=== PATIENT | female | born 1980 | race Caucasian/White ===

== ENCOUNTER 2019-02-28 21:34 | Emergency (ER) | payer OTHER ==
[2019-02-28 23:26] LABS: Potassium 3.6 mmol/L (3.5-5.1)
[2019-03-01] LABS: Absolute Lymphocytes (CBC) 3.3 K/uL (0.7-4.9); Basophils % 0.5 % (0-1.3); Hematocrit 36.9 % (36.0-45.0); Lymphocytes % 31.1 % (15.3-44.8); MPV 8.5 fL (7.6-11.3); RBC Red Blood Cell Count 4.32 M/uL (3.86-4.86)
[2019-03-01] MEDS ORDERED: NA CHLORIDE 0.9% 1,000 ML ONE (00:13)
[2019-03-01 00:19] LABS: Urine Blood TRACE (NEG); Urine Glucose NEGATIVE (NEG); Urine Protein NEGATIVE (NEG); Urine Specific Gravity >1.030 (1.005-1.030); Urine pH 5.5 (5.0-7.0)
--- NOTE | 2019-03-01 01:02 | EDPHYS ---
Physician Documentation [facility] Name: Janine Mcgregor Age: 38 yrs Sex: Female : 1980 Arrival Date: 02/28/2019 Time: 21:37 Bed 14 Private MD: ED Physician Jose Roberto Mccracken HPI: 02/28 23:26 This 38 yrs old Female presents to ER via Unassigned with complaints of kb Dizziness, Weakness. 23:26 The patient presents with dizziness. Onset: The symptoms/episode began/occurred 5 kb week(s) ago. Context: occurred at home, occurred while the patient was walking, just prior to the episode the patient experienced no apparent symptoms. Modifying factors: The symptoms are alleviated by nothing, the symptoms are aggravated by standing up, changing position. Associated signs and symptoms: The patient has no apparent associated signs or symptoms. Severity of symptoms: At their worst the symptoms were moderate in the emergency department the symptoms are unchanged. Patient's baseline: Neuro: alert and fully oriented, Motor: no deficits, Ambulation: walks without assistance, Speech: normal. The patient has not experienced similar symptoms in the past. The patient has not recently seen a physician. Pt reports dizziness for 5 weeks. Today she was walking in [employer] and felt like she was going to pass out so she came in. 7 weeks . Historical: - Allergies: 23:40 PENICILLINS; fu - PMHx: 23:43 Depression; fu - PSHx: 23:43 None; fu - Immunization history:: Adult Immunizations not up to date. - Social history:: Smoking status: Patient/guardian denies using tobacco, never smoked. - Ebola Screening: : No symptoms or risks identified at this time. ROS: 23:26 Constitutional: Negative for fever, chills, and weight loss, Neck: Negative for injury, kb pain, and swelling, Cardiovascular: Negative for chest pain, palpitations, and edema, Respiratory: Negative for shortness of breath, cough, wheezing, and pleuritic chest pain, Abdomen/GI: Negative for abdominal pain, nausea, vomiting, diarrhea, and constipation, Back: Negative for injury and pain, : Negative for injury, bleeding, discharge, and swelling, MS/Extremity: Negative for injury and deformity, Skin: Negative for injury, rash, and discoloration. 23:26 Neuro: Positive for dizziness. Exam: 23:26 Constitutional: This is a well developed, well nourished patient who is awake, alert, kb and in no acute distress. Head/Face: Normocephalic, atraumatic. Eyes: Pupils equal round and reactive to light, extra-ocular motions intact. Lids and lashes normal. Conjunctiva and sclera are non-icteric and not injected. Cornea within normal limits. Periorbital areas with no swelling, redness, or edema. ENT: Nares patent. No nasal discharge, no septal abnormalities noted. Tympanic membranes are normal and external auditory canals are clear. Oropharynx with no redness, swelling, or masses, exudates, or evidence of obstruction, uvula midline. Mucous membranes moist. Neck: Trachea midline, no thyromegaly or masses palpated, and no cervical lymphadenopathy. Supple, full range of motion without nuchal rigidity, or vertebral point tenderness. No Meningismus. Chest/axilla: Normal chest wall appearance and motion. Nontender with no deformity. No lesions are appreciated. Cardiovascular: Regular rate and rhythm with a normal S1 and S2. No gallops, murmurs, or rubs. Normal PMI, no JVD. No pulse deficits. Respiratory: Lungs have equal breath sounds bilaterally, clear to auscultation and percussion. No rales, rhonchi or wheezes noted. No increased work of breathing, no retractions or nasal flaring. Abdomen/GI: Soft, non-tender, with normal bowel sounds. No distension or tympany. No guarding or rebound. No evidence of tenderness throughout. Skin: Warm, dry with normal turgor. Normal color with no rashes, no lesions, and no evidence of cellulitis. MS/ Extremity: Pulses equal, no cyanosis. Neurovascular intact. Full, normal range of motion. Neuro: Awake and alert, GCS 15, oriented to person, place, time, and situation. Cranial nerves II-XII grossly intact. Motor strength 5/5 in all extremities. Sensory grossly intact. Cerebellar exam normal. Normal gait. Vital Signs: 22:41 BP 120 / 77 Supine; Pulse 74; Resp 18; Temp 98.3; Pulse Ox 100% ; Pain 0/10; fu 22:41 BP 113 / 83 Sitting; Pulse 71; Pulse Ox 99% on R/A; fu 22:41 BP 118 / 71 Standing; Pulse 78; Pulse Ox 100% ; Pain 0/10; fu 03/01 00:00 BP 113 / 69; Pulse 71; Resp 17; Pulse Ox 99% ; Pain 0/10; fu 00:48 BP 92 / 61; Pulse 65; Resp 18; Pulse Ox 99% ; Pain 0/10; fu NIH Stroke Scale Scores: 02/28 23:44 NIHSS Score: 0 fu MDM: 22:22 Patient medically screened. kb 23:25 Data reviewed: vital signs, nurses notes. Data interpreted: Pulse oximetry: on room air kb is 100 %. Interpretation: normal. 03/01 00:43 Counseling: I had a detailed discussion with the patient and/or guardian regarding: the kb historical points, exam findings, and any diagnostic results supporting the discharge/admit diagnosis, lab results, the need for outpatient follow up, a family practitioner, to return to the emergency department if symptoms worsen or persist or if there are any questions or concerns that arise at home. ED course: Pt does not want meclizine due to . Educated to increase fluids and change positions slowly. Pt will return for worsening symptoms. . 02/28 22:42 Order name: CBC with Diff; Complete Time: 00:03 kb 02/28 22:42 Order name: Basic Metabolic Panel; Complete Time: 23:27 kb 02/28 22:42 Order name: Urine Dipstick-Ancillary (obtain specimen); Complete Time: 23:25 kb 02/28 23:26 Order name: Urine Dipstick--Ancillary (enter results); Complete Time: 00:22 ar5 02/28 23:26 Order name: Urine --Ancillary (enter results); Complete Time: 00:22 ar5 02/28 22:42 Order name: Orthostatics; Complete Time: 22:43 kb 02/28 22:42 Order name: IV Start; Complete Time: 23:06 kb Administered Medications: 00:13 Drug: NS 0.9% 1000 ml Route: IV; Rate: 1000 ml; Site: left forearm; fu 01:05 Follow up: Response: No adverse reaction fu Disposition: 02:06 Co-signature as Attending Physician, Jose Roberto Mccracken MD. rn Disposition: 03/01/19 01:01 Discharged to Home. Impression: Dizziness and giddiness. - Condition is Stable. - Discharge Instructions: Dizziness, [id number]. - Medication Reconciliation Form, Thank You Letter, Antibiotic Education, Prescription Opioid Use form. - Follow up: Emergency Department; When: As needed; Reason: Worsening of condition. Follow up: Private Physician; When: 2 - 3 days; Reason: Recheck today's complaints, Continuance of care, Re-evaluation by your physician. NIH Stroke Scale - NIH Stroke Score Date: 02/28/2019 Time: 23:44 Total Score = 0 1a. Level of Consciousness (LOC) - 0(Alert) 1b. Level of Consciousness (LOC) (Year \T\ Age) - 0(Both) 1c. LOC Commands (Open \T\ Closes Eyes/Supervisor Drying And Winding) - 0(Both) 2. Best Gaze (Lateral Gaze Paresis) - 0(Normal) 3. Visual Field Loss - 0(No visual loss) 4. Facial Palsy - 0(Normal) 5a. Left Arm: Motor (10-second hold) - 0(No drift) 5b. Right Arm: Motor (10-second hold) - 0(No drift) 6a. Left Leg: Motor (5-second hold - always test supine) - 0(No drift) 6b. Right Leg: Motor (5-second hold - always test supine) - 0(No drift) 7. Limb Ataxia (finger/nose \T\ heel/etienne - test with eyes open) - 0(Absent) 8. Sensory Loss (pinprick arms/legs/face) - 0(Normal) 9. Best Language: Aphasia (description/naming/reading) - 0(No aphasia) 10. Dysarthria (speech clarity - read or repeat words) - 0(Normal) 11. Extinction and Inattention (visual/tactile/auditory/spatial/personal) - 0(No abnormality) Initials: fu Signatures: Dispatcher [employer] EDJennifer Lay, EPIC BEACON ANALYST-C EPIC BEACON ANALYST-Ckb Jose Roberto Mccracken MD MD rn Umadhay, Felix, RN RN fu Corrections: (The following items were deleted from the chart) 01:18 01:01 03/01/2019 01:01 Discharged to Home. Impression: Dizziness and giddiness. fu Condition is Stable. Discharge Instructions: Dizziness, [id number]. Forms are Medication Reconciliation Form, Thank You Letter, Antibiotic Education, Prescription Opioid Use. Follow up: Emergency Department; When: As needed; Reason: Worsening of condition. Follow up: Private Physician; When: 2 - 3 days; Reason: Recheck today's complaints, Continuance of care, Re-evaluation by your physician. kb
--- NOTE | 2019-03-01 01:02 | ER ---
Nurse's Notes [facility] Name: Janine Mcgregor Age: 38 yrs Sex: Female : 1980 Arrival Date: 02/28/2019 Time: 21:37 Bed 14 Private MD: Diagnosis: Dizziness and giddiness Presentation: 02/28 21:40 Presenting complaint: Patient states: weakness, dizziness. Transition of care: patient fu was not received from another setting of care. No acute neurological deficit is noted. Pre-hospital glucose is not applicable to this patient. Onset of symptoms was February 28, 2019. Risk Assessment: Do you want to hurt yourself or someone else? Patient reports no desire to harm self or others. Initial Sepsis Screen: Does the patient meet any 2 criteria? No. Patient's initial sepsis screen is negative. Does the patient have a suspected source of infection? No. Patient's initial sepsis screen is negative. Care prior to arrival: None. 21:40 Method Of Arrival: Ambulatory fu 21:40 Acuity: GRIFFIN 3 fu Triage Assessment: 21:45 The onset of the patients symptoms was more than six hours ago. General: Appears in no fu apparent distress. Behavior is calm, cooperative, appropriate for age. Historical: - Allergies: 23:40 PENICILLINS; fu - PMHx: 23:43 Depression; fu - PSHx: 23:43 None; fu - Immunization history:: Adult Immunizations not up to date. - Social history:: Smoking status: Patient/guardian denies using tobacco, never smoked. - Ebola Screening: : No symptoms or risks identified at this time. Screenin/09 00:39 Abuse screen: Denies threats or abuse. Nutritional screening: No deficits noted. fu Tuberculosis screening: No symptoms or risk factors identified. Fall Risk None identified. Assessment: 02/28 22:00 General: Appears in no apparent distress. Behavior is calm, cooperative, appropriate fu for age, Denies fever, chills. Pain: Denies pain. Neuro: Level of Consciousness is awake, alert, obeys commands, Oriented to person, place, time, situation, [employer] are equal bilaterally Moves all extremities. Full function Gait is steady, Speech is normal, Facial symmetry appears normal, Pupils are PERRLA, Intact Reports dizziness, since today weakness Denies blurred vision difficulty swallowing, numbness headache. Cardiovascular: Denies chest pain, palpitations, shortness of breath, Heart tones S1 S2 Capillary refill < 3 seconds. Respiratory: Airway is patent Breath sounds are clear bilaterally. Denies cough, shortness of breath. GI: No signs and/or symptoms were reported involving the gastrointestinal system. : No signs and/or symptoms were reported regarding the genitourinary system. Derm: No signs and/or symptoms reported regarding the dermatologic system. Musculoskeletal: No signs and/or symptoms reported regarding the musculoskeletal system. 23:52 VAN Scoring: Arm Drift:. VAN Scoring: Visual Disturbance: No visual disturbance noted. fu Aphasia: No aphasia noted. Neglect: No neglect noted. 03/01 01:00 Reassessment: Patient appears in no apparent distress at this time. Patient and/or fu family updated on plan of care and expected duration. Pain level reassessed. Patient is alert, oriented x 3, equal unlabored respirations, skin warm/dry/pink. Vital Signs: 02/28 22:41 BP 120 / 77 Supine; Pulse 74; Resp 18; Temp 98.3; Pulse Ox 100% ; Pain 0/10; fu 22:41 BP 113 / 83 Sitting; Pulse 71; Pulse Ox 99% on R/A; fu 22:41 BP 118 / 71 Standing; Pulse 78; Pulse Ox 100% ; Pain 0/10; fu 03/01 00:00 BP 113 / 69; Pulse 71; Resp 17; Pulse Ox 99% ; Pain 0/10; fu 00:48 BP 92 / 61; Pulse 65; Resp 18; Pulse Ox 99% ; Pain 0/10; fu NIH Stroke Scale Scores: 02/28 23:44 NIHSS Score: 0 fu ED Course: 21:37 Patient arrived in ED. cl3 21:53 Jennifer Don FNP-C [facility]. kb 21:53 Jose Roberto Mccracken MD is Attending Physician. kb 22:29 Tom Irwin, PASTORA is Primary Nurse. fu 23:06 Basic Metabolic Panel Sent. fu 23:06 CBC with Diff Sent. fu 23:35 Triage completed. fu 03/01 00:39 Patient has correct armband on for positive identification. Bed in low position. Call fu light in reach. Side rails up X 1. 01:03 provided with blanket. fu 01:17 No provider procedures requiring assistance completed. IV discontinued, bleeding fu controlled, Pressure dressing applied. Administered Medications: 00:13 Drug: NS 0.9% 1000 ml Route: IV; Rate: 1000 ml; Site: left forearm; fu 01:05 Follow up: Response: No adverse reaction fu Outcome: 01:01 Discharge ordered by MD. schaffer 01:17 Discharged to home ambulatory. fu 01:17 Condition: stable 01:17 Discharge instructions given to patient, Instructed on discharge instructions, follow up and referral plans. Demonstrated understanding of instructions. 01:18 Patient left the ED. fu NIH Stroke Scale - NIH Stroke Score Date: 02/28/2019 Time: 23:44 Total Score = 0 1a. Level of Consciousness (LOC) - 0(Alert) 1b. Level of Consciousness (LOC) (Year \T\ Age) - 0(Both) 1c. LOC Commands (Open \T\ Closes Eyes/Gym Supervisor) - 0(Both) 2. Best Gaze (Lateral Gaze Paresis) - 0(Normal) 3. Visual Field Loss - 0(No visual loss) 4. Facial Palsy - 0(Normal) 5a. Left Arm: Motor (10-second hold) - 0(No drift) 5b. Right Arm: Motor (10-second hold) - 0(No drift) 6a. Left Leg: Motor (5-second hold - always test supine) - 0(No drift) 6b. Right Leg: Motor (5-second hold - always test supine) - 0(No drift) 7. Limb Ataxia (finger/nose \T\ heel/etienne - test with eyes open) - 0(Absent) 8. Sensory Loss (pinprick arms/legs/face) - 0(Normal) 9. Best Language: Aphasia (description/naming/reading) - 0(No aphasia) 10. Dysarthria (speech clarity - read or repeat words) - 0(Normal) 11. Extinction and Inattention (visual/tactile/auditory/spatial/personal) - 0(No abnormality) Initials: fu Signatures: Jennifer Don FNP-C FNP-Tom Kapoor RN RN Patrick Li cl3 Corrections: (The following items were deleted from the chart) 02/28 23:39 23:33 Transition of care: patient was not received from another setting of fu care. fu 23:39 23:33 No acute neurological deficit is noted. Pre-hospital glucose is not fu applicable to this patient. fu 23:33 Onset of symptoms was February 28, 2019 fu fu 23:33 Risk Assessment: Do you want to hurt yourself or someone else? Patient fu reports no desire to harm self or others. fu 23:33 Initial Sepsis Screen: Does the patient meet any 2 criteria? No. fu Patient's initial sepsis screen is negative. Does the patient have a suspected source of infection? No. Patient's initial sepsis screen is negative. fu 23:33 Care prior to arrival: None. fu fu 23:33 Method Of Arrival: Ambulatory fu fu 23:33 Acuity: GRIFFIN 3 fu fu :53 22:00 VAN Scoring: fu fu
[2019-03-01 01:28] VITALS: TEMP 98.3
[2019-03-01 01:31] VITALS: O2SAT 99
[2019-03-01 01:32] VITALS: BP 92/61
== END 2019-03-01 01:18 | disposition home or self-care (01) ==
LOC: ER 21:34
DX: R42 Dizziness and giddiness (principal); Z88.0 Allergy status to penicillin
CPT/HCPCS: 85025; 80048; 36415; 81025; 81003; 99283; J7030

== ENCOUNTER 2019-08-09 17:21 | Emergency (ER) | payer OTHER ==
--- OUTSIDE RECORDS SUMMARY | 2019-08-09 17:29 | XMS REPORT | Summary of Care ---
:[address] [facility] Address [address] [place] [address] Care Team Providers Name Role Phone Nallely Dutta Primary Care Provider Reason for Referral (Routine) Status Reason Specialty Diagnoses / Referred By Referred To Procedures Contact Contact New Request Maternal Diagnoses History of anxiety Nallely Dutta Medicine Procedures CONSULT/REFERRAL MATERNAL MEDICINE FACULTY/FELLOW Preferred location: NELLY Orosco [address] [place] [address] Reason for Visit Reason Comments Initial Visit Encounter Details Date Type Department Care Team Description 07/18/2019 Initial [facility]- Nallely Dutta upervision of high risk in first trimester (Primary Dx); Visit NELLY Orosco Grand multiparity, antepartum; [address] [facility] [address] AMA (advanced maternal age) multigravida 35+, first trimester; [place] History of anxiety; [address] [place], [place] History of depression; [phone] [id number] Morbid obesity; [phone] BMI 45.0-49.9, adult Allergies Active Allergy Reactions Severity Noted Date Comments Penicillins Hives, Swelling 07/18/2019 documented as of this encounter (statuses as of 07/18/2019) Medications Medication Sig Dispensed Refills Start Date End Date Status SERTraline (ZOLOFT) 50 Take 50 mg by 0 Active mg tabletIndications: mouth daily. History of anxiety CLINDAMYCIN HCL ORAL Take 300 mg by 0 Active mouth. documented as of this encounter (statuses as of 07/18/2019) Active Problems Problem Noted Date Supervision of high risk in first trimester 07/18/2019 Grand multiparity, antepartum 07/18/2019 AMA (advanced maternal age) multigravida 35+, first tr imester 07/18/2019 History of anxiety 07/18/2019 History of depression 07/18/2019 Morbid obesity 07/18/2019 BMI 45.0-49.9, adult 07/18/2019 Estimated Date of Delivery Comments Yes 03/01/2020 Based on last menstr ual period of 05/26/2019 (Exact Date) documented as of this encounter (statuses as of 07/18/2019) Social History Tobacco Use Types Packs/Day Years Used Date Never Smoker Smokeless Tobacco: Never Used Alcohol Use Drinks/Week oz/Week Comments Not Currently Estimated Date of Delivery Comments Yes 03/01/2020 Based on last menstr ual period of 05/26/2019 (Exact Date) Sex Assigned at Date Recorded Not on file Job Start Date Occupation Industry Not on file Not on file Not on file Travel History Travel Start Travel End No recent travel history available. COVID-19 Exposure Response Date Recorded In the last month, have you been in contact with No / Unsure 07/18/2019 1:06 PM CDT someone who was confirmed or suspected to have Coronavirus / COVID-19? documented as of this encounter Last Filed Vital Signs Vital Sign Reading Time Taken Comments Blood Pressure 123/82 07/18/2019 1:06 PM CDT Pulse 99 07/18/2019 1:06 PM CDT Temperature 36.4 C (97.5 F) 07/18/2019 1:06 PM CDT Respiratory Rate 16 07/18/2019 1:06 PM CDT Oxygen Saturation - - Inhaled Oxygen Concentration - - Weight 129.8 kg (286 lb 1 oz) 07/18/2019 1:06 PM CDT Height 167.6 cm (5' 6") 07/18/2019 1:06 PM CDT Body Mass Index 46.17 07/18/2019 1:06 PM CDT documented in this encounter Progress Notes Nallely Dutta FNP - 07/18/2019 12:45 PM CDT Chief complaint: Chief Complaint Patient presents with Initial Visit HPI CC: Initial Visit Janine Mcgregor is a 39 year old, , /White female. Patient's last menstrual period was 05/26/2019 (exact date). She is 7w4d with an intrauterine . Her Estimated Date of Delivery: 03/01/20. She is being seen today for her first obstetrical visit. She has no complaints today. Patient is a grand multiparous woman with this being her 10th pregnancyand baby. She is also AMA and reports s history of anxiety and depression and on medication. Patientstates she need to be on medication and has been on medication since 2008. She reports +FM and denies contractions, LOF and bleeding today. Patient denies current or past physical, sexual or emotional abuse. OB History Para Term AB Living 10 9 9 9 SAB TAB Ectopic Multiple Live Births 9 # Outcome Date GA Lbr Paul/2nd Weight Sex Delivery Anes PTL Lv 10 Current 9 Term 01/10/19 39w0d 7 lb 12 oz (3.515 kg) M NORMAL SPONT RYAN 8 Term 09/05/16 39w0d 8 lb 6 oz (3.799 kg) M NORMAL SPONT RYAN 7 Term 05/08/15 39w0d M NORMAL SPONT RYAN 6 Term 09/07/11 39w0d 8 lb 12 oz (3.969 kg) F NORMAL SPONT RYAN 5 Term 06/18/09 39w0d 7 lb (3.175 kg) F NORMAL SPONT RYAN 4 Term 06/20/07 39w0d 9 lb 6 oz (4.252 kg) F NORMAL SPONT RYAN 3 Term 03/12/04 40w0d 8 lb 9 oz (3.884 kg) M NORMAL SPONT RYAN 2 Term 12/11/99 40w0d 8 lb 4 oz (3.742 kg) F NORMAL SPONT RYAN 1 Term 02/21/98 40w0d 8 lb 7 oz (3.827 kg) F NORMAL SPONT RYAN Histories OB History Para Term AB Living 10 9 9 9 SAB TAB Ectopic Multiple Live Births 9 # Outcome Date GA Lbr Paul/2nd Weight Sex Delivery Anes PTL Lv 10 Current 9 Term 01/10/19 39w0d 7 lb 12 oz (3.515 kg) M NORMAL SPONT RYAN 8 Term 09/05/16 39w0d 8 lb 6 oz (3.799 kg) M NORMAL SPONT RYAN 7 Term 05/08/15 39w0d M NORMAL SPONT RYAN 6 Term 09/07/11 39w0d 8 lb 12 oz (3.969 kg) F NORMAL SPONT RYAN 5 Term 06/18/09 39w0d 7 lb (3.175 kg) F NORMAL SPONT RYAN 4 Term 06/20/07 39w0d 9 lb 6 oz (4.252 kg) F NORMAL SPONT RYAN 3 Term 03/12/04 40w0d 8 lb 9 oz (3.884 kg) M NORMAL SPONT RYAN 2 Term 12/11/99 40w0d 8 lb 4 oz (3.742 kg) F NORMAL SPONT RYAN 1 Term 02/21/98 40w0d 8 lb 7 oz (3.827 kg) F NORMAL SPONT RYAN Past Medical History: Diagnosis Date Anxiety 2008 on medication, managed by Dr. Colindres Depression 2008 on medication, managed by Dr. Colindres Heart murmur Pap smear abnormality of cervix 2016 had Cyro Family History Problem Relation Age of Onset Ovarian Cancer Mother Breast Cancer Mother No Significant Medical Problems Father Breast Cancer Maternal Grandmother Family Status Relation Name Status Mo Fa Alive MGMo History reviewed. No pertinent surgical history. Social History Socioeconomic History Marital status: Spouse name: Not on file Number of children: Not on file Years of education: Not on file Highest education level: Not on file Occupational History Not on file Social Needs Financial resource strain: Not on file Food insecurity: Worry: Not on file Inability: Not on file Transportation needs: Medical: Not on file Non-medical: Not on file Tobacco Use Smoking status: Never Smoker Smokeless tobacco: Never Used Substance and Sexual Activity Alcohol use: Not Currently Drug use: Never Sexual activity: Yes Partners: Male control/protection: None Comment: 07/11/2019 Lifestyle Physical activity: Days per week: Not on file Minutes per session: Not on file Stress: Not on file Relationships Social connections: Talks on phone: Not on file Gets together: Not on file Attends caodaism service: Not on file Active member of club or organization: Not on file Attends meetings of clubs or organizations: Not on file Relationship status: Not on file Intimate partner violence: Fear of current or ex partner: Not on file Emotionally abused: Not on file Physically abused: Not on file Forced sexual activity: Not on file Other Topics Concern Not on file Social History Narrative Not on file Social History Substance and Sexual Activity Sexual Activity Yes Partners: Male control/protection: None Comment: 07/11/2019 Genetic Screen Autism / Mental Retardation: No Kanchan Disease: No Congenital Heart Defect: No Cystic Fibrosis: No Down Syndrome: No Familial Dysautonomia: No Hemophilia or other Blood Disorders: No Hudspeth Chorea: No Maternal Metabolic Disorder--specify (eg. Type 1 Diabetes, PKU): No Muscular Dystrophy: No Neural Tube Defect: No Recurrent Loss or a Stillbirth: No Sickle Cell Disease or Trait: No Srikanth Sachs: No Teratological Substances (specify type & strength/dose) since LMP: No Thalassemia: No Other Inherited Genetic or Chromosomal Disorder (specify): No No Significant History of Genetic Disorders: No Significant History of Genetic Disorders Labs Labs are pending. Radiology No new radiology. Allergies Janine is allergic to pcn [penicillins]. Medications Janine has a current medication list which includes the following prescription(s): clindamycin hcl and sertraline. Review of Systems Constitutional: Negative for activity change, appetite change, fatigue, unexpected weight change, weight gain and weight loss. HENT: Negative for sore throat. Eyes: Negative for visual disturbance. Respiratory: Negative for cough and shortness of breath. Breasts: Negative for discharge, mass, pain and unequal size. Cardiovascular: Negative for chest pain, palpitations and leg swelling. Gastrointestinal: Negative. Negative for abdominal pain, anal bleeding, blood in stool, constipation, diarrhea, nausea, rectal pain and vomiting. Genitourinary: Negative for bladder incontinence, dysuria, urgency, flank pain, vaginal bleeding, vaginal discharge, genital sores, vaginal pain and pelvic pain. Skin: Negative for color change and rash. Neurological: Negative. Negative for dizziness, syncope and headaches. Psychiatric/Behavioral: Negative for confusion, self-injury and sleep disturbance. The patient is not nervous/anxious. Hematological: Negative for cold intolerance and heat intolerance. Endocrine: Negative for hair loss, cold intolerance, heat intolerance, weight gain and weight loss. BP 123/82 (BP Location: Right arm, Patient Position: Sitting, BP CUFF SIZE: Adult Large) | Pulse 99 | Temp 36.4 C (97.5 F) (Oral) | Resp 16 | Ht 5' 6" (1.676 m) | Wt 286 lb 1 oz (129.8 kg) | LMP 05/26/2019 (Exact Date) | BMI 46.17 kg/m Pregravid BMI: 46.2 Physical Exam Vitals reviewed. Constitutional: She is oriented to person, place, and time. She appears well- developed, well-nourished and well-groomed. She has no deformities. Neck: No tenderness and no mass. No thyroid nodules and no thyromegaly palpated. Cardiovascular: Regular rate and rhythm. No murmur auscultated. Pulmonary/Chest: Breath sounds clear to auscultation. Normal inspiratory effort. Abdominal: Abdomen is soft. No mass palpated. No tenderness present. There is no guarding. Neuro/Psychiatric: She has a normal mood and affect. She is oriented to person, place, and time. Skin: Skin normal. No lesion and no rash present. Breast: Right breast exhibits no mass, no nipple discharge and no tenderness. Left breast exhibits no mass, no nipple discharge and no tenderness. Normal left breast and normal right breast Rectal: normal rectum External genitalia: Normal external genitalia appropriate for age. Normal hair distribution. No labial lesion. Vagina:Normal vagina. No lesion inspected. No abnormal vaginal discharge found. Cervix: Normal cervix. No lesion. No tenderness and no discharge present. Closed/50/-3 Uterus: Uterus is normal size and non-tender. 10cmNormal uterus Adnexa: Right adnexa without tenderness or mass. Left adnexa without tenderness or mass. Normal leftadnexa and normal right adnexa Anus/perineum: Normal perineum. PHYSICAL: General Exam: HEENT: Normal Thyroid: Normal Lymph Node: Normal Neurological: Normal Abdomen: Normal Skin: Normal Extremities: Normal Pelvic Exam: Vulva: Normal Vagina: Normal Cervix: Normal Closed/50/-3 Uterus: 10cm Weeks Adnexa: Normal Spines: Average Sacrum: Concave Subpubic Arch: Normal Assessment/Plan Supervision of high risk in first trimester (primary encounter diagnosis) Grand multiparity, antepartum AMA (advanced maternal age) multigravida 35+, first trimester Comment: Routine Visit Plan: GLUCOSE 1 HOUR POST PRANDIAL, POCT TEST, POCT URINALYSIS W/O SPECIFIC GRAVITY, CBC WITH DIFF, GC & CHLAMYDIA AMPLIFIED ASSAY, HEPATITIS B SURFACE ANTIGEN, HIV 1/2 AG-AB WITH REFLEX, POCT URINALYSIS W SPECIFIC GRAVITY, WORKUP, BLOOD BANK, RUBELLA SCREEN (CRYSTAL) IGG, GALV ONLY - SYPHILIS IGG/IGM, URINE CULTURE, VZV ANTIBODY SCREEN, WORKUP, BLOOD BANK, VZV ANTIBODY SCREEN, URINE CULTURE, GALV ONLY - SYPHILIS IGG/IGM, RUBELLA SCREEN (CRYSTAL) IGG, HIV 1/2 AG-AB WITH REFLEX, HEPATITIS B SURFACE ANTIGEN, GC & CHLAMYDIA AMPLIFIED ASSAY, CBC WITH DIFF, CBC WITH DIFFERENTIAL Denies zika virus risk, signs and symptoms such as fever,rash,joint pain, conjunctivitis (red eyes), muscle pain, headaches; outside [place] travel to areas affected by zika, and FOB exposure to zika.Educated on use of mosquito repellent. History of anxiety History of depression Comment: see HPI Plan: SERTraline (ZOLOFT) 50 mg tablet, CONSULT/REFERRAL MATERNAL MEDICINE FACULTY/FELLOW Preferred location: [place] Morbid obesity BMI 45.0-49.9, adult Comment: BMI: 46.17 Plan: Patient encouraged to limit weight gain and advised to eat healthy diet, fruits, vegetables, increased fiber and water intake and protein low in fat. Encouraged exercise for 30 min everyday; begin regimen with caution to prevent injury. Encouraged to decrease BMI to <25. Return to clinic in 4 weeks with MFM. Discussed treatment options. Medications as ordered. Reviewed patient instructions and provided printed copy. This visit did not involve counseling and coordination that comprised more than 50% of the visit time. NELLY Peoples 07/18/2019 2:11 PM Maria De Jesus Stokes RN - 07/18/2019 12:45 PM CDTPatient is 39 year old female here for current . Patient is . 1) Previous delivery methods Vaginal 2) Patient is not experiencing cramping 3) Patient is not experiencing bleeding. 4) LMP 05/26/2019 5) Last Pap was: 02/2018 Results: Negative per patient report 6) Have you had a flu vaccine this season? mp 7) PPD candidate? mp 8) Patient having lower abdominal cramping 9) Patient denies history of physical, emotional, or sexual abuse. Patient states she currently feels safe at home. New ob packet given and discussed with patient. MARIA DE JESUS STOKES RN 07/18/2019 1:24 PM documented in this encounter Plan of Treatment Date Type Specialty Care Team Description 08/13/2019 Routine Visit OB Satellites Faculty, Edmund Macias p m Name Type Priority Associated Diagnoses Date/Ti me GLUCOSE 1 HOUR POST LAB Routine Supervision of high r isk 07/18/2019 2:04 PM PRANDIAL in first CDT trimester CBC WITH DIFF LAB Routine Supervision of high risk 2:04 PM in first CDT trimester GC & CHLAMYDIA AMPLIFIED LAB Routine Supervision of h igh risk 07/18/2019 2:11 PM ASSAY in first CDT trimester HEPATITIS B SURFACE LAB Routine Supervision of high r isk 07/18/2019 2:04 PM ANTIGEN in first CDT trimester HIV 1/2 AG-AB WITH REFLEX LAB Routine Supervision of high risk 07/18/2019 2:04 PM in first CDT trimester RUBELLA SCREEN (CRYSTAL) LAB Routine Supervision of hig h risk 07/18/2019 2:04 PM IGG in first CDT trimester GALV ONLY - SYPHILIS LAB Routine Supervision of high risk 07/18/2019 2:04 PM IGG/IGM in first CDT trimester URINE CULTURE LAB Routine Supervision of high risk 2:11 PM in first CDT trimester VZV ANTIBODY SCREEN LAB Routine Supervision of high r isk 07/18/2019 2:04 PM in first CDT trimester CBC WITH DIFFERENTIAL LAB Routine Supervision of high risk 07/18/2019 2:04 PM in first CDT trimester Name Type Priority Associated Diagnoses Order S chedule CBC WITH DIFF LAB Routine Supervision of high risk Ex pected: 07/18/2019, in first Expires: 07/17/2020 trimester GC & CHLAMYDIA LAB Routine Supervision of high risk E xpected: 07/18/2019, AMPLIFIED ASSAY in first s: 07/17/2020 trimester HEPATITIS B SURFACE LAB Routine Supervision of high r isk Expected: 07/18/2019, ANTIGEN in first Expires: 07/17/2020 trimester HIV 1/2 AG-AB WITH LAB Routine Supervision of high ri sk Expected: 07/18/2019, REFLEX in first Expires: 07/17/2020 trimester POCT URINALYSIS W LAB Routine Supervision of high ris k 20 Occurrences starting SPECIFIC GRAVITY in first 07/17 until trimester 05/13/2020 WORKUP, BLOOD LAB Routine Supervision of hig h risk Expected: 07/18/2019, BANK in first Expires: 07/17/2020 trimester RUBELLA SCREEN (CRYSTAL) LAB Routine Supervision of hig h risk Expected: 07/18/2019, IGG in first Expires: 07/17/2020 trimester GALV ONLY - SYPHILIS LAB Routine Supervision of high risk Expected: 07/18/2019, IGG/IGM in first Expires: 07/17/2020 trimester URINE CULTURE LAB Routine Supervision of high risk Ex pected: 07/18/2019, in first Expires: 07/17/2020 trimester VZV ANTIBODY SCREEN LAB Routine Supervision of high r isk Expected: 07/18/2019, in first Expires: 07/17/2020 trimester Health Maintenance Due Date Last Done Comments PAP SMEAR 06/18/2003 INFLUENZA VACCINE (Season Ended) 2019 DTaP,Tdap,and Td Vaccines (1 - 07/17/2020 P ostponed from 1993 Tdap) ( or Farrah astfeeding) VARICELLA VACCINES (1 of 2 - 07/17/2020 Pos tponed from 06/18/1983 2-dose childhood series) (Altern ative Guidelines) PNEUMOCOCCAL 0-64 YEARS COMBINED Aged Out No longer eligible based on SERIES patient's age to complete this topic documented as of this encounter Procedures Procedure Name Priority Date/Time Associated Diagnosis Comme nts POCT TEST Routine 07/18/2019 1:09 Supervision of hi gh Results for this PM CDT risk in procedure are in first trimester the results section. POCT URINALYSIS W/O Routine 07/18/2019 1:08 Supervision of hi gh Results for this SPECIFIC GRAVITY PM CDT risk in proced ure are in first trimester the results section. documented in this encounter Results POCT TEST (07/18/2019 1:09 PM CDT) Pathologist Sig nature POCT PREG Positive On board controls acceptable Yes with C Line POCT PREG LOT # POCT PREG TEST DATE Specimen Urine - URINE, CLEAN CATCH POCT URINALYSIS W/O SPECIFIC GRAVITY (07/18/2019 1:08 PM CDT) Pathologist Sig nature POCT PH U 7 5 - 8 mg/dl POCT U LEUK EST trace Negative - Negative POCT U NIT pos Negative - Negative POCT U PROT trace Negative - Negative POCT U GLU neg Negative - Negative POCT U KETONE neg Negative - Negative POCT U BLD neg Negative - Negative Specimen Urine - URINE, CLEAN CATCH documented in this encounter Visit Diagnoses Diagnosis Supervision of high risk in rst trimester - Primary Unspecified high-risk Grand multiparity, antepartum Grand multiparity in labor and delivery, antepartum condition or complication AMA (advanced maternal age) multigravida 35+, first trimester History of anxiety Personal history of other mental disorde r History of depression Personal history of other mental disorde r Morbid obesity BMI 45.0-49.9, adult Body Mass Index 45.0-49.9, adult documented in this encounter Insurance Payer Benefit Plan / Subscriber ID Effective Phone Address T ype Group Dates MEDICAID MEDICAID PENDING 2019-[address] P[place] [address] [place] [address] documented as of this encounter Advance Directives Name Relationship Healthcare Agent Communication Relationship Chris Mckay Spouse Primary healthcare agent
--- OUTSIDE RECORDS SUMMARY | 2019-08-09 17:29 | XMS REPORT | Summary of Care ---
:1980 Author Organization [facility] Address [address] [place] [address] Care Team Providers Name Role Phone Nallely Dutta LEARNING SUPPORT AIDE Primary Care Provider Reason for Referral (Routine) Status Reason Specialty Diagnoses / Referred By Referred To Procedures Contact Contact New Request Maternal Diagnoses Supervision of high risk in first trimester Nallely Dutta Medicine Procedures CONSULT MATERNAL MEDICINE ULTRASOUND R, LEARNING SUPPORT AIDE [address] [place] [address] Reason for Visit Reason Comments Assessment bleeding and cramping Encounter Details Date Type Department Care Team Description 08/09/2019 Telephone [facility]- Nallely Dutta, As sessment (bleeding [place] LEARNING SUPPORT AIDE and cramping) [address] [facility] [place] [address] [place] [address] [place], [place] [phone] [address] [phone] Allergies Active Allergy Reactions Severity Noted Date Comments Penicillins Hives, Swelling 07/18/2019 documented as of this encounter (statuses as of 08/09/2019) Medications Medication Sig Dispensed Refills Start Date End Date Status SERTraline (ZOLOFT) 50 Take 50 mg by 0 Active mg tabletIndications: mouth daily. History of anxiety CLINDAMYCIN HCL ORAL Take 300 mg by 0 Active mouth. documented as of this encounter (statuses as of 08/09/2019) Active Problems Problem Noted Date Supervision of [...] as of this encounter (statuses as of 08/09/2019) Social History Tobacco Use Types Packs/Day Years [...] of this encounter Last Filed Vital Signs Not on filedocumented in this encounter Plan of Treatment Date Type Specialty Care Team Description 08/13/2019 Routine Visit OB Satellites Cade Conner MD [address] [place] [address] [facility] Health Maintenance Due Date Last Done Comments Depression Screening 1994 PAP SMEAR 06/18/2003 INFLUENZA VACCINE (Season Ended) 2019 DTaP,Tdap,and Td Vaccines (1 - 07/17/2020 P ostponed from 1993 Tdap) ( or Farrah astfeeding) PNEUMOCOCCAL 0-64 YEARS COMBINED Aged Out No longer eligible based on SERIES patient's age to complete this topic documented as of this encounter Results Not on filedocumented in this encounter Visit Diagnoses Diagnosis Supervision of high risk in fi rst trimester - Primary Unspecified high-risk documented in this encounter Insurance Payer Benefit Plan / Subscriber ID Effective Dates Phone Addre ss Type Group [employer] MEDICAID OF xxxxxxxxx 2019-Present [phone] Medicaid [place] [id number] [place] [id number] documented as of this encounter Advance Directives Name Relationship Healthcare Agent Communication Relationship Chris Mckay Spouse Primary healthcare agent
--- OUTSIDE RECORDS SUMMARY | 2019-08-09 17:29 | XMS REPORT | Summary of Care ---
:1980 Author Organization [facility] Address [address] [place] [address] Care Team Providers Name Role Phone Nallely Dutta WINDER HELPER Primary Care Provider Reason for Visit Reason Comments Assessment bleeding and cramping Encounter Details Date Type Department Care Team Description 08/09/2019 [address]phone [facility]- Nallely Dutta, As sessment (bleeding [place] WINDER HELPER and cramping) [address] [facility] [address] [place] [address] [place], [place] [phone] [address] [phone] Allergies Active Allergy Reactions Severity Noted Date [...] OB Satellites Cade Conner MD [address] [place] [address] Faculty, Edmund [facility] Health Maintenance Due Date Last Done Comments Depression Screening 1994 PAP SMEAR 06/18/2003 INFLUENZA VACCINE (Season Ended) 2019 DTaP,Tdap,and Td Vaccines (1 - 07/17/2020 P ostponed from 1993 Tdap) ( or Farrah astfeeding) PNEUMOCOCCAL 0-64 YEARS COMBINED Aged Out No longer eligible based on SERIES patient's age to complete this topic documented as of this encounter Results Not on filedocumented in this encounter Insurance Payer Benefit Plan / Subscriber ID Effective Dates Phone Addre ss Type Group [facility] MEDICAID OF xxxxxxxxx 2019-Present [phone] [address] Medicaid [place] [address] [place] [address] documented as of this encounter Advance Directives Name Relationship Healthcare Agent Communication Relationship Chris Mckay Spouse Primary healthcare agent
--- OUTSIDE RECORDS SUMMARY | 2019-08-09 17:29 | XMS REPORT | Summary of Care ---
:1980 Author Organization [facility] Address [address] [place] [address] Care Team Providers Name Role Phone Unavailable Primary Care Provider Unavailable Reason for Visit Reason Comments Appointment Encounter Details Date Type Department Care Team Description 07/18/2019 Telephone [facility]- A Nallely Roberts, NELLY Appointment [address] [facility] [address] [place] [address] [address] [place] [address] [phone] Allergies Not on Filedocumented as of this encounter (statuses as of 07/18/2019) Medications Not on filedocumented as of this encounter (statuses as of 07/18/2019) Active Problems Not on filedocumented as of this encounter (statuses as of 07/18/2019) Social History Tobacco Use Types Packs/Day Years Used Date Never Assessed Sex Assigned at Date Recorded Not on file Job Start Date Occupation Industry Not on file Not on file Not on file Travel History Travel Start Travel End No recent travel history available. documented as of this encounter Last Filed Vital Signs Not on filedocumented in this encounter Plan of Treatment Health Maintenance Due Date Last Done Comments VARICELLA VACCINES (1 of 2 - 06/18/1983 2-dose childhood series) DTaP,Tdap,and Td Vaccines (1 - 1993 Tdap) PAP SMEAR 06/18/2003 INFLUENZA VACCINE (Season Ended) 2019 PNEUMOCOCCAL 0-64 YEARS COMBINED Aged Out No longer eligible based on SERIES patient's age to complete this topic documented as of this encounter Results Not on filedocumented in this encounter
--- OUTSIDE RECORDS SUMMARY | 2019-08-09 17:29 | XMS REPORT | Summary of Care ---
:1980 Author Organization [facility] - Health Address [address] [place] [address] Care Team Providers Name Role Phone Unavailable Primary Care Provider Unavailable Encounter Details Date Type Department Care Team Description 07/18/2019 Orders Only [facility] Doctor Unassigned, No [address] [facility] [place] [address] [address] [place] [address] Allergies Not on Filedocumented as of this [...] Name Priority Date/Time Associated Diagnosis Comme nts NOTICE OF PRIVACY Routine 07/18/2019 12:46 PM CDT PRACTICES documented in this encounter Results Not on filedocumented in this encounter
--- OUTSIDE RECORDS SUMMARY | 2019-08-09 17:29 | XMS REPORT | Summary of Care ---
:1980 Author Organization [facility] Address [address] [place] [address] Care Team Providers Name Role Phone Nallely Dutta REDUCING SYSTEM OPERATOR Primary Care Provider Reason for Referral (Routine) Status Reason Specialty Diagnoses / Referred By Referred To Procedures Contact Contact Authorized Maternal Diagnoses Supervision of high risk in first trimester Nallely Dutta Medicine Procedures CONSULT MATERNAL MEDICINE ULTRASOUND R, REDUCING SYSTEM OPERATOR [address] [place] [address] Reason for Visit Reason Comments Assessment bleeding and cramping Encounter Details Date Type Department Care Team Description 08/09/[address] [facility]- Nallely Dutta, As sessment (bleeding [place] REDUCING SYSTEM OPERATOR and cramping) 110[address] [facility] [address] [place] [address] [place], [place] [phone] [address] [phone] Allergies Active Allergy Reactions Severity Noted Date [...] been in contact with No / Unsure 08/09/2019 1:53 PM CDT someone who was confirmed or suspected to have Coronavirus / COVID-19? documented as of this encounter Last Filed Vital Signs Not on filedocumented in this encounter Plan of Treatment Date Type Specialty Care Team Description 08/10/2019 Dehydrogenation Supervisor Visit Maternal 3, [facility] Us Medicine Room 08/13/2019 Routine Visit OB Satellites Cade Conner MD [address] [place] [address] Faculty, [facility] Health Maintenance Due Date Last Done Comments [...] in rst trimester - Primary Unspecified high-risk documented in this encounter Insurance Payer Benefit Plan / Subscriber ID Effective Dates Phone Addre ss Type Group [place] [employer] [place] xxxxxxxxx 2019-Present Medicaid HEALTH PLAN - HEALTH MANAGED MEDICAID documented as of this encounter Advance Directives Name Relationship Healthcare Agent Communication Relationship Chrisjanina Mckay Spouse Primary healthcare agent
--- OUTSIDE RECORDS SUMMARY | 2019-08-09 17:29 | XMS REPORT | Summary of Care ---
:1980 Author Organization [facility] - Health Address [address] [place] [address] Care Team Providers Name Role Phone Nallely Dutta [facility] Primary Care Provider Encounter Details Date Type Department Care Team Description 07/26/2019 Orders Only [facility] Doctor Unassigned, No 301 [facility] [place] [address] [address] [place] [address] Allergies Active Allergy Reactions Severity Noted Date Comments Penicillins Hives, Swelling 07/18/2019 documented as of this encounter (statuses as of 07/27/2019) Medications Medication Sig Dispensed Refills Start Date End Date Status SERTraline (ZOLOFT) Take 50 mg by 0 Active 50 mg mouth daily. tabletIndications: History of anxiety CLINDAMYCIN HCL ORAL Take 300 mg by 0 Active mouth. Nitrofurantoin&Nit. Take 1 capsule 20 capsule 0 07/23/201912/2019 Active Macrocryst (MACROBID) by mouth 2 (two) 100 mg times daily for capsuleIndications: 10 days. Urinary tract infection without hematuria, site unspecified documented as of this encounter (statuses as of 07/27/2019) Active Problems Problem Noted Date Supervision of [...] as of this encounter (statuses as of 07/27/2019) Social History Tobacco Use Types Packs/Day Years [...] 08/13/2019 Routine Visit OB Satellites Faculty, [facility] Health Maintenance Due Date Last Done Comments Depression Screening 1994 PAP SMEAR 06/18/2003 INFLUENZA VACCINE (Season Ended) 2019 DTaP,Tdap,and Td Vaccines ( - 07/17/2020 P ostponed from 1993 Tdap) ( or Farrah astfeeding) PNEUMOCOCCAL 0-64 YEARS COMBINED Aged Out No longer eligible based on SERIES patient's age to complete this topic documented as of this encounter Procedures Procedure Name Priority Date/Time Associated Diagnosis Comme nts EXTERNAL PROVIDER Routine 07/26/2019 12:01 AM CDT RECORDS documented in this encounter Results Not on filedocumented in this encounter Insurance Payer Benefit Plan / Subscriber ID Effective Dates Phone Addre ss Type Group [facility] MEDICAID OF xxxxxxxxx 2019-Present [phone] Medicaid [place] [address] [place] [address] documented as of this encounter Advance Directives Name Relationship Healthcare Agent Communication Relationship Chris Mckay Spouse Primary healthcare agent
--- OUTSIDE RECORDS SUMMARY | 2019-08-09 17:30 | XMS REPORT | Continuity of Care Document ---
:1980 Author Organization [facility] t Address [address] [place] [address] Care Team Providers Name Role Phone Nallely Mcallister Attending Clinician Problems This patient has no known problems. Allergies, Adverse Reactions, Alerts This patient has no known allergies or adverse reactions. Medications This patient has no known medications. Procedures This patient has no known procedures. Encounters Start End Encounter Admission Attending Care Care Encounter Source Date/Time Date/Time Type Type Clinicians Facility Department ID 2019-08-09 2019-08-09 Telephone PA Dutta [id number] 00:00:00 00:00:00 Nallely Ho CNA LTC [id number] [facility] [id number] MATERNAL [id number] & CHILD [address] [place] [address] Results This patient has no known results.
[2019-08-09 20:03] LABS: Basophils % 0.5 % (0-1.3); Hematocrit 42.9 % (36.0-45.0); Lymphocytes % 22.7 % (15.3-44.8); MPV 8.4 fL (7.6-11.3)
[2019-08-09 20:12] LABS: Potassium 3.8 mmol/L (3.5-5.1)
--- NOTE | 2019-08-09 21:14 | RAD REPORT ---
EXAM DESCRIPTION: US - OB Limited - 08/09/2019 9:05 pm CLINICAL HISTORY: Abdominal pain/ COMPARISON: None FINDINGS: The uterus measures 13 x 7 x 8 centimeters. A gestational sac is present within the endome trium measuring 19 x 7 x 19 millimeters. The gestational sac lies within the lower uterine segment. A yolk sac is present. A pole is not seen. Right and left ovary normal in size and echotexture. Right and left adnexal unremarkable No significant free fluid IMPRESSION: Intrauterine . The estimated gestational age 6 weeks 3 days. A pole is no t seen. The gestational sac lies within the lower uterine segment which may indicate that an impendin g will happen. It is recommended that the patient have a followup endovaginal sonogram in 1 week.
--- NOTE | 2019-08-09 21:28 | EDPHYS ---
Physician Documentation [facility] Name: Janine Mcgregor Age: 39 yrs Sex: Female : 1980 Arrival Date: 08/09/2019 Time: 17:25 Bed 6 Private MD: ED Physician Sathya Hickey HPI: 08/08 21:08 This 39 yrs old Female presents to ER via Ambulatory with complaints of tw4 Vaginal Bleeding, + Preg <12wks. 21:08 The patient presents to the emergency department with vaginal bleeding, that is tw4 moderate, with no clots. The estimated gestational age is 10 weeks. course: care: private OB physician. Previous pregnancies: in previous pregnancies patient has had vaginal delivery. Associated signs and symptoms: The patient has no apparent associated signs or symptoms. The patient has not experienced similar symptoms in the past. TOWEL WEAVER: 20:31 LMP 05/26/2019 rr5 21:08 10, Full Term 9 tw4 Historical: - Allergies: 17:48 PENICILLINS; ss - PMHx: 17:48 Depression; ss - Immunization history:: Adult Immunizations up to date. - Social history:: Smoking status: Patient denies any tobacco usage or history of. ROS: 21:09 Constitutional: Negative for fever, chills, and weight loss, Eyes: Negative for injury, tw4 pain, redness, and discharge, Cardiovascular: Negative for chest pain, palpitations, and edema, Respiratory: Negative for shortness of breath, cough, wheezing, and pleuritic chest pain, Abdomen/GI: Negative for abdominal pain, nausea, vomiting, diarrhea, and constipation, Back: Negative for injury and pain, MS/Extremity: Negative for injury and deformity, Skin: Negative for injury, rash, and discoloration. Exam: 21:09 Constitutional: This is a well developed, well nourished patient who is awake, alert, tw4 and in no acute distress. Head/Face: Normocephalic, atraumatic. Chest/axilla: Normal chest wall appearance and motion. Nontender with no deformity. No lesions are appreciated. Cardiovascular: Regular rate and rhythm with a normal S1 and S2. No gallops, murmurs, or rubs. Normal PMI, no JVD. No pulse deficits. Respiratory: Lungs have equal breath sounds bilaterally, clear to auscultation and percussion. No rales, rhonchi or wheezes noted. No increased work of breathing, no retractions or nasal flaring. Abdomen/GI: Soft, non-tender, with normal bowel sounds. No distension or tympany. No guarding or rebound. No evidence of tenderness throughout. MS/ Extremity: Pulses equal, no cyanosis. Neurovascular intact. Full, normal range of motion. Neuro: Awake and alert, GCS 15, oriented to person, place, time, and situation. Cranial nerves II-XII grossly intact. Motor strength 5/5 in all extremities. Sensory grossly intact. Cerebellar exam normal. Normal gait. 08/09 05:33 : Pelvic Exam: The exam is refused by the patient/guardian. The risks and tw4 consequences are understood by the patient. Vital Signs: 08/08 17:45 BP 154 / 88; Pulse 97; Resp 17; Temp 98.4(TE); Pulse Ox 100% on R/A; Weight 127.01 kg; ss Height 5 ft. 6 in. (167.64 cm); 20:31 BP 138 / 68; Pulse 95; Resp 17; Temp 97.9; Pulse Ox 100% ; rr5 21:00 BP 138 / 68; Pulse 106; Resp 18; Pulse Ox 100% ; ea 21:47 BP 131 / 75; Pulse 85; Resp 19; Temp 97.9; Pulse Ox 99% ; rr5 17:45 Body Mass Index 45.19 (127.01 kg, 167.64 cm) ss MDM: 21:10 Data reviewed: vital signs, nurses notes, lab test result(s), CBC, electrolytes, tw4 radiologic studies, ultrasound. Data interpreted: Pulse oximetry: Interpretation: normal. Counseling: I had a detailed discussion with the patient and/or guardian regarding: the historical points, exam findings, and any diagnostic results supporting the discharge/admit diagnosis. Special discussion: I discussed with the patient/guardian in detail that at this point there is no indication for admission to the hospital. It is understood, however, that if the symptoms persist or worsen the patient needs to return immediately for re-evaluation. ED course: marketing technology specialist states that yolk sac present without pole. No evidence of ectopic. 21:27 Differential diagnosis: delivery of infant, ectopic . Test interpretation: by tw4 ED physician or midlevel provider: not applicable. 21:27 Patient medically screened. [facility] 08/08 19:15 Order name: Abo/rh Typing; Complete Time: 21:09 [facility] 08/08 21:10 Interpretation: Within normal limits. 08/08 19:15 Order name: Basic Metabolic Panel; Complete Time: 21:09 [facility] [place] 08/08 21:10 Interpretation: Normal except: GFR 77. [facility] [place] 08/08 19:15 Order name: CBC with Diff; Complete Time: 21:09 [facility] [place] 08/08 21:10 Interpretation: Normal except: MCV 91.2; WBC 13.4. [facility] 08/08 21:24 Order name: HCG-Quantitative [facility] 08/08 21:31 Order name: Urine Dipstick--Ancillary (enter results) [facility] 08/08 21:31 Order name: Urine --Ancillary (enter results) [facility] 08/08 19:15 Order name: IV Saline Lock; Complete Time: 19:49 [facility] 08/08 19:15 Order name: Labs collected and sent; Complete Time: 19:49 [facility] 08/08 19:15 Order name: NPO; Complete Time: 19:49 [facility] 08/08 19:15 Order name: Urine Dipstick-Ancillary (obtain specimen); Complete Time: 21:07 [facility] 08/08 19:15 Order name: US OB Limited; Complete Time: 21:49 [facility] 08/08 21:49 Interpretation: No acute disease except. tw4 Administered Medications: No medications were administered Point of Care Testing: Urine : 21:00 hCG Reading: Positive; Control Reading: Positive; rr5 Disposition: 08/09/19 21:27 Discharged to Home. Impression: Threatened . - Condition is Stable. - Discharge Instructions: Threatened Miscarriage, Vaginal Bleeding During , First Trimester, [id number]. - Medication Reconciliation Form, Thank You Letter, Antibiotic Education, Prescription Opioid Use form. - Follow up: Private Physician; When: Upon discharge from the Emergency Department; Reason: Recheck today's complaints, Continuance of care, Re-evaluation by your physician. - Problem is new. - Symptoms have improved. Signatures: Dispatcher [employer] EDAR Bozena Renae RN RN Sathya Hickey MD MD 4 Stone, Gilberto, RN RN rr5 Corrections: (The following items were deleted from the chart) 21:51 21:27 08/09/2019 21:27 Discharged to Home. Impression: Threatened . Condition rr5 is Stable. Forms are Medication Reconciliation Form, Thank You Letter, Antibiotic Education, Prescription Opioid Use. Follow up: Private Physician; When: Upon discharge from the Emergency Department; Reason: Recheck today's complaints, Continuance of care, Re-evaluation by your physician. Problem is new. Symptoms have improved. tw4
--- NOTE | 2019-08-09 21:28 | ER ---
Nurse's Notes [facility] Name: Janine Mcgregor Age: 39 yrs Sex: Female : 1980 Arrival Date: 08/09/2019 Time: 17:25 Bed 6 Private MD: Diagnosis: Threatened Presentation: 08/08 17:45 Chief complaint: Patient states: Approximately 7 weeks . Pt reports vaginal ss bleeding that began today. Coronavirus screen: Proceed with normal triage. Patient denies a cough. Patient denies shortness of breath or difficulty breathing. Patient denies measured and/or subjective temperature greater than 100.4F prior to today's visit. Patient denies travel on a cruise ship or to a country the [facility] currently lists as an affected area. Patient denies contact with known and/or suspected case of COVID-19. Ebola Screen: Patient denies exposure to infectious person. Patient denies travel to an Ebola-affected area in the 21 days before illness onset. Initial Sepsis Screen: Does the patient meet any 2 criteria? Yes Does the patient have a suspected source of infection? No. Patient's initial sepsis screen is negative. Risk Assessment: Do you want to hurt yourself or someone else? Patient reports no desire to harm self or others. Onset of symptoms was August 08, 2019. 17:45 Method Of Arrival: Ambulatory ss 17:45 Acuity: GRIFFIN 3 ss [employer]UITMENT [employer]: 20:31 LMP 05/26/2019 rr5 21:08 10, Full Term 9 tw4 Historical: - Allergies: 17:48 PENICILLINS; ss - PMHx: 17:48 Depression; ss - Immunization history:: Adult Immunizations up to date. - Social history:: Smoking status: Patient denies any tobacco usage or history of. Screenin:00 Abuse screen: Denies threats or abuse. Denies injuries from another. Nutritional rr5 screening: No deficits noted. Tuberculosis screening: No symptoms or risk factors identified. Fall Risk IV access (20 points). Total Jacques Fall Scale indicates No Risk (0-24 pts). Assessment: 19:20 General: Appears in no apparent distress. comfortable, Behavior is calm, cooperative, rr5 appropriate for age. 19:20 Pain: Complains of pain in right lower quadrant and left lower quadrant Pain does not rr5 radiate. Pain Quality of pain is described as crampy, Pain began 1 day ago. Is intermittent. Neuro: Level of Consciousness is awake, alert, obeys commands, Oriented to person, place, time, situation. Cardiovascular: Capillary refill < 3 seconds Patient's skin is warm and dry. Respiratory: Airway is patent Respiratory effort is even, unlabored, Respiratory pattern is regular, symmetrical. GI: Patient currently denies nausea, vomiting. : Reports cramping, vaginal bleeding that is bright red, with clots, moderate flow. EENT: No signs and/or symptoms were reported regarding the EENT system. Derm: Skin is intact, is healthy with good turgor, Skin temperature is warm. Musculoskeletal: Circulation, motion, and sensation intact. Capillary refill < 3 seconds. 20:20 Reassessment: Patient appears in no apparent distress at this time. Patient is alert, rr5 oriented x 3, equal unlabored respirations, skin warm/dry/pink. ultrasound at bedside. 20:50 Reassessment: from ultrasound staff no heart tone detected. rr5 21:46 Reassessment: Patient appears in no apparent distress at this time. Patient is alert, rr5 oriented x 3, equal unlabored respirations, skin warm/dry/pink. discharge instruction given and explained without complaints made. Vital Signs: 17:45 BP 154 / 88; Pulse 97; Resp 17; Temp 98.4(TE); Pulse Ox 100% on R/A; Weight 127.01 kg; ss Height 5 ft. 6 in. (167.64 cm); 20:31 BP 138 / 68; Pulse 95; Resp 17; Temp 97.9; Pulse Ox 100% ; rr5 21:00 BP 138 / 68; Pulse 106; Resp 18; Pulse Ox 100% ; ea 21:47 BP 131 / 75; Pulse 85; Resp 19; Temp 97.9; Pulse Ox 99% ; rr5 17:45 Body Mass Index 45.19 (127.01 kg, 167.64 cm) Vitals: 20:40 Heart Tones 0 beats from ultrasound. rr5 ED Course: 17:25 Patient arrived in ED. ag5 17:48 Triage completed. ss 17:48 Arm band placed on right wrist. ss 19:06 Gilberto Stone RN is Primary Nurse. rr5 19:18 Sathya Hickey MD is Attending Physician. tw4 19:45 Inserted saline lock: 20 gauge in right hand, using aseptic technique. Blood collected. rr5 20:20 Patient has correct armband on for positive identification. Bed in low position. Call rr5 light in reach. Pulse ox on. NIBP on. 21:05 US OB Limited In Process Unspecified. EDMS 21:47 No provider procedures requiring assistance completed. IV discontinued, intact, rr5 bleeding controlled, No redness/swelling at site. Pressure dressing applied. Administered Medications: No medications were administered Point of Care Testing: Urine : 21:00 hCG Reading: Positive; Control Reading: Positive; rr5 Outcome: 21:27 Discharge ordered by . tw4 21:47 Discharged to home ambulatory, with family. rr5 21:47 Condition: stable 21:47 Discharge instructions given to patient, Instructed on discharge instructions, follow up and referral plans. Demonstrated understanding of instructions, follow-up care. 21:51 Patient left the ED. rr5 Signatures: Dispatcher [employer] EDKS Bozena Renae RN RN ss Antunez, Elena, RN RN ea Wadley, Terrence, MD MD tw4 Gilberto Stone RN RN rr5 Jo-Ann Hernandez 5
[2019-08-09 21:50] LABS: Urine Blood 3+ (NEG); Urine Glucose NEGATIVE (NEG); Urine Protein 1+ (NEG); Urine Specific Gravity >1.030 (1.005-1.030); Urine pH 5.5 (5.0-7.0)
[2019-08-09 22:15] VITALS: TEMP 97.9
[2019-08-09 22:17] VITALS: BP 131/75; O2SAT 99
== END 2019-08-09 21:51 | disposition home or self-care (01) ==
LOC: ER 17:21
DX: O20.0 Threatened abortion (principal); Z88.0 Allergy status to penicillin
CPT/HCPCS: 36415; 76815; 80048; 81003; 81025; 84702; 85025; 86900; 86901; 99284

== ENCOUNTER 2019-08-10 18:43 | Emergency (ER) | payer OTHER ==
--- OUTSIDE RECORDS SUMMARY | 2019-08-10 18:47 | XMS REPORT | Summary of Care ---
:1980 Author Organization [facility] Address [address] [place] [address] Care Team Providers Name Role Phone Nallely Dutta [facility] Primary Care Provider Reason for Visit Reason Comments ULTRASOUND (Routine) Status Reason Specialty Diagnoses / Referred By Referred To Procedures Contact Contact Authorized Maternal Diagnoses Supervision of high risk in first trimester Nallely Dutta Medicine Procedures CONSULT MATERNAL MEDICINE ULTRASOUND [place], [facility] [address] [place] [address] Encounter Details Date Type Department Care Team Description 08/10/2019 Customer Support Professional Visit [facility] Women's Pearl Suarez MD [address] [facility] [id number] [place] [address] Supervision of elderly multigravida in f irst trimester; [place] [address], [facility] Us Room Supervision of high-risk with grand multiparity in first trimester [facility] Clinics [address] [facility] [place] [address] Allergies Active Allergy Reactions Severity Noted Date Comments Penicillins Hives, Swelling 07/18/2019 documented as of this encounter (statuses as of 08/10/2019) Medications Medication Sig Dispensed Refills Start Date End Date Status SERTraline (ZOLOFT) 50 Take 50 mg by 0 Active mg tabletIndications: mouth daily. History of anxiety CLINDAMYCIN HCL ORAL Take 300 mg by 0 Active mouth. documented as of this encounter (statuses as of 08/10/2019) Active Problems Problem Noted Date Supervision of [...] as of this encounter (statuses as of 08/10/2019) Social History Tobacco Use Types Packs/Day Years [...] been in contact with No / Unsure 08/10/2019 8:34 AM CDT someone who was confirmed or suspected to have Coronavirus / COVID-19? documented as of this encounter Last Filed Vital Signs Not on filedocumented in this encounter Plan of Treatment Date Type Specialty Care Team Description 08/13/2019 Routine Visit OB Satellites Cade Conner MD [address] [place] [address] Faculty, Edmund [facility] 08/24/2019 Customer Support Professional Visit Maternal 1, [facility] Usg Medicine Room Health Maintenance Due Date Last Done Comments [...] this encounter Visit Diagnoses Diagnosis Supervision of elderly multigravida in f irst trimester Supervision of high-risk of [place] multigravida Supervision of high-risk with grand multiparity in first trimester documented in this encounter Insurance Payer Benefit Plan / Subscriber ID Effective Dates Phone Addre ss Type Group [place] [employer] [place] [employer] xxxxxxxxx 2019-Present Medicaid HEALTH PLAN [place] [address] documented as of this encounter Advance Directives Name Relationship Healthcare Agent Communication Relationship Chrisjanina Mckay Spouse Primary healthcare agent
--- OUTSIDE RECORDS SUMMARY | 2019-08-10 18:47 | XMS REPORT | Continuity of Care Document ---
:1980 Author Organization [facility] t Address [address] [place] [address] Care Team Providers Name Role Phone 3, [facility] Room Attending Clinician Unavailable Georgia Mcallister Attending Clinician Problems This patient has no known problems. Allergies, Adverse Reactions, Alerts This patient has no known allergies or adverse reactions. Medications This patient has no known medications. Procedures This patient has no known procedures. Encounters Start End Encounter Admission Attending Care Care Encounter Source Date/Time Date/Time Type Type Clinicians Facility Department ID 2019-08-10 2019-08-10 News Videographer 3, [facility]ERSIT [id number] 08:35:12 10:02:08 Visit [facility] [id number] [facility] [id number] 2019-08-09 2019-08-09 Telephone PA Dutta [id number] 00:00:00 00:00:00 Nallely Ho COMPUTER INSTRUCTOR [id number] [facility] [id number] MATERNAL [id number] & CHILD [address] [place] [address] Results This patient has no known results.
[2019-08-10 20:44] LABS: Absolute Lymphocytes (CBC) 2.5 K/uL (0.7-4.9); Basophils % 0.5 % (0-1.3); Hematocrit 39.4 % (36.0-45.0); MPV 8.2 fL (7.6-11.3); RBC Red Blood Cell Count 4.35 M/uL (3.86-4.86)
[2019-08-10 20:52] LABS: Potassium 3.8 mmol/L (3.5-5.1)
--- NOTE | 2019-08-10 21:25 | ER ---
Nurse's Notes [facility] Name: Janine Mcgregor Age: 39 yrs Sex: Female : 1980 Arrival Date: 08/10/2019 Time: 19:06 Bed 27 Private MD: Diagnosis: Threatened Presentation: 08/09 19:07 Chief complaint: Patient states: Bleeding has gotten worse and more painful for 2 days. ll1 Here last night, no pole found. Coronavirus screen: Proceed with normal triage. Patient denies a cough. Patient denies shortness of breath or difficulty breathing. Patient denies measured and/or subjective temperature greater than 100.4F prior to today's visit. Patient denies travel on a cruise ship or to a country the [facility] currently lists as an affected area. Patient denies contact with known and/or suspected case of COVID-19. Ebola Screen: Patient denies travel to an Ebola-affected area in the 21 days before illness onset. Initial Sepsis Screen: Does the patient meet any 2 criteria? HR > 90 bpm. No. Patient's initial sepsis screen is negative. Risk Assessment: Do you want to hurt yourself or someone else? Patient reports no desire to harm self or others. Onset of symptoms was August 08, 2019. 19:07 Method Of Arrival: Ambulatory ll1 19:07 Acuity: GRIFFIN 3 ll1 19:34 Initial Sepsis Screen: Does the patient have a suspected source of infection? No. ea Patient's initial sepsis screen is negative. 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 - Social history:: Smoking status: Patient denies any tobacco usage or history of. Patient/guardian denies using alcohol, street drugs, tobacco products. Screenin:34 Abuse screen: Denies threats or abuse. Nutritional screening: No deficits noted. ea Tuberculosis screening: No symptoms or risk factors identified. Fall Risk None identified. Assessment: 19:33 General: Appears uncomfortable, Behavior is appropriate for age. Pain: Complains of ea pain in suprapubic area. Neuro: Level of Consciousness is awake, alert, obeys commands, Oriented to person, place, time, situation. Cardiovascular: Patient's skin is warm and dry. Respiratory: Airway is patent Respiratory effort is even, unlabored, Respiratory pattern is regular, symmetrical. : Reports vaginal bleeding that is with clots, heavy flow. Derm: Skin is pink, warm \T\ dry. 20:50 Reassessment: Patient and/or family updated on plan of care and expected duration. Pain ea level reassessed. Patient is alert, oriented x 3, equal unlabored respirations, skin warm/dry/pink. 21:40 Reassessment: Patient and/or family updated on plan of care and expected duration. Pain ea level reassessed. Patient is alert, oriented x 3, equal unlabored respirations, skin warm/dry/pink. Discharge instruction given to patient, verbalized the understanding of instruction. Pt left ED ambulatory accompanied by daughter, pt tolerating well. Vital Signs: 19:07 BP 142 / 87; Pulse 100; Resp 18; Temp 97.7; Pulse Ox 100% ; Weight 127.01 kg; Height 5 ll1 ft. 6 in. (167.64 cm); Pain 4/10; 20:21 BP 137 / 84; Pulse 92; Resp 18; Pulse Ox 100% ; ea 21:41 BP 130 / 80; Pulse 88; Resp 18; Temp 97.8; Pulse Ox 98% ; ea 19:07 Body Mass Index 45.19 (127.01 kg, 167.64 cm) ll1 ED Course: 19:06 Patient arrived in ED. bp1 19:09 Triage completed. ll1 19:10 Arm band placed on. ll1 19:17 Elizabeth Tatum, PASTORA is Primary Nurse. ea 19:34 Patient has correct armband on for positive identification. Bed in low position. Call ea light in reach. 19:41 Sathya Hickey MD is Attending Physician. tw4 21:15 Assist provider with pelvic exam: Set up pelvic tray. Performed by Sathya Hickey MD, ea Patient tolerated well. 21:24 Ba Clancy MD is Referral Physician. tw4 21:24 Parish Rios MD is Referral Physician. tw4 21:24 Tesha Love MD is Referral Physician. tw4 21:30 Patient did not have IV access during this emergency room visit. ea Administered Medications: No medications were administered Outcome: : Discharge ordered by . vidya : Discharged to home ambulatory, with family. damion : Condition: stable :41 Discharge instructions given to patient, Instructed on discharge instructions, follow up and referral plans. Demonstrated understanding of instructions, follow-up care. 21:42 Patient left the ED. ea Signatures: Elizabeth Tatum RN RN Sathya Yoon MD MD tw4 Mahendra Nevarez RN RN ll1 Jovana Suarez [facility]
--- NOTE | 2019-08-10 21:25 | EDPHYS ---
Physician Documentation [facility] Name: Janine Mcgregor Age: 39 yrs Sex: Female : 1980 Arrival Date: 08/10/2019 Time: 19:06 Bed 27 Private MD: ED Physician Sathya Hickey HPI: 08/09 20:56 This 39 yrs old Female presents to ER via Ambulatory with complaints of LOSS tw4 OF BLOOD(PREG. 7-8WKS). 20:56 The patient presents with vaginal bleeding that is moderate, with clots. Onset: The tw4 symptoms/episode began/occurred yesterday. Modifying factors: The symptoms are alleviated by nothing, the symptoms are aggravated by nothing. Associated signs and symptoms: The patient has no apparent associated signs or symptoms. Severity of symptoms: At their worst the symptoms were moderate, in the emergency department the symptoms are unchanged. The patient has not experienced similar symptoms in the past. 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 - Social history:: Smoking status: Patient denies any tobacco usage or history of. Patient/guardian denies using alcohol, street drugs, tobacco products. ROS: 20:56 Positive for vaginal bleeding, Negative for injury or acute deformity, urinary tw4 symptoms, urinary frequency, hematuria, pelvic pain, flank pain, burning with urination, difficulty urinating, bladder incontinence, foul smelling urine, vaginal itching, menstrual abnormality. 20:56 Constitutional: Negative for fever, chills, and weight loss, Eyes: Negative for injury, pain, redness, and discharge, Cardiovascular: Negative for chest pain, palpitations, and edema, Respiratory: Negative for shortness of breath, cough, wheezing, and pleuritic chest pain, Abdomen/GI: Negative for abdominal pain, nausea, vomiting, diarrhea, and constipation, Back: Negative for injury and pain, MS/Extremity: Negative for injury and deformity, Skin: Negative for injury, rash, and discoloration, Neuro: Negative for headache, weakness, numbness, tingling, and seizure. Exam: 20:56 Constitutional: This is a well developed, well nourished patient who is awake, alert, tw4 and in no acute distress. Eyes: Pupils equal round and reactive to light, extra-ocular motions intact. Lids and lashes normal. Conjunctiva and sclera are non-icteric and not injected. Cornea within normal limits. Periorbital areas with no swelling, redness, or edema. 21:23 Cardiovascular: Regular rate and rhythm with a normal S1 and S2. No gallops, murmurs, tw4 or rubs. Normal PMI, no JVD. No pulse deficits. Respiratory: Lungs have equal breath sounds bilaterally, clear to auscultation and percussion. No rales, rhonchi or wheezes noted. No increased work of breathing, no retractions or nasal flaring. Abdomen/GI: Soft, non-tender, with normal bowel sounds. No distension or tympany. No guarding or rebound. No evidence of tenderness throughout. 21:23 : Pelvic Exam: External exam: is normal, Speculum exam: mild bleeding, blood clots in vaginal vault, no cervicitis, os that is closed, a female data keyer was present for the exam. Vital Signs: 19:07 BP 142 / 87; Pulse 100; Resp 18; Temp 97.7; Pulse Ox 100% ; Weight 127.01 kg; Height 5 ll1 ft. 6 in. (167.64 cm); Pain 4/10; 20:21 BP 137 / 84; Pulse 92; Resp 18; Pulse Ox 100% ; ea 21:41 BP 130 / 80; Pulse 88; Resp 18; Temp 97.8; Pulse Ox 98% ; ea 19:07 Body Mass Index 45.19 (127.01 kg, 167.64 cm) ll1 MDM: 19:42 Patient medically screened. tw4 21:23 Differential diagnosis: placenta previa, hemorrhage, uterine fibroids. Data tw4 reviewed: vital signs, nurses notes. Data interpreted: Pulse oximetry: Interpretation:. Counseling: I had a detailed discussion with the patient and/or guardian regarding: the historical points, exam findings, and any diagnostic results supporting the discharge/admit diagnosis. Special discussion: I discussed with the patient/guardian in detail that at this point there is no indication for admission to the hospital. It is understood, however, that if the symptoms persist or worsen the patient needs to return immediately for re-evaluation. 21:23 Data reviewed: lab test result(s), CBC, electrolytes. [facility] 08/09 19:20 Order name: Abo/rh Typing; Complete Time: 21:21 08/09 21:21 Interpretation: Within normal limits. [facility] 08/09 19:20 Order name: Basic Metabolic Panel; Complete Time: 21:21 08/09 21:21 Interpretation: Normal except: GLUC 110; GFR 73. [facility] 08/09 19:20 Order name: CBC with Diff; Complete Time: 21:21 08/09 21:21 Interpretation: Normal except: WBC 14.0. [facility] 08/09 19:42 Order name: US OB Limited [facility] 08/09 21:13 Order name: HCG-Quantitative 08/09 19:20 Order name: Labs collected and sent; Complete Time: 20:40 08/09 19:20 Order name: NPO; Complete Time: 20:20 Administered Medications: No medications were administered Disposition: 08/10/19 21:25 Discharged to Home. Impression: Threatened . - Condition is Stable. - Discharge Instructions: Threatened Miscarriage, Vaginal Bleeding During , First Trimester, First Trimester of . - Medication Reconciliation Form, Thank You Letter, Antibiotic Education, Prescription Opioid Use form. - Follow up: Ba Clancy MD; When: Upon discharge from the Emergency Department; Reason: Recheck today's complaints, Continuance of care, Re-evaluation by your physician. Follow up: Parish Rios MD; When: Upon discharge from the Emergency Department; Reason: Recheck today's complaints, Continuance of care, Re-evaluation by your physician. Follow up: Tesha Love MD; When: Upon discharge from the Emergency Department; Reason: Recheck today's complaints, Continuance of care, Re-evaluation by your physician. - Problem is an ongoing problem. - Symptoms have worsened. Signatures: Dispatcher [employer] Elizabeth Miller RN Sathya Al ea, MD MD tw4 Mahendra Nevarez RN RN ll1 Corrections: (The following items were deleted from the chart) 21:42 21:25 08/10/2019 21:25 Discharged to Home. Impression: Threatened . Condition ea is Stable. Forms are Medication Reconciliation Form, Thank You Letter, Antibiotic Education, Prescription Opioid Use. Follow up: Ba Clancy; When: Upon discharge from the Emergency Department; Reason: Recheck today's complaints, Continuance of care, Re-evaluation by your physician. Follow up: Parish Rios; When: Upon discharge from the Emergency Department; Reason: Recheck today's complaints, Continuance of care, Re-evaluation by your physician. Follow up: Tesha Love; When: Upon discharge from the Emergency Department; Reason: Recheck today's complaints, Continuance of care, Re-evaluation by your physician. Problem is an ongoing problem. Symptoms have worsened. tw4
[2019-08-10 21:54] VITALS: BP 130/80; TEMP 97.8; O2SAT 98
== END 2019-08-10 21:42 | disposition home or self-care (01) ==
LOC: ER 18:43
DX: O20.0 Threatened abortion (principal); Z3A.08 8 weeks gestation of pregnancy; Z88.0 Allergy status to penicillin
CPT/HCPCS: 36415; 80048; 84702; 85025; 86900; 86901; 99283

== ENCOUNTER 2019-10-20 00:30 | Emergency (ER) | payer OTHER ==
--- OUTSIDE RECORDS SUMMARY | 2019-10-20 00:32 | XMS REPORT | Summary of Care ---
:1980 Author Organization [facility] Address [address] [place] [address] Care Team Providers Name Role Phone Nallely DuttaP Primary Care Provider Reason for Visit Reason Comments Auth/Cert Status Reason Specialty Diagnoses / Referred By Referred To Procedures Contact Contact OB Satellites Procedures [facility] [address] [place] [address] Fax: Encounter Details Date Type Department Care Team Description 08/13/2019 Telemedicine Visit [facility] Ashlie Conner MD [address] [place] [address] Complete miscarriage (Primary Dx); Rosine Faculty, [facility] History of depression; [address] [place] [address] Allergies Active Allergy Reactions Severity Noted Date Comments Penicillins Hives, Swelling 07/18/2019 documented as of this encounter (statuses as of 08/13/2019) Medications Medication Sig Dispensed Refills Start Date End Date Status SERTraline (ZOLOFT) 50 Take 50 mg by 0 Active mg tabletIndications: mouth daily. History of anxiety CLINDAMYCIN HCL ORAL Take 300 mg by 0 Active mouth. documented as of this encounter (statuses as of 08/13/2019) Active Problems Problem Noted Date Supervision of high risk in first trimester 07/18/2019 Grand multiparity, antepartum 07/18/2019 AMA (advanced maternal age) multigravida 35+, first tr imester 07/18/2019 History of anxiety 07/18/2019 History of depression 07/18/2019 Morbid obesity 07/18/2019 BMI 45.0-49.9, adult 07/18/2019 documented as of this encounter (statuses as of 08/13/2019) Social History Tobacco Use Types Packs/Day Years Used Date Never Smoker Smokeless Tobacco: Never Used Alcohol Use Drinks/Week oz/Week Comments Not Currently Sex Assigned at Date Recorded Not on [...] Signs Not on filedocumented in this encounter Progress Notes Brendon Oates MD - 08/13/2019 8:30 AM CDT TELEHEALTH NOTE Verbal consent obtained from Patient: Janine Mcgregor due to the COVID-19 pandemic for telehealth services provided below. Communication with patient was conducted via Telephone due to patient unable to obtain video call option. Location of Patient: Home Location of Provider: Clinic Date of Service: 08/13/2019 Chief Complaint: Anxiety and depression in , now with miscarriage. HPI: Janine Mcgregor is a 39 year old at 11w2d. Reports miscarriage on 08/10/19, started having heavy bleeding. Went to [place] and was diagnosed with miscarriage, reports fall in hcg quant. She reports that she is doing well right now, reports just some spotting, no cramping. She is saddened about the loss, reports that her depression is doing okay in light of the loss and she continuesto taker her Zoloft. Past Medical History: Diagnosis Date Anxiety 2008 on medication, managed by Dr. Colindres Depression 2008 on medication, managed by Dr. Colindres Heart murmur Pap smear abnormality of cervix 2016 had Cyro MEDICATIONS: Current Outpatient Medications Medication Sig Dispense Refill CLINDAMYCIN HCL ORAL Take 300 mg by mouth. SERTraline (ZOLOFT) 50 mg tablet Take 50 mg by mouth daily. No current facility-administered medications for this visit. ROS Constitutional: Negative for activity change. Eyes: Negative for visual disturbance. Respiratory: Negative for shortness of breath. Cardiovascular: Negative for chest pain and palpitations. Gastrointestinal: Negative for abdominal pain, nausea and vomiting. Genitourinary: Negative for dysuria and urgency. Neurological: Negative for headaches. Psychiatric/Behavioral: Sad from recent loss, grieving TELEHEALTH EXAM Normal respirations, NO SOB observed over phone call Alert and communicating appropriately No distres ASSESSMENT/ PLAN Janine Mcgregor is a 39 year old who presents for consult for anxiety and depression, now with miscarriage Anxiety and depression in - Patient reports symptoms overall well controlled continues on Zoloft Miscarriage - Reports heavy bleeding on Tuesday, went to [place] and was diagnosed with miscarriage and falling Hcg quants - Plan to request records, patient to be seen in [facility] clinic for follow-up Early - 1st trimester US with 15.1mm GS, repeat US in 2 weeks Follow-up Follow up with local [facility] provider. After visit summary (AVS ) documentation will be available through Slated for this encounter. A total of 10 minutes was spent on the Telephone due to patient unable to obtain video call option. 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 Automatic Visit Maternal 1, [facility] Usg Room Medicine Health Maintenance Due Date Last Done Comments [...] filedocumented in this encounter Visit Diagnoses Diagnosis Complete miscarriage - Primary Complete spontaneous without me ntion of complication History of depression Personal history of other mental disorde r History of anxiety Personal history of other mental disorde r documented in this encounter Insurance Payer Benefit Plan / Subscriber ID Effective Dates Phone Addre ss Type Group [place] [employer] [place] xxxxxxxxx 2019-Present Medicaid HEALTH PLAN - HEALTH MANAG[place] [address] documented as of this encounter Advance Directives Name Relationship Healthcare Agent Communication Relationship Chrisjanina Mckay Spouse Primary healthcare agent
--- OUTSIDE RECORDS SUMMARY | 2019-10-20 00:32 | XMS REPORT | Continuity of Care Document ---
:1980 Author Organization [facility] t Address [address] [place] [address] Care Team Providers Name Role Phone Faculty, Edmund Frias [facility] Attending Clinician Unavailable 3, [facility]ician Unavailable Tra VILLEGAS R Attending Clinician Problems This patient has no known problems. Allergies, Adverse Reactions, Alerts This patient has no known allergies or adverse reactions. Medications This patient has no known medications. Procedures This patient has no known procedures. Encounters Start End Encounter Admission Attending Care Care Encounter Source Date/Time Date/Time Type Type Clinicians Facility Department ID 2019-08-13 2019-08-13 Telemedici Faculty, [facility] [id number] 08:14:37 08:41:58 ne Visit Edmund Frias INSTALLER MOLDING AND TRIM [id number] [facility] [id number] MATERNAL [id number] & CHILD [address] [facility] [[email or web address]] 2019-08-13 2019-08-13 Telephone Faculty, [facility] [id number] 00:00:00 00:00:00 Edmund Maciaschsasha INSTALLER MOLDING AND TRIM [id number] [facility] [id number] MATERNAL [id number] & CHILD [address] [facility] [[email or web address]] 2019-08-10 2019-08-10 Hose Operator 3, [facility] UNIVERSIT [id number] 08:35:12 10:02:08 Visit [facility] [id number] [facility] [id number] 2019-08-09 2019-08-09 Telephone DuttaPA [id number] 00:00:00 00:00:00 Nallely Ho INSTALLER MOLDING AND TRIM [id number] [facility] [id number] MATERNAL [id number] & CHILD [address] [place] [address] Results This patient has no known results.
--- OUTSIDE RECORDS SUMMARY | 2019-10-20 00:33 | XMS REPORT | Summary of Care ---
:1980 Author Organization [facility] Address [address] [place] [address] Care Team Providers Name Role Phone Nallely Dutta SWAMPER Primary Care Provider Reason for Visit Reason Comments Talk To Nurse Encounter Details Date Type Department Care Team Description 08/13/2019 [facility]phone [facility], [facility] Talk To Nurse [address] [place] [address] Allergies Active Allergy Reactions Severity Noted Date [...] 08/22/2019 Routine Visit OB Satellites Nallely Dutta, SWAMPER [address] [place], [place] [address] [phone] 08/24/2019 Thermo Processor Visit Maternal 1, [facility] Us Room Medicine Health Maintenance Due Date Last [...] Effective Dates Phone Addre ss Type Group [place] [facility] [place] CHILDRENS xxxxxxxxx 2019-Present Medicaid HEALTH PLAN - HEALTH MANAGED MEDICAID documented as of this encounter Advance Directives Name Relationship Healthcare Agent Communication Relationship Chris Mckay Spouse Primary healthcare agent
[2019-10-20 02:26] LABS: Absolute Lymphocytes (CBC) 3.2 K/uL (0.7-4.9); Basophils % 0.5 % (0-1.3); Hematocrit 37.1 % (36.0-45.0); Lymphocytes % 26.2 % (15.3-44.8); RBC Red Blood Cell Count 4.16 M/uL (3.86-4.86)
[2019-10-20 02:28] LABS: Protime INR 1.03
[2019-10-20 03:13] LABS: Urine Blood 3+ (NEG); Urine Glucose NEGATIVE (NEG); Urine Protein NEGATIVE (NEG); Urine Specific Gravity 1.025 (1.005-1.030)
[2019-10-20] MEDS ORDERED: MECLIZINE HCL 12.5 MG TAB ONE (03:16)
[2019-10-20 03:21] LABS: ALT/SGPT 39 U/L (12-78); AST/SGOT 16 U/L (15-37); Albumin 3.7 g/dL (3.4-5.0); Alkaline Phosphatase 50 U/L (45-117); BUN Blood Urea Nitrogen 15 mg/dL (7-18); Bicarbonate 27 mmol/L (21-32); Bilirubin Direct < 0.1 mg/dL (0-0.2); Bilirubin Total 0.5 mg/dL (0.2-1.0); Glucose Level 108 mg/dL (74-106); Magnesium 2.2 mg/dL (1.8-2.4); NT PRO-BNP 19 pg/mL (<125); Potassium 4.1 mmol/L (3.5-5.1); Protein, Total 7.9 g/dL (6.4-8.2); Sodium Level 142 mmol/L (136-145); Troponin (Emerg Dept Use Only) < 0.02 ng/mL (0.0-0.045)
--- NOTE | 2019-10-20 03:51 | ER ---
Nurse's Notes [facility] Name: Janine Mcgregor Age: 39 yrs Sex: Female : 1980 Arrival Date: 10/20/2019 Time: 00:32 Bed 15 Private MD: Diagnosis: Dizziness and giddiness Presentation: 10/19 00:40 Chief complaint: Patient states: I have been getting flashes in my eye and went to see jb4 the eye Dr. they did not find anything and now it feels like my brain is being jolted. It is causing me to get dizzy and I feel like I am going to pass out. 00:40 Coronavirus screen: Client denies travel out of the [place] in the last 14 days. At this jb4 time, the client does not indicate any symptoms associated with coronavirus-19. Ebola Screen: No symptoms or risks identified at this time. Initial Sepsis Screen: Does the patient meet any 2 criteria? No. Patient's initial sepsis screen is negative. Does the patient have a suspected source of infection? No. Patient's initial sepsis screen is negative. Risk Assessment: Do you want to hurt yourself or someone else? Patient reports no desire to harm self or others. Onset of symptoms was October 05, 2019. Transition of care: patient was not received from another setting of care. 00:40 Method Of Arrival: Ambulatory jb4 00:40 Acuity: GRIFFIN 3 jb4 Historical: - Allergies: 00:40 PENICILLINS; jb4 - Home Meds: 00:40 Zoloft Oral [Active]; jb4 - PMHx: 00:40 Depression; jb4 - PSHx: 00:40 None; jb4 - Immunization history:: Adult Immunizations up to date. - Social history:: Smoking status: Patient denies any tobacco usage or history of. Patient/guardian denies using alcohol, street drugs. Screenin:40 Abuse screen: Denies threats or abuse. Nutritional screening: No deficits noted. jb4 Tuberculosis screening: No symptoms or risk factors identified. Fall Risk None identified. Assessment: 00:40 General: Appears in no apparent distress. comfortable, Behavior is calm, cooperative, jb4 appropriate for age. Pain: Denies pain. Neuro: Level of Consciousness is awake, alert, obeys commands, Oriented to person, place, time, situation, Reports dizziness. Cardiovascular: Patient's skin is warm and dry. Respiratory: Airway is patent Respiratory effort is even, unlabored, Respiratory pattern is regular, symmetrical. GI: No signs and/or symptoms were reported involving the gastrointestinal system. : No signs and/or symptoms were reported regarding the genitourinary system. EENT: No signs and/or symptoms were reported regarding the EENT system. Derm: Skin is intact, Skin is pink, warm \T\ dry. Musculoskeletal: Circulation, motion, and sensation intact. Range of motion: intact in all extremities. 02:00 Reassessment: Patient appears in no apparent distress at this time. Patient and/or jb4 family updated on plan of care and expected duration. Pain level reassessed. Patient is alert, oriented x 3, equal unlabored respirations, skin warm/dry/pink. 03:00 Reassessment: Patient and/or family updated on plan of care and expected duration. Pain jb4 level reassessed. Patient is alert, oriented x 3, equal unlabored respirations, skin warm/dry/pink. PT is resting in bed with no s/s of pain or distress noted. Daughter remains at the bedside. 04:16 Reassessment: Patient appears in no apparent distress at this time. Patient and/or jb4 family updated on plan of care and expected duration. Pain level reassessed. Patient is alert, oriented x 3, equal unlabored respirations, skin warm/dry/pink. PT verbalized understanding of d/c and follow up instructions. Reports a decrease in dizziness. Ambulated out of ED with daughter with steady gait. Vital Signs: 00:40 BP 120 / 71; Pulse 90; Resp 16; Temp 98.3(O); Pulse Ox 99% on R/A; Weight 122.47 kg jb4 (R); Height 5 ft. 6 in. (167.64 cm) (R); Pain 0/10; 01:30 BP 105 / 76; Pulse 80; Resp 16; Pulse Ox 100% on R/A; Pain 0/10; jb4 03:00 BP 134 / 72; Pulse 87; Resp 16; Pulse Ox 100% on R/A; jb4 04:00 BP 115 / 81; Pulse 84; Resp 16; Pulse Ox 100% on R/A; jb4 00:40 Body Mass Index 43.58 (122.47 kg, 167.64 cm) jb4 ED Course: 00:32 Patient arrived in ED. cl3 00:38 Xander Franks, RN is Primary Nurse. jb4 00:40 Arm band placed on right wrist. jb4 00:40 Patient has correct armband on for positive identification. Bed in low position. Call jb4 light in reach. Side rails up X 1. Pulse ox on. NIBP on. 01:02 Triage completed. jb4 01:26 Leonides Stoddard MD is Attending Physician. korey 01:58 Head Brain Wo Cont CT In Process Unspecified. EDMS 02:05 XRAY Chest (1 view) In Process Unspecified. EDMS 03:50 Calderon Maldonado MD is Referral Physician. korey 04:18 No provider procedures requiring assistance completed. IV discontinued, intact, jb4 bleeding controlled, No redness/swelling at site. Pressure dressing applied. Administered Medications: 03:09 Drug: Meclizine 50 mg Route: PO; jb4 04:00 Follow up: Response: No adverse reaction; Marked relief of symptoms jb4 Outcome: 03:50 Discharge ordered by . korey 04:18 Discharged to home ambulatory, with family. jb4 04:18 Condition: stable 04:18 Discharge instructions given to patient, Instructed on discharge instructions, follow up and referral plans. medication usage, Demonstrated understanding of instructions, follow-up care, medications, Prescriptions given X 2. 04:19 Patient left the ED. jb4 Signatures: Dispatcher [employer] Leonides Aguilar MD MD cha Bryson, James, RN RN jb4 Patrick Nevarez cl3
--- NOTE | 2019-10-20 03:51 | EDPHYS ---
Physician Documentation [facility] Name: Janine Mcgregor Age: 39 yrs Sex: Female : 1980 Arrival Date: 10/20/2019 Time: 00:32 Bed 15 Private MD: ED Physician Leonides Stoddard HPI: 10/19 02:47 This 39 yrs old Female presents to ER via Ambulatory with complaints of korey Dizziness. Historical: - Allergies: 00:40 PENICILLINS; jb4 - Home Meds: 00:40 Zoloft Oral [Active]; jb4 - PMHx: 00:40 Depression; jb4 - PSHx: 00:40 None; jb4 - Immunization history:: Adult Immunizations up to date. - Social history:: Smoking status: Patient denies any tobacco usage or history of. Patient/guardian denies using alcohol, street drugs. ROS: 02:49 Constitutional: Negative for fever, chills, and weight loss, Eyes: Negative for injury, korey pain, redness, and discharge, ENT: Negative for injury, pain, and discharge, Neck: Negative for injury, pain, and swelling, Cardiovascular: Negative for chest pain, palpitations, and edema, Respiratory: Negative for shortness of breath, cough, wheezing, and pleuritic chest pain, Abdomen/GI: Negative for abdominal pain, nausea, vomiting, diarrhea, and constipation, Back: Negative for injury and pain, : Negative for injury, bleeding, discharge, and swelling, MS/Extremity: Negative for injury and deformity, Skin: Negative for injury, rash, and discoloration, Psych: Negative for depression, anxiety, suicide ideation, homicidal ideation, and hallucinations, Allergy/Immunology: Negative for hives, rash, and allergies, Endocrine: Negative for neck swelling, polydipsia, polyuria, polyphagia, and marked weight changes, Hematologic/Lymphatic: Negative for swollen nodes, abnormal bleeding, and unusual bruising. 02:49 Neuro: Positive for dizziness. Exam: 02:49 Constitutional: This is a well developed, well nourished patient who is awake, alert, korey and in no acute distress. Head/Face: Normocephalic, atraumatic. Eyes: Pupils equal round and reactive to light, extra-ocular motions intact. Lids and lashes normal. Conjunctiva and sclera are non-icteric and not injected. Cornea within normal limits. Periorbital areas with no swelling, redness, or edema. ENT: Nares patent. No nasal discharge, no septal abnormalities noted. Tympanic membranes are normal and external auditory canals are clear. Oropharynx with no redness, swelling, or masses, exudates, or evidence of obstruction, uvula midline. Mucous membranes moist. Neck: Trachea midline, no thyromegaly or masses palpated, and no cervical lymphadenopathy. Supple, full range of motion without nuchal rigidity, or vertebral point tenderness. No Meningismus. Chest/axilla: Normal chest wall appearance and motion. Nontender with no deformity. No lesions are appreciated. Cardiovascular: Regular rate and rhythm with a normal S1 and S2. No gallops, murmurs, or rubs. Normal PMI, no JVD. No pulse deficits. Respiratory: Lungs have equal breath sounds bilaterally, clear to auscultation and percussion. No rales, rhonchi or wheezes noted. No increased work of breathing, no retractions or nasal flaring. Abdomen/GI: Soft, non-tender, with normal bowel sounds. No distension or tympany. No guarding or rebound. No evidence of tenderness throughout. Back: No spinal tenderness. No costovertebral tenderness. Full range of motion. Female : Normal external genitalia. Skin: Warm, dry with normal turgor. Normal color with no rashes, no lesions, and no evidence of cellulitis. MS/ Extremity: Pulses equal, no cyanosis. Neurovascular intact. Full, normal range of motion. Neuro: Awake and alert, GCS 15, oriented to person, place, time, and situation. Cranial nerves II-XII grossly intact. Motor strength 5/5 in all extremities. Sensory grossly intact. Cerebellar exam normal. Normal gait. 02:49 Cardiovascular: Rate: normal, Rhythm: regular, Pulses: no pulse deficits are appreciated, Heart sounds: normal, normal S1and S2, no S3 or S4, no murmur, no rub, no gallop, Edema: is not appreciated, JVD: is not appreciated. 02:49 Musculoskeletal/extremity: Extremities: all appear grossly normal, with no appreciated pain with palpation, ROM: intact in all extremities, full active range of motion, full passive range of motion, Circulation is intact in all extremities. Sensation intact. Compartment Syndrome exam of affected extremity: is normal. Joints: All joints appear normal with full range of motion. Weight bearing: able to fully bear weight, DVT Exam: No signs of deep vein thrombosis. no pain, no swelling, no tenderness, negative Homans' sign noted on exam, no appreciated bluish discoloration, no erythema, no increased warmth. 02:49 Neuro: Orientation: is normal, appropriate for stated age, no acute changes, Mentation: is normal, appropriate for stated age, no acute changes, Memory: is normal, appropriate for stated age, no acute changes, Cranial nerves: grossly normal, is grossly normal based on the patient's age, no acute changes, Cerebellar function: is grossly normal, is grossly normal based on the patient's age, no acute changes, Motor: moves all fours, Sensation: no obvious gross deficits, Gait: not tested. seizure activity, is not displayed by the patient. 02:56 ECG was reviewed by the Attending Physician. [facility] Vital Signs: 00:40 BP 120 / 71; Pulse 90; Resp 16; Temp 98.3(O); Pulse Ox 99% on R/A; Weight 122.47 kg jb4 (R); Height 5 ft. 6 in. (167.64 cm) (R); Pain 0/10; 01:30 BP 105 / 76; Pulse 80; Resp 16; Pulse Ox 100% on R/A; Pain 0/10; jb4 03:00 BP 134 / 72; Pulse 87; Resp 16; Pulse Ox 100% on R/A; jb4 04:00 BP 115 / 81; Pulse 84; Resp 16; Pulse Ox 100% on R/A; jb4 00:40 Body Mass Index 43.58 (122.47 kg, 167.64 cm) jb4 MDM: 01:26 Patient medically screened. [facility] 02:49 Patient medically screened. [facility] 02:51 Data reviewed: vital signs, nurses notes, lab test result(s), EKG, radiologic studies, [facility] CT scan, plain films. 02:55 Differential diagnosis: cardiac arrhythmia, CVA, head injury, hypovolemia, idiopathic korey dizziness, near-syncope, , TIA, vertigo. Data interpreted: education general manager: rate is 90 beats/min, rhythm is regular, Pulse oximetry: on room air is 99 %. Test interpretation: by ED physician or midlevel provider: ECG, plain radiologic studies. Counseling: I had a detailed discussion with the patient and/or guardian regarding: the historical points, exam findings, and any diagnostic results supporting the discharge/admit diagnosis, lab results, radiology results, the need for outpatient follow up. 03:19 Medication response: MECLIZINE. [facility] 03:52 ED course: improved, follow up , return if worse. [facility] 10/19 01:34 Order name: Basic Metabolic Panel; Complete Time: 03:[address] [facility] 10/19 01:34 Order name: CBC with Diff; Complete Time: 02:[address] [facility] 10/19 01:34 Order name: LFT's; Complete Time: 03:[address] [facility] 10/19 01:34 Order name: Magnesium; Complete Time: 03:[address] [facility] 10/19 01:34 Order name: NT PRO-BNP; Complete Time: 03:[address] [facility] 10/19 01:34 Order name: PT-INR; Complete Time: 02:[address] [facility] 10/19 01:34 Order name: Head Brain Wo Cont CT [facility] 10/19 01:34 Order name: Troponin (emerg Dept Use Only); Complete Time: 03:[address] [facility] 10/19 01:34 Order name: XRAY Chest (1 view) [facility] 10/19 01:34 Order name: EKG; Complete Time: 01:[address] [facility] 10/19 01:34 Order name: Cardiac monitoring; Complete Time: 02:[address] [facility] 10/19 03:07 Order name: Urine --Ancillary (enter results); Complete Time: 03:19 10/19 03:07 Order name: Urine Dipstick--Ancillary (enter results); Complete Time: 03:19 [facility] 10/19 01:34 Order name: EKG - Nurse/Tech; Complete Time: 02:[address] [facility] 10/19 01:34 Order name: IV Saline Lock; Complete Time: 02:[address] [facility] 10/19 01:34 Order name: Labs collected and sent; Complete Time: 02:40 10/19 01:34 Order name: O2 Per Protocol; Complete Time: 02:[address] [facility] 10/19 01:34 Order name: O2 Sat Monitoring; Complete Time: 02:[address] [facility] 10/19 02:45 Order name: Urine Dipstick-Ancillary (obtain specimen); Complete Time: 03:07 [facility] 10/19 02:45 Order name: Urine Test (obtain specimen); Complete Time: 03:07 [facility] EC:56 Rate is 81 beats/min. Rhythm is regular. QRS [place] is Normal. NE interval is normal. QRS [place] interval is normal. QT interval is normal. No Q waves. T waves are Normal. No ST changes noted. Clinical impression: Normal ECG and No evidence of ischemia. Interpreted by me. Reviewed by me. Administered Medications: 03:09 Drug: Meclizine 50 mg Route: PO; jb4 04:00 Follow up: Response: No adverse reaction; Marked relief of symptoms jb4 Disposition: 10/20/19 03:50 Discharged to Home. Impression: Dizziness and giddiness. - Condition is Stable. - Discharge Instructions: Dizziness, Vertigo, Dizziness, [id number]. - Prescriptions for Meclizine 25 mg Oral Tablet - take 1 tablet by ORAL route every 8 hours As needed; 30 tablet. Zofran 4 mg Oral Tablet - take 1 tablet by ORAL route every 12 hours As needed; 14 tablet. - Medication Reconciliation Form, Thank You Letter, Antibiotic Education, Prescription Opioid Use form. - Follow up: Private Physician; When: 1 - 2 days; Reason: Recheck today's complaints, Continuance of care, Re-evaluation by your physician. Follow up: Calderon Maldonado; When: 2 - 3 days; Reason: Recheck today's complaints, Re-evaluation by your physician. - Problem is new. - Symptoms have improved. Signatures: Dispatcher [employer] EDLeonides Fajardo MD MD cha Bryson, James, RN RN jb4 Corrections: (The following items were deleted from the chart) 04:19 03:50 10/20/2019 03:50 Discharged to Home. Impression: Dizziness and giddiness. jb4 Condition is Stable. Discharge Instructions: Dizziness, Vertigo, Dizziness, [id number]. Prescriptions for Meclizine 25 mg Oral Tablet - take 1 tablet by ORAL route every 8 hours As needed; 30 tablet, Zofran 4 mg Oral Tablet - take 1 tablet by ORAL route every 12 hours As needed; 14 tablet. and Forms are Medication Reconciliation Form, Thank You Letter, Antibiotic Education, Prescription Opioid Use. Follow up: Private Physician; When: 1 - 2 days; Reason: Recheck today's complaints, Continuance of care, Re-evaluation by your physician. Follow up: Calderon Maldonado; When: 2 - 3 days; Reason: Recheck today's complaints, Re-evaluation by your physician. Problem is new. Symptoms have improved. korey
--- NOTE | 2019-10-20 05:45 | EKG ---
Test Date: 2019-10-20 Test Time: 01:44:14 Coin Machine Service Repairer: RAHAT MEASUREMENT RESULTS: Intervals: Rate: 81 NE: 148 QRSD: 90 QT: 388 QTc: 450 [place]: P: 64 NE: 148 QRS: 55 T: 45 INTERPRETIVE STATEMENTS: Normal sinus rhythm Normal ECG No previous ECG available for comparison Electronically Signed On 10-20-19 05:45:05 CDT by Patrick Haney
--- NOTE | 2019-10-20 09:36 | RAD REPORT ---
EXAM DESCRIPTION: RAD - Chest Single View - 10/20/2019 2:06 am CLINICAL HISTORY: dizziness, shortness of breath TECHNIQUE: AP portable chest image was obtained 10/20/2019 2:06 am . FINDINGS: Lungs are clear. Heart and vasculature are normal. No measurable pleural effusion and no p neumothorax. No acute bony abnormality seen. No acute aortic findings suspected. IMPRESSION: No acute cardiopulmonary process.
--- NOTE | 2019-10-22 12:33 | RAD REPORT ---
EXAM DESCRIPTION: CT - Head Brain Wo Cont - 10/20/2019 5:04 am CLINICAL HISTORY: DIZZINESS TECHNIQUE: Contiguous axial CT images obtained through the brain without IV contrast. Coronal and sa gittal reformatted images were provided. This exam was performed according to our departmental dose-optimization program, which includes autom ated exposure control, adjustment of the mA and/or kV according to patient size and/or use of iterati ve reconstruction technique. COMPARISON: None available for comparison FINDINGS: Brain: No significant white matter changes. No focal mass effect. Cifuentes-white matter differ entiation is within normal limits. No hemorrhage. Ventricles: No ventriculomegaly or midline shift. Extra-axial spaces: No extra-axial collection or hemorrhage. Paranasal sinuses and mastoid air cells: Well-aerated Vessels: Unremarkable Bones: Unremarkable Soft tissues: Unremarkable IMPRESSION: No acute intracranial or extra-axial abnormality. Electronically signed by: Rolando Bright MD 10/20/2019 2:39 AM CDT Due to temporary technical issues with the PACS/Fluency reporting system, reports are being signed by the in house radiologist without review as a courtesy to ensure prompt reporting. The interpreting r adiologist is fully responsible for the content of the report.
[2019-10-23 19:57] VITALS: TEMP 98.3
[2019-10-23 20:13] VITALS: O2SAT 100
[2019-10-23 20:16] VITALS: BP 115/81
== END 2019-10-20 04:19 | disposition home or self-care (01) ==
LOC: ER 00:30
DX: R42 Dizziness and giddiness (principal); F32.9 Major depressive disorder, single episode, unspecified; Z88.0 Allergy status to penicillin
CPT/HCPCS: 93005; 85025; 80048; 36415; 83735; 81025; 85610; 80076; 81003; 84484; 83880; 70450; 71045; 99284; J8597

== ENCOUNTER 2021-07-05 02:35 | Emergency (ER) | payer OTHER ==
--- OUTSIDE RECORDS SUMMARY | 2021-07-05 02:39 | XMS REPORT | Continuity of Care Document ---
:1980 Author Organization [facility] t Address [address] [place] [address] Care Team Providers Name Role Phone Nallely Mcallister Primary Care Physician [phone] Provider, Temp Attending Clinician Unavailable Georgia Mcallister Attending Clinician Georgia DUTTA Attending Clinician Unavailable INDUCTION Attending Clinician Unavailable FOROOZAN Attending Clinician Unavailable MARQUITA C Attending Clinician Unavailable DARRYN SCHOFIELD Attending Clinician Unavailable Faculty, Rmchp Mfm Attending Clinician Unavailable 3, Mfm Usg Room Attending Clinician Unavailable FISH Admitting Clinician Unavailable Payers Payer Name Policy Type Policy Number Effective Date Expiration Date S baldev [employer] [id number] 2020 OUT OF NETWORK 00:00:00 [facility] [id number] 2019 00:00:00 [employer] OPEN ACCESS [id number] HMO NAP 00:00:00 MEDICAID PENDING PENDING 2019 00:00:00 [place] [id number] 2019 00:00:00 Problems Condition Condition Condition Status Onset Resolution Last Treating Co mments Source Name Details Category Date Date Treatment Clinician Date Family Family Disease Active Univers history of history of 9-28 it y of ovarian ovarian 00:00: [place] cancer cancer 00 Medical Branch Mild Mild Disease Active Univers pre-eclamp pre-eclamp 8-19 it y of eloina in eloina in 00:00: [place] third third 00 Medical trimester trimester Bran ch Morbid Morbid Disease Active Univers obesity obesity 8-19 [place] of with body [place] 00:[place] mass index mass index 00 Me dical of of Branch 40.0-49.9 40.0-49.9 Liveborn Liveborn Disease Active Unive rs infant, of , of 8-18 it y of ne[place] , , 00 [place] dical born in born in [facility] hospital by vaginal by vaginal delivery delivery Normal Normal Disease Active Univers labor labor 8-17 ity of 00:00: [place] 00 [facility] GBS (group GBS (group Disease Active Overview : Univers B B 09-17 Formattin ity of Streptococ Streptococ 00:00: g of this [place] cus cus 00 note Medical carrier), carrier), might be Br anch +RV +RV different culture, culture, from the currently currently original. Treat in labor Primigravi Primigravi Disease Active U nivers da of da of 2-09 ity of advanced advanced 00:00: [place] maternal maternal 00 Medica l age in age in Branch third third trimester trimester Multiparit Multiparit Disease Active U nivers y y 2-09 ity of 00:00: [place] 00 [facility] SAB SAB Disease Active Univers (spontaneo (spontaneo 2-09 it y of us us 00:00: [place] ) ) 00 [facility] Branch Supervisio Supervisio Disease Active U nivers n of high n of high 5-27 ity of risk risk 00:00: [place] 00 [facility] in third in third Branch trimester trimester [place] Disease Active 2019- Univers multiparit multiparit 5-27 it y of y, y, 00:00: [place] antepartum antepartum 00 [facility] Branch AMA AMA Disease Active Univers (advanced (advanced 5-27 ity of maternal maternal 00:00: [place] age) age) 00 Medical multigravi multigravi Br anch da 35+, da 35+, first first trimester trimester History of History of Disease Active U nivers anxiety anxiety 5-27 ity of 00:00: Medical Branch History of History of Disease Active U nivers depression depression 07-17 it y of :: [place] [facility] Branch Obesity in Obesity in Disease Active U nivers 07-17 ity of :: [place] [facility] BMI BMI Disease Active 2019- Univers 40.0-44.9, 40.0-44.9, - it y of adult adult 00:00: [place] [facility] Allergies, Adverse Reactions, Alerts Allergy Allergy Status Severity Reaction(s) Onset Inactive Treating Comm ents Source Name Type Date Date Clinician Penicill Propensi Active Swelling Univ ers ins ty to 07-17 ity of adverse 00:00: [place] reaction 00 Medical s to Branch drug PENICILL Drug Active Hives Univers INS Class 07-17 ity of 00:: [place] [facility] [place] NO KNOWN Drug Active Univers ALLERGIE Class ity of S [facility] Social History Social Habit Start Date Stop Date Quantity Comments Source Exposure to Not sure [facility] SARS-CoV-2 [facility] (event) Branch Alcohol intake 2020-11-18 2020-11-18 Ex-drinker [facility] 00:00:00 00:00:00 (finding) [facility] Tobacco use and 2019-07-18 2019-07-18 Never used Universit y of exposure 00:00:00 00:00:00 [facility] Sex Ass[birth year] At [birth year] Universit y of 00:00:00 00:00:00 [facility] Smoking Status Start Date Stop Date Source Never smoker [facility] Medications Ordered Filled Start Stop Current Ordering Indication Dosage Frequency Signature Comments Components Source Medication Medication Date Date Medication? Clinician (SIG) Name Name SERTraline Yes [id number] 50mg Take 50 mg Univers (ZOLOFT) 50 9-28 by mouth ity of mg tablet 11:32: daily. [address] Branch Yes [id number] 1{tbl} Take 1 Univers vitamin 8-19 tablet by ity of w/FA tablet 00:00: mouth [place] 00 daily. Medical Branch docusate Yes [id number] 240mg Take 1 U nivers calcium 240 8-19 capsule by it y of mg capsule 00:00: mouth [place] 00 daily as Medical needed for Branch Constipati on. ferrous Yes [id number] 325mg Take 1 Un mandy sulfate 325 8-19 tablet by ity of mg (65 mg 00:00: mouth 2 [place] iron) 00 (two) Medical tablet times Branch daily. ibuprofen Yes [id number] 600mg Take 1 Univers 600 mg 8-19 tablet by ity of tablet 00:00: mouth [place] 00 every 6 Medical (six) Branch hours as needed (Pain). Take with food or milk. Immunizations Ordered Filled Immunization Date Status Comments [facility] e Immunization Name Name TDAP 2020-08-04 Completed [facility] 00:00:00 [facility] Vital Signs Vital Name Observation Time Observation Value Comments Source Systolic blood 2020-11-18 16:16:00 122 mm[facility]Hg[facility] Diastolic blood 2020-11-18 16:16:00 78 mm[Hg] [facility] Body temperature 2020-11-18 16:16:00 36.33 [facility] Respiratory rate 2020-11-18 16:16:00 16 /min [facility] Body height 2020-11-18 16:16:00 167.6 cm [facility] Body weight 2020-11-18 16:16:00 126.355 kg [facility] BMI 2020-11-18 16:16:00 44.96 kg/m2 [facility] Procedures This patient has no known procedures. Encounters Start End Encounter Admission Attending Care Care Encounter Source Date/Time Date/Time Type Type Clinicians Facility Department ID 2020-12-22 Outpatient P [facility] OCTAVIO [id number] Univers 16:17:01 ity [facility] 2020-12-19 Emergency [facility] [id number] [facility] [place] [facility] 2020-11-18 2020-11-18 [id number] Univers 10:34:42 12:05:59 Visit Nallely Dutta SMOG TECHNICIAN [id number] ity [facility] acute hospital [id number] [place] as MATERNAL [phone] [facility] & CHILD [address] [place] [address] 2020-11-18 2020-11-18 Outpatient Georgia DUTTA [facility] [id number] Univers 10:30:00 10:30:00 NALLELY itdouglas o [facility] 2020-10-28 2020-10-28 Outpatient Georgia DUTTA [facility] [id number] Univers 12:45:00 12:45:00 NALLELY [id number] itdouglas o [facility] 2020-10-28 2020-10-28 Outpatient Georgia DUTTA [facility] [id number] Univers 12:45:00 12:45:00 NALLELY y o [facility] 2020-10-13 2020-10-13 Outpatient Georgia DUTTA, [facility] [id number] Univers 08:45:00 08:45:00 NALLELY [facility] 2020-10-08 2020-10-08 Outpatient INDUCTION, [facility] [id number] Univers 07:00:00 07:00:00 ЮЛИЯ [id number] ity [facility] 2020-10-06 2020-10-06 Outpatient Georgia DUTTA [facility] [id number] Univers 07:45:00 07:45:00 RAQUELNDLili [id number] ity o [facility] 2020-10-06 2020-10-06 Outpatient Georgia DUTTA [facility] [id number] Univers 07:45:00 07:45:00 NALLELY y o [facility] 2020-09-29 2020-09-29 Outpatient Georgia DUTTA [facility] [id number] Univers 07:30:00 07:30:00 NALLELY [id number] y o [facility] 2020-09-29 2020-09-29 Outpatient Georgia DUTTA, [facility] [id number] Univers 07:30:00 07:30:00 NALLELY y o [facility] 2020-09-22 2020-09-22 Outpatient Georgia AGRAWALShay [facility] [id number] Univers 08:45:00 08:45:00 RAQUELNDA [id number] ity o [facility] 2020-09-22 2020-09-22 Outpatient R CY [facility] [id number] Univers 08:45:00 08:45:00 ROSHUNDA itdouglas o [facility] 2020-09-15 2020-09-15 Outpatient R CY [facility] [id number] Univers 08:45:00 08:45:00 ROSHUNDA [id number] y o [facility] 2020-09-15 2020-09-15 Outpatient R CY [facility] [id number] Univers 08:45:00 08:45:00 RAQUELNDA itdouglas o [facility] 2020-09-01 2020-09-01 Outpatient CY [facility] [id number] Univers 10:15:00 10:15:00 NALLELY [id number] douglas o [facility] 2020-09-01 2020-09-01 Outpatient R CY [facility] [id number] Univers 10:15:00 10:15:00 RAQUELNDA itdouglas o [facility] 2020-08-18 2020-08-18 Outpatient R CY [facility] [id number] Univers 09:30:00 09:30:00 RAQUELNDLili [id number] [facility] o [facility] 2020-08-18 2020-08-18 Outpatient R CY [facility] [id number] Univers 09:30:00 09:30:00 RAQUELNDA [facility] o [facility] 2020-08-06 2020-08-06 Outpatient R [facility] [id number] Univers 10:15:00 10:15:00 [id number] [facility] [place] [facility] 2020-08-06 2020-08-06 Outpatient P [facility] [id number] Univers 10:15:00 10:15:00 [facility] [place] [facility] 2020-08-04 2020-08-04 Outpatient R CY [facility] [id number] Univers 08:15:00 08:15:00 ROSALEXANDRIANDA [id number] [facility] o [facility] 2020-08-04 2020-08-04 Outpatient R CY [facility] [id number] Univers 08:15:00 08:15:00 VALENTÍNALEXANDRIANDA ity o [facility] 2020-08-01 2020-08-01 Outpatient R CY [facility] [id number] Univers 08:45:00 08:45:00 NALLELY [id number] ity o f [facility] 2020-08-01 2020-08-01 Outpatient [place] DUTTA [facility] [id number] Univers 08:45:00 08:45:00 VALENTÍNBLAZEA ity o [facility] 2020-07-15 2020-07-15 Outpatient R CY [facility] [id number] Univers 08:00:00 08:00:00 NALLELY [id number] ity o [facility] 2020-07-15 2020-07-15 Outpatient [place] DUTTA [facility] [id number] Univers 08:00:00 08:00:00 VALENTÍNBLAZEA ity o [facility] 2020-06-25 2020-06-25 Outpatient R [facility] [id number] Univers 10:30:00 10:30:00 [id number] [facility] [place] [facility] 2020-06-25 2020-06-25 Outpatient P [facility] [id number] Univers 10:30:00 10:30:00 [facility] [place] [facility] 2020-06-24 2020-06-24 Outpatient [place] DUTTA [facility] [id number] Univers 08:15:00 08:15:00 NALLELY [id number] ity o [facility] 2020-06-24 2020-06-24 Outpatient R CY [facility] [id number] Univers 08:15:00 08:15:00 RAQUELNDA ity o [facility] 2020-06-12 2020-06-12 Outpatient TRISTA DALLASTARA [facility] [id number] 00:00:00 00:00:00 STEVEN 2020-05-28 2020-05-28 Outpatient R [facility] [id number] Univers 13:00:00 13:00:00 [id number] [facility] [place] [facility] 2020-05-28 2020-05-28 Outpatient P [facility] [id number] Univers 13:00:00 13:00:00 ity [facility] 2020-05-27 2020-05-27 Outpatient R CY [facility] [id number] Univers 07:45:00 07:45:00 RAQUELNDLili [id number] ity o f [facility] 2020-05-27 2020-05-27 Outpatient R CY [facility] [id number] Univers 07:45:00 07:45:00 ROSHUNDA ity o f [facility] 2020-04-29 2020-04-29 Outpatient R CY [facility] [id number] Univers 10:45:00 10:45:00 NALLELY [id number] ity o f [facility] 2020-04-29 2020-04-29 Outpatient R CY [facility] [id number] Univers 10:45:00 10:45:00 VALENTÍNNDA ity o [facility] 2020-04-21 2020-04-21 Outpatient R [facility] [id number] Univers 08:00:00 08:00:00 [id number] ity [facility] 2020-04-21 2020-04-21 Outpatient P [facility] [id number] Univers 08:00:00 08:00:00 ity [facility] 2020-04-07 2020-04-07 Outpatient R [facility] [id number] Univers 09:45:00 09:45:00 [id number] ity [facility] 2020-04-07 2020-04-07 Outpatient P [facility] [id number] Univers 09:45:00 09:45:00 ity [facility] 2020-04-04 2020-04-04 Outpatient R [facility] [id number] Univers 08:00:00 08:00:00 [id number] ity [facility] 2020-04-04 2020-04-04 Outpatient R AKINSIPE, [facility] [id number] Univers 08:00:00 08:00:00 JATIN ity o [facility] 2020-04-01 2020-04-01 Outpatient DUTTA, [facility] [id number] Univers 14:00:00 14:00:00 NALLELY [id number] ity o f [facility] 2020-04-01 2020-04-01 Outpatient R [facility] [id number] Univers 13:15:00 13:15:00 ity [facility] 2020-03-26 2020-03-26 Outpatient AKINSIPE, [facility] [id number] Univers 10:00:00 10:00:00 JATIN [id number] ity o f [facility] 2020-03-26 2020-03-26 Outpatient R [facility] [id number] Univers 09:15:00 09:15:00 ity [facility] 2020-03-21 2020-03-21 Outpatient R AKINSIPE, [facility] [id number] Univers 10:00:00 10:00:00 JATIN [id number] ity o f [facility] 2020-03-21 2020-03-21 Outpatient R [facility] [id number] Univers 09:15:00 09:15:00 ity [facility] 2019-11-29 2019-11-29 Outpatient R CHANDU, [facility] [id number] Univers 14:45:00 14:45:00 [facility] [place] [facility] 2019-11-29 2019-11-29 Outpatient R CHANDU, [facility] [id number] Univers 14:45:00 14:45:00 [facility] [place] [facility] 2019-08-24 2019-08-24 Outpatient R [facility] [id number] Univers 09:00:00 09:00:00 ity [facility] 2019-08-22 2019-08-22 Outpatient R CY [facility] [id number] Univers 11:00:00 11:00:00 ANLLELY ity o [facility] 2019-08-22 2019-08-22 Outpatient R CY [facility] [id number] Univers 11:00:00 11:00:00 NALLELY bostony o [facility] 2019-08-15 2019-08-15 Outpatient R AKINSIPE, [facility] [id number] Univers 13:45:00 13:45:00 JATIN [id number] ity o paula [facility] 2019-08-15 2019-08-15 Outpatient R MARQUITA, [facility] [id number] Univers 13:45:00 13:45:00 JATIN hollins o paula [facility] 2019-08-15 2019-08-15 Outpatient R CY, [facility] [id number] Univers 07:45:00 07:45:00 NALLELY itdouglas o [facility] 2019-08-13 2019-08-13 Telemedici Faculty, [facility] [id number] 08:14:37 08:41:58 ne Visit Ang Rmchp SMOG TECHNICIAN [id number] [facility] [id number] MATERNAL [id number] & CHILD 107 [facility] 2019-08-13 2019-08-13 Outpatient R [facility] [id number] Univers 08:30:00 08:30:00 [id number] [facility] [place] [facility] 2019-08-13 2019-08-13 Outpatient R [facility] [id number] Univers 08:30:00 08:30:00 [facility] 2019-08-13 2019-08-13 Telephone Faculty, [facility] [id number] 00:00:00 00:00:00 Ang Rmchp SMOG TECHNICIAN [id number] [facility] [id number] MATERNAL [id number] & CHILD 107 [facility] 2019-08-10 2019-08-10 Foster Care Case Manager 3, [facility] UNIVERSIT [id number] 08:35:12 10:02:[id number] [facility] [id number] 2019-08-10 2019-08-10 Outpatient [facility] [id number] Univers 09:15:00 09:15:00 [id number] [facility] [place] [facility] 2019-08-10 2019-08-10 Outpatient P [facility] [id number] Univers 09:15:00 09:15:00 ity [facility] 2019-08-09 2019-08-09 Telephone Cy [facility] [id number] 00:00:00 00:00:00 Nallely Ho SMOG TECHNICIAN [id number] [facility] [id number] MATERNAL [id number] & CHILD [address] [place] [id number] 2019-07-18 2019-07-18 Outpatient [place] JUÁREZ [facility] [id number] [facility] 09:30:00 09:30:00 JATIN [id number] gunjan mitchell [facility] 2019-07-18 2019-07-18 Outpatient [place] JUÁREZ [facility] [id number] [facility] 09:00:00 09:00:00 JATIN mitchell [facility] Results This patient has no known results.
[2021-07-05 03:18] LABS: Absolute Lymphocytes (CBC) 3.8 K/uL (0.7-4.9); Hematocrit 35.9 % (36.0-45.0); MPV 7.6 fL (7.6-11.3); RBC Red Blood Cell Count 4.15 M/uL (3.86-4.86)
[2021-07-05 03:36] LABS: Potassium 3.9 mmol/L (3.5-5.1); Troponin High Sensitivity 3.7 pg/mL (<58.9)
--- NOTE | 2021-07-05 05:21 | EDPHYS ---
Physician Documentation [facility] Name: Janine Mcgregor Age: 41 yrs Sex: Female : 1980 Arrival Date: 07/05/2021 Time: 02:40 Bed 6 Private MD: ED Physician Elliot Edmonds HPI: 07/05 05:20 This 41 yrs old Female presents to ER via Wheelchair with complaints of Chest Pain, ms3 Chest Pain > 30 y/o. 05:20 The patient or guardian reports chest pain that is located primarily in the anterior ms3 aspect of left upper chest. The pain radiates to back. Associated signs and symptoms: The patient has no apparent associated signs or symptoms. The chest pain is described as sharp. Duration: The patient or guardian reports a single episode, that is still ongoing, and unchanged. Modifying factors: The symptoms are alleviated by nothing. the symptoms are aggravated by nothing. Severity of pain: in the emergency department the pain is a 8 / 10. 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 - Social history:: Smoking status: Patient denies any tobacco usage or history of. ROS: 05:20 Constitutional: Negative for fever, and chills. Eyes: Negative for injury, pain, ms3 redness, and discharge, Neck: Negative for injury, pain, and swelling, Respiratory: Negative for shortness of breath, cough, wheezing, and pleuritic chest pain, Abdomen/GI: Negative for abdominal pain, nausea, vomiting, diarrhea, and constipation, Back: Negative for injury and pain, Skin: Negative for injury, rash, and discoloration, Psych: Negative for depression, anxiety, suicide ideation, homicidal ideation, and hallucinations. 05:20 Cardiovascular: Positive for chest pain, with movement. Exam: 02:50 ECG was reviewed by the Attending Physician. ms3 05:20 Constitutional: This is a well developed, well nourished patient who is awake, alert, ms3 and in no acute distress. Head/Face: Normocephalic, atraumatic. Eyes: Pupils equal round and reactive to light, extra-ocular motions intact. Lids and lashes normal. Conjunctiva and sclera are non-icteric and not injected. Periorbital areas with no swelling, redness, or edema. Neck: Trachea midline, no cervical lymphadenopathy. Supple, full range of motion without nuchal rigidity, or vertebral point tenderness. No Meningismus. Chest/axilla: Normal chest wall appearance and motion. Nontender with no deformity. Cardiovascular: Regular rate and rhythm with a normal S1 and S2. No gallops, murmurs, or rubs. Normal PMI, no JVD. No pulse deficits. Respiratory: Lungs have equal breath sounds bilaterally, clear to auscultation and percussion. No rales, rhonchi or wheezes noted. No increased work of breathing, no retractions or nasal flaring. Abdomen/GI: Soft, non-tender, with normal bowel sounds. No distension or tympany. No guarding or rebound. No evidence of tenderness throughout. Back: No spinal tenderness. No costovertebral tenderness. Full range of motion. Psych: Awake, alert, with orientation to person, place and time. Behavior, mood, and affect are within normal limits. Vital Signs: 03:17 BP 130 / 68; Pulse 89; Resp 14; Temp 98.0(O); Pulse Ox 100% on R/A; Weight 121.11 kg ll3 (R); Height 5 ft. 6 in. (167.64 cm) (R); Pain 9/10; 04:25 BP 110 / 67; Pulse 77; Resp 20; Pulse Ox 98% on R/A; ll3 05:39 BP 130 / 74; Pulse 83; Resp 15; Pulse Ox 99% on R/A; ll3 03:17 Body Mass Index 43.09 (121.11 kg, 167.64 cm) ll3 MDM: 02:49 Patient medically screened. ms3 05:20 Differential diagnosis: abnormal EKG, acute myocardial infarction, acute pericarditis, ms3 chest wall pain, pulmonary embolus. HEART Score: History: Slightly Suspicious (0), ECG: Normal (0), Age: < or = 45 years (0), Risk Factors: No Risk Factors Known (0), Troponin: < or = 1 x Normal Limit (0), Total Score = 0. Data reviewed: vital signs, nurses notes, lab test result(s), EKG, radiologic studies. Counseling: I had a detailed discussion with the patient and/or guardian regarding: the historical points, exam findings, and any diagnostic results supporting the discharge/admit diagnosis, lab results, radiology results, the need for outpatient follow up. ED course: PERC =0. 07/05 02:40 Order name: Basic Metabolic Panel; Complete Time: 03:40 ms3 07/05 02:40 Order name: CBC with Diff; Complete Time: 03:40 ms3 07/05 02:40 Order name: Troponin HS; Complete Time: 03:40 ms3 07/05 02:40 Order name: XRAY Chest (1 view) ms3 07/05 02:40 Order name: EKG; Complete Time: 02:42 ms3 07/05 02:40 Order name: Cardiac monitoring; Complete Time: 02:59 ms3 07/05 02:40 Order name: EKG - Nurse/Tech; Complete Time: 03:00 ms3 07/05 02:40 Order name: IV Saline Lock; Complete Time: 03:16 ms3 07/05 02:40 Order name: Labs collected and sent; Complete Time: 03:16 ms3 07/05 02:40 Order name: O2 Per Protocol; Complete Time: 03:16 ms3 07/05 02:40 Order name: O2 Sat Monitoring; Complete Time: 03:16 ms3 EC:50 Rate is 92 beats/min. Rhythm is regular. QRS [place] is Normal. QRS interval is normal. ms3 Clinical impression: Normal ECG. Interpreted by me. Administered Medications: No medications were administered Disposition Summary: 07/05/21 05:20 Discharge Ordered Location: Home ms3 Condition: Stable ms3 Diagnosis - Chest pain, unspecified ms3 Followup: ms3 - With: Tito Ko MD - When: 1 - 2 days - Reason: Recheck today's complaints Discharge Instructions: - Discharge Summary Sheet ms3 - Nonspecific Chest Pain, Adult ms3 Forms: - Medication Reconciliation Form ms3 - Thank You Letter ms3 - Antibiotic Education ms3 - Prescription Opioid Use ms3 Signatures: Dispatcher [employer] EDMS Elliot Edmonds DO DO ms3 Loubet, Lynsea, RN RN ll3
--- NOTE | 2021-07-05 05:21 | ER ---
Nurse's Notes [facility] Name: Janine Mcgregor Age: 41 yrs Sex: Female : 1980 Arrival Date: 07/05/2021 Time: 02:40 Bed 6 Private MD: Diagnosis: Chest pain, unspecified Presentation: 07/05 03:17 Chief complaint: Patient states: C/o chest pain 9/10, since 12 AM. Coronavirus screen: ll3 Vaccine status: Patient reports being unvaccinated. At this time, the client does not indicate any symptoms associated with coronavirus-19. Ebola Screen: No symptoms or risks identified at this time. Initial Sepsis Screen: Does the patient meet any 2 criteria? No. Patient's initial sepsis screen is negative. Does the patient have a suspected source of infection? No. Patient's initial sepsis screen is negative. Risk Assessment: Do you want to hurt yourself or someone else? Patient reports no desire to harm self or others. Onset of symptoms was July 05, 2021 at 00:00. 03:17 Method Of Arrival: Wheelchair ll3 03:17 Acuity: GRIFFIN 3 ll3 Triage Assessment: 03:19 General: Appears uncomfortable, Behavior is calm, cooperative. Pain: Complains of pain ll3 in chest Pain currently is 9 out of 10 on a pain scale. Cardiovascular: Reports chest pain, Patient's skin is warm and dry. Rhythm is sinus rhythm. Derm: Skin is pink, warm \T\ dry. 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 - Social history:: Smoking status: Patient denies any tobacco usage or history of. Screenin:20 Abuse screen: Denies threats or abuse. Nutritional screening: No deficits noted. ll3 Tuberculosis screening: No symptoms or risk factors identified. Fall Risk No fall in past 12 months (0 pts). No secondary diagnosis (0 pts). IV access (20 points). Ambulatory Aid- None/Bed Rest/Nurse Assist (0 pts). Gait- Normal/Bed Rest/Wheelchair (0 pts) Mental Status- Oriented to own ability (0 pts). Total Jacques Fall Scale indicates No Risk (0-24 pts). Assessment: 03:20 General: See triage assessment. Pain: Pain does not radiate. Pain began 4 hours ago. ll3 05:39 Reassessment: No changes from previously documented assessment. Patient and/or family ll3 updated on plan of care and expected duration. Pain level reassessed. Patient is alert, oriented x 3, equal unlabored respirations, skin warm/dry/pink. Vital Signs: 03:17 BP 130 / 68; Pulse 89; Resp 14; Temp 98.0(O); Pulse Ox 100% on R/A; Weight 121.11 kg ll3 (R); Height 5 ft. 6 in. (167.64 cm) (R); Pain 9/10; 04:25 BP 110 / 67; Pulse 77; Resp 20; Pulse Ox 98% on R/A; ll3 05:39 BP 130 / 74; Pulse 83; Resp 15; Pulse Ox 99% on R/A; ll3 03:17 Body Mass Index 43.09 (121.11 kg, 167.64 cm) ll3 ED Course: 02:40 Patient arrived in ED. ms3 02:40 Elliot Edmonds DO is Attending Physician. ms3 03:10 Inserted saline lock: 20 gauge in right antecubital area, using aseptic technique. ll3 Blood collected. 03:17 Alesha Zhong, RN is Primary Nurse. ll3 03:19 Triage completed. ll3 03:19 Arm band placed on. Patient placed in an exam room, on a stretcher, on media monitor, ll3 on pulse oximetry. EKG completed in triage. Results shown to MD. 03:20 Patient has correct armband on for positive identification. Placed in gown. Bed in low ll3 position. Call light in reach. Side rails up X 1. Adult w/ patient. media monitor on. Pulse ox on. NIBP on. 03:20 Patient maintains SpO2 saturation greater than 95% on room air. ll3 03:51 XRAY Chest (1 view) In Process Unspecified. EDMS 05:20 Tito Ko MD is Referral Physician. ms3 05:39 No provider procedures requiring assistance completed. IV discontinued, intact, ll3 bleeding controlled, No redness/swelling at site. Pressure dressing applied. Administered Medications: No medications were administered Medication: 03:20 VIS not applicable for this client. ll3 Outcome: 05:20 Discharge ordered by . ms3 05:41 Discharged to home ambulatory, with significant other. ll3 05:41 Condition: stable 05:41 Discharge instructions given to patient, significant other, Instructed on discharge instructions, follow up and referral plans. Demonstrated understanding of instructions, follow-up care. 05:41 Patient left the ED. ll3 Signatures: Dispatcher [employer] EDMS Elliot Edmonds DO DO ms3 Alesha Zhong, RN RN ll3
[2021-07-05 05:55] VITALS: TEMP 98
[2021-07-05 06:05] VITALS: BP 130/74; O2SAT 99
--- NOTE | 2021-07-06 10:06 | EKG ---
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
--- NOTE | 2021-07-06 11:27 | RAD REPORT ---
EXAM DESCRIPTION: RAD - Chest Single View - 07/05/2021 3:49 am CLINICAL HISTORY: CHEST PAIN COMPARISON: None. TECHNIQUE: XR CHEST 1 VIEW 07/05/2021 2:40 AM CDT FINDINGS: Cardiac silhouette is normal in size. Lungs are clear without consolidation, atelectasis, mass or edema. There is no pleural effusion. There is no pneumothorax. There are no acute osseous fin dings. IMPRESSION: Clear lungs. Electronically signed by: Suraj Olsen MD 07/05/2021 4:39 AM CDT Due to temporary technical issues with the PACS/Fluency reporting system, reports are being signed by the in house radiologist without review as a courtesy to ensure prompt reporting. The interpreting r adiologist is fully responsible for the content of the report.
== END 2021-07-05 05:41 | disposition home or self-care (01) ==
LOC: ER 02:35
DX: R07.9 Chest pain, unspecified (principal); F32.A Depression, unspecified; Z88.0 Allergy status to penicillin
CPT/HCPCS: 36415; 71045; 80048; 84484; 85025; 93005; 99285

== ENCOUNTER 2021-08-04 08:14 | Emergency (ER) | payer OTHER ==
--- OUTSIDE RECORDS SUMMARY | 2021-08-04 08:17 | XMS REPORT | Continuity of Care Document ---
:[address] [facility] t Address [address] [place] [address] Care Team Providers Name Role Phone Nallely Mcallister Primary Care Physician [phone] Provider, Temp Attending Clinician Unavailable Georgia Mcallister [...] Date Expiration Date S baldev [employer] [id number] 2020 OUT OF NETWORK 00:00:00 [facility] [id number] 2019 00:00:00 [employer] OPEN ACCESS [id number] 2020 HMO NAP 00:00:00 MEDICAID PENDING PENDING 2019 00:00:00 [place] [id number] 2019 00:00:00 Problems Condition Condition Condition Status [...] ity of with body with body 00:00: a s mass index mass index 00 Me dical of of Branch 40.0-49.9 40.0-49.9 Liveborn Liveborn Disease Active Unive rs infant, of , of 8-18 it y of nevarez nevarez 00:00: Jer barakat , , 00 Me dical born in born in [facility] by vaginal by vaginal delivery delivery Normal Normal Disease Active Univers labor labor 8-17 ity of 00:00: 00 [facility] GBS (group GBS (group Disease Active [...] y 2-09 ity of 00:00: [place] 00 [facility] SAB SAB Disease Active Univers (spontaneo (spontaneo 2-09 it y of us us 00:00: [place] ) ) 00 [facility] Branch Supervisio Supervisio Disease Active 2019- U nivers n of high n of high 5-27 ity of risk risk 00:00: [place] 00 [facility] in third in third Branch trimester trimester [place] Disease Active 2020- Univers multiparit multiparit 5-27 it y of y, y, 00:00: [place] antepartum antepartum 00 [facility] Branch AMA AMA Disease Active 2020 Univers (advanced (advanced 5-27 ity of maternal maternal 00:00: [place] age) age) 00 Medical multigravi multigravi Br anch da 35+, da 35+, first first trimester trimester History of History of Disease Active 2020-0 U nivers anxiety anxiety 5-27 ity of 00:00: [place] 00 Medical [place] History of History of Disease Active U nivers depression depression 07-17 it y of :: Medical Branch Obesity in Obesity in Disease Active U nivers 07-17 ity of :: [place] [facility] BMI BMI Disease Active 2019- Univers 40.0-44.9, 40.0-44.9, 5-27 it y of adult adult 00:00: [place] [facility] Allergies, Adverse Reactions, Alerts Allergy Allergy Status Severity Reaction(s) Onset Inactive Treating Comm ents Source Name Type Date Date Clinician Penicill Propensi Active Swelling Univ ers ins ty to 07-17 ity of adverse 00:: [place] reaction 00 Medical s to Branch drug PENICILL Drug Active Hives Univers INS Class 07-17 ity of 00:: [place] [facility] NO KNOWN Drug Active Univers ALLERGIE Class ity of S [facility] Social History Social Habit Start Date Stop Date Quantity Comments Source Exposure to Not sure [facility] SARS-CoV-2 [facility] (event) Branch Alcohol intake 2020-11-18 2020-11-18 Ex-drinker [facility] 00:00:00 00:00:00 (finding) [facility] Tobacco use and 2019-07-18 2019-07-18 Never used Universit y of exposure 00:00:00 00:00:00 [facility] Sex [birth year] Universit y of 00:00:00 00:00:00 [facility] Smoking Status Start Date Stop Date Source Never smoker [facility] acute hospital Medications Ordered Filled Start Stop Current Ordering Indication Dosage Frequency Signature Comments Components Source Medication Medication Date Date Medication? Clinician (SIG) Name Name SERTraline Yes [id number] 50mg Take 50 mg Univers (ZOLOFT) 50 9-28 by mouth ity of mg tablet 11:32: daily. [address] Branch Yes [id number] 1{tbl} Take 1 Univers vitamin 8-19 tablet by ity of w/FA tablet 00:00: mouth [place] 00 daily. Medical Branch docusate Yes [id number] 240mg Take 1 U nivers calcium 240 8-19 capsule by it y of mg capsule 00:00: mouth [place] 00 daily as Medical needed for Branch Constipati on. ferrous Yes [id number] 325mg Take 1 Un mandy sulfate 325 8-19 tablet by ity of mg (65 mg 00:00: mouth 2 [place] iron) 00 (two) Medical tablet times Branch daily. ibuprofen Yes [id number] 600mg Take 1 Univers 600 mg 8-19 tablet by ity of tablet 00:00: mouth [place] 00 every 6 Medical (six) Branch hours as needed (Pain). Take with food or milk. Immunizations Ordered Filled Immunization Date Status Comments [facility] e Immunization Name Name TDAP 2020-08-04 Completed [facility] 00:00:00 [facility] Vital Signs Vital Name Observation Time Observation Value Comments Source Systolic blood 2020-11-18 16:16:00 122 mm[Hg] [facility] s[facility] Diastolic blood 2020-11-18 16:16:00 78 mm[Hg] [facility] Body temperature 2020-11-18 16:16:00 36.33 [facility] Respiratory rate 2020-11-18 16:16:00 16 /min [facility] Body height 2020-11-18 16:16:00 167.6 cm [facility] Body weight 2020-11-18 16:16:00 126.355 kg [facility] BMI 2020-11-18 16:16:00 44.96 kg/m2 [facility] Procedures This patient has no known procedures. Encounters Start End Encounter Admission Attending Care Care Encounter Source Date/Time Date/Time Type Type Clinicians Facility Department ID 2020-12-22 Outpatient P [facility] OCTAVIO [id number] Univers 16:17:01 ity [facility] 2020-12-19 Emergency [facility] [id number] Univers 19:47:14 [facility] 2020-11-18 2020-11-18 Office Provider, Derik Temp [facility] [id number] Univers 10:34:42 12:05:59 Visit Nallely Dutta ONLINE HEALTH AND FITNESS COACH [id number] [facility] [id number] [place] as MATERNAL [id number] Med ical & CHILD [address] [place] [address] 2020-11-18 2020-11-18 Outpatient [place] DUTTA [facility] [id number] Univers 10:30:00 10:30:00 RAQUELNDA ity o f [facility] 2020-10-28 2020-10-28 Outpatient [place] DUTTA [facility] [id number] Univers 12:45:00 12:45:00 NALLELY [id number] ity o [facility] 2020-10-28 2020-10-28 Outpatient [place] DUTTA [facility] [id number] Univers 12:45:00 12:45:00 RAQUELSASHAA ity o [facility] 2020-10-13 2020-10-13 Outpatient [place] DUTTA [facility] [id number] Univers 08:45:00 08:45:00 VALENTÍNALEXANDRIACARLOS douglas o [facility] 2020-10-08 2020-10-08 Outpatient INDUCTION, [facility] [id number] Univers 07:00:00 07:00:00 ЮЛИЯ [id number] ity [facility] 2020-10-06 2020-10-06 Outpatient [place] DUTTA [facility] [id number] Univers 07:45:00 07:45:00 RAQUELNDLili [id number] ity o [facility] 2020-10-06 2020-10-06 Outpatient [place] DUTTA [facility] [id number] Univers 07:45:00 07:45:00 NALLELY ity o [facility] 2020-09-29 2020-09-29 Outpatient [place] DUTTA [facility] [id number] Univers 07:30:00 07:30:00 RAQUELNDLili [id number] ity o [facility] 2020-09-29 2020-09-29 Outpatient [place] DUTTA [facility] [id number] Univers 07:30:00 07:30:00 NALLELY ity o [facility] 2020-09-22 2020-09-22 Outpatient [place] DUTTA [facility] [id number] Univers 08:45:00 08:45:00 RAQUELNDLili [id number] ity o [facility] 2020-09-22 2020-09-22 Outpatient R CY [facility] [id number] Univers 08:45:00 08:45:00 ROSHUNDA itdouglas o [facility] 2020-09-15 2020-09-15 Outpatient R CY [facility] [id number] Univers 08:45:00 08:45:00 ROSHUNDA [id number] ity o [facility] 2020-09-15 2020-09-15 Outpatient R CY [facility] [id number] Univers 08:45:00 08:45:00 ROSHUNDA itdouglas o [facility] 2020-09-01 2020-09-01 Outpatient CY [facility] [id number] Univers 10:15:00 10:15:00 ROSHUNDA [id number] itdouglas o [facility] 2020-09-01 2020-09-01 Outpatient R CY [facility] [id number] Univers 10:15:00 10:15:00 ROSHUNDA itdouglas o [facility] 2020-08-18 2020-08-18 Outpatient R CY [facility] [id number] Univers 09:30:00 09:30:00 ROSHUNDA [id number] ity o [facility] 2020-08-18 2020-08-18 Outpatient R CY [facility] [id number] Univers 09:30:00 09:30:00 VALENTÍNNDA douglas o [facility] 2020-08-06 2020-08-06 Outpatient R [facility] [id number] Univers 10:15:00 10:15:00 [id number] y [facility] 2020-08-06 2020-08-06 Outpatient P [facility] [id number] Univers 10:15:00 10:15:00 [facility] 2020-08-04 2020-08-04 Outpatient R CY [facility] [id number] Univers 08:15:00 08:15:00 ROSHUNDA [id number] y o [facility] 2020-08-04 2020-08-04 Outpatient R CY [facility] [id number] Univers 08:15:00 08:15:00 VALENTÍNALEXANDRIANDA ity o f [facility] 2020-08-01 2020-08-01 Outpatient R CY [facility] [id number] Univers 08:45:00 08:45:00 NALLELY [id number] ity o f [facility] 2020-08-01 2020-08-01 Outpatient [place] DUTTA [facility] [id number] Univers 08:45:00 08:45:00 RAQUELNDA ity o f [facility] 2020-07-15 2020-07-15 Outpatient R CY [facility] [id number] Univers 08:00:00 08:00:00 NALLELY [id number] itdouglas o f [facility] 2020-07-15 2020-07-15 Outpatient [place] DUTTA [facility] [id number] Univers 08:00:00 08:00:00 RAQUELSASHAA ity o [facility] 2020-06-25 2020-06-25 Outpatient R [facility] [id number] Univers 10:30:00 10:30:00 [id number] [facility] 2020-06-25 2020-06-25 Outpatient P [facility] [id number] Univers 10:30:00 10:30:00 [facility] 2020-06-24 2020-06-24 Outpatient R CY [facility] [id number] Univers 08:15:00 08:15:00 NALLELY [id number] ity o [facility] 2020-06-24 2020-06-24 Outpatient R CY [facility] [id number] Univers 08:15:00 08:15:00 TARAHA ity o [facility] 2020-06-12 2020-06-12 Outpatient TRISTA STEVEN [facility] [id number] [facility] 00:00:00 00:00:00 STEVEN 2020-05-28 2020-05-28 Outpatient R [facility] [id number] Univers 13:00:00 13:00:00 [id number] [facility] 2020-05-28 2020-05-28 Outpatient P [facility] [id number] Univers 13:00:00 13:00:00 ity [facility] 2020-05-27 2020-05-27 Outpatient R CY [facility] [id number] Univers 07:45:00 07:45:00 RAQUELNDLili [id number] ity o f [facility] 2020-05-27 2020-05-27 Outpatient R CY [facility] [id number] Univers 07:45:00 07:45:00 ROSHUNDA ity o f [facility] 2020-04-29 2020-04-29 Outpatient R CY [facility] [id number] Univers 10:45:00 10:45:00 NALLELY [id number] ity o [facility] 2020-04-29 2020-04-29 Outpatient R CY [facility] [id number] Univers 10:45:00 10:45:00 RAQUELNDA ity o [facility] 2020-04-21 2020-04-21 Outpatient R [facility] [id number] Univers 08:00:00 08:00:00 [id number] ity [facility] 2020-04-21 2020-04-21 Outpatient P [facility] [id number] Univers 08:00:00 08:00:00 ity [facility] 2020-04-07 2020-04-07 Outpatient R [facility] [id number] Univers 09:45:00 09:45:00 [id number] ity [facility] 2020-04-07 2020-04-07 Outpatient P [facility] [id number] Univers 09:45:00 09:45:00 ity [facility] 2020-04-04 2020-04-04 Outpatient R [facility] [id number] Univers 08:00:00 08:00:00 [id number] ity [facility] 2020-04-04 2020-04-04 Outpatient R AKINSIPE [facility] [id number] Univers 08:00:00 08:00:00 JATIN ity o [facility] 2020-04-01 2020-04-01 Outpatient CY [facility] [id number] Univers 14:00:00 14:00:00 NALLELY [id number] ity o f [facility] 2020-04-01 2020-04-01 Outpatient R [facility] [id number] Univers 13:15:00 13:15:00 ity [facility] 2020-03-26 2020-03-26 Outpatient AKINSIPE, [facility] [id number] Univers 10:00:00 10:00:00 JATIN [id number] ity o f [facility] 2020-03-26 2020-03-26 Outpatient R [facility] [id number] Univers 09:15:00 09:15:00 ity [facility] 2020-03-21 2020-03-21 Outpatient R AKINSIPE, [facility] [id number] Univers 10:00:00 10:00:00 JATIN [id number] ity o f [facility] 2020-03-21 2020-03-21 Outpatient R [facility] [id number] Univers 09:15:00 09:15:00 ity [facility] 2019-11-29 2019-11-29 Outpatient R CHANDU [facility] [id number] Univers 14:45:00 14:45:00 CARISSA [facility] 2019-11-29 2019-11-29 Outpatient R CHANDU, [facility] [id number] Univers 14:45:00 14:45:00 CARISSA [facility] 2019-08-24 2019-08-24 Outpatient R [facility] [id number] Univers 09:00:00 09:00:00 ity [facility] 2019-08-22 2019-08-22 Outpatient R CY [facility] [id number] Univers 11:00:00 11:00:00 NALLELY ity o f [facility] 2019-08-22 2019-08-22 Outpatient R CY [facility] [id number] Univers 11:00:00 11:00:00 NALLELY bostony o [facility] 2019-08-15 2019-08-15 Outpatient R AKINSIPE, [facility] [id number] Univers 13:45:00 13:45:00 JATIN [id number] ity o f [facility] 2019-08-15 2019-08-15 Outpatient R MARQUITA, [facility] [id number] Univers 13:45:00 13:45:00 JATIN darviny o f [facility] 2019-08-15 2019-08-15 Outpatient R CY, [facility] [id number] Univers 07:45:00 07:45:00 NALLELY ity o f [facility] 2019-08-13 2019-08-13 Telemedici Faculty, [facility] [id number] 08:14:37 08:41:58 ne Visit Ang Rmchp ONLINE HEALTH AND FITNESS COACH [id number] [facility] [id number] MATERNAL [id number] & CHILD 107 [facility] 2019-08-13 2019-08-13 Outpatient R [facility] [id number] Univers 08:30:00 08:30:00 [id number]-08[facility] 2019-08-13 Outpatient R [facility] [id number] Univers 08:30:00 08:30:00 [facility] 2019-08-13 2019-08-13 Telephone Faculty, [facility] [id number] 00:00:00 00:00:00 Ang Rmchp ONLINE HEALTH AND FITNESS COACH [id number] [facility] [id number] MATERNAL [id number] & CHILD 107 [facility] 2019-08-10 2019-08-10 [employer] Officer 3, [facility] UNIVERSIT [id number] 08:35:12 10:02:08 [facility] [id number] [facility] [id number] 2019-08-10 2019-08-10 Outpatient [facility] [id number] Univers 09:15:00 09:15:00 [id number] ity [facility] 2019-08-10 2019-08-10 Outpatient P [facility] [id number] Univers 09:15:00 09:15:00 ity [facility] 2019-08-09 2019-08-09 Telephone Cy [facility] [id number] 00:00:00 00:00:00 Nallely Ho ONLINE HEALTH AND FITNESS COACH [id number] [facility] [id number] MATERNAL [id number] & CHILD [address] [place] [address] 2019-07-18 2019-07-18 Outpatient [place] JUÁREZ [facility] [id number] Univers 09:30:00 09:30:00 JATIN [id number] gunjan mitchell [facility] 2019-07-18 2019-07-18 Outpatient [place] JUÁREZ [facility] [id number] Univers 09:00:00 09:00:00 JATIN mitchell [facility] Results This patient has no known results.
[2021-08-04] MEDS ORDERED: dexAMETHasone 10 MG/ML VIAL ONE (09:06)
--- NOTE | 2021-08-04 09:29 | ER ---
Nurse's Notes [facility] Name: Janine Mcgregor Age: 41 yrs Sex: Female : 1980 Arrival Date: 08/04/2021 Time: 08:17 Bed 12 Private MD: Diagnosis: Acute pharyngitis, unspecified Presentation: 08/04 08:25 Chief complaint: Patient states: she started having a sore throat and runny nose ap3 yesterday. Patient reports one of her children has been diagnosed with strep throat recently. Coronavirus screen: Client presents with at least one sign or symptom that may indicate coronavirus-19. Ebola Screen: No symptoms or risks identified at this time. Initial Sepsis Screen: Does the patient meet any 2 criteria? No. Patient's initial sepsis screen is negative. Does the patient have a suspected source of infection? No. Patient's initial sepsis screen is negative. Risk Assessment: Do you want to hurt yourself or someone else? Patient reports no desire to harm self or others. Onset of symptoms was August 03, 2021. 08:25 Method Of Arrival: Ambulatory ap3 08:25 Acuity: GRIFFIN 4 ap3 Triage Assessment: 08:28 General: Appears in no apparent distress. Behavior is calm, cooperative. Pain: ap3 Complains of pain in throat. EENT: Reports pain in throat when swallowing Pain is 8 out of 10 on a pain scale. Neuro: Level of Consciousness is awake, alert, obeys commands, Oriented to person, place, time, situation, Gait is steady, Speech is normal. Cardiovascular: Patient's skin is warm and dry. Respiratory: Airway is patent. 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 - Social history:: Smoking status: Patient denies any tobacco usage or history of. Screenin:29 Abuse screen: Denies threats or abuse. Nutritional screening: No deficits noted. ap3 Tuberculosis screening: No symptoms or risk factors identified. Fall Risk None identified. Assessment: 08:29 Respiratory: Respiratory effort is even, Respiratory pattern is regular, symmetrical. ap3 Vital Signs: 08:25 BP 147 / 78; Pulse 86; Resp 17; Temp 98.3; Pulse Ox 99% ; Weight 115.21 kg; Height 5 ap3 ft. 6 in. (167.64 cm); 08:25 Body Mass Index 41.00 (115.21 kg, 167.64 cm) ap3 ED Course: 08:17 Patient arrived in ED. rg4 08:22 Jose Roberto Mccracken MD is Attending Physician. rn 08:25 Ginger Alexander RN is Primary Nurse. ap3 08:26 Jeff Esteves NP is PHCP. pm1 08:28 Triage completed. ap3 08:29 Arm band placed on left wrist. ap3 08:59 Strep Sent. ss 09:58 No provider procedures requiring assistance completed. Patient did not have IV access ss during this emergency room visit. Administered Medications: 09:06 Drug: Decadron (dexamethasone) 10 mg Route: IM; Site: right deltoid; ss 09:58 Follow up: Response: No adverse reaction ss Outcome: 09:29 Discharge ordered by . pm1 09:58 Discharged to home ambulatory, with family. ss 09:58 Condition: good 09:58 Discharge instructions given to patient, family, Instructed on discharge instructions, follow up and referral plans. medication usage, Demonstrated understanding of instructions, follow-up care, medications, Prescriptions given X 1. 09:58 Patient left the ED. ss Signatures: Jose Roberto Mccracken MD MD rn Smirch, Shelby, RN RN Jeff Esteves NP SOLUTIONS ANALYST pm1 Savanna Arreola rg4 Ginger Alexander RN RN ap3
--- NOTE | 2021-08-04 09:29 | EDPHYS ---
Physician Documentation [facility] Name: Janine Mcgregor Age: 41 yrs Sex: Female : 1980 Arrival Date: 08/04/2021 Time: 08:17 Bed 12 Private MD: ED Physician Jose Roberto Mccracken HPI: 08/04 08:47 This 41 yrs old Female presents to ER via Ambulatory with complaints of Sore Throat. pm1 08:47 The patient presents with sore throat. The patient describes throat pain as constant, pm1 raw, scratchy. Onset: The symptoms/episode began/occurred yesterday. Severity of symptoms: in the emergency department the symptoms are actually worse. Modifying factors: The symptoms are alleviated by nothing, the symptoms are aggravated by swallowing, Patient's oral intake status: good The patient has had contact with sick son, daughter, diagnose with strep recently. Associated signs and symptoms: Pertinent positives: earache, Pertinent negatives chest pain, chills, cough, fever, flu-like symptoms, headache, nausea, vomiting. The patient has not experienced similar symptoms in the past. The patient has not recently seen a physician. 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 - Social history:: Smoking status: Patient denies any tobacco usage or history of. ROS: 08:47 Constitutional: Negative for fever, chills, and weight loss. pm1 08:47 Cardiovascular: Negative for chest pain, palpitations, and edema, Respiratory: Negative for shortness of breath, cough, wheezing, and pleuritic chest pain, MS/Extremity: Negative for injury and deformity, Skin: Negative for injury, rash, and discoloration. 08:47 Neuro: Negative for headache, weakness, numbness, tingling, and seizure. 08:47 ENT: Positive for sore throat, Negative for drainage from ear(s), ear pain. 08:47 All other systems are negative. Exam: 08:47 Constitutional: This is a well developed, well nourished patient who is awake, alert, pm1 and in no acute distress. Head/Face: Normocephalic, atraumatic. 08:47 Skin: Warm, dry with normal turgor. Normal color with no rashes, no lesions, and no evidence of cellulitis. MS/ Extremity: Pulses equal, no cyanosis. Neurovascular intact. Full, normal range of motion. 08:47 Eyes: Exam is negative for acute changes, Periorbital structures: appear normal, no acute changes, Extraocular movements: no acute changes, Conjunctiva: no acute changes. 08:47 ENT: External ear(s): no acute changes, Ear canal(s): no acute changes, TM's: no acute changes, Mouth: no acute changes, Lips: normal, moist, Oral mucosa: normal, pink and intact, moist, Posterior pharynx: Tonsils: bilaterally enlarged, with erythema, no exudate, no ulcerations, erythema, that is moderate, peritonsillar mass, is not appreciated. 08:47 Cardiovascular: Exam negative for acute changes, Rate: normal, Rhythm: regular, Pulses: no pulse deficits are appreciated. 08:47 Respiratory: Exam negative for acute changes, respiratory distress, shortness of breath. 08:47 Neuro: Exam negative for acute changes, Orientation: is normal, Mentation: is normal, Motor: moves all fours, Sensation: is normal, no obvious gross deficits. Vital Signs: 08:25 BP 147 / 78; Pulse 86; Resp 17; Temp 98.3; Pulse Ox 99% ; Weight 115.21 kg; Height 5 ap3 ft. 6 in. (167.64 cm); 08:25 Body Mass Index 41.00 (115.21 kg, 167.64 cm) ap3 MDM: 08:22 Patient medically screened. rn 08:47 ED course: Patient did not want covid or flu tested. pm1 09:28 Data reviewed: vital signs. Data interpreted: Pulse oximetry: on room air is 99 %. pm1 Interpretation: normal. Counseling: I had a detailed discussion with the patient and/or guardian regarding: the historical points, exam findings, and any diagnostic results supporting the discharge/admit diagnosis, lab results, the need for outpatient follow up, to return to the emergency department if symptoms worsen or persist or if there are any questions or concerns that arise at home. 08/04 08:46 Order name: Strep; Complete Time: 09:26 pm1 08/04 09:28 Order name: Throat Culture EDMS Administered Medications: 09:06 Drug: Decadron (dexamethasone) 10 mg Route: IM; Site: right deltoid; ss 09:58 Follow up: Response: No adverse reaction ss Disposition: 16:01 Co-signature as Attending Physician, Jose Roberto Mccracken MD. rn Disposition Summary: 08/04/21 09:29 Discharge Ordered Location: Home pm1 Problem: new pm1 Symptoms: have improved pm1 Condition: Stable pm1 Diagnosis - Acute pharyngitis, unspecified pm1 Followup: pm1 - With: Emergency Department - When: As needed - Reason: Worsening of condition Followup: pm1 - With: Private Physician - When: 2 - 3 days - Reason: Recheck today's complaints, Continuance of care, Re-evaluation by your physician Discharge Instructions: - Discharge Summary Sheet pm1 - Pharyngitis pm1 Forms: - Medication Reconciliation Form pm1 - Thank You Letter pm1 - Antibiotic Education pm1 - Prescription Opioid Use pm1 Prescriptions: - Zithromax Z-Jeffrey 250 mg Oral Tablet - take 1 tablet by ORAL route as directed for 5 days Day 1 - take two (2) tablets pm1 one time. Day 2, 3, 4 , 5 take one (1) tablet once daily.; 6 tablet; Refills: 0, Product Selection Permitted Signatures: Dispatcher [employer] EDMS Jose Roberto Mccracken MD MD rn Smirch, Shelby, RN RN ss Jeff Esteves, [employer] pm1 Ginger Alexander RN RN ap3
[2021-08-04 10:03] VITALS: BP 147/78; TEMP 98.3; O2SAT 99
== END 2021-08-04 09:58 | disposition home or self-care (01) ==
LOC: ER 08:14
DX: J02.9 Acute pharyngitis, unspecified (principal); F32.A Depression, unspecified; Z88.0 Allergy status to penicillin
CPT/HCPCS: 87070; 87081; J1100; 96372; 99283

== ENCOUNTER 2021-08-08 08:03 | Emergency (ER) | payer OTHER ==
--- OUTSIDE RECORDS SUMMARY | 2021-08-08 08:06 | XMS REPORT | Continuity of Care Document ---
:1980 Author Organization [facility] t Address [address] [place] [address] Care Team Providers Name Role Phone Cy VILLEGAS R Primary Care Physician Kavon CAVAZOS S Attending Clinician Kishan PRECIADO Attending Clinician Unavailable Provider, Temp Attending Clinician Unavailable Cy VILLEGAS R Attending Clinician [place] DUTTA Attending Clinician Unavailable INDUCTION Attending Clinician Unavailable FOROOZAN Attending Clinician Unavailable Kaitlin JUÁREZ Attending Clinician Unavailable DARRYN SCHOFIELD Attending Clinician Unavailable Faculty, Rmchp Mfm Attending Clinician Unavailable 3, Mfm Usg Room Attending Clinician Unavailable FISH Admitting Clinician Unavailable Payers Payer Name Policy Type Policy Number Effective Date Expiration Date S baldev [employer]CIAL [id number] 2020 OUT OF NETWORK 00:00:00 [facility] [id number] 2019 00:00:00 [employer] OPEN ACCESS [id number] 2020 HMO NAP 00:00:00 MEDICAID PENDING PENDING 2019 00:00:00 [place] OF [place] [id number] 2019 00:00:00 Problems Condition Condition Condition Status Onset Resolution Last Treating Co mments Source Name Details Category Date Date Treatment Clinician Date Family Family Disease Active Univers history of history of 9-28 it y of ovarian ovarian 00:00: [place] cancer cancer Medical Branch Mild Mild Disease Active Univers pre-eclamp pre-eclamp 8-19 it y of [place] in [place] in 00:00: [place] third third 00 Medical trimester trimester Bran ch Morbid Morbid Disease Active Univers obesity obesity 8-19 [place] of with body [place] mass index mass index 00 Me dical of of [place] 40.0-49.9 40.0-49.9 Liveborn Liveborn Disease Active Unive rs infant, of infant, of 8-18 it y of nevarez nevarez 00:00: [place] ann s , , 00 Me dical born in born in [facility] hospital by vaginal by vaginal delivery delivery Normal Normal Disease Active Univers labor labor 8-17 ity of 00:00: [place] 00 [facility] GBS (group GBS (group Disease Active Overview [...] y 2-09 ity of 00:00: [place] 00 [facility] SAB SAB Disease Active Univers (spontaneo (spontaneo 2-09 it y of us us 00:00: [place] ) ) 00 [facility] Branch Supervisio Supervisio Disease Active U nivers n of high n of high 5-27 ity of risk risk 00:00: [place] 00 [facility] in third in third Branch trimester trimester [place] Disease Active Univers multiparit multiparit 5-27 it y of y, y, 00:00: [place] antepartum antepartum 00 [facility] Branch AMA AMA Disease Active Univers (advanced (advanced 5-27 ity of maternal maternal 00:00: [place] age) age) 00 Medical multigravi multigravi Br anch da 35+, da 35+, first first trimester trimester History of History of Disease Active U nivers anxiety anxiety 5-27 ity of 00:00: [place] Medical Branch History of History of Disease Active 2019- U nivers depression depression 07-17 it y of 00:: [place] [facility] Obesity in Obesity in Disease Active 2019- U nivers 07-17 ity of 00:00: [place] [facility] BMI BMI Disease Active 2020-0 Univers 40.0-44.9, 40.0-44.9, 5- it y of adult adult 00:00: [place] [facility] Allergies, Adverse Reactions, Alerts Allergy Allergy Status Severity Reaction(s) Onset Inactive Treating Comm ents Source Name Type Date Date Clinician Penicill Propensi Active Swelling Univ ers ins ty to 07-17 ity of adverse 00:00: [place] reaction 00 Medical s to Branch drug Penicill Propensi Active Swelling Univ ers ins ty to 07-17 ity of adverse 00:00: [place] reaction 00 Medical s to Branch drug PENICILL Drug Active Hives Univers INS Class 07-17 ity of 00:00: [address] NO KNOWN Drug Active Univers ALLERGIE Class ity of S [facility] Social History Social Habit Start Date Stop Date Quantity Comments Source Exposure to 2021-07-28 2021-08-07 Not sure [facility] SARS-CoV-2 00:00:00 04:14:00 [place] [facility] (event) [place] Alcohol intake 2021-08-07 2021-08-07 Ex-drinker [facility] 00:00:00 00:00:00 (finding) [facility] Tobacco use and 2019-07-18 2019-07-18 Never used Universit y of exposure 00:00:00 00:00:00 [facility] Sex [birth year] At [birth year] Universit y of 00:00:00 00:00:00 [facility] Smoking Status Start Date Stop Date Source Never smoker [facility] Medications Ordered Filled Start Stop Current Ordering Indication Dosage Frequency Signature Comments Components Source Medication Medication Date Date Medication? Clinician (SIG) Name Name SERTraline Yes [id number] 50mg Take 50 mg Univers (ZOLOFT) 50 6-17 by mouth ity of mg tablet 04:19: daily. [place] 18 [facility] ibuprofen Yes [id number] 800mg Take 1 U nivers 800 mg 6-17 tablet by ity of tablet 00:00: mouth [place] 00 every 8 Medical (eight) Branch hours as needed for Pain (scale 4-6) or Temp > 38.5 C. ciprofloxac 2021- Yes [id number] 3[drp] Place 3 Univers in-hydrocor 6-17 06-25 Drops in ity of tisone 00:00: 04:59 right ear [place] (CIPRO HC) 00 :00 2 (two) Medica l otic times Branch suspension daily for 7 days. SERTraline Yes [id number] 50mg Take 50 mg Univers (ZOLOFT) 50 9-28 by mouth ity of mg tablet 11:32: daily. [place] 52 Medical Branch Yes [id number] 1{tbl} Take 1 Univers vitamin 8-19 tablet by ity of w/FA tablet 00:00: mouth [place] 00 daily. Medical Branch docusate Yes [id number] 240mg Take 1 U nivers calcium 240 8-19 capsule by it y of mg capsule 00:00: mouth [place] 00 daily as Medical needed for Branch Constipati on. ferrous Yes [id number] 325mg Take 1 Un mandy sulfate 325 8-19 tablet by ity of mg (65 mg 00:00: mouth 2 [place] iron) 00 (two) Medical tablet times Branch daily. ibuprofen Yes [id number] 600mg Take 1 Univers 600 mg 8-19 tablet by ity of tablet 00:00: mouth [place] 00 every 6 Medical (six) Branch hours as needed (Pain). Take with food or milk. 2021- No [id number] 1{tbl} Take 1 Univers vitamin 8-19 06-17 tablet by ity of w/FA tablet 00:00: 00:00 [place] 00 :00 daily. Medical Branch docusate 2021- No [id number] 240mg Take 1 Univers calcium 240 8-19 06-17 capsule by i ty of mg capsule 00:00: 00:00 mouth once [place] 00 :00 daily as Medical needed for Branch Constipati on. ferrous 2021- No [id number] 325mg Take 1 U nivers sulfate 325 8-19 06-17 tablet by it y of mg (65 mg 00:00: 00:00 [place] 2 [place] iron) 00 :00 (two) Medical tablet times Branch daily. ibuprofen 2021- No [id number] 600mg Take 1 Univers 600 mg 10-09 tablet by ity of tablet 00:00: 00:00 mouth [place] 00 :00 every 6 Medical (six) Branch hours as needed (Pain). Take with food or milk. Immunizations Ordered Filled Immunization Date Status Comments Sour e Immunization Name Name TDAP 2020-08-04 Completed University 00:00:00 [facility] Branch TDAP 2020-08-04 Completed [facility] 00:00:00 [facility] Vital Signs Vital Name Observation Time Observation Value Comments Source Systolic blood 2021-08-07 09:16:00 123 mm[Hg] Univer [facility] Diastolic blood 2021-08-07 09:16:00 75 mm[Hg] [facility] Heart rate 2021-08-07 09:16:00 78 /min [facility] Body temperature 2021-08-07 09:16:00 36.72 [facility] Respiratory rate 2021-08-07 09:16:00 18 /min [facility] Body height 2021-08-07 09:16:00 167.6 cm [facility] Body weight 2021-08-07 09:16:00 115.214 kg [facility] BMI 2021-08-07 09:16:00 41.00 kg/m2 [facility] Oxygen saturation in 2021-08-07 09:16:00 98 /min [facility] Arterial blood by [facility] Pulse oximetry Branch Systolic blood 2020-11-18 16:16:00 122 mm[Hg] Univer sity [facility] Diastolic blood 2020-11-18 16:16:00 78 mm[Hg] [facility] Body temperature 2020-11-18 16:16:00 36.33 [facility] Respiratory rate 2020-11-18 16:16:00 16 /min [facility] Body height 2020-11-18 16:16:00 167.6 cm [facility] Body weight 2020-11-18 16:16:00 126.355 kg [facility] BMI 2020-11-18 16:16:00 44.96 kg/m2 [facility] Procedures Procedure Date / Time Performed Performing Clinician Sour e NOTICE OF PRIVACY 2021-08-07 09:06:36 Doctor Unassigned, No Univ [facility] PRACTICES Name [facility] CONSENT/REFUSAL FOR 2021-08-07 09:06:14 Doctor [facility]assigned, [facility] AND Name [facility] TREATMENT Encounters Start End Encounter Admission Attending Care Care Encounter Source Date/Time Date/Time Type Type Clinicians Facility Department ID 2020-12-22 Outpatient P [facility] OCTAVIO [id number] Univers 16:17:01 ity [facility] 2020-12-19 Emergency [facility] [id number] Univers 19:47:14 ity [facility] 2021-08-07 2021-08-07 Emergency [facility] [id number] Univers 04:21:00 05:28[id number] [id number] [facility] [id number] [address] 2021-08-07 2021-08-07 Emergency X [facility] [id number] Univers 04:21:00 05:28:00 BERNIE hollins [facility] 2020-11-18 2020-11-18 Office Provider, Edmund-Rmchp [facility] [id number] Univers 10:34:42 12:05:59 Visit Nallely Dutta PARTS ADVISOR [id number] ity [facility] [id number] [facility] MATERNAL [id number] Med ical & CHILD [address] [place] [address] 2020-11-18 2020-11-18 Outpatient [place] DUTTA [facility] [id number] Univers 10:30:00 10:30:00 NALLELY hollins o f [facility] 2020-10-28 2020-10-28 Outpatient R CY, [facility] [id number] Univers 12:45:00 12:45:00 RAQUELNDLeigh Ann [id number] ity o f [facility] 2020-10-28 2020-10-28 Outpatient [place] DUTTA, [facility] [id number] Univers 12:45:00 12:45:00 TARAHA itdouglas o f [facility] 2020-10-13 2020-10-13 Outpatient [place] DUTTA, [facility] [id number] Univers 08:45:00 08:45:00 RAQUELNDA ity o [facility] [place] [facility] 2020-10-08 2020-10-08 Outpatient INDUCTION, [facility] [id number] Univers 07:00:00 07:00:00 ЮЛИЯ [id number] ity of [facility] 2020-10-06 2020-10-06 Outpatient [place] DUTTA [facility] [id number] Univers 07:45:00 07:45:00 NALLELY [id number] ity o [facility] [place] [facility] 2020-10-06 2020-10-06 Outpatient [place] DUTTA [facility] [id number] Univers 07:45:00 07:45:00 RAQUELCARLOS ity o [facility] [place] [facility] 2020-09-29 2020-09-29 Outpatient [place] DUTTA [facility] [id number] Univers 07:30:00 07:30:00 NALLELY [id number] ity o [facility] [place] [facility] 2020-09-29 2020-09-29 Outpatient [place] DUTTA, [facility] [id number] Univers 07:30:00 07:30:00 RAQUELNDA itdouglas o [facility] [place] [facility] 2020-09-22 2020-09-22 Outpatient R CY [facility] [id number] Univers 08:45:00 08:45:00 NALLELY [id number] ity o [facility] [place] [facility] 2020-09-22 2020-09-22 Outpatient R CY, [facility] [id number] Univers 08:45:00 08:45:00 NALLELY itdouglas o [facility] [place] [facility] 2020-09-15 2020-09-15 Outpatient [place] DUTTA [facility] [id number] Univers 08:45:00 08:45:00 ROSALEXANDRIANDA [id number] ity o paula [facility] 2020-09-15 2020-09-15 Outpatient R CY [facility] [id number] Univers 08:45:00 08:45:00 ROSHUNDA ity o f [facility] 2020-09-01 2020-09-01 Outpatient CY [facility] [id number] Univers 10:15:00 10:15:00 ROSHUNDA [id number] ity o f [facility] 2020-09-01 2020-09-01 Outpatient R CY [facility] [id number] Univers 10:15:00 10:15:00 VALENTÍNHUNDA itdouglas o f [facility] 2020-08-18 2020-08-18 Outpatient R CY [facility] [id number] Univers 09:30:00 09:30:00 RAQUELNDA [id number] ity o f [facility] 2020-08-18 2020-08-18 Outpatient R CY [facility] [id number] Univers 09:30:00 09:30:00 ROSALEXANDRIANDA itdouglas o [facility] [place] [facility] 2020-08-06 2020-08-06 Outpatient R [facility] [id number] Univers 10:15:00 10:15:00 [id number] y [facility] 2020-08-06 2020-08-06 Outpatient P [facility] [id number] Univers 10:15:00 10:15:00 y [facility] 2020-08-04 2020-08-04 Outpatient R CY [facility] [id number] Univers 08:15:00 08:15:00 ROSHUNDA [id number] ity o [facility] [place] [facility] 2020-08-04 2020-08-04 Outpatient R CY [facility] [id number] Univers 08:15:00 08:15:00 ROSHUNDA itdouglas o f [facility] 2020-08-01 2020-08-01 Outpatient R CY [facility] [id number] Univers 08:45:00 08:45:00 ROSHUNDA [id number] ity o f [facility] 2020-08-01 2020-08-01 Outpatient R CY [facility] [id number] Univers 08:45:00 08:45:00 NALLELY ity o f [facility] 2020-07-15 2020-07-15 Outpatient R CY [facility] [id number] Univers 08:00:00 08:00:00 NALLELY [id number] ity o f [facility] 2020-07-15 2020-07-15 Outpatient R CY [facility] [id number] Univers 08:00:00 08:00:00 NALLELY ity o f [facility] 2020-06-25 2020-06-25 Outpatient R [facility] [id number] Univers 10:30:00 10:30:00 [id number] [facility] 2020-06-25 2020-06-25 Outpatient P [facility] [id number] Univers 10:30:00 10:30:00 [facility] 2020-06-24 2020-06-24 Outpatient R CY [facility] [id number] Univers 08:15:00 08:15:00 NALLELY [id number] ity o f [facility] 2020-06-24 2020-06-24 Outpatient [place] DUTTA [facility] [id number] Univers 08:15:00 08:15:00 NALLELY ity o [facility] [place] [facility] 2020-06-12 2020-06-12 Outpatient TRISTA STEVEN [facility] [id number] 00:00:00 00:00:00 STEVEN 2020-05-28 2020-05-28 Outpatient R [facility] [id number] Univers 13:00:00 13:00:00 [id number] [facility] 2020-05-28 2020-05-28 Outpatient P [facility] [id number] Univers 13:00:00 13:00:00 [facility] 2020-05-27 2020-05-27 Outpatient R CY [facility] [id number] Univers 07:45:00 07:45:00 NALLELY [id number] ity o f [facility] 2020-05-27 2020-05-27 Outpatient R CY [facility] [id number] Univers 07:45:00 07:45:00 ROSHUNDA ity o f [facility] 2020-04-29 2020-04-29 Outpatient R CY [facility] [id number] Univers 10:45:00 10:45:00 NALLELY [id number] ity o f [facility] 2020-04-29 2020-04-29 Outpatient R CY [facility] [id number] Univers 10:45:00 10:45:00 RAQUELNDA ity o f [facility] 2020-04-21 2020-04-21 Outpatient R [facility] [id number] Univers 08:00:00 08:00:00 [id number] ity [facility] 2020-04-21 2020-04-21 Outpatient P [facility] [id number] Univers 08:00:00 08:00:00 ity [facility] 2020-04-07 2020-04-07 Outpatient R [facility] [id number] Univers 09:45:00 09:45:00 [id number] ity [facility] 2020-04-07 2020-04-07 Outpatient P [facility] [id number] Univers 09:45:00 09:45:00 ity [facility] 2020-04-04 2020-04-04 Outpatient R [facility] [id number] Univers 08:00:00 08:00:00 [id number] ity [facility] 2020-04-04 2020-04-04 Outpatient R AKINSIPE, [facility] [id number] Univers 08:00:00 08:00:00 JATIN ity o [facility] [place] [facility] 2020-04-01 2020-04-01 Outpatient CY [facility] [id number] Univers 14:00:00 14:00:00 NALLELY [id number] ity o [facility] [place] [facility] 2020-04-01 2020-04-01 Outpatient R [facility] [id number] Univers 13:15:00 13:15:00 ity [facility] 2020-03-26 2020-03-26 Outpatient AKINSIPE, [facility] [id number] Univers 10:00:00 10:00:00 JATIN [id number] ity o f [facility] 2020-03-26 2020-03-26 Outpatient R [facility] [id number] Univers 09:15:00 09:15:00 ity [facility] 2020-03-21 2020-03-21 Outpatient R AKINSIPE, [facility] [id number] Univers 10:00:00 10:00:00 JATIN [id number] ity o f [facility] 2020-03-21 2020-03-21 Outpatient R [facility] [id number] Univers 09:15:00 09:15:[facility] [facility] 2019-11-29 2019-11-29 Outpatient R CHANDU, [facility] [id number] Univers 14:45:00 14:45:00 CARISSA [facility] 2019-11-29 2019-11-29 Outpatient R CHANDU, [facility] [id number] Univers 14:45:00 14:45:00 CARISSA [facility] 2019-08-24 2019-08-24 Outpatient R [facility] [id number] Univers 09:00:00 09:00:00 [facility] [facility] 2019-08-22 2019-08-22 Outpatient R DUTTA, [facility] [id number] Univers 11:00:00 11:00:00 NALLELY [id number] ity o f [facility] 2019-08-22 2019-08-22 Outpatient R DUTTA, [facility] [id number] Univers 11:00:00 11:00:00 TARAHA ity o f [facility] 2019-08-15 2019-08-15 Outpatient R AKINSIPE, [facility] [id number] Univers 13:45:00 13:45:00 JATIN [id number] darviny o f [facility] 2019-08-15 2019-08-15 Outpatient R AKINSIPE, [facility] [id number] Univers 13:45:00 13:45:00 JATIN marie f [facility] 2019-08-15 2019-08-15 Outpatient R CY [facility] [id number] Univers 07:45:00 07:45:00 NALLELY ity o f [facility] 2019-08-13 2019-08-13 Telemedici Faculty, [facility] [id number] 08:14:37 08:41:58 ne Visit Ang Rmchp PARTS ADVISOR [id number] [facility] [id number] MATERNAL [id number] & CHILD 107 [facility] 2019-08-13 2019-08-13 Outpatient R [facility] [id number] Univers 08:30:00 08:30:00 [id number] [facility] 2019-08-13 2019-08-13 Outpatient R [facility] [id number] Univers 08:30:00 08:30:00 [facility] 2019-08-13 2019-08-13 Telephone [facility], [facility] [id number] 00:00:00 00:00:00 Ang Rmchp PARTS ADVISOR [id number] [facility] [id number] MATERNAL [id number] & CHILD 107 [facility] 2019-08-10 2019-08-10 Ditto Machine Operator 3, [facility] UNIVERSIT [id number] 08:35:12 10:02:08 [facility] [id number] [facility] [id number] 2019-08-10 2019-08-10 Outpatient [facility] [id number] Univers 09:15:00 09:15:00 [id number] [facility] 2019-08-10 2019-08-10 Outpatient P [facility] [id number] Univers 09:15:00 09:15:00 [facility] 2019-08-09 2019-08-09 [facility] [id number] 00:00:00 00:00:00 Nallely R PARTS ADVISOR [id number] REGIONAL [id number] MATERNAL [id number] & CHILD [address] [place] [address] 2019-07-18 2019-07-18 Outpatient [place] JUÁREZ [facility] [id number] [facility] 09:30:00 09:30:00 JATIN [id number] gunjan mitchell [facility] 2019-07-18 2019-07-18 Outpatient [place] JUÁREZ [facility] [id number] [facility] 09:00:00 09:00:00 JATIN hollins [facility] Results This patient has no known results.
[2021-08-08] MEDS ORDERED: CEFDINIR 300 MG CAP PO ONE (09:09)
--- NOTE | 2021-08-08 09:13 | ER ---
Nurse's Notes [facility] Name: Janine Mcgregor Age: 41 yrs Sex: Female : 1980 Arrival Date: 08/08/2021 Time: 08:05 Bed 12 Private MD: Diagnosis: Otitis media, unspecified, bilateral Presentation: 08/08 08:08 Chief complaint: Patient states: drainage from R ear that began yesterday. Coronavirus ss screen: Client denies travel out of the [place] in the last 14 days. Ebola Screen: Patient denies exposure to infectious person. Patient denies travel to an Ebola-affected area in the 21 days before illness onset. Initial Sepsis Screen: Does the patient meet any 2 criteria? No. Patient's initial sepsis screen is negative. Does the patient have a suspected source of infection? No. Patient's initial sepsis screen is negative. Risk Assessment: Do you want to hurt yourself or someone else? Patient reports no desire to harm self or others. Onset of symptoms was August 07, 2021. 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 - Social history:: Smoking status: Patient denies any tobacco usage or history of. Screenin:10 Abuse screen: Denies threats or abuse. Denies injuries from another. Nutritional ss screening: No deficits noted. Tuberculosis screening: Never had TB. Fall Risk None identified. Assessment: 08:10 General: Appears in no apparent distress. comfortable, Behavior is calm, cooperative, ss Denies fever, feeling ill, fatigue, chills. Pain: Complains of pain in right ear Pain currently is 7 out of 10 on a pain scale. Quality of pain is described as aching, throbbing, Is continuous. Neuro: Garcia Agitation-Sedation Scale (RASS): 0 - Alert and Calm Level of Consciousness is awake, alert, obeys commands, Oriented to person, place, time, situation. Cardiovascular: Capillary refill < 3 seconds is brisk in bilateral fingers. Respiratory: Airway is patent Respiratory effort is even, unlabored, Respiratory pattern is regular, symmetrical. GI: Patient currently denies diarrhea, nausea, vomiting. EENT: Oral mucosa is moist. Throat is clear Reports drainage form R ear that began yesterda. Derm: Skin is intact, is healthy with good turgor, Skin is dry, Skin is pink, warm \T\ dry. normal. Musculoskeletal: Circulation, motion, and sensation intact. Range of motion: intact in all extremities. 08:45 Reassessment: Awaiting pharmacy to bring Cefdinir dose. ss 09:13 Reassessment: Will observe patient for 30 minutes after medication administration as ss instructed by Jennifer Don NP. Vital Signs: 08:08 Pulse 101; Resp 16; Temp 97.6(TE); Pulse Ox 100% on R/A; Weight 115.21 kg; Height 5 ft. ss 6 in. (167.64 cm); Pain 7/10; 08:10 BP 127 / 76; ss 08:08 Body Mass Index 41.00 (115.21 kg, 167.64 cm) ss ED Course: 08:05 Patient arrived in ED. mr 08:07 Bozena Renae, RN is Primary Nurse. ss 08:07 Jennifer Don FNP-C is PHCP. kb 08:07 Jacob Ortiz MD is Attending Physician. kb 08:10 Triage completed. ss 08:10 Arm band placed on right wrist. ss 08:10 Patient has correct armband on for positive identification. Bed in low position. ss 09:33 No provider procedures requiring assistance completed. Patient did not have IV access ss during this emergency room visit. Administered Medications: 09:00 Drug: Cefdinir 300 mg Route: PO; ss 09:33 Follow up: Response: No adverse reaction ss Medication: 08:10 VIS not applicable for this client. ss Outcome: 09:12 Discharge ordered by . kb 09:33 Discharged to home ambulatory. ss 09:33 Condition: good 09:33 Discharge instructions given to patient, Instructed on discharge instructions, follow up and referral plans. medication usage, Demonstrated understanding of instructions, follow-up care, medications, Prescriptions given X 1. 09:33 Patient left the ED. ss Signatures: Jennifer Don FNP-C FNP-Johnny HendricksaCitlali mr Bozena Renae, RN RN ss
--- NOTE | 2021-08-08 09:13 | EDPHYS ---
Physician Documentation [facility] Name: Janine Mcgregor Age: 41 yrs Sex: Female : 1980 Arrival Date: 08/08/2021 Time: 08:05 Bed 12 Private MD: ED Physician Jacob Ortiz HPI: 08/08 08:15 This 41 yrs old Female presents to ER via Ambulatory with complaints of Ear Pain, kb Drainage From Ear. 08:15 The patient presents with drainage, pain, moderate. The complaints affect the right kb ear. Onset: The symptoms/episode began/occurred last night. Modifying factors: The symptoms are alleviated by nothing, the symptoms are aggravated by nothing. Associated signs and symptoms: The patient has no apparent associated signs or symptoms. Severity of symptoms: At their worst the symptoms were moderate in the emergency department the symptoms are unchanged. The patient has not experienced similar symptoms in the past. The patient has not recently seen a physician. Pt reports right ear pain and drainage that started last night and the pain is getting worse. Denies fever. 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 - Social history:: Smoking status: Patient denies any tobacco usage or history of. ROS: 08:14 Constitutional: Negative for fever, chills, and weight loss. kb 08:14 ENT: Positive for drainage from ear(s), ear pain. 08:14 All other systems are negative. Exam: 08:14 Constitutional: This is a well developed, well nourished patient who is awake, alert, kb and in no acute distress. Head/Face: Normocephalic, atraumatic. Cardiovascular: Regular rate and rhythm with a normal S1 and S2. No gallops, murmurs, or rubs. No pulse deficits. Respiratory: Respirations even and unlabored. No increased work of breathing. Talking in full sentences Skin: Warm, dry with normal turgor. Normal color. MS/ Extremity: Pulses equal, no cyanosis. Neurovascular intact. Full, normal range of motion. Neuro: Awake and alert, GCS 15, oriented to person, place, time, and situation. Moves all extremities. Normal gait. Psych: Awake, alert, with orientation to person, place and time. Behavior, mood, and affect are within normal limits. 08:14 ENT: External ear(s): are unremarkable, Ear canal(s): are normal, TM's: bulging, bilaterally, erythema, that is moderate, bilaterally, fluid levels, on the right. Vital Signs: 08:08 Pulse 101; Resp 16; Temp 97.6(TE); Pulse Ox 100% on R/A; Weight 115.21 kg; Height 5 ft. ss 6 in. (167.64 cm); Pain 7/10; 08:10 BP 127 / 76; ss 08:08 Body Mass Index 41.00 (115.21 kg, 167.64 cm) ss MDM: 08:09 Patient medically screened. kb 08:13 Data reviewed: vital signs, nurses notes. Data interpreted: Pulse oximetry: on room air kb is 100 %. Interpretation: normal. Counseling: I had a detailed discussion with the patient and/or guardian regarding: the historical points, exam findings, and any diagnostic results supporting the discharge/admit diagnosis, the need for outpatient follow up, a family practitioner, to return to the emergency department if symptoms worsen or persist or if there are any questions or concerns that arise at home. 08:14 ED course: Pt reports having cephalosporins in the past without reaction. . kb Administered Medications: 09:00 Drug: Cefdinir 300 mg Route: PO; ss 09:33 Follow up: Response: No adverse reaction ss Disposition Summary: 08/08/21 09:12 Discharge Ordered Location: Home kb Condition: Stable kb Diagnosis - Otitis media, unspecified, bilateral kb Followup: kb - With: Emergency Department - When: As needed - Reason: Worsening of condition Followup: kb - With: Private Physician - When: 2 - 3 days - Reason: Recheck today's complaints, Continuance of care, Re-evaluation by your physician Discharge Instructions: - Discharge Summary Sheet kb - Otitis Media, Adult, Ebli-ea-[place] kb Forms: - Medication Reconciliation Form kb - Thank You Letter kb - Antibiotic Education kb - Prescription Opioid Use kb Prescriptions: - cefdinir 300 mg Oral capsule - take 1 capsule by ORAL route every 12 hours for 10 days; 20 capsule; Refills: kb 0, Product Selection Permitted Signatures: Jennifer Don, SILVERWARE ETCHER-C SILVERWARE ETCHER-Ckb Bozena Renae, RN RN ss
[2021-08-08 10:50] VITALS: TEMP 97.6; O2SAT 100
[2021-08-08 10:51] VITALS: BP 127/76
== END 2021-08-08 09:33 | disposition home or self-care (01) ==
LOC: ER 08:03
DX: H66.93 Otitis media, unspecified, bilateral (principal); Z88.0 Allergy status to penicillin; F41.9 Anxiety disorder, unspecified
CPT/HCPCS: 99283

== ENCOUNTER 2022-03-27 09:08 | Emergency (ER) | payer OTHER ==
--- OUTSIDE RECORDS SUMMARY | 2022-03-27 09:12 | XMS REPORT | Continuity of Care Document ---
:1980 Author Organization [facility] t Address [address] [place] [address] Care Team Providers Name Role Phone NALLELY BENOIT Primary Care Physician Unavailable King SPENCER MD, James C Attending Clinician Unknown, Attending Attending Clinician Unavailable ALE VU III Attending Clinician Unavailable Doctor Unassigned, [place] Attending Clinician Unavailable MUNDO GONZALEZ Attending Clinician Unavailable Mundo Tenorio Attending Clinician UNKNOWN, ATTENDING Attending Clinician Unavailable Bernie Jacobson MD Attending Clinician BERNIE JACOBSON Attending Clinician Unavailable Provider, Derik Temp Attending Clinician Unavailable Nalelly Mcallister Attending Clinician NALLELY BENOIT Attending Clinician Unavailable [facility] Attending Clinician Unavailable Missy Mayers MD Attending Clinician 2, [facility] Usg Room Attending Clinician Unavailable Petra Gong MD Attending Clinician 5, [facility] Usg Room Attending Clinician Unavailable Chaka Youssef MD, Shannon Attending Clinician [phone] STEVEN STEVEN Attending Clinician Unavailable 3, [facility] Usg Room Attending Clinician Unavailable Leonel Suarez MD Attending Clinician Ultrasound, Cookie Attending Clinician Unavailable Lab, [facility] Attending Clinician Unavailable Esperanza Echeverria Attending Clinician ESPERANZA KLEIN Attending Clinician Unavailable CARISSA SCHOFIELD Attending Clinician Unavailable Tati Mckoy MD Attending Clinician Faculty, Edmund Nelson Attending Clinician Unavailable Beto Conner MD Attending Clinician MISSY MAYERS Admitting Clinician Unavailable MUNDO GONZALEZ Admitting Clinician Unavailable Missy Mayers MD Admitting Clinician Payers Payer Name Policy Type Policy Number Effective Date Expiration Date Kishan de paz [employer] [id number] 2020 OUT OF NETWORK 00:00:00 [facility] [id number] 2019 00:00:00 [employer] OPEN ACCESS [id number] 2020 HMO NAP 00:00:00 MEDICAID PENDING PENDING 2019 00:00:00 MEDICAID OF [place] [id number] 2019 00:00:00 Problems Condition Condition Condition Status Onset Resolution Last Treating Co mments Source Name Details Category Date Date Treatment Clinician Date Family Family Disease Active Univers history of history of 9-28 it y of ovarian ovarian 00:00: [place] cancer cancer [address] [place] [address] Mild Mild Disease Active Univers pre-eclamp pre-eclamp 8-19 it y of [place] in [place] in 00:00: [place] third third 00 Medical trimester trimester Bran ch Morbid Morbid Disease Active Univers obesity obesity 8-19 [place] of with body [place] mass index mass index 00 [place] dical of of [place] 40.0-49.9 40.0-49.9 Liveborn Liveborn Disease Active Unive rs , of infant, of 8-18 it y of ne[place] , , 00 [place] dical born in born in [facility] by vaginal by vaginal delivery delivery Normal Normal Disease Active Univers labor labor 8-17 ity of 00:00: [address] GBS (group GBS (group Disease Active Overview : Univers B B 7-28 Formattin ity of Streptococ Streptococ 00:00: g [...] y 2-09 ity of 00:00: [place] 00 Medical Branch SAB SAB Disease Active Univers (spontaneo (spontaneo 04-01 it y of us us 00:00: [place] ) ) 00 [facility] Branch Supervisio Supervisio Disease Active 2019-0 U nivers n of high n of high 5- ity of risk risk 00:00: [place] 00 [facility] in third in third Branch trimester trimester [place] Disease Active 2019- Univers multiparit multiparit - it y of y, y, 00:00: [place] antepartum antepartum 00 [place] dical Branch AMA AMA Disease Active Univers (advanced (advanced - ity of maternal maternal 00:00: [place] age) age) 00 Medical multigravi multigravi Br anch da 35+, da 35+, first first trimester trimester History of History of Disease Active 2020-0 U nivers anxiety anxiety 5-27 ity of 00:00: [place] 00 Medical Branch History of History of Disease Active 2020-0 U nivers depression depression 5-27 it y of 00:00: [place] 00 Medical Branch Obesity in Obesity in Disease Active 2020-0 U nivers 5-27 ity of 00:00: [place] 00 Medical Branch BMI BMI Disease Active 2020-0 Univers 40.0-44.9, 40.0-44.9, 5-27 it y of adult adult 00:00: [place] 00 Medical Branch Allergies, Adverse Reactions, Alerts Allergy Allergy Status Severity Reaction(s) Onset Inactive Treating Comm ents Source Name Type Date Date Clinician Penicill Propensi Active Swelling Univ ers ins ty to 5-27 ity of adverse 00:00: [place] reaction 00 Medical s to Branch drug Penicill Propensi Active Swelling Univ ers ins ty to 27 ity of adverse 00:00: [place] reaction 00 Medical s to Branch drug PENICILL Drug Active Hives Univers INS Class 5-27 ity of 00:00: [place] 00 Medical Branch Penicill Propensi Active Swelling Univ ers ins ty to 07-17 ity of adverse 00:00: [place] reaction 00 Medical s to Branch drug NO KNOWN Drug Active Univers ALLERGIE Class ity of S [facility] Social History Social Habit Start Date Stop Date Quantity Comments Source Exposure to 2022-02-09 2022-02-19 Not sure [facility] SARS-CoV-2 00:00:00 12:20:00 [facility] (event) [place] Alcohol intake 2022-02-01 2022-02-01 Ex-drinker [facility] 00:00:00 00:00:00 (finding) [facility] Tobacco use and 2019-07-18 2019-07-18 Smokeless tobacco Un iversity of exposure 00:00:00 00:00:00 non-user [facility] Sex Assigned At [birth year] BE Narvaez 00:00:00 [facility]:00:00 [facility] Smoking Status Start Date Stop Date Source Never smoked tobacco [facility] Medications Ordered Filled Start Stop Current Ordering Indication Dosage Frequency Signature Comments Components Source Medication Medication Date Date Medication? Clinician (SIG) Name Name benzonatate 2021-02 Yes [id number] 100mg Take 1 Univers 100 mg 2-30 capsule by ity of capsule 00:00: mouth [place] 00 every 8 Medical (eight) Branch hours as needed for Cough. Methylpredn 2021-02- Yes [id number] 4mg Take 1 Univers isolone 4 2-30 -05 tablet by ity of mg tablet 00:00: 05:59 mouth [place] 00 :00 every 12 Medical (twelve) Branch hours for 5 days. ibuprofen 2021-02- No 600mg 600 mg, Uni vers (IBU) 2-12 -12 Oral, ity of tablet 600 08:15: 08:17 ONCE, 1 [place] as mg 00 :00 dose, On Medical Mon Branch 02/01/22 at 0215, ROSALINDA benzonatate 2021-02 Yes [id number] 200mg Take 1 Univers 200 mg 2-12 capsule by ity of capsule 00:00: mouth 3 [place] 00 (three) Medical times Branch daily as needed for Cough. benzonatate 2021-02 Yes [id number] 200mg Take 1 Univers 200 mg 2-12 capsule by ity of capsule 00:00: mouth 3 [place] (three) Medical times Branch daily as needed for Cough. benzonatate 2021-02 Yes [id number] 200mg Take 1 Univers 200 mg 2-12 capsule by ity of capsule 00:00: mouth 3 [place] (three) Medical times Branch daily as needed for Cough. SERTraline 0 Yes [id number] 50mg Take 50 mg Univers (ZOLOFT) 50 6-17 by mouth ity of mg tablet 04:19: daily. [address] SERTraline 0 Yes [id number] 50mg Take 50 mg Univers (ZOLOFT) 50 6-17 by mouth ity of mg tablet 04:19: daily. [address] SERTraline 0 Yes [id number] 50mg Take 50 mg Univers (ZOLOFT) 50 6-17 by mouth ity of mg tablet 04:19: daily. [address] SERTraline 0 Yes [id number] 50mg Take 50 mg Univers (ZOLOFT) 50 6-17 by mouth ity of mg tablet 04:19: daily. [address] ibuprofen 0 Yes [id number] 800mg Take 1 U nivers 800 mg 6-17 tablet by ity of tablet 00:00: mouth [place] 00 every 8 Medical (eight) Branch hours as needed for Pain (scale 4-6) or Temp > 38.5 C. ibuprofen 2021-0 Yes [id number] 800mg Take 1 Univers 800 mg 6-17 tablet by ity of tablet 00:00: mouth [place] 00 every 8 Medical (eight) Branch hours as needed for Pain (scale 4-6) or Temp > 38.5 C. ibuprofen 2021-0 Yes [id number] 800mg Take 1 Univers 800 mg 6-17 tablet by ity of tablet 00:00: mouth [place] 00 every 8 Medical (eight) Branch hours as needed for Pain (scale 4-6) or Temp > 38.5 C. ibuprofen 2021-0 Yes [id number] 800mg Take 1 Univers 800 mg 6-17 tablet by ity of tablet 00:00: mouth [place] 00 every 8 Medical (eight) Branch hours as needed for Pain (scale 4-6) or Temp > 38.5 C. ciprofloxac 2021- No [id number] 3[drp] Place 3 Univers in-hydrocor 6-17 06-25 Drops in ity of tisone 00:00: 04:59 right ear [place] (CIPRO HC) 00 :00 2 (two) Medica l otic times Branch suspension daily for 7 days. SERTraline Yes [id number] 50mg Take 50 mg Univers (ZOLOFT) 50 9-28 by mouth ity of mg tablet 11:32: daily. [place] 52 Medical Branch Yes [id number] 1{tbl} Take 1 Univers vitamin 8-19 tablet by ity of w/FA tablet 00:00: mouth [place] 00 daily. Medical Branch docusate Yes [id number] 240mg Take 1 U nivers calcium 240 8-19 capsule by it y of mg capsule 00:00: mouth [place] 00 daily as Medical needed for Branch Constipati on. ferrous Yes [id number] 325mg Take 1 Un mandy sulfate 325 8-19 tablet by ity of mg (65 mg 00:00: mouth 2 [place] iron) 00 (two) Medical tablet times Branch daily. ibuprofen Yes [id number] 600mg Take 1 Univers 600 mg 8-19 tablet by ity of tablet 00:00: mouth [place] 00 every 6 Medical (six) Branch hours as needed (Pain). Take with food or milk. 2021- No [id number] 1{tbl} Take 1 Univers vitamin 8-19 06-17 tablet by ity of w/FA tablet 00:00: 00:00 [place] 00 :00 daily. Medical Branch docusate 2021- No [id number] 240mg Take 1 Univers calcium 240 8-19 06-17 capsule by i ty of mg capsule 00:00: 00:00 mouth once [place] 00 :00 daily as Medical needed for Branch Constipati on. ferrous 2021- No [id number] 325mg Take 1 U nivers sulfate 325 8-19 06-17 tablet by it y of mg (65 mg 00:00: 00:00 mouth 2 [place] iron) 00 :00 (two) Medical tablet times Branch daily. ibuprofen 2021- No [id number] 600mg Take 1 Univers 600 mg 10-09 tablet by ity of tablet 00:00: 00:00 mouth [place] 00 :00 every 6 Medical (six) Branch hours as needed (Pain). Take with food or milk. Immunizations Ordered Filled Immunization Date Status Comments Sour e Immunization Name Name [facility] 2020-08-04 Completed University of 00:00:00 [facility] 2020-08-04 Completed [facility] University of 00:00: [facility] 2020-08-04 Completed [facility] :[facility] 2020-[facility] Completed University 00:00:00 [facility] Vital Signs Vital Name Observation Time Observation Value Comments Source Systolic blood 2022-02-19 18:26:00 103 mm[Hg] Univer sity of [facility] Diastolic blood 2022-02-19 18:26:00 67 mm[Hg] Unive rsity of [facility] Heart rate 2022-02-19 18:26:00 88 /min [facility] Body temperature 2022-02-19 18:26:00 36.78 [facility] Res[facility] rate 2022-02-19 18:26:00 18 /min [facility] acute hospital Body height 2022-02-19 18:26:00 167.6 cm [facility] Body weight 2022-02-19 18:26:00 121.882 kg [facility] BMI 2022-02-19 18:26:00 43.37 kg/m2 [facility] Oxygen saturation in 2022-02-19 18:26:00 98 /min [facility] Arterial blood by [facility] Pulse oximetry Branch Systolic blood 2022-02-01 08:10:48 128 mm[Hg] Univer sity of [facility] Diastolic blood 2022-02-01 08:10:48 81 mm[Hg] Unive rsity of [facility] Heart rate 2022-02-01 08:10:48 87 /min Universi ty of [place] [facility] Body temperature 2022-02-01 08:10:48 37.61 Autumn Univ ersity of [place] [facility] Respiratory rate 2022-02-01 08:10:48 18 /min Univ ersity of [place] [facility] Oxygen saturation in 2022-02-01 08:10:48 99 /min University of Arterial blood by [facility] [place] germain Pulse oximetry Branch Body height 2022-02-01 06:22:00 167.6 cm Universi ty of [place] [facility] Body weight 2022-02-01 06:22:00 120.203 kg Universi ty of [place] [facility] BMI 2022-02-01 06:22:00 42.77 kg/m2 Universi ty of [place] [facility] Systolic blood 2021-08-07 09:16:00 123 mm[Hg] Univer sity of pressure [place] [facility] Diastolic blood 2021-08-07 09:16:00 75 mm[Hg] Unive rsity of pressure [place] [facility] Heart rate 2021-08-07 09:16:00 78 /min Universi ty of [place] [facility] Body temperature 2021-08-07 09:16:00 36.72 Autumn Univ ersity of [place] [facility] Respiratory rate 2021-08-07 09:16:00 18 /min Univ ersity of [place] [facility] Body height 2021-08-07 09:16:00 167.6 cm Universi ty of [place] [facility] Body weight 2021-08-07 09:16:00 115.214 kg Universi ty of [place] [facility] BMI 2021-08-07 09:16:00 41.00 kg/m2 Universi ty of [place] [facility] Oxygen saturation in 2021-08-07 09:16:00 98 /min University of Arterial blood by [facility] [place] germain Pulse oximetry Branch Systolic blood 2020-11-18 16:16:00 122 mm[Hg] Univer sity of pressure [place] [facility] Diastolic blood 2020-11-18 16:16:00 78 mm[Hg] Unive rsity of pressure [place] [facility] Body temperature 2020-11-18 16:16:00 36.33 Autumn Univ ersity of [place] [facility] Respiratory rate 2020-11-18 16:16:00 16 /min Univ ersity of [place] [facility] Body height 2020-11-18 16:16:00 167.6 cm [facility] Body weight 2020-11-18 16:16:00 126.355 kg [facility] BMI 2020-11-18 16:16:00 44.96 kg/m2 [facility] Procedures Procedure Date / Time Performed Performing Clinician Sour e ASSIGNMENT OF BENEFITS 2022-02-19 18:19:53 Doctor Unassigned, No [facility] Name Medical Branch XR CHEST 2 VW 2022-02-01 07:19:00 Mundo Gonzalez [facility] RAPID INFLUENZA A/B 2022-02-01 06:25:00 Bernie Jacobson [facility] COVID-19 (ID NOW RAPID 2022-02-01 06:25:00 Bernie Jacobson [facility] TESTING) Medical Branch CONSENT/REFUSAL FOR 2022-02-01 06:17:24 [facility] Medical [place] TREATMENT NOTICE OF PRIVACY 2021-08-07 09:06:36 Doctor Unassigned, No [facility] PRACTICES Name Medical Branch CONSENT/REFUSAL FOR 2021-08-07 09:06:14 [facility] Name Medical [place] TREATMENT Encounters Start End Encounter Admission Attending Care Care Encounter Source Date/Time Date/Time Type Type Clinicians Facility Department ID 2020-12-22 Outpatient P [facility] [id number] [facility]19 Emergency [facility] [id number] Univers [facility]:47[facility] 2022-02-19 2022-02-19 Urgent Ale Vu [facility] 1.2.840.114 [id number] Univers 12:20:00 12:40:00 Care Unknown, Attending HEALTH 350.1.13.10 ity [place] 4.2.7.2.686 [place] as HERMAN?BLEA [phone] [place] lilliam CAREY [address] [place] [address] MEDICAL OFFICE BUILDING 2022-02-19 2022-02-19 Outpatient R KING SPENCER [facility] [id number] Univers 12:20:00 12:20:00 ALE [facility] 2022-02-19 2022-02-19 Orders Doctor ЮЛИЯ 1.2.840.114 [id number] Univers 00:00:00 00:00:00 Only Unassigned, KEYONNA 350.1.13.10 ity of [facility] 4.2.7.2.686 [place] as [id number] [address] 2022-02-01 2022-02-01 Emergency X [facility] ERT [id number] Univers 00:29:00 02:21:00 MUNDO douglas [facility] 2022-02-01 2022-02-01 Emergency [facility] 1.2.840.114 [id number] Univers 00:29:00 02:21:00 Mundo DE LA GARZA 350.1.13.10 i ty [facility] 4.2.7.2.686 [facility] [id number] [address] 2022-01-17 2022-01-17 Outpatient R UNKNOWN, [facility] [id number] Univers 12:20:00 12:20:00 ATTENDING [facility] 2022-01-03 2022-01-03 Outpatient R UNKNOWN, [facility] [id number] Univers 12:20:00 12:20:00 ATTENDING [facility] 2021-08-07 2021-08-07 Emergency [facility] 1.2.013.205 [id number] Univers 04:21:00 05:28:00 Bernie BROOKEESMER 350.1.13.10 ity [facility] 4.2.7.2.686 [facility] [id number] [address] 2021-08-07 2021-08-07 Emergency [facility] [id number] Univers 04:21:00 05:28:00 BERNIE [facility] 2020-11-18 2020-11-18 Office [facility] 1 .2.840.114 [id number] Univers 10:34:42 12:05:59 Visit Nallely Benoit TURBO GENERATOR OILER 350.1.13.10 ity [facility] 4.2.7.2.686 [place] as MATERNAL [phone] Med ical & CHILD [address] [place] [address] 2020-11-18 2020-11-18 [facility] [id number] Univers 10:30:00 10:30:00 NALLELY mitchell [facility] 2020-10-28 2020-10-28 Routine Cy [facility] 1.2.840.114 [id number] Univers 12:48:40 13:03:40 Kaycesahara Ho TURBO [employer] OILER 350.1.13.10 ity of Visit [facility] 4.2.7.2.686 [place] as MATERNAL [id number] [facility] & CHILD [address] [place] [address] 2020-10-28 2020-10-28 Outpatient Georgia BENOIT [facility] [id number] Univers 12:45:00 12:45:00 RAQUELCARLOS hollins cynthia mitchell [facility] 2020-10-13 2020-10-13 Nurse Visit, [facility] Nurse [facility] 1.2 .840.114 [id number] Univers 08:39:19 09:28:42 Visit Kayce Benoitsahara Ho [employer] OILER 350.1.13.10 ity of REGIONAL 4.2.7.2.686 [place] as MATERNAL [id number] [address] 2020-10-13 2020-10-13 Outpatient [facility] [id number] Univers 08:45:00 08:45:00 NALLELY marie paula [facility] 2020-10-07 2020-10-09 [facility] TalibMissy [facility] 1.2.840.114 [id number] Univers 18:59:00 11:40:00 Encounter [place] 350.1.13.10 ity of [place] 4[place]2.7.2.686 [place] [id number] [facility] 083 [place] 2020-10-07 2020-10-07 Orders Doctor ЮЛИЯ 1.2.840.114 [id number] Univers 00:00:00 00:00:00 Only Unassigned, [place] 350.1.13.10 ity of [place] [facility] 4.2.7.2.686 [place] as [id number] [address] 2020-10-06 2020-10-06 [facility] 1.2.840.114 [id number] Univers 07:36:22 08:12:50 Roshunda R [employer]IL[employer] 350.1.13.10 ity of Visit REGIONAL 4.2.7.2.686 [place] as MATERNAL [id number] [facility] & CHILD [address] [place] [address] 2020-10-06 2020-10-06 Outpatient [facility] [id number] Univers 07:45:00 07:45:00 ROSHUNDA ity o f [facility] 2020-09-29 2020-09-29 [facility] 1.2.840.114 [id number] Univers 07:35:13 08:07:55 Roshunda R [employer]ILER 350.1.13.10 ity of Visit REGIONAL 4.2.7.2.686 [place] as MATERNAL [id number] [address] 2020-09-29 2020-09-29 Outpatient R [facility] [id number] Univers 07:30:00 07:30:00 ROSHUNDA ity o [facility] 2020-09-22 2020-09-22 Routine [facility] 1.2.840.114 [id number] Univers 09:07:22 09:39:36 Roshunda R TUR[employer] OILER 350.1.13.10 ity of Visit REGIONAL 4.2.7.2.686 [place] as MATERNAL [id number] [facility] CHILD [address] [place] [address] 2020-09-22 2020-09-22 Outpatient R [facility] [id number] Univers 08:45:00 08:45:00 ROSHUNDA ity o [facility] 2020-09-15 2020-09-15 [facility] 1.2.840.114 [id number] Univers 08:43:04 08:58:04 Roshunda R TURBO [employer] OILER 350.1.13.10 ity of Visit REGIONAL 4.2.7.2.686 [place] as MATERNAL [id number] [facility] & CHILD [address] [place] [address] 2020-09-15 2020-09-15 Outpatient R [facility] [id number] Univers 08:45:00 08:45:00 ROSHUNDA ity o f [facility] 2020-09-01 2020-09-01 [facility] 1.2.840.114 [id number] Univers 10:11:03 11:05:52 Roshunda R TURBO [employer] OILER 350.1.13.10 ity of Visit REGIONAL 4.2.7.2.686 [place] as MATERNAL [id number] [facility] & CHILD [address] [place] [address] 2020-09-01 2020-09-01 Outpatient [place] [facility] [id number] Univers 10:15:00 10:15:00 ROSHUNDA ity o f [facility] 2020-08-28 2020-08-28 Telephone [facility] [id number] Univers 00:00:00 00:00:00 Roshunda R [employer]UR[employer] OILER 350.1.13.10 ity of REGIONAL 4.2.7.2.686 [place] as MATERNAL [id number] [address] 2020-08-18 2020-08-18 Routine [facility] 1.2.840.114 [id number] Univers 09:28:49 09:43:49 Roshunda R TURBO [employer] OILER 350.1.13.10 ity of Visit REGIONAL 4.2.7.2.686 [place] as MATERNAL [id number] [address] 2020-08-18 2020-08-18 Outpatient [facility] [id number] Univers 09:30:00 09:30:00 ROSHUNDA ity o [facility] 2020-08-06 2020-08-06 Medication Reconciliation Technician 2, [facility] Us Room UNIVERSIT 1 .2.840.114 [id number] Univers 11:07:44 12:16:07 Visit Petra Gong 350.1.13.10 ity of CL[place] 4[place].2.[place] [id number] [facility] 104 [place] 2020-08-06 2020-08-06 Outpatient P [facility] [id number] Univers 10:15:00 10:15:00 ity of [facility] 2020-08-06 2020-08-06 Abstract Cy [facility] 1.2.840.114 [id number] Univers 00:00:00 00:00:00 Roshunda R TURBO GENERATOR OILER 350.1.13.10 ity of REGIONAL 4.2.7.2.686 Colt as MATERNAL [id number] [facility] ical & CHILD [address] [place] [address] 2020-08-04 2020-08-04 [facility] 1.2.840.114 [id number] Univers 08:11:16 09:02:36 Roshunda R TURBO GENERATOR OILER 350.1.13.10 ity of Visit REGIONAL 4.2.7.2.686 [place] as MATERNAL [phone] [facility] & CHILD [address] [place] [address] 2020-08-04 2020-08-04 Outpatient R CY [facility] [id number] Univers 08:15:00 08:15:00 ROSHUNDA ity o f [facility] 2020-08-04 2020-08-04 Orders Doctor ЮЛИЯ 1.2.840.114 [id number] Univers 00:00:00 00:00:00 Only Unassigned, KEYONNA 350.1.13.10 ity of [place] [facility] 4.2.7.2.686 Colt as [id number] [facility] 009 [place] 2020-08-01 2020-08-01 Outpatient R CY [facility] [id number] Univers 08:45:00 08:45:00 ROSHUNDA ity o f [facility] 2020-07-15 2020-07-15 Routine [facility] 1.2.840.114 [id number] Univers 08:09:51 08:49:32 Roshunda R TURBO [employer] OILER 350.1.13.10 ity of Visit [facility] 4.2.7.2.686 Colt as MATERNAL [phone] [facility] & CHILD [address] [place] [address] 2020-07-15 2020-07-15 Outpatient R CY [facility] [id number] Univers 08:00:00 08:00:00 ROSHUNDA ity o f [facility] 2020-06-25 2020-06-25 Medication Reconciliation Technician 5, [facility] Us Room UNIVERSIT 1 .2.840.114 [id number] Univers 10:26:42 11:11:42 Visit Chaka OlmedoamandaShannon [facility] 350.1 .13.10 ity of CL[place] 4.2.7.2.[place] [id number] [address] 2020-06-25 2020-06-25 Outpatient P [facility] [id number] Univers 10:30:00 10:30:00 ity of [facility] 2020-06-25 2020-06-25 Abstract [facility] 1.2.840.114 [id number] Univers 00:00:00 00:00:00 Rosalexandrianda R [employer] 350.1.13.10 ity of REGIONAL 4.2.7.2.686 [place] as MATERNAL [id number] Med ical & CHILD [address] [place] [address] 2020-06-24 2020-06-24 [facility] 1.2.840.114 [id number] Univers 08:17:54 08:58:13 Rosalexandrianda R TURBO GENERATOR OILER 350.1.13.10 ity of Visit REGIONAL 4.2.7.2.686 [place] as MATERNAL [phone] [facility] ical & CHILD [address] [place] [address] 2020-06-24 2020-06-24 Outpatient R CY [facility] [id number] Univers 08:15:00 08:15:00 ROSALEXANDRIANDA ity o f [facility] 2020-06-12 2020-06-[address] [facility] [id number] SLE 00:00:00 00:00:00 STEVEN 2020-05-29 2020-05-29 Abstract Cy [facility] 1.2.840.114 [id number] Univers 00:00:00 00:00:00 Rosalexandrianda R TURBO GENERATOR OILER 350.1.13.10 ity of REGIONAL 4.2.7.2.686 [place] as MATERNAL [id number] [facility] & CHILD [address] [place] [address] 2020-05-28 2020-05-28 Medication Reconciliation Technician 3, [facility] Usg Room UNIVERSIT 1 .2.840.114 [id number] Univers 13:09:05 14:29:41 Visit Leonel Suarez [facility] 350.1.13. 10 ity of [place] [id number] [address] 2020-05-28 2020-05-28 Outpatient P [facility] [id number] Univers 13:00:00 13:00:00 ity of [facility] 2020-05-27 2020-05-27 Routine Cy [facility] 1.2.840.114 [id number] Univers 07:47:14 08:17:42 Roshunda R TURBO GENERATOR OILER 350.1.13.10 ity of Visit [facility] 4.2.7.2.686 [place] as MATERNAL [phone] [facility] CHILD [address] [place] [address] 2020-05-27 2020-05-27 Outpatient R CY [facility] [id number] Univers 07:45:00 07:45:00 ROSHUNDA ity o f [facility] 2020-04-29 2020-04-29 Routine Cy [facility] 1.2.840.114 [id number] Univers 10:48:48 11:49:54 Roshunda R TURBO GENERATOR OILER 350.1.13.10 ity of Visit [facility] 4.2.7.2.686 [place] as MATERNAL [id number] [address] 2020-04-29 2020-04-29 Outpatient R CY [facility] [id number] Univers 10:45:00 10:45:00 ROSHUNDA ity o f [facility] 2020-04-21 2020-04-21 Medication Reconciliation Technician Ultrasound, [facility] 1.2 .840.114 [id number] Univers 08:00:28 08:30:28 Visit Petra Gong TURBO GENERATOR OILER 350.1.13.10 ity of REGIONAL 4.2.7.2.686 [place] as MATERNAL [phone] Med ical & CHILD [facility] 2020-04-21 2020-04-21 Outpatient P [facility] [id number] Univers 08:00:00 08:00:00 ity of [facility] 2020-04-21 2020-04-21 Orders Benoit [facility] 1.2.840.114 [id number] Univers 00:00:00 00:00:00 Only Roshunda R TURBO GENERATOR OILER 350.1.13.10 ity of REGIONAL 4.2.7.2.686 [place] as MATERNAL [phone] Med ical & CHILD [address] [place] [address] 2020-04-21 2020-04-21 Abstract Benoit [facility] 1.2.840.114 [id number] Univers 00:00:00 00:00:00 Rosalexandrianda R TURBO GENERATOR OILER 350.1.13.10 ity of REGIONAL 4.2.7.2.686 [place] as MATERNAL [id number] Med ical & CHILD [address] [place] [address] 2020-04-15 2020-04-15 Case [facility] 1.2.840.114 [id number] Univers 00:00:00 00:00:00 Management Kaycealexandrianda R TURBO GENERATOR OILER 350.1.13.10 ity of REGIONAL 4.2.7.2.686 [place] as MATERNAL [id number] [facility] ical & CHILD [address] [place] [address] 2020-04-07 2020-04-07 Outpatient P [facility] [id number] Univers 09:45:00 09:45:00 ity of [facility] 2020-04-04 2020-04-04 Medication Reconciliation Technician Lab, [facility] 1.2.840. 114 [id number] Univers 08:05:22 08:20:22 Visit Esperanza Klein TURBO GENERATOR OILER 350.1.13. 10 ity of REGIONAL 4.2.7.2.686 [place] as MATERNAL [id number] Med ical & CHILD [address] [place] [address] 2020-04-04 2020-04-04 Outpatient R MARQUITA [facility] [id number] Univers 08:00:00 08:00:00 ESPERANZA ity o f [facility] 2020-04-04 2020-04-04 [facility]phone [facility] [id number] Univers 00:00:00 00:00:00 Nallely R TURBO GENERATOR OILER 350.1.13.10 ity of REGIONAL 4.2.7.2.686 [place] as MATERNAL [id number] [facility] & CHILD [address] [place] [address] 2020-04-02 2020-04-02 [facility] 1.2.081.572 [id number] Univers 00:00:00 00:00:00 Nallely R TURBO GENERATOR OILER 350.1.13.10 ity of REGIONAL 4.2.7.2.686 [place] as MATERNAL [id number] [facility] & CHILD [address] [place] [address] 2020-04-01 2020-04-01 Outpatient R [facility] [id number] Univers 13:15:00 13:15:00 ity of [facility] 2020-03-26 2020-03-26 Outpatient R [facility] [id number] Univers 09:15:00 09:15:00 ity of [facility] 2020-03-21 2020-03-21 Outpatient R [facility] [id number] Univers 09:15:00 09:15:00 ity [facility] 2019-11-29 2019-11-29 [facility] [id number] Univers 14:45:00 14:45:00 AISHAT ity of [facility] 2019-11-19 2019-11-19 Emergency Tati Mckoy TRAUMA 1.2.8 40.114 [id number] Univers 12:57:00 18:43:00 Tati Mckoy CENTER 350.1.13.10 [place] [id number] [address] 2019-08-22 2019-08-22 [facility] [id number] Univers 11:00:00 11:00:00 ROSALEXANDRIANDA ity o f [facility] 2019-08-15 2019-08-15 Outpatient R MARQUITA, [facility] [id number] Univers 13:45:00 13:45:00 ESPERANZA mitchell [facility] 2019-08-15 2019-08-15 Outpatient R CY, [facility] [id number] Univers 07:45:00 07:45:00 NALLELY hollins o paula [facility] 2019-08-13 2019-08-13 Telemedici Faculty, [facility] 1.2.840.114 [id number] 08:14:37 08:41:58 ne Visit [facility] TURBO GENERATOR OILER 350.1.13.10 [facility] 4.2.7.2.686 MATERNAL [phone] & CHILD [address] [facility] 2019-08-13 2019-08-13 Telemedici Faculty, [facility] 1.2.840.114 [id number] Univers 08:14:37 08:41:58 ne Visit Beto Conner TURBO GENERATOR OILER 350.1.13.10 ity of [facility] 4.2.7.2.686 [place] as MATERNAL [phone] Med ical & CHILD 107 [facility] 2019-08-13 2019-08-13 Outpatient R [facility] [id number] Univers 08:30:00 08:30:00 ity [facility] 2019-08-13 2019-08-13 Telephone Faculty, [facility] 1.2.840.114 [id number] 00:00:00 00:00:00 [facility] OIL[facility] 350.1.13.10 [facility] 4.2.7.2.686 MATERNAL [phone] & CHILD 107 [facility] 2019-08-13 2019-08-13 Telephone Faculty, [facility] 1.2.840.114 [id number] Univers 00:00:00 00:00:00 Ang [facility] TURBO GENERATOR OILER 350.1.13.10 ity of [facility] 4.2.7.2.686 [place] as MATERNAL [phone] Med ical & CHILD 107 [facility] 2019-08-10 2019-08-10 Medication Reconciliation Technician 3, [facility] UNIVERSIT 1.2.840.11 [id number] 08:35:12 10:02:08 Visit Usg Room Y HEALTH 350.1.13.10 CLINICS 4.2.7.2.686 [id number] [facility] 2019-08-10 2019-08-10 Medication Reconciliation Technician 3, [facility] Usg Room UNIVERSIT 1 .2.840.114 [id number] Univers 08:35:12 10:02:08 Visit Leonel Suarez [facility] 350.1.13. 10 ity of CL[place] [id number] [facility] [address] 2019-08-10 2019-08-10 Outpatient P [facility] [id number] Univers 09:15:00 09:15:00 ity of [facility] 2019-08-09 2019-08-09 Telephone Benoit [facility] [id number] 00:00:00 00:00:00 Rosalexandrianda R TURBO GENERATOR OILER 350.1.13.10 REGIONAL 4.2.7.2.686 MATERNAL [phone] & CHILD [address] [place] [address] 2019-08-09 2019-08-09 [facility]phone [facility] [id number] Univers 00:00:00 00:00:00 Rosalexandrianda R TURBO GENERATOR OILER 350.1.13.10 ity of REGIONAL 4.2.7.2.686 [place] as MATERNAL [id number] Med ical & CHILD [address] [place] [address] 2019-07-26 2019-07-26 Orders Doctor ЮЛИЯ 1.2.840.114 [id number] Univers 00:00:00 00:00:00 Only Unassigned, KEYONNA 350.1.13.10 ity of [facility] 4.2.7.2.686 Colt as [phone] [facility] [address] 2019-07-18 2019-07-18 Initial [facility] 1.2.840.114 [id number] Univers 12:54:31 13:49:09 Roshunda R TURBO GENERATOR OILER 350.1.13.10 ity of Visit REGIONAL 4.2.7.2.686 [place] as MATERNAL [id number] Med ical & CHILD [address] [place] [address] 2019-07-18 2019-07-18 Outpatient R MARQUITA [facility] [id number] Univers 09:00:00 09:00:00 ESPERANZA marie f [facility] 2019-07-18 2019-07-18 Telephone Cy [facility] [id number] [id number] Univers 00:00:00 00:00:00 Nallely Ho TURBO GENERATOR OILER 350.1.13.10 ity of [facility] 4.2.7.2.686 [place]t as MATERNAL [id number] Med ical & CHILD [address] [place] [address] 2019-07-18 2019-07-18 Orders Doctor ЮЛИЯ 1.2.840.114 [id number] Univers 00:00:00 00:00:00 Only Unassigned, KEYONNA 350.1.13.10 ity of [place] [facility] 4.2.7.2.686 [place] as [phone] [place] [address] Branch Results This patient has no known results.
[2022-03-27] MEDS ORDERED: MORPHINE 4 MG/ML SYR ONE (09:30)
[2022-03-27 09:40] LABS: Urine Blood Trace-intact (Negative); Urine Glucose Negative (Negative); Urine Protein Negative (Negative)
[2022-03-27 09:53] LABS: Absolute Lymphocytes (CBC) 2.7 K/uL (0.7-4.9); Hematocrit 34.8 % (36.0-45.0); Lymphocytes % 30.4 % (15.3-44.8); MCV 83.4 fL (80-100); MPV 7.4 fL (7.6-11.3); RBC Red Blood Cell Count 4.18 M/uL (3.86-4.86)
[2022-03-27 09:56] LABS: Urine Bacteria <20 /HPF (<20); Urine Mucus 1+ /HPF (None Seen); Urine RBC <5 /HPF (None Seen)
[2022-03-27 10:12] LABS: Albumin 3.5 g/dL (3.4-5.0); Bilirubin Total 1.2 mg/dL (0.2-1.0); Potassium 3.4 mmol/L (3.5-5.1); Protein, Total 7.3 g/dL (6.4-8.2)
--- NOTE | 2022-03-27 10:45 | RAD REPORT ---
EXAM DESCRIPTION: CT - Abdomen Pelvis W Contrast - 03/27/2022 10:27 am CLINICAL HISTORY: Abdominal pain/right lower quadrant pain COMPARISON: none. TECHNIQUE: Computed axial tomography of the abdomen pelvis was obtained. 100 cc Isovue-300 was admin istered intravenously. Oral contrast was not requested which limits evaluation of bowel and appendix All CT scans are performed using dose optimization technique as appropriate and may include automated exposure control or mA/KV adjustment according to patient size. FINDINGS: Fatty liver Spleen, pancreas, adrenal and kidneys appear unremarkable. There is no evidence of diverticulitis. Normal appendix No adnexal mass Tiny umbilical hernia IMPRESSION: No acute abnormality is displayed.
--- NOTE | 2022-03-27 10:57 | EDPHYS ---
Physician Documentation [facility] Name: Jainne Mcgregor Age: 41 yrs Sex: Female : 1980 Arrival Date: 03/27/2022 Time: 09:11 Bed 16 Private MD: ED Physician Jose Roberto Mccracken HPI: 03/27 10:54 This 41 yrs old Female presents to ER via Ambulatory with complaints of Abdominal Pain. rn 10:54 The patient presents with abdominal pain right lower quadrant. Onset: The rn symptoms/episode began/occurred yesterday. The symptoms do not radiate. Associated signs and symptoms: Pertinent positives: nausea, Pertinent negatives: blood in stools, chest pain, constipation, diarrhea, dysuria, fever. The symptoms are described as sharp, shooting. Modifying factors: The symptoms are alleviated by nothing, the symptoms are aggravated by nothing. Severity of pain: At its worst the pain was moderate in the emergency department the pain has improved. The patient has not experienced similar symptoms in the past. The patient has not recently seen a physician. 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 - Social history:: Smoking status: Patient denies any tobacco usage or history of. - Family history:: not pertinent. - Hospitalizations: : No recent hospitalization is reported. ROS: 10:54 Constitutional: Negative for fever, chills, and weight loss, Cardiovascular: Negative rn for chest pain, palpitations, and edema, Respiratory: Negative for shortness of breath, cough, wheezing, and pleuritic chest pain, Abdomen/GI: + RLQ abd pain and nausea Back: Negative for injury and pain, : Negative for injury, bleeding, discharge, and swelling, MS/Extremity: Negative for injury and deformity, Skin: Negative for injury, rash, and discoloration, Neuro: Negative for headache, weakness, numbness, tingling, and seizure. Exam: 10:54 Constitutional: This is a well developed, well nourished patient who is awake, alert, rn and in no acute distress. Head/Face: Normocephalic, atraumatic. Cardiovascular: Regular rate and rhythm. No pulse deficits. Respiratory: No increased work of breathing, no retractions or nasal flaring. Abdomen/GI: soft, + mild RLQ tenderness, no RUQ tenderness, neg mcnamara, no peritoneal signs. Skin: Warm, dry MS/ Extremity: Pulses equal, no cyanosis Neuro: Awake and alert, GCS 15 Vital Signs: 09:15 BP 137 / 85; Pulse 88; Resp 17; Temp 98.2(O); Pulse Ox 98% on R/A; Weight 117.93 kg vg1 (R); Height 5 ft. 6 in. (167.64 cm); Pain 4/10; 10:53 BP 125 / 79; Pulse 79; Resp 15 S; Pulse Ox 100% on R/A; kc6 09:15 Body Mass Index 41.96 (117.93 kg, 167.64 cm) vg1 MDM: 09:12 Patient medically screened. rn 10:54 Differential diagnosis: appendicitis, diverticulitis, gastritis, non-specific abd pain, rn Ureterolithiasis, urinary tract infection. Data reviewed: vital signs, nurses notes, lab test result(s), radiologic studies, CT scan, and as a result, I will discharge patient. Counseling: I had a detailed discussion with the patient and/or guardian regarding: the historical points, exam findings, and any diagnostic results supporting the discharge/admit diagnosis, lab results, radiology results, the need for outpatient follow up, to return to the emergency department if symptoms worsen or persist or if there are any questions or concerns that arise at home. Special discussion: I discussed with the patient/guardian in detail that at this point there is no indication for admission to the hospital. It is understood, however, that if the symptoms persist or worsen the patient needs to return immediately for re-evaluation. 03/27 09:23 Order name: CBC with Diff; Complete Time: 10:15 rn 03/27 09:23 Order name: CMP; Complete Time: 10:15 rn 03/27 09:23 Order name: Lipase; Complete Time: 10:15 rn 03/27 09:23 Order name: Urine Microscopic Only; Complete Time: 10:15 rn 03/27 09:41 Order name: Urine Dipstick-Ancillary; Complete Time: 10:15 EDMS 03/27 09:56 Order name: Urine --Ancillary (enter results); Complete Time: 10:15 eb 03/27 09:23 Order name: CT Abd/Pelvis - IV Contrast Only; Complete Time: 10:53 rn 03/27 09:23 Order name: IV Saline Lock; Complete Time: 09:42 rn 03/27 09:23 Order name: Labs collected and sent; Complete Time: 09:42 rn 03/27 09:23 Order name: Urine Dipstick-Ancillary (obtain specimen); Complete Time: 09:42 rn 03/27 09:23 Order name: Urine Test (obtain specimen); Complete Time: 09:42 rn Administered Medications: 10:59 Not Given (Patient Refused): morphine 4 mg IVP once over 4 mins kc6 Disposition Summary: 03/27/22 10:57 Discharge Ordered Location: Home rn Problem: new rn Symptoms: have improved rn Condition: Stable rn Diagnosis - Lower abdominal pain, unspecified rn Followup: rn - With: Private Physician - When: As needed - Reason: Recheck today's complaints, Re-evaluation by your physician Discharge Instructions: - Discharge Summary Sheet rn - Abdominal Pain, Adult rn - Pain Without a Known Cause rn Forms: - Medication Reconciliation Form rn - Thank You Letter rn - Antibiotic medical technologist prn - Prescription Opioid Use rn Signatures: Dispatcher [employer] Jose Roberto Naik MD MD rn Garcia, Victoria RN RN vg1 Charis Marie RN kc6
--- NOTE | 2022-03-27 10:57 | ER ---
Nurse's Notes [facility] Name: Janine Mcgregor Age: 41 yrs Sex: Female : 1980 Arrival Date: 03/27/2022 Time: 09:11 Bed 16 Private MD: Diagnosis: Lower abdominal pain, unspecified Presentation: 03/27 09:15 Chief complaint: Patient states: RUQ and RLQ pain since yesterday with nausea. vg1 Coronavirus screen: Vaccine status: Patient reports being unvaccinated. Client denies travel out of the [place] in the last 14 days. Ebola Screen: Patient negative for fever greater than or equal to 101.5 degrees Fahrenheit, and additional compatible Ebola Virus Disease symptoms Patient denies exposure to infectious person. Initial Sepsis Screen: Does the patient meet any 2 criteria? No. Patient's initial sepsis screen is negative. Does the patient have a suspected source of infection? No. Patient's initial sepsis screen is negative. Risk Assessment: Do you want to hurt yourself or someone else? Patient reports no desire to harm self or others. Onset of symptoms was March 26, 2022. 09:15 Method Of Arrival: Ambulatory vg1 09:15 Acuity: GRIFFIN 3 vg1 Triage Assessment: 09:18 General: Appears in no apparent distress. uncomfortable, Behavior is calm, cooperative. vg1 Pain: Complains of pain in right upper quadrant and right lower quadrant Pain currently is 4 out of 10 on a pain scale. Pain began 1 day ago. Also complains of nausea. GI: Abdomen is round non-distended, obese, Last BM was February 22, 2022. Abdomen is tender to palpation in right upper quadrant and right lower quadrant Patient currently denies diarrhea, vomiting. : No signs and/or symptoms were reported regarding the genitourinary system. 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 - Social history:: Smoking status: Patient denies any tobacco usage or history of. - Family history:: not pertinent. - Hospitalizations: : No recent hospitalization is reported. Screenin:06 [facility] ED Fall Risk Assessment (Adult) History of falling in the last 3 months, kc6 including since admission No falls in past 3 months (0 pts) Confusion or Disorientation No (0 pts) Intoxicated or Sedated No (0 pts) Impaired Gait No (0 pts) Mobility Assist Device Used No (0 pt) Altered Elimination No (0 pt) Score/Fall Risk Level 0 - 2 = Low Risk Oriented to surroundings, Maintained a safe environment, Educated pt \T\ family on fall prevention, incl call for assistance when getting out of bed, Assessed \T\ reinforced patient's understanding of fall precautions, Hourly rounding (assess needs \T\ fall precautionary measures) done. Abuse screen: Denies threats or abuse. Denies injuries from another. Nutritional screening: No deficits noted. Tuberculosis screening: No symptoms or risk factors identified. Assessment: 09:20 General: Appears in no apparent distress. comfortable, Behavior is calm, cooperative, kc6 appropriate for age. Pain: Complains of pain in right lower quadrant and right upper quadrant Pain does not radiate. Pain currently is 4 out of 10 on a pain scale. Pain began 1 day ago. Is continuous, Alleviated by nothing. Aggravated by eating, drinking, Also complains of no other associated symptoms. Neuro: Garcia Agitation-Sedation Scale (RASS): 0 - Alert and Calm Level of Consciousness is awake, alert, obeys commands, Oriented to person, place, time, situation, Appropriate for age. Cardiovascular: Capillary refill < 3 seconds. Respiratory: Airway is patent Trachea midline Respiratory effort is even, unlabored, Respiratory pattern is regular, symmetrical. GI: Abdomen is flat, non-distended, Bowel sounds present X 4 quads. Abd is soft X 4 quads Abdomen is tender to palpation in right lower quadrant and right upper quadrant Reports nausea, Patient currently denies diarrhea, vomiting. : No signs and/or symptoms were reported regarding the genitourinary system. EENT: No signs and/or symptoms were reported regarding the EENT system. Derm: No signs and/or symptoms reported regarding the dermatologic system. Skin is intact, Skin is pink, warm \T\ dry. Musculoskeletal: No signs and/or symptoms reported regarding the musculoskeletal system. Circulation, motion, and sensation intact. Capillary refill < 3 seconds, Range of motion: intact in all extremities. 10:00 Reassessment: client verbalized wanting to hold off on morphine for the time being. kc6 10:20 Reassessment: Patient appears in no apparent distress at this time. No changes from kc6 previously documented assessment. Patient and/or family updated on plan of care and expected duration. Pain level reassessed. Patient is alert, oriented x 3, equal unlabored respirations, skin warm/dry/pink. Vital Signs: 09:15 BP 137 / 85; Pulse 88; Resp 17; Temp 98.2(O); Pulse Ox 98% on R/A; Weight 117.93 kg vg1 (R); Height 5 ft. 6 in. (167.64 cm); Pain 4/10; 10:53 BP 125 / 79; Pulse 79; Resp 15 S; Pulse Ox 100% on R/A; kc6 09:15 Body Mass Index 41.96 (117.93 kg, 167.64 cm) vg1 ED Course: 09:11 Patient arrived in ED. as 09:12 Jose Roberto Mccracken MD is Attending Physician. rn 09:18 Triage completed. vg1 09:18 Arm band placed on. vg1 09:22 Charis Marie, PASTORA is Primary Nurse. kc6 09:42 Urine Microscopic Only Sent. kc6 09:43 Inserted saline lock: 20 gauge in left antecubital area, using aseptic technique. Blood kc6 collected. 10:06 Patient has correct armband on for positive identification. Placed in gown. Bed in low kc6 position. Call light in reach. Side rails up X 1. Adult w/ patient. 10:28 CT Abd/Pelvis - IV Contrast Only In Process Unspecified. EDMS 11:11 No provider procedures requiring assistance completed. IV discontinued, intact, kc6 bleeding controlled, No redness/swelling at site. Pressure dressing applied. Administered Medications: 10:59 Not Given (Patient Refused): morphine 4 mg IVP once over 4 mins kc6 Medication: 11:12 VIS not applicable for this client. kc6 Outcome: 10:57 Discharge ordered by . rn 11:11 Discharged to home ambulatory, with family. kc6 11:11 Condition: stable 11:11 Discharge instructions given to patient, family, Instructed on discharge instructions, follow up and referral plans. Demonstrated understanding of instructions, follow-up care. 11:12 Patient left the ED. kc6 Signatures: Dispatcher [employer] Lubna Piper Roman, MD MD rn Garcia, PASTORA Barnes RN vg1 Charis Marie RN RN kc6 Corrections: (The following items were deleted from the chart) 09:21 09:15 Pulse 88bpm; Resp 17bpm; Pulse Ox 98% RA; Temp 98.2F Oral; 117.93 kg Reported; vg1 Height 5 ft. 6 in.; BMI: 41.9; Pain 4/10; vg1
[2022-03-27 11:32] VITALS: TEMP 98.2
[2022-03-27 11:37] VITALS: BP 125/79; O2SAT 100
== END 2022-03-27 11:12 | disposition home or self-care (01) ==
LOC: ER 09:08
DX: R10.31 Right lower quadrant pain (principal); Z88.0 Allergy status to penicillin
CPT/HCPCS: 85025; 36415; 81025; 83690; 80053; 74177; 99283; Q9967; 81003; 81015

== ENCOUNTER 2022-07-27 21:34 | Emergency (ER) | payer OTHER ==
--- OUTSIDE RECORDS SUMMARY | 2022-07-27 22:04 | XMS REPORT | Continuity of Care Document ---
:1980 Author Organization [facility] t Address [address] [place] [address]. [address] [place] [address] Care Team Providers Name Role Phone NALLELY BENOIT Primary Care Physician Unavailable Marian Curry Attending Clinician Unknown, Attending Attending Clinician Unavailable MARIAN NJ Attending Clinician Unavailable Doctor Unassigned, Mcnary Attending Clinician Unavailable King SPENCER MD, James C Attending Clinician ALE VU III Attending Clinician Unavailable MUNDO GONZALEZ Attending Clinician Unavailable Mundo Tenorio Attending Clinician UNKNOWN, ATTENDING Attending Clinician Unavailable Bernie Jacobson MD Attending Clinician BERNIE JACOBSON Attending Clinician Unavailable Provider, [facility] Temp Attending Clinician Unavailable Nallely Mcallister Attending Clinician NALLELY BENOIT Attending Clinician Unavailable [facility], [facility] Attending Clinician Unavailable Missy Mayers MD Attending Clinician 2, [facility] Room Attending Clinician Unavailable Beltran CAVAZOS, Petra Attending Clinician 5, [facility] Room Attending Clinician Unavailable Chaka Youssef MD, Ortega Attending Clinician [phone] STEVEN STEVEN Attending Clinician Unavailable 3, [facility] Room Attending Clinician Unavailable Leonel Suarez MD Attending Clinician Ultrasound, Edmund-Mfm Attending Clinician Unavailable Lab, Ronchp Attending Clinician Unavailable Esperanza Echeverria Attending Clinician [phone] ESPERANZA KLEIN Attending Clinician Unavailable CARISSA SCHOFIELD Attending Clinician Unavailable Leelee CAVAZOS, Tati Attending Clinician Faculty, Edmund Frias Mf Attending Clinician Unavailable Beto Conner MD Attending Clinician MISSY MAYERS Admitting Clinician Unavailable MUNDO GONZALEZ Admitting Clinician Unavailable Missy Mayers MD Admitting Clinician Payers Payer Name Policy Type Policy Number Effective Date Expiration Date S baldev [employer] [id number] 2020 OUT OF NETWORK 00:00:00 [facility] [id number] 2019 00:00:00 [employer] OPEN ACCESS [id number] 2020 HMO NAP 00:00:00 MEDICAID PENDING PENDING 2019 00:00:00 MEDICAID [facility] [id number] 2019 00:00:00 Problems Condition Condition Condition Status Onset Resolution Last Treating Co mments Source Name Details Category Date Date Treatment Clinician Date Family Family Disease Active Univers history of history of 9-28 it y of ovarian ovarian 00:00: [place] cancer cancer 00 [facility] Mild Mild Disease Active Univers pre-eclamp pre-eclamp 8-19 it y of eloina in eloina in 00:00: [place] third third 00 Medical trimester trimester Bran ch Morbid Morbid Disease Active Univers obesity obesity 8-19 ity of with body with body 00:00: [place] s mass index mass index 00 Me dical of of [place] 40.0-49.9 40.0-49.9 Liveborn Liveborn Disease Active Unive rs , of , of 8-18 it y of nevarez nevarez 00:00: Jer barakat , , 00 Me dical born in born in [facility] by vaginal by vaginal delivery delivery Normal Normal Disease Active Univers labor labor 8-17 ity of 00:00: [place] 00 Medical Branch GBS (group GBS (group Disease Active [...] nivers y y 2-09 ity of 00:00: [place] 00 Medical Branch SAB SAB Disease Active Univers (spontaneo (spontaneo 2- it y of us 00:00: [place] ) ) 00 [facility] Branch Supervisio Supervisio Disease Active 2019- U nivers n of high n of high 5-27 ity of risk risk 00:00: [place] 00 [facility] in third in third Branch trimester trimester [place] Disease Active 2020-0 Univers multiparit multiparit 5-27 it y of y, y, 00:00: [place] antepartum antepartum 00 Ia dical Branch AMA AMA Disease Active 2020- Univers (advanced (advanced 5-27 ity of maternal maternal 00:00: [place] age) age) 00 Medical multigravi multigravi Br anch da 35+, da 35+, first first trimester trimester History of History of Disease Active 2020-0 U nivers anxiety anxiety 5-27 ity of 00:00: [place] 00 Medical Branch History of History of Disease Active 2020-0 U nivers depression depression 5-27 it y of 00:00: [place] 00 Medical Branch Obesity in Obesity in Disease Active 2020-0 U nivers 5-27 ity of 00:00: [place] 00 Medical Branch BMI BMI Disease Active 2020-0 Univers 40.0-44.9, 40.0-44.9, 5-27 it y of adult adult 00:00: [place] 00 Medical Branch Allergies, Adverse Reactions, Alerts Allergy Allergy Status Severity Reaction(s) Onset Inactive Treating Comm ents Source Name Type Date Date Clinician Penicill Propensi Active Swelling 2020-0 Univ ers ins ty to 5-27 ity of adverse 00:00: [place] reaction 00 Medical s to Branch drug Penicill Propensi Active Swelling 2019-0 Univ ers ins ty to 527 ity of adverse 00:00: [place] reaction 00 Medical s to Branch drug Penicill Propensi Active Swelling 2020-0 Univ ers ins ty to 527 ity of adverse 00:00: [place] reaction 00 Medical s to Branch drug PENICILL Drug Active Hives 2019-0 Univers INS Class 5-27 ity of 00:00: [place] 00 [facility] NO KNOWN Drug Active Univers ALLERGIE Class ity of S [facility] Social History Social Habit Start Date Stop Date Quantity Comments Source Exposure to 2022-05-31 2022-06-10 Not sure [facility] SARS-CoV-2 00:00:00 12:55:00 [facility] (event) [place] Alcohol intake 2022-05-20 2022-05-20 Ex-drinker [facility] 00:00:00 00:00:00 (finding) [facility] Tobacco use and 2022-04-01 2022-04-01 Smokeless tobacco Un iversity of exposure 00:00:00 00:00:00 non-user [facility] Sex Assigned At [address] [facility] 00:00:00 00:00:00 [facility] Smoking Status Start Date Stop Date Source Never smoked tobacco [facility] Medications Ordered Filled Start Stop Current Ordering Indication Dosage Frequency Signature Comments Components Source Medication Medication Date Date Medication? Clinician (SIG) Name Name cefdinir 2022- Yes [id number] 600mg Take 2 Univers 300 mg -20 - capsules ity of capsule 00:00: 04:59 by mouth [place] 00 :00 in the Medical morning Branch for 10 days. SERTraline Yes [id number] 50mg Take 1 Univers 50 mg 3-30 tablet by ity of tablet 17:56: mouth in [place] 44 the Medical morning. Branch SERTraline Yes [id number] 50mg Take 1 Univers 50 mg 3-30 tablet by ity of tablet 17:56: mouth in [place] 44 the Medical morning. Branch azithromyci 2022- Yes [id number] 500mg Take 1 Univers n 500 mg 3-30 -05 tablet by ity o f tablet 00:00: 04:59 mouth in [place] 00 :00 the Medical morning Branch for 5 days. albuterol Yes [id number] 2{puff} Inhale 2 Univers 90 2-09 Puffs ity of mcg/actuati 00:00: every 6 [place] as on inhaler 00 (six) Medical hours as Branch needed for Bronchospa sm. albuterol Yes [id number] 2{puff} Inhale 2 Univers 90 2-09 Puffs ity of mcg/actuati 00:00: every 6 [place] as on inhaler 00 (six) Medical hours as Branch needed for Bronchospa sm. albuterol Yes [id number] 2{puff} Inhale 2 Univers 90 2-09 Puffs ity of mcg/actuati 00:00: every 6 [place] as on inhaler 00 (six) Medical hours as Branch needed for Bronchospa sm. albuterol Yes [id number] 2{puff} Inhale 2 Univers 90 2-09 Puffs ity of mcg/actuati 00:00: every 6 [place] as on inhaler 00 (six) Medical hours as Branch needed for Bronchospa sm. albuterol Yes [id number] 2{puff} Inhale 2 Univers 90 2-09 Puffs ity of mcg/actuati 00:00: every 6 [place] on inhaler 00 (six) Medical hours as Branch needed for Bronchospa sm. promethazin 2022- No [id number] 5mL Take 5 mL Univers e-dextromet 04-01-20 by mouth 4 i ty of horphan 00:00: 05:59 (four) [place] 6.25-15 00 :00 times Medical mg/5 mL daily for Branch syrup 10 days. predniSONE 2022- No [id number] 40mg Take 2 Univers 20 mg - 02-15 tablets by ity of tablet 00:00: 05:59 mouth in [place] 00 :00 the Medical morning Branch for 5 days. benzonatate 2021-02 Yes [id number] 100mg Take 1 Univers 100 mg 2-30 capsule by ity of capsule 00:00: mouth [place] 00 every 8 Medical (eight) Branch hours as needed for Cough. benzonatate 2021-02 Yes [id number] 100mg Take 1 Univers 100 mg 2-30 capsule by ity of capsule 00:00: mouth [place] 00 every 8 Medical (eight) Branch hours as needed for Cough. benzonatate 2021-02 Yes [id number] 100mg Take 1 Univers 100 mg 2-30 capsule by ity of capsule 00:00: mouth [place] 00 every 8 Medical (eight) Branch hours as needed for Cough. benzonatate 2021-02 Yes [id number] 100mg Take 1 Univers 100 mg 2-30 capsule by ity of capsule 00:00: mouth [place] 00 every 8 Medical (eight) Branch hours as needed for Cough. benzonatate 2021-02 Yes [id number] 100mg Take 1 Univers 100 mg 2-30 capsule by ity of capsule 00:00: mouth [place] 00 every 8 Medical (eight) Branch hours as needed for Cough. benzonatate 2021-02 Yes [id number] 100mg Take 1 Univers 100 mg 2-30 capsule by ity of capsule 00:00: mouth [place] 00 every 8 Medical (eight) Branch hours as needed for Cough. Methylpredn 2021-02- No [id number] 4mg Take 1 Univers isolone 4 2-30 -05 tablet by ity of mg tablet 00:00: 05:59 mouth [place] 00 :00 every 12 Medical (twelve) Branch hours for 5 days. ibuprofen 2021-02- No 600mg 600 mg, Uni vers (IBU) 2-12 12-12 Oral, ity of tablet 600 08:15: 08:17 ONCE, 1 [place] mg 00 :00 dose, On Medical Mon Branch 02/01/22 at 0215, ROSALINDA benzonatate 2021-02 Yes [id number] 200mg Take 1 Univers 200 mg 2-12 capsule by ity of capsule 00:00: mouth 3 [place] 00 (three) Medical times Branch daily as needed for Cough. benzonatate 2021-02 Yes [id number] 200mg Take 1 Univers 200 mg 2-12 capsule by ity of capsule 00:00: mouth 3 [place] 00 (three) Medical times Branch daily as needed for Cough. benzonatate 2021-02 Yes [id number] 200mg Take 1 Univers 200 mg 2-12 capsule by ity of capsule 00:00: mouth 3 [place] 00 (three) Medical times Branch daily as needed for Cough. benzonatate 2021-02 Yes [id number] 200mg Take 1 Univers 200 mg 2-12 capsule by ity of capsule 00:00: mouth 3 [place] 00 (three) Medical times Branch daily as needed for Cough. benzonatate 2021-02 Yes [id number] 200mg Take 1 Univers 200 mg 2-12 capsule by ity of capsule 00:00: mouth 3 [place] 00 (three) Medical times Branch daily as needed for Cough. benzonatate 2021-02 Yes [id number] 200mg Take 1 Univers 200 mg 2-12 capsule by ity of capsule 00:00: mouth 3 [place] 00 (three) Medical times Branch daily as needed for Cough. benzonatate 2021-02 Yes [id number] 200mg Take 1 Univers 200 mg 2-12 capsule by ity of capsule 00:00: mouth 3 00 (three) Medical times Branch daily as needed for Cough. benzonatate 2021-02 Yes [id number] 200mg Take 1 Univers 200 mg 2-12 capsule by ity of capsule 00:00: mouth 3 [place] 00 (three) Medical times Branch daily as needed for Cough. SERTraline Yes [id number] 50mg Take 50 mg Univers (ZOLOFT) 50 6-17 by mouth ity of mg tablet 04:19: daily. [address] SERTraline Yes [id number] 50mg Take 50 mg Univers (ZOLOFT) 50 6-17 by mouth ity of mg tablet 04:19: daily. [address] SERTraline Yes [id number] 50mg Take 50 mg Univers (ZOLOFT) 50 6-17 by mouth ity of mg tablet 04:19: daily. [address] SERTraline Yes [id number] 50mg Take 50 mg Univers (ZOLOFT) 50 6-17 by mouth ity of mg tablet 04:19: daily. [address] SERTraline Yes [id number] 50mg Take 50 mg Univers (ZOLOFT) 50 6-17 by mouth ity of mg tablet 04:19: daily. [address] SERTraline Yes [id number] 50mg Take 50 mg Univers (ZOLOFT) 50 6-17 by mouth ity of mg tablet 04:19: daily. [address] SERTraline Yes [id number] 50mg Take 50 mg Univers (ZOLOFT) 50 6-17 by mouth ity of mg tablet 04:19: daily. [place] 18 Medical Branch ibuprofen 2021-0 Yes [id number] 800mg Take 1 U nivers 800 mg 6-17 tablet by ity of tablet 00:00: [facility] every 8 Medical (eight) Branch hours as needed for Pain (scale 4-6) or Temp > 38.5 C. ibuprofen 2021-0 Yes [id number] 800mg Take 1 Univers 800 mg 6-17 tablet by ity of tablet 00:00: [facility] every 8 Medical (eight) Branch hours as needed for Pain (scale 4-6) or Temp > 38.5 C. ibuprofen 2021-0 Yes [id number] 800mg Take 1 Univers 800 mg 6-17 tablet by ity of tablet 00:00: [facility] every 8 Medical (eight) Branch hours as needed for Pain (scale 4-6) or Temp > 38.5 C. ibuprofen 2021-0 Yes [id number] 800mg Take 1 Univers 800 mg 6-17 tablet by ity of tablet 00:00: [facility] every 8 Medical (eight) Branch hours as needed for Pain (scale 4-6) or Temp > 38.5 C. ibuprofen 2021-0 Yes [id number] 800mg Take 1 Univers 800 mg 6-17 tablet by ity of tablet 00:00: [facility] every 8 Medical (eight) Branch hours as needed for Pain (scale 4-6) or Temp > 38.5 C. ibuprofen 2021-0 Yes [id number] 800mg Take 1 Univers 800 mg 6-17 tablet by ity of tablet 00:00: [place] [address] every 8 Medical (eight) Branch hours as needed for Pain (scale 4-6) or Temp > 38.5 C. ibuprofen 2021-0 Yes [id number] 800mg Take 1 Univers 800 mg 6-17 tablet by ity of tablet 00:00: [place] [address] every 8 Medical (eight) Branch hours as needed for Pain (scale 4-6) or Temp > 38.5 C. ibuprofen 2021-0 Yes [id number] 800mg Take 1 Univers 800 mg 6-17 tablet by ity of tablet 00:00: [place] [address] every 8 Medical (eight) Branch hours as needed for Pain (scale 4-6) or Temp > 38.5 C. ibuprofen Yes [id number] 800mg Take 1 Univers 800 mg 6-17 tablet by ity of tablet 00:00: mouth [place] 00 every 8 Medical (eight) Branch hours as needed for Pain (scale 4-6) or Temp > 38.5 C. ciprofloxac 2021- No [id number] 3[drp] Place 3 Univers in-hydrocor 6-17 06-25 Drops in ity of tisone 00:00: 04:59 right ear [place] (CIPRO HC) 00 :00 2 (two) Medica l otic times Branch suspension daily for 7 days. SERTraline Yes [id number] 50mg Take 50 mg Univers (ZOLOFT) 50 9-28 by mouth ity of mg tablet 11:32: daily. [place] 52 Medical Branch Yes [id number] 1{tbl} Take 1 Univers vitamin 8-19 tablet by ity of w/FA tablet 00:00: mouth [place] 00 daily. Medical Branch docusate Yes [id number] 240mg Take 1 U nivers calcium 240 8-19 capsule by it y of mg capsule 00:00: mouth once [place] 00 daily as Medical needed for Branch Constipati on. ferrous Yes [id number] 325mg Take 1 Un mandy sulfate 325 8-19 tablet by ity of mg (65 mg 00:00: mouth 2 [place] iron) 00 (two) Medical tablet times Branch daily. ibuprofen Yes [id number] 600mg Take 1 Univers 600 mg 8-19 tablet by ity of tablet 00:00: mouth [place] 00 every 6 Medical (six) Branch hours as needed (Pain). Take with food or milk. 2021- No [id number] 1{tbl} Take 1 Univers vitamin 8-19 06-17 tablet by ity of w/FA tablet 00:00: 00:00 [place] 00 :00 daily. Medical Branch docusate 2021- No [id number] 240mg Take 1 Univers calcium 240 8-19 06-17 capsule by i ty of mg capsule 00:00: 00:00 mouth once [place] 00 :00 daily as Medical needed for Branch Constipati on. ferrous 2021- No [id number] 325mg Take 1 U nivers sulfate 325 10-09 tablet by it y of mg (65 mg 00:00: 00:00 mouth 2 [place] iron) 00 :00 (two) Medical tablet times Branch daily. ibuprofen 2021- No [id number] 600mg Take 1 Univers 600 mg 10-09 tablet by ity of tablet 00:00: 00:00 mouth [place] 00 :00 every 6 Medical (six) Branch hours as needed (Pain). Take with food or milk. Immunizations Ordered Filled Immunization Date Status Comments Sour e Immunization Name Name [facility] 2020-08-04 Completed University of 00:00:00 [facility] TD 2020-08-04 Completed University of 00:00:00 [facility] TDAP 2020-08-04 Completed University of 00:00:00 [facility] TDAP 2020-08-04 Completed University of 00:00:00 [facility] TDAP 2020-08-04 Completed University of 00:00:00 [facility] TDAP 2020-08-04 Completed University of 00:00:00 [facility] TDAP 2020-08-04 Completed University of 00:00:00 [facility] TDAP 2020-08-04 Completed University of 00:00:00 [facility] TDAP 2020-08-04 Completed University of 00:00:00 [facility] TDAP 2020-08-04 Completed University of 00:00:00 [facility] Vital Signs Vital Name Observation Time Observation Value Comments Source Systolic blood 2022-06-10 18:02:00 125 mm[Hg] Univer sity of pressure [facility] Diastolic blood 2022-06-10 18:02:00 86 mm[Hg] Unive rsity of pressure [facility] Heart rate 2022-06-10 18:02:00 92 /min [facility] Body temperature 2022-06-10 18:02:00 36.5 [facility]umn [facility] 2022-06-10 18:02:00 18 /min [facility] Body weight 2022-06-10 18:02:00 129.003 kg [facility] BMI 2022-06-10 18:02:00 45.90 kg/m2 Universi ty of [place] [facility] Oxygen saturation in 2022-06-10 18:02:00 100 /min University of Arterial blood by [place] Medi germain Pulse oximetry Branch Systolic blood 2022-05-20 22:55:00 140 mm[Hg] Univer sity of pressure [place] [facility] Diastolic blood 2022-05-20 22:55:00 80 mm[Hg] Unive rsity of pressure [place] [facility] Heart rate 2022-05-20 22:55:00 112 /min Universi ty of [place] [facility] Body temperature 2022-05-20 22:55:00 37.17 Autumn Univ ersity of [place] [facility] Respiratory rate 2022-05-20 22:55:00 14 /min Univ ersity of [place] [facility] Body height 2022-05-20 22:55:00 167.6 cm Universi ty of [place] [facility] Body weight 2022-05-20 22:55:00 127.189 kg Universi ty of [place] [facility] BMI 2022-05-20 22:55:00 45.26 kg/m2 Universi ty of [place] [facility] Oxygen saturation in 2022-05-20 22:55:00 95 /min University of Arterial blood by [place] [employer] germain Pulse oximetry Branch Systolic blood 2022-04-01 19:46:00 131 mm[Hg] Univer sity of pressure [place] [facility] Diastolic blood 2022-04-01 19:46:00 81 mm[Hg] Unive rsity of pressure [place] [facility] Heart rate 2022-04-01 19:46:00 86 /min Universi ty of [place] [facility] Body temperature 2022-04-01 19:46:00 36.72 Autumn Univ ersity of [place] [facility] Respiratory rate 2022-04-01 19:46:00 16 /min Univ ersity of [place] [facility] Body height 2022-04-01 19:46:00 167.6 cm Universi ty of [place] [facility] Body weight 2022-04-01 19:46:00 125.873 kg Universi ty of [place] [facility] BMI 2022-04-01 19:46:00 44.79 kg/m2 Universi ty of [place] [facility] Oxygen saturation in 2022-04-01 19:46:00 97 /min University of Arterial blood by [place] [employer] germain Pulse oximetry Branch Systolic blood 2022-02-19 18:26:00 103 mm[Hg] Univer sity of pressure [place] [facility] Diastolic blood 2022-02-19 18:26:00 67 mm[Hg] Unive rsity of pressure [place] [facility] Heart rate 2022-02-19 18:26:00 88 /min Universi ty of [place] [facility] Body temperature 2022-02-19 18:26:00 36.78 Autumn Univ ersity of [place] [facility] Respiratory rate 2022-02-19 18:26:00 18 /min Univ ersity of [place] [facility] Body height 2022-02-19 18:26:00 167.6 cm Universi ty of [place] [facility] Body weight 2022-02-19 18:26:00 121.882 kg Universi ty of [place] [facility] BMI 2022-02-19 18:26:00 43.37 kg/m2 Universi ty of [place] [facility] Oxygen saturation in 2022-02-19 18:26:00 98 /min University of Arterial blood by [facility] [place] [facility] Pulse oximetry Branch Systolic blood 2022-02-01 08:10:48 128 mm[Hg] Univer sity of pressure [place] [facility] Diastolic blood 2022-02-01 08:10:48 81 mm[Hg] Unive rsity of pressure [place] [facility] Heart rate 2022-02-01 08:10:48 87 /min Universi ty of [place] [facility] Body temperature 2022-02-01 08:10:48 37.61 Autumn Univ ersity of [place] [facility] Respiratory rate 2022-02-01 08:10:48 18 /min Univ ersity of [place] [facility] Oxygen saturation in 2022-02-01 08:10:48 99 /min University of Arterial blood by [facility] germain Pulse oximetry Branch Body height 2022-02-01 06:22:00 167.6 cm Universi ty of [place] [facility] Body weight 2022-02-01 06:22:00 120.203 kg Universi ty of [place] [facility] BMI 2022-02-01 06:22:00 42.77 kg/m2 Universi ty of [place] [facility] Systolic blood 2021-08-07 09:16:00 123 mm[Hg] Univer sity of pressure [place] [facility] Diastolic blood 2021-08-07 09:16:00 75 mm[Hg] Unive rsity of pressure [place] [facility] Heart rate 2021-08-07 09:16:00 78 /min [facility] Body temperature 2021-08-07 09:16:00 36.72 Autumn [facility] Respiratory rate 2021-08-07 09:16:00 18 /min [facility] Body height 2021-08-07 09:16:00 167.6 cm Universi ty of [facility] Body weight 2021-08-07 09:16:00 115.214 kg Universi ty of [facility] BMI 2021-08-07 09:16:00 41.00 kg/m2 [facility] Oxygen saturation in 2021-08-07 09:16:00 98 /min [facility] Arterial blood by [facility] [place] [facility] Pulse oximetry Branch Systolic blood 2020-11-18 16:16:00 122 mm[Hg] Univer [facility] Diastolic blood 2020-11-18 16:16:00 78 mm[Hg] Unive [facility] Body temperature 2020-11-18 16:16:00 36.33 Autumn [facility] Respiratory rate 2020-11-18 16:16:00 16 /min [facility] Body height 2020-11-18 16:16:00 167.6 cm [facility] Body weight 2020-11-18 16:16:00 126.355 kg [facility] BMI 2020-11-18 16:16:00 44.96 kg/m2 [facility] Procedures Procedure Date / Time Performed Performing Clinician Sourc e POCT MOLECULAR STREP 2022-05-20 22:54:00 Unknown, Attending [facility] PATIENT FINANCIAL 2022-05-20 22:32:11 Doctor Unassigned, No [facility] POLICY Name [facility] Branch ASSIGNMENT OF BENEFITS 2022-02-19 18:19:53 Doctor Unassigned, No [facility] Name [facility] XR CHEST 2 VW 2022-02-01 07:19:00 Mundo Gonzalez [facility] RAPID INFLUENZA A/B 2022-02-01 06:25:00 Bernie Jacobson [facility]y [facility] [place] [facility] COVID-19 (ID NOW RAPID 2022-02-01 06:25:00 Bernie Jacobson [facility] TESTING) Medical Branch CONSENT/REFUSAL FOR 2022-02-01 06:17:24 Doctor Unassigned, No [facility] [place] DI[facility]NOS[facility] AND Name Medical Branch TREATMENT NOTICE OF PRIVACY 2021-08-07 09:06:36 Doctor Unassigned, No [facility] PRACTICES Name Medical Branch CONSENT/REFUSAL FOR 2021-08-07 09:06:14 Doctor Unassigned, No Un iversity of [place] DIAGNOSIS AND Name Medical Branch TREATMENT Encounters Start End Encounter Admission Attending Care Care Encounter Source Date/Time Date/Time Type Type Clinicians Facility Department ID 2020-12-22 Outpatient P [facility] OCTAVIO [id number] Univers 16:17:01 ity [facility] 2020-12-19 Emergency [facility] [id number] [facility] 2022-06-10 [facility] [id number] Univers 13:00:00 13:20:00 Care Unknown, Attending [facility] [id number] ity [facility] [id number] [place] as HERMAN?BLEA [id number] [address] MEDICAL OFFICE [facility] 2022-06-10 2022-06-10 Outpatient R EBRAHIM, [facility] [id number] Univers 13:00:00 [facility]:00:00 [facility] [facility] 2022-05-20 2022-05-20 [facility] 1.2.840.114 [id number] Univers 17:40:00 18:00:00 Care Unknown, Attending [facility] 350.1.13.10 ity of [place] 4.2.7.2.686 Colt as HERMAN?BLEA [id number] [address] MEDICAL OFFICE BUILDING 2022-05-20 2022-05-20 Outpatient R EBRAHIM, [facility] [id number] Univers 17:40:00 17:40:00 MARIAN [facility] 2022-05-20 2022-05-20 Orders Doctor ЮЛИЯ 1.2.840.114 [id number] Univers 00:00:00 00:00:00 Only Unassigned, KEYONNA 350.1.13.10 ity of [facility] 4.2.7.2.686 Colt as [id number] [address] 2022-04-23 2022-04-23 [facility] 1.2.840.114 [id number] Univers 00:00:00 00:00:00 Ranri HEALTH 350.1.13.10 it y of [place] 4.2.7.2.686 Colt as HERMAN?BLEA [id number] [address] MEDICAL OFFICE [facility] 2022-04-01 2022-04-01 Urgent Renetta [facility] 1.2.840.114 [id number] Univers 13:40:00 14:00:00 Care Unknown, Attending HEALTH 350.1.13.10 ity of [place] 4.2.7.2.686 Colt as HERMAN?BLEA [phone] [address] OFFICE [facility] 2022-04-01 2022-04-01 Outpatient R RENETTA, [facility] [id number] Univers 13:40:00 13:40:00 MARIAN ity [facility] 2022-02-19 2022-02-19 Urgent Ale Vu [facility] 1.2.840.114 [id number] Univers 12:20:00 12:40:00 Care Unknown, Attending HEALTH 350.1.13.10 ity of [place] 4.2.7.2.686 Colt as HERMAN?BLEA [id number] [address] MEDICAL OFFICE [facility] 2022-02-19 2022-02-19 Outpatient R REBECCA III, [facility] [id number] Univers 12:20:00 12:20:00 ALE hollins [facility] 2022-02-19 2022-02-19 Orders Doctor REDMAN 1.2.840.114 [id number] Univers 00:00:00 00:00:00 Only Unassigned, KEYONNA 350.1.13.10 ity of [facility] 4.2.7.2.686 Colt as [phone] [address] 2022-02-01 2022-02-01 Emergency X GONZALEZ, [facility] ERT [id number] Univers 00:29:00 02:21:00 MUNDO douglas [facility] 2022-02-01 2022-02-01 Emergency Gonzalez, [facility] 1.2.840.114 [id number] Univers 00:29:00 02:21:00 Mundo [facility] 350.1.13.10 i ty [facility] 4.2.7.2.686 [facility] [id number] [address] 2022-01-17 2022-01-17 Outpatient R UNKNOWN, [facility] [id number] Univers 12:20:00 12:20:00 ATTENDING [facility] 2022-01-03 2022-01-03 Outpatient R UNKNOWN, [facility] [id number] Univers 12:20:00 12:20:00 ATTENDING [facility] 2021-08-07 2021-08-07 Emergency [facility] 1.2.205.360 [id number] Univers 04:21:00 05:28:00 Ivisdelmy Kishan [place] 350.1.13.10 ity [facility] 4.2.7.2.686 [facility] [id number] [address] 2021-08-07 2021-08-07 Emergency [facility] ERT [id number] Univers 04:21:00 05:28:00 BERNIE [facility] 2020-11-18 2020-11-18 Office Provider, Ang[facility] 1 .2.840.114 [id number] Univers 10:34:42 12:05:59 Visit Nallely Benoit REGISTERED PHARMACY TECHNICIAN 350.1.13.10 ity [facility] 4.2.7.2.686 Colt as MATERNAL [phone] [facility] ical & CHILD [address] [place] [address] 2020-11-18 2020-11-18 Outpatient R CY [facility] [id number] Univers 10:30:00 10:30:00 NALLELY hollins o f [facility] 2020-10-28 2020-10-28 [facility] 1.2.840.114 [id number] Univers 12:48:40 13:03:40 Rosalexandriandleigh ann R REGISTERED PHARMACY TECHNICIAN 350.1.13.10 ity of Visit [facility] 4.2.7.2.686 Colt as MATERNAL [id number] [facility] ical & CHILD [address] [place] [address] 2020-10-28 2020-10-28 Outpatient [place] [facility] [id number] Univers 12:45:00 12:45:00 NALLELY hollins o f [facility] 2020-10-13 2020-10-13 Nurse Visit, [facility] Nurse [facility] 1.2 .840.114 [id number] Univers 08:39:19 09:28:42 Visit BenoitNallely REGISTERED PHARMACY TECHNICIAN 350.1.13.10 ity of [facility] 4.2.7.2.686 Colt as MATERNAL [phone] [facility] & [address] 2020-10-13 2020-10-13 Outpatient [facility] [id number] Univers 08:45:00 08:45:00 NALLELY hollins o paula [facility] 2020-10-07 2020-10-09 [facility] Missy Mayers [facility] 1.2.840.114 [id number] Univers 18:59:00 11:40:00 Encounter [place] 350.1.13.10 ity of [place] [phone] [facility] [address] [place] 2020-10-07 2020-10-07 Orders Doctor ЮЛИЯ 1.2.840.114 [id number] Univers 00:00:00 00:00:00 Only Unassigned, KEYONNA 350.1.13.10 ity of [place] [facility] 4.2.7.2.686 Colt as [phone] [facility] [address] 2020-10-06 2020-10-06 Routine [facility] 1.2.840.114 [id number] Univers 07:36:22 08:12:50 Rosalexandrianda R REGISTERED PHARMACY TECHNICIAN 350.1.13.10 ity of Visit REGIONAL 4.2.7.2.686 Colt as MATERNAL [phone] [facility] & [address] 2020-10-06 2020-10-06 Outpatient [place] [facility] [id number] Univers 07:45:00 07:45:00 ROSHUNDA ity o f [facility] 2020-09-29 2020-09-29 [facility]ine [facility] 1.2.840.114 [id number] Univers 07:35:13 08:07:55 Roshunda R REGISTERED PHARMACY TECHNICIAN 350.1.13.10 ity of Visit REGIONAL 4.2.7.2.686 [place]t [place] MATERNAL [id number] [address] 2020-09-29 2020-09-29 Outpatient [place] [facility] [id number] Univers 07:30:00 07:30:00 ROSHUNDA ity o [facility] 2020-09-22 2020-09-22 [facility] 1.2.840.114 [id number] Univers 09:07:22 09:39:36 Roshunda R REGISTERED PHARMACY TECHNICIAN 350.1.13.10 ity of Visit REGIONAL 4.2.7.2.686 Colt as MATERNAL [id number] [address] 2020-09-22 2020-09-22 Outpatient [place] [facility] [id number] Univers 08:45:00 08:45:00 ROSHUNDA ity o [facility] 2020-09-15 2020-09-15 [facility] 1.2.840.114 [id number] Univers 08:43:04 08:58:04 Roshunda R REGISTERED PHARMACY TECHNICIAN 350.1.13.10 ity of Visit REGIONAL 4.2.7.2.686 Colt as MATERNAL [id number] [address] 2020-09-15 2020-09-15 Outpatient [place] [facility] [id number] Univers 08:45:00 08:45:00 ROSHUNDA ity o [facility] 2020-09-01 2020-09-01 Routine [facility] 1.2.840.114 [id number] Univers 10:11:03 11:05:52 Roshunda R REGISTERED PHARMACY TECHNICIAN 350.1.13.10 ity of Visit REGIONAL 4.2.7.2.686 Colt as MATERNAL [phone] [facility] [address] [place] [address] 2020-09-01 2020-09-01 Outpatient R CY [facility] [id number] Univers 10:15:00 10:15:00 ROSHUNDA ity o f [facility] 2020-08-28 2020-08-28 Telephone [facility] 1.2.906.191 [id number] Univers 00:00:00 00:00:00 Roshunda R REGISTERED PHARMACY TECHNICIAN 350.1.13.10 ity of REGIONAL 4.2.7.2.686 Colt as MATERNAL [id number] [address] 2020-08-18 2020-08-18 Routine [facility] 1.2.840.114 [id number] Univers 09:28:49 09:43:49 Roshunda R REGISTERED PHARMACY TECHNICIAN 350.1.13.10 ity of Visit REGIONAL 4.2.7.2.686 Colt as MATERNAL [phone] [facility] & [address] 2020-08-18 2020-08-18 Outpatient R CY [facility] [id number] Univers 09:30:00 09:30:00 ROSHUNDA ity o f [facility] 2020-08-06 2020-08-06 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 2, [facility] Room UNIVERSIT 1 .2.840.114 [id number] Univers 11:07:44 12:16:07 Visit Petra Gong 350.1.13.10 ity of [place] [phone] [address] 2020-08-06 2020-08-06 Outpatient P [facility] [id number] Univers 10:15:00 10:15:00 ity of [facility] 2020-08-06 2020-08-06 Abstract [facility] 1.2.840.114 [id number] Univers 00:00:00 00:00:00 Roshunda R REGISTERED PHARMACY TECHNICIAN 350.1.13.10 ity of REGIONAL 4.2.7.2.686 Colt as MATERNAL [id number] [facility] & [address] 2020-08-04 2020-08-04 Routine [facility] 1.2.840.114 [id number] Univers 08:11:16 09:02:36 Roshunda R REGISTERED PHARMACY TECHNICIAN 350.1.13.10 ity of Visit REGIONAL 4.2.7.2.686 Colt as MATERNAL [id number] [facility] & CHILD [address] [place] [address] 2020-08-04 2020-08-04 Outpatient [facility] [id number] Univers 08:15:00 08:15:00 ROSHUNDA ity o f [facility] 2020-08-04 2020-08-04 Orders Doctor ЮЛИЯ 1.2.840.114 [id number] Univers 00:00:00 00:00:00 Only Unassigned, KEYONNA 350.1.13.10 ity of [place] [facility] 4.2.7.2.686 Colt as [phone] [address] 2020-08-01 2020-08-01 Outpatient R [facility] [id number] Univers 08:45:00 08:45:00 ROSHUNDA ity o f [facility] 2020-07-15 2020-07-15 Routine [facility] 1.2.840.114 [id number] Univers 08:09:51 08:49:32 Roshunda R REGISTERED PHARMACY TECHNICIAN 350.1.13.10 ity of Visit [facility] 4.2.7.2.686 Colt as MATERNAL [id number] [facility] & [address] 2020-07-15 2020-07-15 Outpatient R [facility] [id number] Univers 08:00:00 08:00:00 ROSHUNDA ity o f [facility] 2020-06-25 2020-06-25 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 5, [facility] Room UNIVERSIT 1 .2.840.114 [id number] Univers 10:26:42 11:11:42 Visit Shannon Brasher 350.1 .13.10 it[place] [id number] [address] 2020-06-25 2020-06-25 Outpatient P [facility] [id number] Univers 10:30:00 10:30:00 ity of [facility] 2020-06-25 2020-06-25 Abstract [facility] 1.2.840.114 [id number] Univers 00:00:00 00:00:00 Roshunda R REGISTERED PHARMACY TECHNICIAN 350.1.13.10 ity of REGIONAL 4.2.7.2.686 Colt as MATERNAL [phone] Med ical & CHILD [address] [place] [address] 2020-06-24 2020-06-24 Routine [facility] 1.2.840.114 [id number] Univers 08:17:54 08:58:13 Rosalexandrianda R REGISTERED PHARMACY TECHNICIAN 350.1.13.10 ity of Visit [facility] 4.2.7.2.686 Colt as MATERNAL [id number] [facility] & [address] 2020-06-24 2020-06-24 Outpatient R CY [facility] [id number] Univers 08:15:00 08:15:00 ROSALEXANDRIANDA ity o f [facility] 2020-06-12 2020-06-12 Outpatient [facility] [id number] SLE 00:00:00 00:00:00 STEVEN 2020-05-29 2020-05-29 Abstract [facility] 1.2.840.114 [id number] Univers 00:00:00 00:00:00 Roshunda R REGISTERED PHARMACY TECHNICIAN 350.1.13.10 ity of REGIONAL 4.2.7.2.686 Colt as MATERNAL [phone] Med ical & CHILD [address] [place] [address] 2020-05-28 2020-05-28 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 3, [facility] Room UNIVERSIT 1 .2.840.114 [id number] Univers 13:09:05 14:29:41 Visit Leonel Suarez [facility] 350.1.13. 10 ity [place] [id number] [address] 2020-05-28 2020-05-28 Outpatient P [facility] [id number] Univers 13:00:00 13:00:00 ity of [facility] 2020-05-27 2020-05-27 [facility]ine [facility] 1.2.840.114 [id number] Univers 07:47:14 08:17:42 Roshunda R REGISTERED PHARMACY TECHNICIAN 350.1.13.10 ity of Visit [facility] 4.2.7.2.686 Colt as MATERNAL [phone] [facility] CHILD [address] [place] [address] 2020-05-27 2020-05-27 Outpatient R CY [facility] [id number] Univers 07:45:00 07:45:00 ROSHUNDA ity o f [facility] 2020-04-29 2020-04-29 [facility]ine [facility] 1.2.840.114 [id number] Univers 10:48:48 11:49:54 Roshunda R REGISTERED PHARMACY TECHNICIAN 350.1.13.10 ity of Visit [facility] 4.2.7.2.686 Colt as MATERNAL [phone] [facility] & [address] 2020-04-29 2020-04-29 Outpatient R CY [facility] [id number] Univers 10:45:00 10:45:00 ROSHUNDA ity o f [facility] 2020-04-21 2020-04-21 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 Ultrasound, [facility] 1.2 .840.114 [id number] Univers 08:00:28 08:30:28 Visit Petra Gong REGISTERED PHARMACY TECHNICIAN 350.1.13.10 ity of [facility] 4.2.7.2.686 Colt as MATERNAL [phone] [facility] & CHILD [address] [place] [address] 2020-04-21 2020-04-21 Outpatient P [facility] [id number] Univers 08:00:00 08:00:00 ity of [facility] 2020-04-21 2020-04-21 Orders Cy [facility] 1.2.840.114 [id number] Univers 00:00:00 00:00:00 Only Kaycehunda R REGISTERED PHARMACY TECHNICIAN 350.1.13.10 ity of REGIONAL 4.2.7.2.686 Colt as MATERNAL [phone] [facility] ical & CHILD [address] [place] [address] 2020-04-21 2020-04-21 Abstract Cy [facility] 1.2.840.114 [id number] Univers 00:00:00 00:00:00 Rosalexandrianda R REGISTERED PHARMACY TECHNICIAN 350.1.13.10 ity of REGIONAL 4.2.7.2.686 Colt as MATERNAL [phone] [facility] & CHILD [address] [place] [address] 2020-04-15 2020-04-15 Case Cy [facility] 1.2.840.114 [id number] Univers 00:00:00 00:00:00 Management Nupurnda R REGISTERED PHARMACY TECHNICIAN 350.1.13.10 ity of REGIONAL 4.2.7.2.686 Colt as MATERNAL [id number] [facility] & [address] 2020-04-07 2020-04-07 Outpatient P [facility] [id number] Univers 09:45:00 09:45:00 ity of [facility] 2020-04-04 2020-04-04 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 Lab, [facility] 1.2.840. 114 [id number] Univers 08:05:22 08:20:22 Visit Esperanza Klein REGISTERED PHARMACY TECHNICIAN 350.1.13. 10 ity of REGIONAL 4.2.7.2.686 Colt as MATERNAL [id number] [facility] & CHILD [address] [place] [address] 2020-04-04 2020-04-04 Outpatient R MARQUITA [facility] [id number] Univers 08:00:00 08:00:00 ESPERANZA hollins o f [facility] 2020-04-04 2020-04-04 Telephone Cy [facility] 1.2.939.706 [id number] Univers 00:00:00 00:00:00 Kaycenda R REGISTERED PHARMACY TECHNICIAN 350.1.13.10 ity of REGIONAL 4.2.7.2.686 Colt as MATERNAL [phone] [facility] & CHILD [address] [place] [address] 2020-04-02 2020-04-02 [facility] 1.2.467.239 [id number] Univers 00:00:00 00:00:00 Rosalexandrianda R REGISTERED PHARMACY TECHNICIAN 350.1.13.10 ity of REGIONAL 4.2.7.2.686 Colt as MATERNAL [phone] [facility] & CHILD [address] [place] [address] 2020-04-01 2020-04-01 Outpatient R [facility] [id number] Univers 13:15:00 13:15:00 ity [facility] 2020-03-26 2020-03-26 Outpatient R [facility] [id number] Univers 09:15:00 09:15:00 ity [facility] 2020-03-21 2020-03-21 Outpatient R [facility] [id number] Univers 09:15:00 09:15:00 ity [facility] 2019-11-29 2019-11-29 [facility] [id number] Univers 14:45:00 14:45:00 AISHAT ity [facility] 2019-11-19 2019-11-19 Emergency Tati Mckoy TRAUMA 1.2.8 40.114 [id number] Univers 12:57:00 18:43:00 [facility] TALISHEEK 350.1.13.10 [place] [id number] [address] 2019-08-22 2019-08-22 Outpatient [facility] [id number] Univers 11:00:00 11:00:00 ROSHUNDA ity o [facility] 2019-08-15 2019-08-15 Outpatient [facility] [id number] Univers 13:45:00 13:45:00 ESPERANZA ity o f [facility] 2019-08-15 2019-08-15 Outpatient R [facility] [id number] Univers 07:45:00 07:45:00 NALLELY ity o f [facility] 2019-08-13 2019-08-13 Telemedici Faculty, [facility] 1.2.840.114 [id number] Univers 08:14:37 08:41:58 ne Visit Beto Conner REGISTERED PHARMACY TECHNICIAN 350.1.13.10 ity of REGIONAL 4.2.7.2.686 Colt as MATERNAL [phone] [facility] ical & CHILD [address] [place] [address] 2019-08-13 2019-08-13 Telemedici Faculty, [facility] 1.2.840.114 [id number] 08:14:37 08:41:58 ne Visit [facility] REGISTERED PHARMACY TECHNICIAN 350.1.13.10 [facility] 4.2.7.2.686 MATERNAL [phone] & CHILD [address] [place] [address] 2019-08-13 2019-08-13 Outpatient R [facility] [id number] Univers 08:30:00 08:30:00 ity of [facility] 2019-08-13 2019-08-13 Telephone Faculty, [facility] 1.2.840.114 [id number] Univers 00:00:00 00:00:00 [facility] REGISTERED PHARMACY TECHNICIAN 350.1.13.10 ity of [facility] 4.2.7.2.686 Colt as MATERNAL [id number] [facility] CHILD [address] [place] [address] 2019-08-13 2019-08-13 Telephone Faculty, [facility] 1.2.840.114 [id number] 00:00:00 00:00:00 [facility] REGISTERED PHARMACY TECHNICIAN 350.1.13.10 [facility] 4.2.7.2.686 MATERNAL [phone] & CHILD [address] [facility] 2019-08-10 2019-08-10 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 3, [facility] Room UNIVERSIT 1 .2.840.114 [id number] Univers 08:35:12 10:02:08 Visit SuarezLeonel pennington [facility] 350.1.13. 10 ity of [facility] [place].2.[place] [id number] [address] 2019-08-10 2019-08-10 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 3, [facility] UNIVERSIT 1.2.840.11 [id number] 08:35:12 10:02:08 Visit [facility] 350.1.13.10 [facility] 4.2.7.2.686 [id number] 104 2019-08-10 2019-08-10 Outpatient P [facility] [id number] Univers 09:15:00 09:15:00 ity of [facility] 2019-08-09 2019-08-09 [facility]phone [facility] 1.2.042.656 [id number] Univers 00:00:00 00:00:00 Roshunda R REGISTERED PHARMACY TECHNICIAN 350.1.13.10 ity of REGIONAL 4.2.7.2.686 Colt as MATERNAL [id number] [facility] ical & CHILD [address] [place] [address] 2019-08-09 2019-08-09 Telephone [facility] 1.2.611.255 [id number] 00:00:00 00:00:00 Roshunda R REGISTERED PHARMACY TECHNICIAN 350.1.13.10 REGIONAL 4.2.7.2.686 MATERNAL [id number] & CHILD [address] [place] [address] 2019-07-26 2019-07-26 Orders Doctor ЮЛИЯ 1.2.840.114 [id number] Univers 00:00:00 00:00:00 Only Unassigned, KEYONNA 350.1.13.10 ity of [facility] 4.2.7.2.686 Colt as [id number] [address] 2019-07-18 2019-07-18 Initial [facility] 1.2.840.114 [id number] Univers 12:54:31 13:49:09 Roshunda R REGISTERED PHARMACY TECHNICIAN 350.1.13.10 ity of Visit REGIONAL 4.2.7.2.686 Colt as MATERNAL [phone] [facility] & CHILD [address] [place] [address] 2019-07-18 2019-07-18 Outpatient R MARQUITA [facility] [id number] Univers 09:00:00 09:00:00 ESPERANZA ity o f [facility] 2019-07-18 2019-07-18 [facility]phone [facility] 1.2.902.120 [id number] Univers 00:00:00 00:00:00 Nallely Ho REGISTERED PHARMACY TECHNICIAN 350.1.13.10 ity of [facility] 4.2.7.2.686 Colt as MATERNAL [phone] Med ical & CHILD [address] [place] [address] 2019-07-18 2019-07-18 Orders Doctor ЮЛИЯ 1.2.840.114 [id number] Univers 00:00:00 00:00:00 Only Unassigned, KEYONNA 350.1.13.10 ity of [place] [facility] 4.2.7.2.686 Colt as [phone] [address] Results Test Description Test Time Test Comments Results Result Comments Source POCT MOLECULAR STREP 2022-05-20 22:57:35 Test Item Value Reference Range Interpretation Comme nts POCT Molecular Strep (test code = 62012-4) Positive Negative A Lab Interpretation (test code = 03966-3) Abnormal [facility]
[2022-07-28 00:27] LABS: Absolute Lymphocytes (CBC) 2.4 K/uL (0.7-4.9); Hematocrit 36.3 % (36.0-45.0); Lymphocytes % 19.7 % (15.3-44.8); MCV 83.3 fL (80-100); RBC Red Blood Cell Count 4.36 M/uL (3.86-4.86)
[2022-07-28] MEDS ORDERED: ONDANSETRON 4 MG/2 ML VIAL ONE (00:34)
[2022-07-28] MEDS ORDERED: KETOROLAC 30 MG/ML INJ ONE (00:35)
[2022-07-28 00:52] LABS: Calcium Oxalate Crystals- Ur Moderate /HPF (None Seen); Specific Gravity 1.029 (1.005-1.030); Urine Bacteria None Seen /HPF (<20); Urine Bilirubin NEGATIVE (Negative); Urine Blood Trace (Negative); Urine Clarity Extremely Turbid (Clear); Urine Color Yellow (Yellow); Urine Glucose NEGATIVE (Negative); Urine Mucus 2+ /HPF (None Seen); Urine Protein TRACE (Negative); Urine Urobilinogen Normal (Normal); Urine pH 5.5 (5.0-7.0)
[2022-07-28 00:57] LABS: Specific Gravity 1.029 (1.005-1.030)
[2022-07-28 01:37] LABS: Albumin 3.7 g/dL (3.4-5.0); Bilirubin Total 0.7 mg/dL (0.2-1.0); Potassium 3.5 mEq/L (3.5-5.1); Protein, Total 7.7 g/dL (6.4-8.2)
--- NOTE | 2022-07-28 03:28 | ER ---
Nurse's Notes [facility] Name: Janine Mckay Age: 42 yrs Sex: Female : 1980 Arrival Date: 07/27/2022 Time: 21:34 Bed 9 Private MD: Diagnosis: Acute right flank pain, acute musculoskeletal pain Presentation: 07/27 22:12 Chief complaint: Patient states: RUQ pain that began yesterday. + nausea. Coronavirus kl screen: Vaccine status: Patient reports being unvaccinated. Ebola Screen: No symptoms or risks identified at this time. 22:12 Method Of Arrival: Ambulatory 22:12 Acuity: GRIFFIN 4 kl Historical: - Allergies: 22:03 PENICILLINS; sp4 - Home Meds: 22:15 Zoloft 50 mg Oral tablet daily [Active]; kl - PMHx: 22:03 Depression; sp4 - Social history:: Patient/guardian denies using alcohol, street drugs, IV drugs, caffeine, over the counter diet medications, tobacco products. - Family history:: not pertinent. Screenin/07 03:39 [facility] ED Fall Risk Assessment (Adult) History of falling in the last 3 months, jb4 including since admission No falls in past 3 months (0 pts) Confusion or Disorientation No (0 pts) Score/Fall Risk Level 0 - 2 = Low Risk Oriented to surroundings, Maintained a safe environment. Abuse screen: Denies threats or abuse. Nutritional screening: No deficits noted. Tuberculosis screening: No symptoms or risk factors identified. Assessment: 03:39 Reassessment: Patient appears in no apparent distress at this time. Patient and/or jb4 family updated on plan of care and expected duration. Pain level reassessed. Patient is alert, oriented x 3, equal unlabored respirations, skin warm/dry/pink. Patient states feeling better. Vital Signs: 07/27 22:12 BP 110 / 78; Pulse 81; Resp 18; Temp 97.8; Pulse Ox 100% ; Weight 127.91 kg; Height 5 kl ft. 6 in. ; Pain 6/10; 22:12 Body Mass Index 45.52 (127.91 kg, 167.64 cm) 22:12 Pain Scale: Adult ED Course: 21:53 Patient arrived in ED. jj6 21:54 Arnaldo Diamond MD is Attending Physician. sp4 22:15 Triage completed. kl 23:33 CBC with Diff Sent. 6 23:33 CMP Sent. bc6 23:33 Lipase Sent. 6 23:33 Test, Urine Sent. 6 23:33 Urinalysis w/ reflexes Sent. bc6 23:33 Inserted saline lock: 20 gauge in right antecubital area, using aseptic technique. 6 06 02:14 CT Abd/Pelvis - IV Contrast Only In Process Unspecified. EDMS 03:39 No provider procedures requiring assistance completed. IV discontinued, intact, jb4 bleeding controlled, No redness/swelling at site. Pressure dressing applied. 03:39 Patient has correct armband on for positive identification. Bed in low position. Call jb4 light in reach. Side rails up X 1. Administered Medications: 00:40 Drug: Ondansetron IVP 4 mg Route: IVP; Site: right antecubital; kl 00:40 Drug: Ketorolac IVP 30 mg Route: IVP; Site: right antecubital; kl 03:38 Not Given (Patient Refused): traMADol PO 100 mg PO once jb4 03:38 Not Given (Patient Refused): Promethazine PO 25 mg PO once jb4 03:39 Not Given (Patient Refused): Methocarbamol PO 750 mg PO once jb4 Medication: 03:39 VIS not applicable for this client. jb4 Outcome: 03:28 Discharge ordered by . sp4 03:39 Discharged to home ambulatory. jb4 03:39 Condition: stable 03:39 Discharge instructions given to patient, Instructed on discharge instructions, follow up and referral plans. no drinking with medication, no driving heavy equipment, medication usage, Demonstrated understanding of instructions, follow-up care, medications, Prescriptions given X 3. 03:40 Patient left the ED. jb4 Signatures: Dispatcher [employer] EDKaia Ernst RN RN kl Bryson, James, RN RN jb4 Katie Begum Breana bc6 Potepalov, Sergey, MD MD sp4
--- NOTE | 2022-07-28 03:28 | EDPHYS ---
Physician Documentation [facility] Name: Janine Mckay Age: 42 yrs Sex: Female : 1980 Arrival Date: 07/27/2022 Time: 21:34 Bed 9 Private MD: ED Physician Arnaldo Diamond HPI: 07/27 21:55 This 42 yrs old Female presents to ER via Unassigned with complaints of sp4 General complaint. 21:55 . sp4 22:02 42-year-old female presents with third day of right flank pain associated with nausea. sp4 Patient states pain began on Tuesday 2 days ago patient also developed nausea pain in the right flank described as moderate, constant, without radiation, worsened with movement. Patient denied any urinary symptoms, denied hematuria, denied fever. . Historical: - Allergies: 22:03 PENICILLINS; sp4 - Home Meds: 22:15 Zoloft 50 mg Oral tablet daily [Active]; kl - PMHx: 22:03 Depression; sp4 - Social history:: Patient/guardian denies using alcohol, street drugs, IV drugs, caffeine, over the counter diet medications, tobacco products. - Family history:: not pertinent. ROS: 22:03 Constitutional: Negative for fever, chills, and weight loss, Eyes: Negative for injury, sp4 pain, redness, and discharge, ENT: Negative for injury, pain, and discharge, Neck: Negative for injury, pain, and swelling, Cardiovascular: Negative for chest pain, palpitations, and edema, Respiratory: Negative for shortness of breath, cough, wheezing, and pleuritic chest pain, Abdomen/GI: Negative for vomiting, diarrhea, and constipation, positive right flank pain, right abdominal pain, positive nausea Back: Negative for injury and pain, : Negative for injury, bleeding, discharge, and swelling, positive for right flank pain MS/Extremity: Negative for injury and deformity, Skin: Negative for injury, rash, and discoloration, Neuro: Negative for headache, weakness, numbness, tingling, and seizure, Psych: Negative for depression, anxiety, Allergy/Immunology: Negative for hives, rash, and allergies Endocrine: Negative for neck swelling, polydipsia, polyuria, polyphagia, and weight changes Hematologic/Lymphatic: Negative for swollen nodes, abnormal bleeding, and unusual bruising Exam: 22:03 Constitutional: This is a well developed, well nourished patient who is awake, alert, sp4 and in no acute distress. Head/Face: Normocephalic, atraumatic. Eyes: Pupils equal round and reactive to light, extra-ocular motions intact. Lids and lashes normal. Conjunctiva and sclera are not injected. Cornea within normal limits. Periorbital areas with no swelling, redness, or edema. ENT: Nares patent. No nasal discharge, no septal abnormalities noted. Tympanic membranes are normal and external auditory canals are clear. Oropharynx with no redness, swelling, or masses, exudates, or evidence of obstruction, uvula midline. Mucous membranes moist. Neck: Trachea midline, no thyromegaly or masses palpated, and no cervical lymphadenopathy. Supple, full range of motion without nuchal rigidity, or vertebral point tenderness. No Meningismus. Chest/axilla: Normal chest wall appearance and motion. Nontender with no deformity. No lesions are appreciated. Cardiovascular: Regular rate and rhythm with a normal S1 and S2. No gallops, murmurs, or rubs. Normal PMI, no JVD. No pulse deficits. Respiratory: Lungs have equal breath sounds bilaterally, clear to auscultation and percussion. No rales, rhonchi or wheezes noted. No increased work of breathing, no retractions or nasal flaring. Abdomen/GI: Soft, with normal bowel sounds. No distension or tympany. No guarding or rebound. Positive right flank tenderness Back: No spinal tenderness. No costovertebral tenderness. Skin: Warm, dry with normal turgor. Normal color with no rashes, no lesions, and no evidence of cellulitis. MS/ Extremity: Pulses equal, no cyanosis. Neurovascular intact. Full, normal range of motion. Neuro: Awake and alert, GCS 15, oriented to person, place, time, and situation. Cranial nerves II-XII grossly intact. Motor strength 5/5 in all extremities. Sensory grossly intact. Psych: Awake, alert, with orientation to person, place and time. Behavior, mood, and affect are within normal limits Vital Signs: 22:12 BP 110 / 78; Pulse 81; Resp 18; Temp 97.8; Pulse Ox 100% ; Weight 127.91 kg; Height 5 kl ft. 6 in. ; Pain 6/10; 22:12 Body Mass Index 45.52 (127.91 kg, 167.64 cm) kl 22:12 Pain Scale: Adult kl MDM: 22:02 Patient medically screened. sp4 07/28 03:24 Differential Diagnosis sepsis, flu, Nonspecific abdominal pain, nephrolithiasis, sp4 ureterolithiasis, musculoskeletal pain. ED course: IMPRESSION: 1. No acute abdominopelvic findings. 2. Right-sided nephrolithiasis. No hydronephrosis. . 03:25 Data reviewed: vital signs, nurses notes, old medical records, lab test result(s), CBC, sp4 electrolytes, hepatic panel, urinalysis, radiologic studies, CT scan. 03:26 ED course: Labs are unremarkable, CAT scan reveals no acute intra-abdominal sp4 abnormality, patient's pain is exacerbated by the movement and is likely musculoskeletal right flank pain. Will advise as needed muscle relaxants, pain medicine, bedrest for the next 3 days.. . 07/27 22:01 Order name: CBC with Diff; Complete Time: 03:18 sp4 07/27 22:01 Order name: CMP; Complete Time: 03:18 sp4 07/27 22:01 Order name: Lipase; Complete Time: 03:18 sp4 07/27 22:01 Order name: Test, Urine; Complete Time: 03:18 sp4 07/27 22:01 Order name: Urinalysis w/ reflexes; Complete Time: 03:18 sp4 07/27 22:01 Order name: CT Abd/Pelvis - IV Contrast Only sp4 07/27 22:01 Order name: IV Saline Lock; Complete Time: 23:33 sp4 07/27 22:01 Order name: Labs collected and sent; Complete Time: 23:33 sp4 Administered Medications: 00:40 Drug: Ondansetron IVP 4 mg Route: IVP; Site: right antecubital; kl 00:40 Drug: Ketorolac IVP 30 mg Route: IVP; Site: right antecubital; kl 03:38 Not Given (Patient Refused): traMADol PO 100 mg PO once jb4 03:38 Not Given (Patient Refused): Promethazine PO 25 mg PO once jb4 03:39 Not Given (Patient Refused): Methocarbamol PO 750 mg PO once jb4 Disposition Summary: 07/28/22 03:28 Discharge Ordered Location: Home sp4 Problem: new sp4 Symptoms: have improved sp4 Condition: Stable sp4 Diagnosis - Acute right flank pain, acute musculoskeletal pain sp4 Followup: sp4 - With: Private Physician - When: 7 - 10 days - Reason: Recheck today's complaints Discharge Instructions: - Discharge Summary Sheet sp4 - Flank Pain, Adult, [id number] sp4 Prescriptions: - Ibuprofen 600 mg Oral Tablet - take 1 tablet by ORAL route every 6 hours As needed take with food; 30 tablet; sp4 Refills: 0, Product Selection Permitted - Tramadol 50 mg Oral Tablet - take 1 tablet by ORAL route every 8 hours as needed; 20 tablet; Refills: 0, sp4 Product Selection Permitted - methocarbamol 750 mg Oral Tablet - take 2 tablets by ORAL route 4 times per day for 2 days PRN muscle soreness; 60 sp4 tablet; Refills: 0, Product Selection Permitted Signatures: Dispatcher [employer] Kaia York RN RN kl Potepalov, Sergey, MD MD sp4 Xander Franks RN jb4
[2022-07-28 04:49] VITALS: BP 110/78; TEMP 97.8; O2SAT 100
--- NOTE | 2022-07-28 12:39 | RAD REPORT ---
EXAM DESCRIPTION: Abdomen Pelvis W Contrast CLINICAL HISTORY: 42 years Female ABD PAIN COMPARISON: CT abdomen pelvis 03/27/2022. TECHNIQUE: CT of the abdomen and pelvis with intravenous contrast. All CT scans at this facility use dose modulation, iterative reconstruction, and/or weight based dosi ng when appropriate to reduce radiation dose to as low as reasonably achievable. FINDINGS: Lower thorax: Lung bases are clear Abdomen: Stomach: Within normal limits Liver: No focal lesions. No intrahepatic ductal distention. Gallbladder: Nondistended Pancreas: Within normal limits Spleen: Within normal limits Right kidney: No hydronephrosis. 2 mm renal stone. Left kidney: No hydronephrosis. No focal lesion. Adrenal glands: Within normal limits Vascular structures: Within normal limits Nodes: No lymphadenopathy by size criteria Pelvis: Small bowel: No significant distention. Appendix: Within normal limits Colon: No distention or acute pericolonic edema. Peritoneum: No free intraperitoneal fluid or air. Bones: No acute bone findings. Bladder: Under distended, limiting evaluation. Reproductive organs: No acute findings. Soft tissues: Tiny fat-containing umbilical hernia. IMPRESSION: 1. No acute abdominopelvic findings. 2. Right-sided nephrolithiasis. No hydronephrosis. Electronically signed by: Elsy Bolanos MD 07/28/2022 2:42 AM CDT Due to temporary technical issues with the PACS/Fluency reporting system, reports are being signed by the in house radiologist without review as a courtesy to ensure prompt reporting. The interpreting r adiologist is fully responsible for the content of the report.
== END 2022-07-28 03:40 | disposition home or self-care (01) ==
LOC: ER 21:34
DX: R10.11 Right upper quadrant pain (principal); M79.18 Myalgia, other site; R11.0 Nausea; F32.A Depression, unspecified; Z88.0 Allergy status to penicillin
CPT/HCPCS: 85025; 81001; 36415; 81025; 83690; 80053; 74177; 96375; 96374; 99284; Q9967; J2405

== ENCOUNTER 2022-11-07 10:28 | Emergency (ER) | payer OTHER ==
--- OUTSIDE RECORDS SUMMARY | 2022-11-07 10:32 | XMS REPORT | Continuity of Care Document ---
:1980 Author Organization [facility] t Address [address] [place] [address]. [address] [place] [address] Care Team Providers Name Role Phone NALLELY BENOIT Primary Care Physician Unavailable Marian Curry Attending Clinician Unknown, Attending Attending Clinician Unavailable MARIAN NJ Attending Clinician Unavailable Doctor Unassigned, Stanley Attending Clinician Unavailable King SPENCER MD, James C Attending Clinician ALE VU III Attending Clinician Unavailable MUNDO GONZALEZ Attending Clinician Unavailable Mundo Tenorio Attending Clinician UNKNOWN, ATTENDING Attending Clinician Unavailable Bernie Jacobson MD Attending Clinician BERNIE JACOBSON Attending Clinician Unavailable Provider, [facility] Temp Attending Clinician Unavailable Nallely Mcallister Attending Clinician NALLELY BENOIT Attending Clinician Unavailable [facility] Attending Clinician Unavailable Missy Mayers MD Attending Clinician 2, [facility] Room Attending Clinician Unavailable Beltran CAVAZOS, Petra Attending Clinician 5, [facility] Room Attending Clinician Unavailable Chaka Youssef MD, Ortega Attending Clinician [phone] STEVEN STEVEN Attending Clinician Unavailable 3, [facility] Room Attending Clinician Unavailable Leonel Suarez MD Attending Clinician Ultrasound, Edmund-Mfm Attending Clinician Unavailable Lab, Ronchp Attending Clinician Unavailable Esperanza Echeverria Attending Clinician [phone] ESPERANZA KLEIN Attending Clinician Unavailable CARISSA SCHOFIELD Attending Clinician Unavailable Leelee CAVAZOS, Tati Attending Clinician Faculty, Edmund Frias Mf Attending Clinician Unavailable Beto Conner MD Attending Clinician MISSY MAYERS Admitting Clinician Unavailable MUNDO GONZALEZ Admitting Clinician Unavailable Missy Mayers MD Admitting Clinician Payers Payer Name Policy Type Policy Number Effective Date Expiration Date S baldev [employer] [id number] 2020 OUT OF NETWORK 00:00:00 [facility] [id number] 2019 00:00:00 [employer] OPEN ACCESS [id number] 2020 HMO NAP 00:00:00 MEDICAID PENDING PENDING 2019 00:00:00 MEDICAID [facility] [id number] 2019 00:00:00 Problems Condition Condition Condition Status Onset Resolution Last Treating Co mments Source Name Details Category Date Date Treatment Clinician Date Family Family Disease Active Univers history of history of 9-28 it y of ovarian ovarian 00:00: [place] cancer cancer 00 [facility] Er Mild Mild Disease Active Univers pre-eclamp pre-eclamp 8-19 it y of eloina in eloina in 00:00: [place] third third 00 Medical trimester trimester Bran ch Morbid Morbid Disease Active Univers obesity obesity 8-19 ity of with body with body 00:00: Jer s mass index mass index 00 Me dical of of [place] 40.0-49.9 40.0-49.9 Liveborn Liveborn Disease Active Unive rs infant, of , of 8-18 it y of nevarez nevarez 00:00: Jer barakat , , 00 Me dical born in born in [facility] by vaginal by vaginal delivery delivery Normal [...] nivers y y 2-09 ity of 00:00: [place] 00 Medical Branch SAB SAB Disease Active Univers (spontaneo (spontaneo 2- it y of us 00:00: [place] ) ) 00 [facility] Branch Supervisio Supervisio Disease Active 2019- U nivers n of high n of high 5-27 ity of risk risk 00:00: [place] 00 [facility] in third in third Branch trimester trimester [place] Disease Active 2020-0 Univers multiparit multiparit 5-27 it y of y, y, 00:00: [place] antepartum antepartum 00 La dical Branch AMA AMA Disease Active 2020- [...] depression depression 5-27 it y of 00:00: [place] 00 Medical Branch Obesity in Obesity in Disease Active 2020-0 U nivers 5-27 ity of 00:00: [place] 00 Medical Branch BMI BMI Disease Active 2020-0 Univers 40.0-44.9, 40.0-44.9, 5-27 it y of adult adult 00:00: [place] 00 Medical Branch Allergies, Adverse Reactions, Alerts [...] Class 5-27 ity of 00:00: [place] 00 [facility] Er NO KNOWN Drug Active Univers ALLERGIE Class ity of S [facility] Social History Social Habit Start Date Stop Date Quantity Comments Source Exposure to 2022-05-31 2022-06-10 Not sure [facility] SARS-CoV-2 00:00:00 12:55:00 [facility] (event) [place] Alcohol intake 2022-05-20 2022-05-20 Ex-drinker [facility] 00:00:00 00:00:00 (finding) [facility] Tobacco use and 2022-04-01 2022-04-01 Smokeless tobacco Un iversity of exposure 00:00:00 00:00:00 non-user [facility] Sex Assigned At [address] [facility] 00:00:00 [facility]00 [facility] Smoking Status Start Date Stop Date Source Never smoked tobacco [facility] Medications Ordered Filled Start Stop Current Ordering Indication Dosage Frequency Signature Comments Components Source Medication Medication Date Date Medication? Clinician (SIG) Name Name cefdinir 2022- No [id number] 600mg Take 2 Univers 300 mg -20 - capsules ity of capsule 00:00: 04:59 by mouth [place] 00 :00 in the Medical morning Branch for 10 days. SERTraline Yes [id number] 50mg Take 1 Univers 50 mg 3-30 tablet by ity of tablet 17:56: mouth in [place] 44 the Medical morning. Branch SERTraline Yes [id number] 50mg Take 1 Univers 50 mg 3-30 tablet by ity of tablet 17:56: mouth in [place] 44 the Medical morning. [place] azithromyci 2022- No [id number] 500mg Take 1 Univers n 500 mg 3-30 -05 tablet by ity o f tablet 00:00: 04:59 mouth in [place] 00 :00 the Medical morning Branch for 5 days. albuterol Yes [id number] 2{puff} Inhale 2 Univers 90 2-09 Puffs ity of mcg/actuati 00:00: every 6 [place] as on inhaler 00 (six) Medical hours as Branch needed for Bronchospa sm. albuterol Yes [id number] 2{puff} Inhale 2 Univers 90 2-09 Puffs ity of mcg/actuati 00:00: every 6 [place] as on inhaler 00 (six) Medical hours as Branch needed for Bronchospa sm. albuterol Yes [id number] 2{puff} Inhale 2 Univers 90 2-09 Puffs ity of mcg/actuati 00:00: every 6 [place] as on inhaler 00 (six) Medical hours as Branch needed for Bronchospa sm. albuterol Yes [id number] 2{puff} Inhale 2 Univers 90 2-09 Puffs ity of mcg/actuati 00:00: every 6 [place] as on inhaler 00 (six) Medical hours as Branch needed for Bronchospa sm. albuterol Yes [id number] 2{puff} Inhale 2 Univers 90 2-09 Puffs ity of mcg/actuati 00:00: every 6 [place] as on inhaler 00 (six) Medical hours as Branch needed for Bronchospa sm. promethazin 2022- No [id number] 5mL Take 5 mL Univers e-dextromet 04-01-20 by mouth 4 i ty of horphan 00:00: 05:59 (four) [place] 6.25-15 00 :00 times Medical mg/5 mL daily for Branch syrup 10 days. predniSONE 2022- No [id number] 40mg Take 2 Univers 20 mg - 02-15 tablets by ity of tablet 00:00: 05:59 mouth in [place] 00 :00 the Medical morning Branch for 5 days. benzonatate 2021-02 Yes [id number] 100mg Take 1 Univers 100 mg 2-30 capsule by ity of capsule 00:00: mouth [place] 00 every 8 Medical (eight) Branch hours as needed for Cough. benzonatate 2021-02 Yes [id number] 100mg Take 1 Univers 100 mg 2-30 capsule by ity of capsule 00:00: mouth [place] 00 every 8 Medical (eight) Branch hours as needed for Cough. benzonatate 2021-02 Yes [id number] 100mg Take 1 Univers 100 mg 2-30 capsule by ity of capsule 00:00: mouth [place] 00 every 8 Medical (eight) Branch hours as needed for Cough. benzonatate 2021-02 Yes [id number] 100mg Take 1 Univers 100 mg 2-30 capsule by ity of capsule 00:00: mouth [place] 00 every 8 Medical (eight) Branch hours as needed for Cough. benzonatate 2021-02 Yes [id number] 100mg Take 1 Univers 100 mg 2-30 capsule by ity of capsule 00:00: mouth [place] 00 every 8 Medical (eight) Branch hours as needed for Cough. benzonatate 2021-02 Yes [id number] 100mg Take 1 Univers 100 mg 2-30 capsule by ity of capsule 00:00: mouth [place] 00 every 8 Medical (eight) Branch hours as needed for Cough. Methylpredn 2021-02- No [id number] 4mg Take 1 Univers isolone 4 2-30 [...] 02/01/22 at 0215, ROSALINDA benzonatate 2021-02 Yes [id number] 200mg Take 1 Univers 200 mg 2-12 capsule by ity of capsule 00:00: mouth 3 [place] 00 (three) Medical times Branch daily as needed for Cough. benzonatate 2021-02 Yes [id number] 200mg Take 1 Univers 200 mg 2-12 capsule by ity of capsule 00:00: mouth 3 [place] 00 (three) Medical times Branch daily as needed for Cough. benzonatate 2021-02 Yes [id number] 200mg Take 1 Univers 200 mg 2-12 capsule by ity of capsule 00:00: mouth 3 [place] 00 (three) Medical times Branch daily as needed for Cough. benzonatate 2021-02 Yes [id number] 200mg Take 1 Univers 200 mg 2-12 capsule by ity of capsule 00:00: mouth 3 [place] 00 (three) Medical times Branch daily as needed for Cough. benzonatate 2021-02 Yes [id number] 200mg Take 1 Univers 200 mg 2-12 capsule by ity of capsule 00:00: mouth 3 [place] 00 (three) Medical times Branch daily as needed for Cough. benzonatate 2021-02 Yes [id number] 200mg Take 1 Univers 200 mg 2-12 capsule by ity of capsule 00:00: mouth 3 [place] 00 (three) Medical times Branch daily as needed for Cough. benzonatate 2021-02 Yes [id number] 200mg Take 1 Univers 200 mg 2-12 capsule by ity of capsule 00:00: mouth 3 00 (three) Medical times Branch daily as needed for Cough. benzonatate 2021-02 Yes [id number] 200mg Take 1 Univers 200 mg 2-12 capsule by ity of capsule 00:00: mouth 3 [place] 00 (three) Medical times Branch daily as needed for Cough. SERTraline Yes [id number] 50mg Take 50 mg Univers (ZOLOFT) 50 6-17 by mouth ity of mg tablet 04:19: daily. [address] SERTraline Yes [id number] 50mg Take 50 mg Univers (ZOLOFT) 50 6-17 by mouth ity of mg tablet 04:19: daily. [address] SERTraline Yes [id number] 50mg Take 50 mg Univers (ZOLOFT) 50 6-17 by mouth ity of mg tablet 04:19: daily. [address] SERTraline Yes [id number] 50mg Take 50 mg Univers (ZOLOFT) 50 6-17 by mouth ity of mg tablet 04:19: daily. [address] SERTraline Yes [id number] 50mg Take 50 mg Univers (ZOLOFT) 50 6-17 by mouth ity of mg tablet 04:19: daily. [address] SERTraline Yes [id number] 50mg Take 50 mg Univers (ZOLOFT) 50 6-17 by mouth ity of mg tablet 04:19: daily. [address] SERTraline Yes [id number] 50mg Take 50 mg Univers (ZOLOFT) 50 6-17 by mouth ity of mg tablet 04:19: daily. [place] 18 Medical Branch ibuprofen 2021-0 Yes [id number] 800mg Take 1 U nivers 800 mg 6-17 tablet by ity of tablet 00:00: [facility] every 8 Medical (eight) Branch hours as needed for Pain (scale 4-6) or Temp > 38.5 C. ibuprofen 2021-0 Yes [id number] 800mg Take 1 Univers 800 mg 6-17 tablet by ity of tablet 00:00: [facility] every 8 Medical (eight) Branch hours as needed for Pain (scale 4-6) or Temp > 38.5 C. ibuprofen 2021-0 Yes [id number] 800mg Take 1 Univers 800 mg 6-17 tablet by ity of tablet 00:00: [facility] every 8 Medical (eight) Branch hours as needed for Pain (scale 4-6) or Temp > 38.5 C. ibuprofen 2021-0 Yes [id number] 800mg Take 1 Univers 800 mg 6-17 tablet by ity of tablet 00:00: [facility] every 8 Medical (eight) Branch hours as needed for Pain (scale 4-6) or Temp > 38.5 C. ibuprofen 2021-0 Yes [id number] 800mg Take 1 Univers 800 mg 6-17 tablet by ity of tablet 00:00: [facility] every 8 Medical (eight) Branch hours as needed for Pain (scale 4-6) or Temp > 38.5 C. ibuprofen 2021-0 Yes [id number] 800mg Take 1 Univers 800 mg 6-17 tablet by ity of tablet 00:00: [place] [address] every 8 Medical (eight) Branch hours as needed for Pain (scale 4-6) or Temp > 38.5 C. ibuprofen 2021-0 Yes [id number] 800mg Take 1 Univers 800 mg 6-17 tablet by ity of tablet 00:00: [place] [address] every 8 Medical (eight) Branch hours as needed for Pain (scale 4-6) or Temp > 38.5 C. ibuprofen 2021-0 Yes [id number] 800mg Take 1 Univers 800 mg 6-17 tablet by ity of tablet 00:00: [place] [address] every 8 Medical (eight) Branch hours as needed for Pain (scale 4-6) or Temp > 38.5 C. ibuprofen Yes [id number] 800mg Take 1 Univers 800 mg 6-17 tablet by ity of tablet 00:00: mouth [place] 00 every 8 Medical (eight) Branch hours as needed for Pain (scale 4-6) or Temp > 38.5 C. ciprofloxac 2021- No [id number] 3[drp] Place 3 Univers in-hydrocor 6-17 06-25 Drops in ity of tisone 00:00: 04:59 right ear [place] (CIPRO HC) 00 :00 2 (two) Medica l otic times Branch suspension daily for 7 days. SERTraline Yes [id number] 50mg Take 50 mg Univers (ZOLOFT) 50 9-28 by mouth ity of mg tablet 11:32: daily. [place] 52 Medical Branch Yes [id number] 1{tbl} Take 1 Univers vitamin 8-19 tablet by ity of w/FA tablet 00:00: mouth [place] 00 daily. Medical Branch docusate Yes [id number] 240mg Take 1 U nivers calcium 240 8-19 capsule by it y of mg capsule 00:00: mouth once [place] 00 daily as Medical needed for Branch Constipati on. ferrous Yes [id number] 325mg Take 1 Un mandy sulfate 325 8-19 tablet by ity of mg (65 mg 00:00: mouth 2 [place] iron) 00 (two) Medical tablet times Branch daily. ibuprofen Yes [id number] 600mg Take 1 Univers 600 mg 8-19 tablet by ity of tablet 00:00: mouth [place] 00 every 6 Medical (six) Branch hours as needed (Pain). Take with food or milk. 2021- No [id number] 1{tbl} Take 1 Univers vitamin 8-19 06-17 tablet by ity of w/FA tablet 00:00: 00:00 mouth [place] 00 :00 daily. Medical Branch docusate 2021- No [id number] 240mg Take 1 Univers calcium 240 8-19 06-17 capsule by i ty of mg capsule 00:00: 00:00 mouth once [place] 00 :00 daily as Medical needed for Branch Constipati on. ferrous 2021- No [id number] 325mg Take 1 U nivers sulfate 325 10-09 tablet by it y of mg (65 mg 00:00: 00:00 mouth 2 [place] iron) 00 :00 (two) Medical tablet times Branch daily. ibuprofen 2021- No [id number] 600mg Take 1 Univers 600 mg 10-09 tablet by ity of tablet 00:00: 00:00 mouth [place] 00 :00 every 6 Medical (six) Branch hours as needed (Pain). Take with food or milk. Immunizations Ordered Filled Immunization Date Status Comments Sour e Immunization Name Name [facility] 2020-08-04 Completed University of 00:00:00 [facility] TD 2020-08-04 Completed University of 00:00:00 [facility] TDAP 2020-08-04 Completed University of 00:00:00 [facility] TDAP 2020-08-04 Completed University of 00:00:00 [facility] TDAP 2020-08-04 Completed University of 00:00:00 [facility] TDAP 2020-08-04 Completed University of 00:00:00 [facility] TDAP 2020-08-04 Completed University of 00:00:00 [facility] TDAP 2020-08-04 Completed University of 00:00:00 [facility] TDAP 2020-08-04 Completed University of 00:00:00 [facility] TDAP 2020-08-04 Completed University of 00:00:00 [facility] Vital Signs Vital Name Observation Time Observation Value Comments Source Systolic blood 2022-06-10 18:02:00 125 mm[Hg] Univer sity of pressure [facility] Diastolic blood 2022-06-10 18:02:00 86 mm[Hg] Unive rsity of pressure [facility] Heart rate 2022-06-10 18:02:00 92 /min [facility] Body temperature 2022-06-10 18:02:[address] [facility] Respiratory rate 2022-06-10 18:02:00 18 /min [facility] Body weight 2022-06-10 18:02:00 129.003 kg [facility] BMI 2022-06-10 18:02:00 45.90 kg/m2 Universi ty of [place] [facility] Oxygen saturation in 2022-06-10 18:02:00 100 /min University of Arterial blood by [place] Medi germain Pulse oximetry Branch Systolic blood 2022-05-20 22:55:00 140 mm[Hg] Univer sity of pressure [place] [facility] Diastolic blood 2022-05-20 22:55:00 80 mm[Hg] Unive rsity of pressure [place] [facility] Heart rate 2022-05-20 22:55:00 112 /min Universi ty of [place] [facility] Body temperature 2022-05-20 22:55:00 37.17 Autumn Univ ersity of [place] [facility] Respiratory rate 2022-05-20 22:55:00 14 /min Univ ersity of [place] [facility] Body height 2022-05-20 22:55:00 167.6 cm Universi ty of [place] [facility] Body weight 2022-05-20 22:55:00 127.189 kg Universi ty of [place] [facility] BMI 2022-05-20 22:55:00 45.26 kg/m2 Universi ty of [place] [facility] Oxygen saturation in 2022-05-20 22:55:00 95 /min University of Arterial blood by [place] [employer] germain Pulse oximetry Branch Systolic blood 2022-04-01 19:46:00 131 mm[Hg] Univer sity of pressure [place] [facility] Diastolic blood 2022-04-01 19:46:00 81 mm[Hg] Unive rsity of pressure [place] [facility] Heart rate 2022-04-01 19:46:00 86 /min Universi ty of [place] [facility] Body temperature 2022-04-01 19:46:00 36.72 Autumn Univ ersity of [place] [facility] Respiratory rate 2022-04-01 19:46:00 16 /min Univ ersity of [place] [facility] Body height 2022-04-01 19:46:00 167.6 cm Universi ty of [place] [facility] Body weight 2022-04-01 19:46:00 125.873 kg Universi ty of [place] [facility] BMI 2022-04-01 19:46:00 44.79 kg/m2 Universi ty of [place] [facility] Oxygen saturation in 2022-04-01 19:46:00 97 /min University of Arterial blood by [place] [employer] germain Pulse oximetry Branch Systolic blood 2022-02-19 18:26:00 103 mm[Hg] Univer sity of pressure [place] [facility] Diastolic blood 2022-02-19 18:26:00 67 mm[Hg] Unive rsity of pressure [place] [facility] Heart rate 2022-02-19 18:26:00 88 /min Universi ty of [place] [facility] Body temperature 2022-02-19 18:26:00 36.78 Auutmn Univ ersity of [place] [facility] Respiratory rate 2022-02-19 18:26:00 18 /min Univ ersity of [place] [facility] Body height 2022-02-19 18:26:00 167.6 cm Universi ty of [place] [facility] Body weight 2022-02-19 18:26:00 121.882 kg Universi ty of [place] [facility] BMI 2022-02-19 18:26:00 43.37 kg/m2 Universi ty of [place] [facility] Oxygen saturation in 2022-02-19 18:26:00 98 /min University of Arterial blood by [facility] Pulse oximetry Branch Systolic blood 2022-02-01 08:10:48 128 mm[Hg] Univer sity of pressure [place] [facility] Diastolic blood 2022-02-01 08:10:48 81 mm[Hg] Unive rsity of pressure [place] [facility] Heart rate 2022-02-01 08:10:48 87 /min Universi ty of [place] [facility] Body temperature 2022-02-01 08:10:48 37.61 Autumn Univ ersity of [place] [facility] Respiratory rate 2022-02-01 08:10:48 18 /min Univ ersity of [place] [facility] Oxygen saturation in 2022-02-01 08:10:48 99 /min University of Arterial blood by [facility] germain Pulse oximetry Branch Body height 2022-02-01 06:22:00 167.6 cm Universi ty of [place] [facility] Body weight 2022-02-01 06:22:00 120.203 kg Universi ty of [place] [facility] BMI 2022-02-01 06:22:00 42.77 kg/m2 Universi ty of [place] [facility] Systolic blood 2021-08-07 09:16:00 123 mm[Hg] Univer sity of pressure [place] [facility] Diastolic blood 2021-08-07 09:16:00 75 mm[Hg] Unive rsity of pressure [place] [facility] Heart rate 2021-08-07 09:16:00 78 /min [facility] Body temperature 2021-08-07 09:16:00 36.72 Autumn [facility] Respiratory rate 2021-08-07 09:16:00 18 /min [facility] Body height 2021-08-07 09:16:00 167.6 cm Universi ty of [facility] Body weight 2021-08-07 09:16:00 115.214 kg Universi ty of [facility] BMI 2021-08-07 09:16:00 41.00 kg/m2 [facility] [place] [facility] Oxygen saturation in 2021-08-07 09:16:00 98 /min [facility] Arterial blood by [facility] Pulse oximetry Branch Systolic blood 2020-11-18 16:16:00 122 mm[Hg] Univer [facility] Diastolic blood 2020-11-18 16:16:00 78 mm[Hg] Unive [facility] Body temperature 2020-11-18 16:16:00 36.33 [facility]umn [facility] Respiratory rate 2020-11-18 16:16:00 16 /min [facility] Body height 2020-11-18 16:16:00 167.6 cm [facility] [place] [facility] Body weight 2020-11-18 16:16:00 126.355 kg [facility] BMI 2020-11-18 16:16:00 44.96 kg/m2 [facility] Procedures Procedure Date / Time Performed Performing Clinician Sourc e POCT MOLECULAR STREP 2022-05-20 22:54:00 Unknown, Attending [facility] PATIENT FINANCIAL 2022-05-20 22:32:11 Doctor Unassigned, No [facility] POLICY Name [facility] Branch ASSIGNMENT OF BENEFITS 2022-02-19 18:19:53 Doctor Unassigned, No [facility] Name [facility] Er XR CHEST 2 VW 2022-02-01 07:19:00 Mundo Gonzalez [facility] RAPID INFLUENZA A/B 2022-02-01 06:25:00 Bernie Jacobson Univers ity of [place] [facility] COVID-19 (ID NOW RAPID 2022-02-01 06:25:00 Bernie Jacobson [facility] TESTING) Medical Branch CONSENT/REFUSAL FOR 2022-02-01 06:17:24 Doctor Unassigned, No [facility] [place] DIAGNOSIS AND Name Medical Branch TREATMENT NOTICE OF PRIVACY 2021-08-07 09:06:36 Doctor Unassigned, No [facility] PRACTICES Name Medical Branch CONSENT/REFUSAL FOR 2021-08-07 09:06:14 Doctor Unassigned, No Un iversity of [place] DIAGNOSIS AND Name Medical Branch TREATMENT Encounters Start End Encounter Admission Attending Care Care Encounter Source Date/Time Date/Time Type Type Clinicians Facility Department ID 2020-12-22 Outpatient P [facility] OCT[facility] [id number] Univers 16:17:01 ity [facility] 2020-12-[address] [facility] [id number] Univers [facility]:47[facility] 2022-[facility]-10 2022-06-10 [facility] [id number] Univers 13:00:00 13:20:00 Care Unknown, Attending [facility] [id number] ity [facility] [id number] Colt as HERMAN?BLEA [id number] [address] MEDICAL OFFICE [facility] 2022-06-10 2022-06-10 Outpatient R EBRAHIM, [facility] [id number] Univers 13:00:00 13:00:00 [facility] 2022-05-20 2022-05-20 [facility] [id number] Univers 17:40:00 18:00:00 Care Unknown, Attending [facility] [id number] ity of [place] [id number] [place]t as HERMAN?BLEA [id number] [address] MEDICAL OFFICE BUILDING 2022-05-20 2022-05-20 Outpatient R EBRAHIM, [facility] [id number] Univers 17:40:00 17:40:00 MARIAN [facility] 2022-05-20 2022-05-20 Orders Doctor ЮЛИЯ [id number] Univers 00:00:00 00:00:00 Only Unassigned, KEYONNA [id number] ity of [place] [facility] [id number] [place] as [id number] [address] 2022-04-23 2022-04-23 [facility] [id number] Univers 00:00:00 00:00:00 Ranut HEALTH [id number] it y of [place] [id number] Colt as HERMAN?BLEA [id number] [address] MEDICAL OFFICE [facility] 2022-04-01 2022-04-01 Urgent Renetta [facility] 1.2.840.114 [id number] Univers 13:40:00 14:00:00 Care Unknown, Attending HEALTH [id number] ity of [place] [id number] Colt as HERMAN?BLEA [id number] [address] OFFICE [facility] 2022-04-01 2022-04-01 Outpatient R RENETTA, [facility] [id number] Univers 13:40:00 13:40:00 MARIAN ity [facility] 2022-02-19 2022-02-19 Urgent Ale [facility] [id number] [id number] Univers 12:20:00 12:40:00 Care Unknown, Attending HEALTH [id number] ity of [place] 4.2.7.2.686 Colt as HERMAN?BLEA [phone] [address] MEDICAL OFFICE [facility] 2022-02-19 2022-02-19 Outpatient R REBECCA III, [facility] [id number] Univers 12:20:00 12:20:00 ALE hollins [facility] 2022-02-19 2022-02-19 Orders Doctor REDMAN 1.2.840.114 [id number] Univers 00:00:00 00:00:00 Only Unassigned, KEYONNA 350.1.13.10 ity of [place] [facility] 4.2.7.2.686 Colt as [phone] [address] 2022-02-01 2022-02-01 Emergency X GONZALEZ, [facility] ERT [id number] Univers 00:29:00 02:21:00 MUNDO douglas [facility] 2022-02-01 2022-02-01 Emergency Gonzalez, [facility] 1.2.840.114 [id number] Univers 00:29:00 02:21:00 M[facility] 350.1.13.10 i ty [facility] 4.2.7.2.686 [facility] [phone] [address] 2022-01-17 2022-01-17 Outpatient R UNKNOWN, [facility] [id number] Univers 12:20:00 12:20:00 ATTENDING [facility] 2022-01-03 2022-01-03 Outpatient R UNKNOWN, [facility] [id number] Univers 12:20:00 12:20:00 ATTENDING [facility] 2021-08-07 2021-08-07 [facility] 1.2.786.502 [id number] Univers 04:21:00 05:28:00 Ivisdelmy Kishan RANDOLPH 350.1.13.10 ity [facility] 4.2.7.2.686 [facility] [phone] [address] 2021-08-07 2021-08-07 Emergency [facility] ERT [id number] Univers 04:21:00 05:28:00 BERNIE [facility] 2020-11-18 2020-11-18 Office Provider, [facility] 1 .2.840.114 [id number] Univers 10:34:42 12:05:59 Visit Nallely Benoit SERVICE AIDE 350.1.13.10 ity [facility] 4.2.7.2.686 Colt as MATERNAL [phone] [facility] ical & CHILD [address] [place] [address] 2020-11-18 2020-11-18 Outpatient R CY [facility] [id number] Univers 10:30:00 10:30:00 NALLELY hollins o f [facility] 2020-10-28 2020-10-28 [facility] 1.2.840.114 [id number] Univers 12:48:40 13:03:40 Rosalexandriandleigh ann R SERVICE AIDE 350.1.13.10 ity of Visit [facility] 4.2.7.2.686 Colt as MATERNAL [phone] [facility] ical & CHILD [address] [place] [address] 2020-10-28 2020-10-28 Outpatient [place] [facility] [id number] Univers 12:45:00 12:45:00 NALLELY hollins o f [facility] 2020-10-13 2020-10-13 Nurse Visit, [facility] Nurse [facility] 1.2 .840.114 [id number] Univers 08:39:19 09:28:42 Visit BenoitNallely SERVICE AIDE 350.1.13.10 ity of [facility] 4.2.7.2.686 Colt as MATERNAL [phone] [facility] & [address] 2020-10-13 2020-10-13 Outpatient [facility] [id number] Univers 08:45:00 08:45:00 NALLELY hollins o paula [facility] 2020-10-07 2020-10-09 [facility] Missy Mayers [facility] 1.2.840.114 [id number] Univers 18:59:00 11:40:00 Encounter [place] 350.1.13.10 ity of [place] [phone] [facility] [address] 2020-10-07 2020-10-07 Orders Doctor ЮЛИЯ 1.2.840.114 [id number] Univers 00:00:00 00:00:00 Only Unassigned, KEYONNA 350.1.13.10 ity of [place] [facility] 4.2.7.2.686 Colt as [phone] [facility] [address] [place] 2020-10-06 2020-10-06 [facility] 1.2.840.114 [id number] Univers 07:36:22 08:12:50 Rosalexandrianda R SERVICE AIDE 350.1.13.10 ity of Visit REGIONAL 4.2.7.2.686 Colt as MATERNAL [phone] [facility] & [address] 2020-10-06 2020-10-06 Outpatient [place] [facility] [id number] Univers 07:45:00 07:45:00 ROSHUNDA ity o f [facility] 2020-09-29 2020-09-29 [facility]ine [facility] 1.2.840.114 [id number] Univers 07:35:13 08:07:55 Roshunda R SERVICE AIDE 350.1.13.10 ity of Visit REGIONAL 4.2.7.2.686 [place]t as MATERNAL [phone] [address] 2020-09-29 2020-09-29 Outpatient [place] [facility] [id number] Univers 07:30:00 07:30:00 ROSHUNDA ity o [facility] 2020-09-22 2020-09-22 [facility] 1.2.840.114 [id number] Univers 09:07:22 09:39:36 Roshunda R SERVICE AIDE 350.1.13.10 ity of Visit REGIONAL 4.2.7.2.686 Colt as MATERNAL [phone] [address] 2020-09-22 2020-09-22 Outpatient [place] [facility] [id number] Univers 08:45:00 08:45:00 ROSHUNDA ity o [facility] 2020-09-15 2020-09-15 [facility] 1.2.840.114 [id number] Univers 08:43:04 08:58:04 Roshunda R SERVICE AIDE 350.1.13.10 ity of Visit REGIONAL 4.2.7.2.686 Colt as MATERNAL [phone] [address] 2020-09-15 2020-09-15 Outpatient [place] [facility] [id number] Univers 08:45:00 08:45:00 ROSHUNDA ity o [facility] 2020-09-01 2020-09-01 Routine [facility] 1.2.840.114 [id number] Univers 10:11:03 11:05:52 Roshunda R SERVICE AIDE 350.1.13.10 ity of Visit REGIONAL 4.2.7.2.686 Colt as MATERNAL [phone] [facility] [address] [place] [address] 2020-09-01 2020-09-01 Outpatient R CY [facility] [id number] Univers 10:15:00 10:15:00 ROSHUNDA ity o f [facility] 2020-08-28 2020-08-28 Telephone [facility] 1.2.118.397 [id number] Univers 00:00:00 00:00:00 Roshunda R SERVICE AIDE 350.1.13.10 ity of [place]ION[place] 4.2.7.2.686 Colt as MATERNAL [phone] [address] 2020-08-18 2020-08-18 Routine [facility] 1.2.840.114 [id number] Univers 09:28:49 09:43:49 Roshunda R SERVICE AIDE 350.1.13.10 ity of Visit REGIONAL 4.2.7.2.686 Colt as MATERNAL [phone] [facility] & [address] 2020-08-18 2020-08-18 Outpatient R CY [facility] [id number] Univers 09:30:00 09:30:00 ROSHUNDA ity o f [facility] 2020-08-06 2020-08-06 Farm Equipment Technician 2, [facility] Room UNIVERSIT 1 .2.840.114 [id number] Univers 11:07:44 12:16:07 Visit Petra Gong 350.1.13.10 it[place] [phone] [address] 2020-08-06 2020-08-06 Outpatient P [facility] [id number] Univers 10:15:00 10:15:00 ity of [facility] 2020-08-06 2020-08-06 Abstract [facility] 1.2.840.114 [id number] Univers 00:00:00 00:00:00 Roshunda R SERVICE AIDE 350.1.13.10 ity of REGIONAL 4.2.7.2.686 Colt as MATERNAL [phone] [facility] [address] 2020-08-04 2020-08-04 Routine [facility] 1.2.840.114 [id number] Univers 08:11:16 09:02:36 Roshunda R SERVICE AIDE 350.1.13.10 ity of Visit REGIONAL 4.2.7.2.686 Colt as MATERNAL [phone] [facility] & CHILD [address] [place] [address] 2020-08-04 2020-08-04 Outpatient [facility] [id number] Univers 08:15:00 08:15:00 ROSHUNDA ity o f [facility] 2020-08-04 2020-08-04 Orders Doctor ЮЛИЯ 1.2.840.114 [id number] Univers 00:00:00 00:00:00 Only Unassigned, KEYONNA 350.1.13.10 ity of [place] [facility] 4.2.7.2.686 Colt as [phone] [address] 2020-08-01 2020-08-01 Outpatient [facility] [id number] Univers 08:45:00 08:45:00 ROSHUNDA ity o f [facility] 2020-07-15 2020-07-15 Routine [facility] 1.2.840.114 [id number] Univers 08:09:51 08:49:32 Roshunda R SERVICE AIDE 350.1.13.10 ity of Visit [facility] 4.2.7.2.686 Colt as MATERNAL [phone] [facility] & [address] 2020-07-15 2020-07-15 Outpatient R [facility] [id number] Univers 08:00:00 08:00:00 ROSHUNDA ity o f [facility] 2020-06-25 2020-06-25 Farm Equipment Technician 5, [facility] Room UNIVERSIT 1 .2.840.114 [id number] Univers 10:26:42 11:11:42 Visit Shannon Brasher 350.1 .13.10 it[place] [id number] [address] 2020-06-25 2020-06-25 Outpatient P [facility] [id number] Univers 10:30:00 10:30:00 ity of [facility] 2020-06-25 2020-06-25 Abstract [facility] 1.2.840.114 [id number] Univers 00:00:00 00:00:00 Roshunda R SERVICE AIDE 350.1.13.10 ity of REGIONAL 4.2.7.2.686 Colt as MATERNAL [phone] Med ical & CHILD [address] [place] [address] 2020-06-24 2020-06-24 Routine [facility] 1.2.840.114 [id number] Univers 08:17:54 08:58:13 Rosalexandrianda R SERVICE AIDE 350.1.13.10 ity of Visit [facility] 4.2.7.2.686 Colt as MATERNAL [phone] [facility] & [address] 2020-06-24 2020-06-24 Outpatient R CY [facility] [id number] Univers 08:15:00 08:15:00 ROSALEXANDRIANDA ity o f [facility] 2020-06-12 2020-06-12 Outpatient TRISTA [facility] [id number] SLE 00:00:00 00:00:00 STEVEN 2020-05-29 2020-05-29 Abstract [facility] 1.2.840.114 [id number] Univers 00:00:00 00:00:00 Roshunda R SERVICE AIDE 350.1.13.10 ity of REGIONAL 4.2.7.2.686 Colt as MATERNAL [phone] Med ical & CHILD [address] [place] [address] 2020-05-28 2020-05-28 Farm Equipment Technician 3, [facility] Room UNIVERSIT 1 .2.840.114 [id number] Univers 13:09:05 14:29:41 Visit Leonel Suarez [facility] 350.1.13. 10 ity [place] [phone] [address] 2020-05-28 2020-05-28 Outpatient P [facility] [id number] Univers 13:00:00 13:00:00 ity of [facility] 2020-05-27 2020-05-27 Routine [facility] 1.2.840.114 [id number] Univers 07:47:14 08:17:42 Roshunda R SERVICE AIDE 350.1.13.10 ity of Visit [facility] 4.2.7.2.686 Colt as MATERNAL [phone] [facility] CH[facility] [address] [place] [address] 2020-05-27 2020-05-27 Outpatient R CY [facility] [id number] Univers 07:45:00 07:45:00 ROSHUNDA ity o f [facility] 2020-04-29 2020-04-29 Routine [facility] 1.2.840.114 [id number] Univers 10:48:48 11:49:54 Roshunda R SERVICE AIDE 350.1.13.10 ity of Visit [facility] 4.2.7.2.686 Colt as MATERNAL [phone] [facility] & [address] 2020-04-29 2020-04-29 Outpatient R CY [facility] [id number] Univers 10:45:00 10:45:00 ROSHUNDA ity o f [facility] 2020-04-21 2020-04-21 Farm Equipment Technician Ultrasound, [facility] 1.2 .840.114 [id number] Univers 08:00:28 08:30:28 Visit Petra Gong SERVICE AIDE 350.1.13.10 ity of [facility] 4.2.7.2.686 Colt as MATERNAL [phone] [facility] CH[facility] [address] [place] [address] 2020-04-21 2020-04-21 Outpatient P [facility] [id number] Univers 08:00:00 08:00:00 ity of [facility] 2020-04-21 2020-04-21 Orders Cy [facility] 1.2.840.114 [id number] Univers 00:00:00 00:00:00 Only Kaycehunda R SERVICE AIDE 350.1.13.10 ity of REGIONAL 4.2.7.2.686 Colt as MATERNAL [phone] [facility] ical & CHILD [address] [place] [address] 2020-04-21 2020-04-21 Abstract Cy [facility] 1.2.840.114 [id number] Univers 00:00:00 00:00:00 Rosalexandrianda R SERVICE AIDE 350.1.13.10 ity of REGIONAL 4.2.7.2.686 Colt as MATERNAL [phone] [facility] & CHILD [address] [place] [address] 2020-04-15 2020-04-15 Case Cy [facility] 1.2.840.114 [id number] Univers 00:00:00 00:00:00 Management Nupurnda R SERVICE AIDE 350.1.13.10 ity of REGIONAL 4.2.7.2.686 Colt as MATERNAL [phone] [facility] & [address] 2020-04-07 2020-04-07 Outpatient P [facility] [id number] Univers 09:45:00 09:45:00 ity of [facility] 2020-04-04 2020-04-04 Farm Equipment Technician Lab, [facility] 1.2.840. 114 [id number] Univers 08:05:22 08:20:22 Visit Esperanza Klein SERVICE AIDE 350.1.13. 10 ity of REGIONAL 4.2.7.2.686 Colt as MATERNAL [phone] [facility] & CHILD [address] [place] [address] 2020-04-04 2020-04-04 Outpatient R MARQUITA [facility] [id number] Univers 08:00:00 08:00:00 ESPERANZA hollins o f [facility] 2020-04-04 2020-04-04 Telephone Cy [facility] 1.2.355.503 [id number] Univers 00:00:00 00:00:00 Kaycenda R SERVICE AIDE 350.1.13.10 ity of REGIONAL 4.2.7.2.686 Colt as MATERNAL [phone] [facility] & CHILD [address] [place] [address] 2020-04-02 2020-04-02 [facility] 1.2.195.459 [id number] Univers 00:00:00 00:00:00 Rosalexandrianda R SERVICE AIDE 350.1.13.10 ity of REGIONAL 4.2.7.2.686 Colt as MATERNAL [phone] [facility] CHILD [address] [place] [address] 2020-04-01 2020-04-01 Outpatient R [facility] [id number] Univers 13:15:00 13:15:00 ity [facility] 2020-03-26 2020-03-26 Outpatient R [facility] [id number] Univers 09:15:00 09:15:00 ity [facility] 2020-03-21 2020-03-21 Outpatient R [facility] [id number] Univers 09:15:00 09:15:00 ity [facility] 2019-11-29 2019-11-29 Outpatient R [facility] [id number] Univers 14:45:00 14:45:00 AISHAT ity [facility] 2019-11-19 2019-11-19 Emergency Tati Mckoy TRAUMA 1.2.8 40.114 [id number] Univers 12:57:00 18:43:00 [facility] [place] 350.1.13.10 [place] [phone] [address] 2019-08-22 2019-08-22 Outpatient R [facility] [id number] Univers 11:00:00 11:00:00 ROSHUNDA ity o [facility] 2019-08-15 2019-08-15 Outpatient R [facility] [id number] Univers 13:45:00 13:45:00 ESPERANZA ity o f [facility] 2019-08-15 2019-08-15 Outpatient R [facility] [id number] Univers 07:45:00 07:45:00 NALLELY ity o f [facility] 2019-08-13 2019-08-13 Telemedici Faculty, [facility] 1.2.840.114 [id number] Univers 08:14:37 08:41:58 ne Visit Beto Conner SERVICE AIDE 350.1.13.10 ity of REGIONAL 4.2.7.2.686 Colt as MATERNAL [phone] [facility] ical & CHILD [address] [place] [address] 2019-08-13 2019-08-13 Telemedici Faculty, [facility] 1.2.840.114 [id number] 08:14:37 08:41:58 ne Visit [facility] SERVICE AIDE 350.1.13.10 [facility] 4.2.7.2.686 MATERNAL [phone] & CHILD [address] [place] [address] 2019-08-13 2019-08-13 Outpatient R [facility] [id number] Univers 08:30:00 08:30:00 ity of [facility] 2019-08-13 2019-08-13 Telephone Faculty, [facility] 1.2.840.114 [id number] Univers 00:00:00 00:00:00 [facility] SERVICE AIDE 350.1.13.10 ity of [facility] 4.2.7.2.686 [place] as MATERNAL [phone] [facility] CHILD [address] [place] [address] 2019-08-13 2019-08-13 Telephone Faculty, [facility] 1.2.840.114 [id number] 00:00:00 00:00:00 [facility] SERVICE AIDE 350.1.13.10 [facility] 4.2.7.2.686 MATERNAL [phone] & CHILD [address] [facility] 2019-08-10 2019-08-10 Farm Equipment Technician 3, [facility] Room UNIVERSIT 1 .2.840.114 [id number] Univers 08:35:12 10:02:08 Visit SuarezLeonel pennington [facility] 350.1.13. 10 ity of [facility] 4.2.7.2.[place] [id number] [address] 2019-08-10 2019-08-10 Farm Equipment Technician 3, [facility] UNIVERSIT 1.2.840.11 [id number] 08:35:12 10:02:08 Visit [facility] 350.1.13.10 [facility] 4.2.7.2.686 [id number] 104 2019-08-10 2019-08-10 Outpatient P [facility] [id number] Univers 09:15:00 09:15:00 ity of [facility] 2019-08-09 2019-08-09 Telephone [facility] 1.2.741.859 [id number] Univers 00:00:00 00:00:00 Roshunda R SERVICE AIDE 350.1.13.10 ity of REGIONAL 4.2.7.2.686 [place] as MATERNAL [phone] [facility] ical & CHILD [address] [place] [address] 2019-08-09 2019-08-09 Telephone [facility] 1.2.443.392 [id number] 00:00:00 00:00:00 Roshunda R SERVICE AIDE 350.1.13.10 REGIONAL 4.2.7.2.686 MATERNAL [phone] & CHILD [address] [place] [address] 2019-07-26 2019-07-26 Orders Doctor ЮЛИЯ 1.2.840.114 [id number] Univers 00:00:00 00:00:00 Only Unassigned, KEYONNA 350.1.13.10 ity of [place] [facility] 4.2.7.2.686 Colt as [id number] [address] 2019-07-18 2019-07-18 Initial [facility] 1.2.840.114 [id number] Univers 12:54:31 13:49:09 Roshunda R SERVICE AIDE 350.1.13.10 ity of Visit REGIONAL 4.2.7.2.686 Colt as MATERNAL [phone] [facility] & CHILD [address] [place] [address] 2019-07-18 2019-07-18 Outpatient R MARQUITA [facility] [id number] Univers 09:00:00 09:00:00 ESPERANZA ity o f [facility] 2019-07-18 2019-07-18 Telephone [facility] 1.2.657.011 [id number] Univers 00:00:00 00:00:00 Nallely Ho SERVICE AIDE 350.1.13.10 ity of [facility] 4.2.7.2.686 Colt as MATERNAL [id number] Med ical & CHILD [address] [place] [address] 2019-07-18 2019-07-18 Orders Doctor ЮЛИЯ 1.2.840.114 [id number] Univers 00:00:00 00:00:00 Only Unassigned, KEYONNA 350.1.13.10 ity of [place] [facility] 4.2.7.2.686 Colt as [phone] [address] Results Test Description Test Time Test Comments Results Result Comments Source POCT MOLECULAR STREP 2022-05-20 22:57:35 Test Item Value Reference Range Interpretation Comme nts POCT Molecular Strep (test code = 51615-1) Positive Negative A Lab Interpretation (test code = 64530-0) Abnormal [facility]
[2022-11-07 10:56] LABS: Hematocrit 35.7 % (36.0-45.0); Lymphocytes % 28.4 % (15.3-44.8); MCV 82.4 fL (80-100); MPV 7.7 fL (7.6-11.3); Platelets 410 thou/uL (152-406); RBC Red Blood Cell Count 4.33 M/uL (3.86-4.86)
[2022-11-07] MEDS ORDERED: DIPHENHYDRAMINE 50 MG/ML VIAL ONE (10:56)
[2022-11-07] MEDS ORDERED: NA CHLORIDE 0.9% 50 ML ONE (10:57)
[2022-11-07] MEDS ORDERED: NA CHLORIDE 0.9% 1,000 ML ONE (10:57)
[2022-11-07] MEDS ORDERED: dexAMETHasone 10 MG/ML VIAL ONE (10:57)
[2022-11-07] MEDS ORDERED: KETOROLAC 30 MG/ML INJ ONE (10:57)
[2022-11-07] MEDS ORDERED: METOCLOPRAMIDE 10 MG/2mL INJ ONE (10:57)
[2022-11-07 11:17] LABS: Potassium 3.9 mEq/L (3.5-5.1)
--- NOTE | 2022-11-07 11:47 | RAD REPORT ---
EXAM DESCRIPTION: CT - Head Brain Wo Cont - 11/07/2022 11:19 am CLINICAL HISTORY: HEADACHE COMPARISON: Head Brain Wo Cont dated 10/20/2019 TECHNIQUE: Noncontrast head CT images were obtained without IV contrast. Multiplanar reformats were generated and reviewed. All CT scans are performed using dose optimization technique as appropriate and may include automated exposure control or mA/KV adjustment according to patient size. FINDINGS: No intracranial hemorrhage, mass, or edema. Midline structures are unremarkable. Normal ventricular caliber for age. Cifuentes-white matter differentiation is preserved, without evidence of acute infarct. No abnormal extra- axial fluid collections. Mastoid air cells and visualized portions of the paranasal sinuses are clear. No acute bony findings. IMPRESSION: No evidence of an acute intracranial process.
--- NOTE | 2022-11-07 13:15 | EDPHYS ---
Physician Documentation [facility] Name: Janine Mckay Age: 42 yrs Sex: Female : 1980 Arrival Date: 11/07/2022 Time: 10:28 Bed 14 Private MD: ED Physician Kevin Eldridge HPI: 11/07 13:44 This 42 yrs old Female presents to ER via Ambulatory with complaints of Headache. kb 13:44 The patient complains of pain to the right jew. The patient describes the headache kb as constant, throbbing. Onset: The symptoms/episode began/occurred yesterday. Associated signs and symptoms: The patient has no apparent associated signs or symptoms. Severity of symptoms: At its worst the pain was moderate, in the emergency department the pain is unchanged. Headache History: The patient has had previous headaches and this one is different than previous episodes. The symptoms are alleviated by nothing. the symptoms are aggravated by nothing. The patient has not experienced similar symptoms in the past. The patient has not recently seen a physician. Historical: - Allergies: 10:40 PENICILLINS; ss - PMHx: 10:40 Depression; ss 10:40 migraines; ss - Immunization history:: Client reports having NOT received the Covid vaccine. - Social history:: Smoking status: Patient denies any tobacco usage or history of. ROS: 10:52 Constitutional: Negative for fever, chills, and weight loss. kb 10:52 Neuro: Positive for headache. 10:52 All other systems are negative. Exam: 10:52 Constitutional: This is a well developed, well nourished patient who is awake, alert, kb and in no acute distress. Head/Face: Normocephalic, atraumatic. ENT: Moist Mucous membranes Cardiovascular: Regular rate Respiratory: Respirations even and unlabored. No increased work of breathing. Talking in full sentences Abdomen/GI: Soft, non-tender. No distention Skin: Warm, dry with normal turgor. Normal color. MS/ Extremity: Pulses equal, no cyanosis. Neurovascular intact. Full, normal range of motion. Neuro: Awake and alert, GCS 15, oriented to person, place, time, and situation. Moves all extremities. Normal gait. Vital Signs: 10:39 BP 124 / 78; Pulse 77; Resp 15; Temp 98.1(TE); Pulse Ox 100% on R/A; Weight 120.2 kg; ss Height 5 ft. 6 in. ; Pain 6/10; 10:45 BP 119 / 75; Pulse 80; Resp 16; Pulse Ox 100% ; db 13:48 BP 118 / 72; Pulse 16; Resp 20; Pulse Ox 99% on R/A; db 10:39 Body Mass Index 42.77 (120.20 kg, 167.64 cm) ss 10:39 Pain Scale: Adult ss April Coma Score: 10:52 Eye Response: spontaneous(4). Motor Response: obeys commands(6). Verbal Response: kb oriented(5). Total: 15. MDM: 10:34 Patient medically screened. kb 10:52 Differential diagnosis: cluster headache, migraine, dehydration, electrolyte imbalance. kb Data reviewed: vital signs, nurses notes. 13:43 Counseling: I had a detailed discussion with the patient and/or guardian regarding the kb historical points, exam findings, and any diagnostic results supporting the discharge/admit diagnosis, lab results, radiology results, the need for outpatient follow up, a family practitioner, to return to the emergency department if symptoms worsen or persist or if there are any questions or concerns that arise at home. 11/07 10:37 Order name: CBC with Diff; Complete Time: 11:05 kb 11/07 10:37 Order name: Basic Metabolic Panel; Complete Time: 11:25 kb 11/07 10:37 Order name: CT Head Brain wo Cont; Complete Time: 11:48 kb 11/07 10:37 Order name: IV Start; Complete Time: 10:59 kb Administered Medications: 10:47 Drug: NS 0.9% IV 1000 ml Route: IV; Rate: 1000 ml; Site: right antecubital; db 13:35 Follow up: Response: No adverse reaction; IV Status: Completed infusion; IV Intake: db 1000ml 10:48 Drug: diphenhydrAMINE IVP 12.5 mg Route: IVP; Site: right antecubital; db 13:50 Follow up: Response: No adverse reaction db 10:49 Drug: Decadron - Dexamethasone IVP 10 mg Route: IVP; Site: right antecubital; db 13:50 Follow up: Response: No adverse reaction db 10:50 Drug: Ketorolac IVP 15 mg Route: IVP; Site: right antecubital; db 13:50 Follow up: Response: No adverse reaction db 10:55 Drug: metoCLOPramide IVP 10 mg Route: IVP; Site: right antecubital; db 13:50 Follow up: Response: No adverse reaction db Disposition Summary: 11/07/22 13:15 Discharge Ordered Location: Home kb Condition: Stable kb Diagnosis - Headache kb Followup: kb - With: Emergency Department - When: As needed - Reason: Worsening of condition Followup: kb - With: Private Physician - When: 2 - 3 days - Reason: Recheck today's complaints, Continuance of care, Re-evaluation by your physician Discharge Instructions: - Discharge Summary Sheet kb - General Headache Without Cause, [id number] kb Forms: - Medication Reconciliation Form kb - Thank You Letter kb - Antibiotic Education kb - Prescription Opioid Use kb - Patient Portal Instructions kb - Leadership Thank You Letter kb Signatures: Dispatcher [employer] Jennifer Rain FNP-C FNP-Bozena Still, RN RN Stefani Lala, PASTORA RN db
--- NOTE | 2022-11-07 13:15 | ER ---
Nurse's Notes [facility] Name: Janine Mckay Age: 42 yrs Sex: Female : 1980 Arrival Date: 11/07/2022 Time: 10:28 Bed 14 Private MD: Diagnosis: Headache Presentation: 11/07 10:39 Chief complaint: Patient states: throbbing headache to R side of forehead that began ss yesterday while at football game. Pt reports a hx of migraines, but states this one feels different. Coronavirus screen: Client denies travel out of the [place] in the last 14 days. Ebola Screen: Patient denies exposure to infectious person. Patient denies travel to an Ebola-affected area in the 21 days before illness onset. Initial Sepsis Screen: Does the patient meet any 2 criteria? No. Patient's initial sepsis screen is negative. Does the patient have a suspected source of infection? No. Patient's initial sepsis screen is negative. Risk Assessment: Do you want to hurt yourself or someone else? Patient reports no desire to harm self or others. Onset of symptoms was November 06, 2022. 10:39 Method Of Arrival: Ambulatory ss 10:39 Acuity: GRIFFIN 3 ss Triage Assessment: 13:49 Pain: Also complains of. db Historical: - Allergies: 10:40 PENICILLINS; ss - PMHx: 10:40 Depression; ss 10:40 migraines; ss - Immunization history:: Client reports having NOT received the Covid vaccine. - Social history:: Smoking status: Patient denies any tobacco usage or history of. Screenin:40 [facility] ED Fall Risk Assessment (Adult) History of falling in the last 3 months, db including since admission No falls in past 3 months (0 pts) Score/Fall Risk Level 0 - 2 = Low Risk Oriented to surroundings, Maintained a safe environment. Abuse screen: Denies threats or abuse. Denies injuries from another. Nutritional screening: No deficits noted. Tuberculosis screening: No symptoms or risk factors identified. Assessment: 10:40 Reassessment: Patient appears in no apparent distress at this time. Patient and/or db family updated on plan of care and expected duration. Pain level reassessed. General: Appears in no apparent distress. comfortable, Behavior is calm, cooperative. Pain: Complains of pain in head. Neuro: Level of Consciousness is awake, alert, obeys commands, Oriented to person, place, time, situation, Speech is normal. Neuro: Reports headache. Cardiovascular: No deficits noted. Respiratory: Airway is patent Respiratory effort is even, unlabored, Respiratory pattern is regular, symmetrical. GI: No deficits noted. No signs and/or symptoms were reported involving the gastrointestinal system. : No deficits noted. No signs and/or symptoms were reported regarding the genitourinary system. EENT: No deficits noted. No signs and/or symptoms were reported regarding the EENT system. Derm: No deficits noted. No signs and/or symptoms reported regarding the dermatologic system. Musculoskeletal: No deficits noted. No signs and/or symptoms reported regarding the musculoskeletal system. 11:19 Reassessment: PATIENT IS IN CT. db 13:48 Reassessment: Patient appears in no apparent distress at this time. Patient and/or db family updated on plan of care and expected duration. Pain level reassessed. Patient is alert, oriented x 3, equal unlabored respirations, skin warm/dry/pink. Patient states feeling better. Patient states symptoms have improved. Vital Signs: 10:39 BP 124 / 78; Pulse 77; Resp 15; Temp 98.1(TE); Pulse Ox 100% on R/A; Weight 120.2 kg; ss Height 5 ft. 6 in. ; Pain 6/10; 10:45 BP 119 / 75; Pulse 80; Resp 16; Pulse Ox 100% ; db 13:48 BP 118 / 72; Pulse 16; Resp 20; Pulse Ox 99% on R/A; db 10:39 Body Mass Index 42.77 (120.20 kg, 167.64 cm) ss 10:39 Pain Scale: Adult ss [place] Coma Score: 10:52 Eye Response: spontaneous(4). Motor Response: obeys commands(6). Verbal Response: kb oriented(5). Total: 15. ED Course: 10:32 Patient arrived in ED. mg5 10:34 [facility] Don [facility]-C [facility] kb 10:34 Kevin Eldridge is Attending Physician. kb 10:38 Stefani Lala, RN is Primary Nurse. db 10:40 Triage completed. ss 10:40 Arm band placed on right wrist. ss 10:40 Patient has correct armband on for positive identification. Bed in low position. Call db light in reach. Side rails up X 1. Pulse ox on. NIBP on. Warm blanket given. 10:42 Inserted saline lock: 20 gauge in right antecubital area, using aseptic technique. db Blood collected. 11:21 CT Head Brain wo Cont In Process Unspecified. EDMS 13:38 IV discontinued, intact, bleeding controlled, No redness/swelling at site. Pressure sm8 dressing applied. 13:48 Provided Education on: DSICHARGE. db 13:48 No provider procedures requiring assistance completed. db 13:49 IV discontinued, intact, bleeding controlled, No redness/swelling at site. db Administered Medications: 10:47 Drug: NS 0.9% IV 1000 ml Route: IV; Rate: 1000 ml; Site: right antecubital; db 13:35 Follow up: Response: No adverse reaction; IV Status: Completed infusion; IV Intake: db 1000ml 10:48 Drug: diphenhydrAMINE IVP 12.5 mg Route: IVP; Site: right antecubital; db 13:50 Follow up: Response: No adverse reaction db 10:49 Drug: Decadron - Dexamethasone IVP 10 mg Route: IVP; Site: right antecubital; db 13:50 Follow up: Response: No adverse reaction db 10:50 Drug: Ketorolac IVP 15 mg Route: IVP; Site: right antecubital; db 13:50 Follow up: Response: No adverse reaction db 10:55 Drug: metoCLOPramide IVP 10 mg Route: IVP; Site: right antecubital; db 13:50 Follow up: Response: No adverse reaction db Medication: 13:48 VIS not applicable for this client. db Intake: 13:35 IV: 1000ml; Total: 1000ml. db Outcome: 13:15 Discharge ordered by . sarbjit 13:48 Discharged to home ambulatory, with family. db 13:48 Condition: stable 13:48 Discharge instructions given to patient, Instructed on discharge instructions, follow up and referral plans. 13:50 Patient left the ED. db Signatures: Dispatcher [employer] EDMS Jennifer Don, Bozena Ventura RN RN ss Stefani Lala RN RN Steffany Tyler 8 Miriam Dent mg5
[2022-11-07 14:49] VITALS: BP 118/72; O2SAT 99
== END 2022-11-07 13:50 | disposition home or self-care (01) ==
LOC: ER 10:28
DX: R51.9 Headache, unspecified (principal); Z88.0 Allergy status to penicillin
CPT/HCPCS: 96361; 85025; 80048; 36415; 70450; 96375; 96374; 99284; J2765; J1200; J1100; J7030

== ENCOUNTER → 2023-03-06 | Emergency (ER) | payer SELFPAY ==
[~2023-03-06] MED LIST: CEFTRIAXONE 1000 MG/VIAL ONE; CETIRIZINE HCL 5 MG TABLET ONE; FAMOTIDINE 20 MG TAB ONE; KETOROLAC 30 MG/ML INJ ONE; LIDOCAINE 1% MPF 5 ML VIAL ONE; predniSONE 20 MG TAB ONE
--- NOTE | 2023-03-06 08:39 | ER ---
Nurse's Notes [facility] Name: Janine Mckay Age: 42 yrs Sex: Female : 1980 Arrival Date: 03/06/2023 Time: 08:19 Bed 18 Private MD: Diagnosis: Acute suppurative otitis media without spontaneous rupture of ear drum, right ear Presentation: 03/06 08:29 Chief complaint: Right ear pain x 2 days, started draining clear yellow fluid last hb niight. Coronavirus screen: At this time, the client does not indicate any symptoms associated with coronavirus-19. Ebola Screen: No symptoms or risks identified at this time. Initial Sepsis Screen: Does the patient meet any 2 criteria? No. Patient's initial sepsis screen is negative. Does the patient have a suspected source of infection? No. Patient's initial sepsis screen is negative. Risk Assessment: Do you want to hurt yourself or someone else? Patient reports no desire to harm self or others. Onset of symptoms was March 05, 2023. 08:29 Method Of Arrival: Ambulatory hb 08:29 Acuity: GRIFFIN 4 hb Historical: - Allergies: 08:31 PENICILLINS; hb - Home Meds: 08:31 Zoloft 50 mg Oral tablet daily [Active]; hb - PMHx: 08:31 Depression; Migraines; hb - Immunization history:: Adult Immunizations up to date. - Social history:: Smoking status: Patient denies any tobacco usage or history of. Screenin:32 [facility] ED Fall Risk Assessment (Adult) History of falling in the last 3 months, kc6 including since admission No falls in past 3 months (0 pts) Confusion or Disorientation No (0 pts) Intoxicated or Sedated No (0 pts) Impaired Gait No (0 pts) Mobility Assist Device Used No (0 pt) Altered Elimination No (0 pt) Score/Fall Risk Level 0 - 2 = Low Risk. Abuse screen: Denies threats or abuse. Denies injuries from another. Nutritional screening: No deficits noted. Tuberculosis screening: No symptoms or risk factors identified. Assessment: 08:32 General: Appears in no apparent distress. comfortable, well groomed, well developed, kc6 Behavior is calm, cooperative, appropriate for age. Pain: Complains of pain in right ear. Neuro: Level of Consciousness is awake, alert, obeys commands, Oriented to person, place, time, situation, Appropriate for age. Cardiovascular: Capillary refill < 3 seconds. Respiratory: Airway is patent Trachea midline Respiratory effort is even, unlabored, Respiratory pattern is regular, symmetrical. GI: No signs and/or symptoms were reported involving the gastrointestinal system. : No signs and/or symptoms were reported regarding the genitourinary system. EENT: Ear canal w/ drainage noted from right ear Reports pain in right ear. Derm: No signs and/or symptoms reported regarding the dermatologic system. Skin is intact, is healthy with good turgor, Skin is pink, warm \T\ dry. Musculoskeletal: No signs and/or symptoms reported regarding the musculoskeletal system. Circulation, motion, and sensation intact. Capillary refill < 3 seconds, Range of motion: intact in all extremities. Vital Signs: 08:29 BP 141 / 92; Pulse 83; Resp 16; Temp 98.7(O); Pulse Ox 99% on R/A; Weight 122.47 kg; hb Height 5 ft. 6 in. ; Pain 7/10; 08:29 Body Mass Index 43.58 (122.47 kg, 167.64 cm) hb 08:29 Pain Scale: Adult hb ED Course: 08:21 Patient arrived in ED. ts1 08:23 Leonides Stoddard MD is Attending Physician. korey 08:24 Ronit Munguia FNP-C is PHCP. snw 08:26 Charis Marie, RN is Primary Nurse. kc6 08:31 Triage completed. hb 08:31 Arm band placed on. hb 08:31 Patient maintains SpO2 saturation greater than 95% on room air. kc6 08:32 Patient has correct armband on for positive identification. Bed in low position. Call kc6 light in reach. Side rails up X 1. Client placed on continuous cardiac and pulse oximetry monitoring. NIBP monitoring applied. 09:03 No provider procedures requiring assistance completed. Patient did not have IV access kc6 during this emergency room visit. Administered Medications: 08:45 Drug: Ketorolac IM 30 mg IM once Route: IM; Site: right deltoid; kc6 09:03 Follow up: Response: No adverse reaction kc6 08:45 Drug: Rocephin (cefTRIAXone) IM 1 grams IM once Route: IM; Site: left deltoid; kc6 09:03 Follow up: Response: No adverse reaction kc6 08:45 Drug: Famotidine PO 20 mg PO once Route: PO; kc6 09:03 Follow up: Response: No adverse reaction kc6 08:45 Drug: predniSONE PO 40 mg PO once Route: PO; kc6 09:03 Follow up: Response: No adverse reaction kc6 08:45 Drug: ZyrTEC - Cetirizine PO 10 mg PO once Route: PO; kc6 09:03 Follow up: Response: No adverse reaction kc6 Medication: 09:03 VIS not applicable for this client. kc6 Outcome: 08:38 Discharge ordered by . snchichi 09:03 Discharged to home ambulatory, with family, kc6 09:03 Condition: good 09:03 Discharge instructions given to patient, Instructed on discharge instructions, follow up and referral plans. medication usage, Demonstrated understanding of instructions, follow-up care, medications, Prescriptions given X 3, 09:03 Patient left the ED. kc6 Signatures: Leonides Stoddard MD MD cha Waters, Shelly, PROCESSING ARCHIVIST-C PROCESSING ARCHIVIST-Csnw Teagan Bonds, Charis Todd RN, RN RN kc6 Amaris Snell PAS PAS ts1
--- NOTE | 2023-03-06 08:39 | EDPHYS ---
Physician Documentation [facility] Name: Janine Mckay Age: 42 yrs Sex: Female : 1980 Arrival Date: 03/06/2023 Time: 08:19 Bed 18 Private MD: ED Physician Leonides Stoddard HPI: 03/06 08:37 This 42 yrs old Female presents to ER via Ambulatory with complaints of Ear Pain. snw 08:37 The patient presents with hearing loss, complete, pain. The complaints affect the right snw ear. Onset: The symptoms/episode began/occurred acutely, 2 day(s) ago. Severity of symptoms: At their worst the symptoms were moderate in the emergency department the symptoms are unchanged. The patient has experienced similar episodes in the past, several times. The patient has not recently seen a physician. Historical: - Allergies: 08:31 PENICILLINS; hb - Home Meds: 08:31 Zoloft 50 mg Oral tablet daily [Active]; hb - PMHx: 08:31 Depression; Migraines; hb - Immunization history:: Adult Immunizations up to date. - Social history:: Smoking status: Patient denies any tobacco usage or history of. ROS: 08:36 Constitutional: Negative for fever, chills, and weight loss, Eyes: Negative for injury, snw pain, redness, and discharge, Neck: Negative for injury, pain, and swelling, Cardiovascular: Negative for chest pain, palpitations, and edema, Respiratory: Negative for shortness of breath, cough, wheezing, and pleuritic chest pain, Abdomen/GI: Negative for abdominal pain, nausea, vomiting, diarrhea, and constipation, Back: Negative for injury and pain, : Negative for injury, bleeding, discharge, and swelling, MS/Extremity: Negative for injury and deformity, Skin: Negative for injury, rash, and discoloration, Neuro: Negative for headache, weakness, numbness, tingling, and seizure, Psych: Negative for depression, anxiety, suicide ideation, homicidal ideation, and hallucinations, 08:36 ENT: Positive for ear pain, of the right ear, Exam: 08:34 Constitutional: This is a well developed, well nourished patient who is awake, alert, snw and in no acute distress. Head/Face: Normocephalic, atraumatic. Eyes: Pupils equal round and reactive to light, extra-ocular motions intact. Lids and lashes normal. Conjunctiva and sclera are non-icteric and not injected. Cornea within normal limits. Periorbital areas with no swelling, redness, or edema. Neck: Trachea midline, no thyromegaly or masses palpated, and no cervical lymphadenopathy. Supple, full range of motion without nuchal rigidity, or vertebral point tenderness. No Meningismus. Chest/axilla: Normal chest wall appearance and motion. Nontender with no deformity. No lesions are appreciated. Cardiovascular: Regular rate and rhythm with a normal S1 and S2. No gallops, murmurs, or rubs. Normal PMI, no JVD. No pulse deficits. Respiratory: Lungs have equal breath sounds bilaterally, clear to auscultation and percussion. No rales, rhonchi or wheezes noted. No increased work of breathing, no retractions or nasal flaring. Abdomen/GI: Soft, non-tender, with normal bowel sounds. No distension or tympany. No guarding or rebound. No evidence of tenderness throughout. Back: No spinal tenderness. No costovertebral tenderness. Full range of motion. Skin: Warm, dry with normal turgor. Normal color with no rashes, no lesions, and no evidence of cellulitis. MS/ Extremity: Pulses equal, no cyanosis. Neurovascular intact. Full, normal range of motion. Neuro: Awake and alert, GCS 15, oriented to person, place, time, and situation. Cranial nerves II-XII grossly intact. Motor strength 5/5 in all extremities. Sensory grossly intact. Cerebellar exam normal. Normal gait. Psych: Awake, alert, with orientation to person, place and time. Behavior, mood, and affect are within normal limits. 08:34 ENT: External ear(s): are unremarkable, Ear canal(s): are normal, TM's: bulging, on the right, Nose: is normal, Mouth: is normal, Posterior pharynx: is normal, Voice: is normal, Vital Signs: 08:29 BP 141 / 92; Pulse 83; Resp 16; Temp 98.7(O); Pulse Ox 99% on R/A; Weight 122.47 kg; hb Height 5 ft. 6 in. ; Pain 7/10; 08:29 Body Mass Index 43.58 (122.47 kg, 167.64 cm) hb 08:29 Pain Scale: Adult hb MDM: 08:23 Patient medically screened. korey 08:42 Differential diagnosis: otitis media, otitis externa, ruptured TM, foreign body, acute snw otalgia, barotrauma . Data reviewed: vital signs, nurses notes. I considered the following discharge prescriptions or medication management in the emergency department Medications were administered in the Emergency Department. See MAR. Counseling: I had a detailed discussion with the patient and/or guardian regarding the historical points, exam findings, and any diagnostic results supporting the discharge/admit diagnosis, the presence of at least one elevated blood pressure reading (>120/80) during this emergency department visit, the need for outpatient follow up, for definitive care, to return to the emergency department if symptoms worsen or persist or if there are any questions or concerns that arise at home. Response to treatment: the patient's symptoms have mildly improved after treatment. Special discussion: I have referred the patient to see his PCP for further evaluation of high blood pressure. Based on the history and exam findings, there is no indication for further emergent testing or inpatient evaluation. I discussed with the patient/guardian the need to see the ENT specialist for further evaluation of the symptoms. I discussed with the patient/guardian the need to see the primary care provider for further evaluation of the symptoms. Administered Medications: 08:45 Drug: Ketorolac IM 30 mg IM once Route: IM; Site: right deltoid; kc6 09:03 Follow up: Response: No adverse reaction kc6 08:45 Drug: Rocephin (cefTRIAXone) IM 1 grams IM once Route: IM; Site: left deltoid; kc6 09:03 Follow up: Response: No adverse reaction kc6 08:45 Drug: Famotidine PO 20 mg PO once Route: PO; kc6 09:03 Follow up: Response: No adverse reaction kc6 08:45 Drug: predniSONE PO 40 mg PO once Route: PO; kc6 09:03 Follow up: Response: No adverse reaction kc6 08:45 Drug: ZyrTEC - Cetirizine PO 10 mg PO once Route: PO; kc6 09:03 Follow up: Response: No adverse reaction kc6 Disposition Summary: 03/06/23 08:38 Discharge Ordered Notes: Location: Home snw Condition: Stable snw Diagnosis - Acute suppurative otitis media without spontaneous rupture of ear drum, right ear snw Followup: snw - With: Emergency Department - When: As needed - Reason: Worsening of condition Followup: snw - With: Private Physician - When: 1 week - Reason: Recheck today's complaints, Continuance of care, Re-evaluation by your physician Discharge Instructions: - Discharge Summary Sheet snw - Otitis Media, Adult snw Forms: - Medication Reconciliation Form snw - Thank You Letter snw - Antibiotic Education snw - Prescription Opioid Use snw - Patient Portal Instructions snw - Leadership Thank You Letter snw - Work release form eb Prescriptions: - cefdinir 300 mg Oral capsule - take 1 capsule ORAL route 2 times per day for 10 days; 20 capsule; Refills: 0, snw Product Selection Permitted - Zyrtec 10 mg Oral Tablet - take 1 tablet ORAL route once daily As needed; 20 tablet; Refills: 0, Product snw Selection Permitted - Prednisone 20 mg Oral Tablet - take 2 tablets ORAL route once daily for 5 days; 10 tablet; Refills: 0, Product snw Selection Permitted - Pepcid 20 mg Oral Tablet - take 1 tablet ORAL route once daily; 20 tablet; Refills: 0, Product Selection snw Permitted Signatures: Leonides Stoddard MD MD cha Waters, Shelly, TEXTILE CONVERSION MANAGER-C TEXTILE CONVERSION MANAGER-Csnw Teagan Bonds, RN RN Charis Michelle RN RN kc6
[2023-03-06 11:09] VITALS: BP 141/92; TEMP 98.7; O2SAT 99
== END ==
LOC: ER 08:19
DX: H66.001 Acute suppurative otitis media without spontaneous rupture of ear drum, right ear (principal)
CPT/HCPCS: 96372; 99284; J0696; J2001; J7512

== ENCOUNTER → 2023-03-28 | Emergency (ER) | payer SELFPAY ==
[~2023-03-28] MED LIST changes: -CEFTRIAXONE 1000 MG/VIAL ONE; -CETIRIZINE HCL 5 MG TABLET ONE; -FAMOTIDINE 20 MG TAB ONE; -LIDOCAINE 1% MPF 5 ML VIAL ONE; -predniSONE 20 MG TAB ONE
--- NOTE | 2023-03-28 11:22 | ER ---
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 Coronavirus screen: At this time, the client does not indicate any symptoms associated with coronavirus-19. Ebola Screen: No symptoms or risks identified at this time. Initial Sepsis Screen: Does the patient meet any 2 criteria? No. Patient's initial sepsis screen is negative. Does the patient have a suspected source of infection? No. Patient's initial sepsis screen is negative. Risk Assessment: Do you want to hurt yourself or someone else? Patient reports no desire to harm self or others. Onset of symptoms was March 28, 2023. 10:37 Method Of Arrival: Ambulatory ko1 10:37 Acuity: GRIFFIN 4 ko1 Triage Assessment: 10:39 General: Appears in no apparent distress. Behavior is calm, cooperative, appropriate ko1 for age. Pain: Complains of pain in anterior aspect of right shoulder and right bicep. 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 - Social history:: Smoking status: Patient denies any tobacco usage or history of. Screenin:46 [facility] ED Fall Risk Assessment (Adult) History of falling in the last 3 months, cp4 including since admission No falls in past 3 months (0 pts) Confusion or Disorientation No (0 pts) Intoxicated or Sedated No (0 pts) Impaired Gait No (0 pts) Mobility Assist Device Used No (0 pt) Altered Elimination No (0 pt) Score/Fall Risk Level 0 - 2 = Low Risk Oriented to surroundings, Maintained a safe environment, Educated pt \T\ family on fall prevention, incl call for assistance when getting out of bed, Assessed \T\ reinforced patient's understanding of fall precautions, Provided non-skid footwear. Abuse screen: Denies threats or abuse. Nutritional screening: No deficits noted. Tuberculosis screening: No symptoms or risk factors identified. Assessment: 10:46 General: Appears in no apparent distress. Behavior is calm, cooperative, appropriate cp4 for age. 11:34 Reassessment: Xray results not back to discharge. cp4 Vital Signs: 10:37 BP 119 / 64; Pulse 86; Resp 16; Temp 97.8; Pulse Ox 100% ; Weight 123.38 kg; Height 5 ko1 ft. 6 in. ; Pain 10/10; 12:11 BP 99 / 69; Pulse 84; Resp 18; Pulse Ox 100% ; cp4 10:37 Body Mass Index 43.90 (123.38 kg, 167.64 cm) ko1 10:37 Pain Scale: Adult ko1 ED Course: 10:34 Patient arrived in ED. mr 10:36 Leonides Stoddard MD is Attending Physician. korey 10:39 Triage completed. ko1 10:39 Arm band placed on right wrist. Patient placed in an exam room, on a stretcher, on ko1 pulse oximetry, Patient notified of wait time. 10:45 Flaquita Messina is Primary Nurse. cp4 10:46 Bed in low position. Call light in reach. Side rails up X 1. cp4 10:46 No provider procedures requiring assistance completed. Patient did not have IV access cp4 during this emergency room visit. 11:21 Lee Krueger MD is Referral Physician. korey 11:29 Shoulder Right (2 View) XRAY In Process Unspecified. EDMS 12:11 Provided Education on: shoulder pain. cp4 Administered Medications: 11:16 Drug: Ketorolac IM 60 mg IM once Route: IM; Site: right ventrogluteal; cp4 12:13 Follow up: Response: No adverse reaction cp4 Medication: 10:46 VIS not applicable for this client. cp4 Outcome: 11:21 Discharge ordered by . korey 12:11 Discharged to home ambulatory, cp4 12:11 Condition: stable 12:11 Discharge instructions given to patient, Instructed on discharge instructions, follow up and referral plans. medication usage, Demonstrated understanding of instructions, follow-up care, medications, Prescriptions given X 3, 12:13 Patient left the ED. cp4 Signatures: Dispatcher [employer] EDMS Leonides Stoddard MD MD cha Rivera, Mary, [facility] Lita Stafford, PASTORA RN Flaquita Solis cp4
--- NOTE | 2023-03-28 11:22 | EDPHYS ---
Physician Documentation [facility] Name: Janine Mckay Age: 42 yrs Sex: Female : 1980 Arrival Date: 03/28/2023 Time: 10:32 Bed 16 Private MD: ED Physician Leonides Stoddard HPI: 03/28 11:01 This 42 yrs old Female presents to ER via Ambulatory with complaints of Arm korey Pain. 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 - Social history:: Smoking status: Patient denies any tobacco usage or history of. ROS: 11:03 Constitutional: Negative for fever, chills, and weight loss, Eyes: Negative for injury, korey pain, redness, and discharge, ENT: Negative for injury, pain, and discharge, Neck: Negative for injury, pain, and swelling, Cardiovascular: Negative for chest pain, palpitations, and edema, Respiratory: Negative for shortness of breath, cough, wheezing, and pleuritic chest pain, Abdomen/GI: Negative for abdominal pain, nausea, vomiting, diarrhea, and constipation, Back: Negative for injury and pain, : Negative for injury, bleeding, discharge, and swelling, Skin: Negative for injury, rash, and discoloration, Neuro: Negative for headache, weakness, numbness, tingling, and seizure, Psych: Negative for depression, anxiety, suicide ideation, homicidal ideation, and hallucinations, Allergy/Immunology: Negative for hives, rash, and allergies, Endocrine: Negative for neck swelling, polydipsia, polyuria, polyphagia, and marked weight changes, Hematologic/Lymphatic: Negative for swollen nodes, abnormal bleeding, and unusual bruising, 11:03 MS/extremity: Positive for decreased range of motion, pain, tenderness, of the anterior aspect of right shoulder and posterior aspect of right shoulder, Exam: 11:03 Constitutional: This is a well developed, well nourished patient who is awake, alert, korey and in no acute distress. Head/Face: Normocephalic, atraumatic. Eyes: Pupils equal round and reactive to light, extra-ocular motions intact. Lids and lashes normal. Conjunctiva and sclera are non-icteric and not injected. Cornea within normal limits. Periorbital areas with no swelling, redness, or edema. ENT: Nares patent. No nasal discharge, no septal abnormalities noted. Tympanic membranes are normal and external auditory canals are clear. Oropharynx with no redness, swelling, or masses, exudates, or evidence of obstruction, uvula midline. Mucous membranes moist. Neck: Trachea midline, no thyromegaly or masses palpated, and no cervical lymphadenopathy. Supple, full range of motion without nuchal rigidity, or vertebral point tenderness. No Meningismus. Chest/axilla: Normal chest wall appearance and motion. Nontender with no deformity. No lesions are appreciated. Cardiovascular: Regular rate and rhythm with a normal S1 and S2. No gallops, murmurs, or rubs. Normal PMI, no JVD. No pulse deficits. Respiratory: Lungs have equal breath sounds bilaterally, clear to auscultation and percussion. No rales, rhonchi or wheezes noted. No increased work of breathing, no retractions or nasal flaring. Abdomen/GI: Soft, non-tender, with normal bowel sounds. No distension or tympany. No guarding or rebound. No evidence of tenderness throughout. Back: No spinal tenderness. No costovertebral tenderness. Full range of motion. Skin: Warm, dry with normal turgor. Normal color with no rashes, no lesions, and no evidence of cellulitis. Neuro: Awake and alert, GCS 15, oriented to person, place, time, and situation. Cranial nerves II-XII grossly intact. Motor strength 5/5 in all extremities. Sensory grossly intact. Cerebellar exam normal. Normal gait. Psych: Awake, alert, with orientation to person, place and time. Behavior, mood, and affect are within normal limits. 11:03 Musculoskeletal/extremity: Extremities: grossly normal except: decreased ROM, pain, ROM: limited active range of motion, in the anterior aspect of right shoulder and posterior aspect of right shoulder, limited passive range of motion, in the anterior aspect of right shoulder and posterior aspect of right shoulder, Joints: All joints are normal except the right shoulder displays limited range of motion, pain at rest, painful range of motion, Vital Signs: 10:37 BP 119 / 64; Pulse 86; Resp 16; Temp 97.8; Pulse Ox 100% ; Weight 123.38 kg; Height 5 ko1 ft. 6 in. ; Pain 10/10; 12:11 BP 99 / 69; Pulse 84; Resp 18; Pulse Ox 100% ; cp4 10:37 Body Mass Index 43.90 (123.38 kg, 167.64 cm) ko1 10:37 Pain Scale: Adult ko1 MDM: 10:36 Patient medically screened. korey 11:06 Differential diagnosis: dislocation, closed fracture, contusion, abrasion, tendonitis. korey Data reviewed: vital signs, nurses notes, radiologic studies, plain films. Consideration of Admission/Observation Escalation of care including admission/observation considered. I considered the following discharge prescriptions or medication management in the emergency department Medications were administered in the Emergency Department. See MAR. Independent interpretation of the following test(s) in the Emergency Department X-Ray: My interpretation is no fx , no dislocation. Test considered but Not performed: Labs: no labs. Care significantly affected by the following chronic conditions: migraines , depression. 03/28 10:53 Order name: Shoulder Right (2 View) XRAY [facility] 03/28 10:53 Order name: Sling; Complete Time: 11:08 korey 03/28 10:53 Order name: Ice pack; Complete Time: 11:08 korey Administered Medications: 11:16 Drug: Ketorolac IM 60 mg IM once Route: IM; Site: right ventrogluteal; cp4 12:13 Follow up: Response: No adverse reaction cp4 Disposition Summary: 03/28/23 11:21 Discharge Ordered Notes: Location: Home korey Problem: new korey Symptoms: have improved korey Condition: Stable korey Diagnosis - Pain in right shoulder korey - Injury of muscle(s) and tendon(s) of the rotator cuff of shoulder korey Followup: korey - With: Private Physician - When: 2 - 3 days - Reason: Recheck today's complaints, Continuance of care, Re-evaluation by your physician Followup: korey - With: Lee Krueger MD - When: 2 - 3 days - Reason: Recheck today's complaints, Re-evaluation by your physician Discharge Instructions: - Discharge Summary Sheet korey - Joint Pain korey - Musculoskeletal Pain korey - Shoulder Pain korey - Shoulder Pain, [id number] korey Forms: - Medication Reconciliation Form korey - Thank You Letter korey - Antibiotic Education korey - Prescription Opioid Use korey - Patient Portal Instructions [facility] - Leadership Thank You Letter [facility] Prescriptions: - acetaminophen-codeine 300-30 mg Oral tablet - take 2 tablet ORAL route every 6 to 8 hours; 20 tablet; Refills: 0, Product [facility] Selection Permitted - Ibuprofen 600 mg Oral Tablet - take 1 tablet ORAL route every 6 hours As needed take with food; 30 tablet; [facility] Refills: 0, Product Selection Permitted - Medrol (Jeffrey) 4 mg Oral Tablets, Dose Pack - take 1 tablet ORAL route as directed - follow package instructions; 1 packet; [facility] Refills: 0, Product Selection Permitted Signatures: Dispatcher [employer] Leonides Aguilar MD MD cha Oliver, Kathy, RN RN Flaquita Solis cp4
--- NOTE | 2023-03-28 11:49 | RAD REPORT ---
EXAM DESCRIPTION: RAD - Shoulder Right 2 View - 03/28/2023 11:28 am CLINICAL HISTORY: Right shoulder pain FINDINGS: No fracture or dislocation is seen. No bone or joint abnormality noted
[2023-03-28 22:24] VITALS: TEMP 97.8; O2SAT 100
[2023-03-28 22:41] VITALS: BP 99/69
== END ==
LOC: ER 10:32
DX: S46.001A Unspecified injury of muscle(s) and tendon(s) of the rotator cuff of right shoulder, initial encounter (principal)

== ENCOUNTER → 2023-05-08 | Emergency (ER) | payer SELFPAY ==
[~2023-05-08] MED LIST changes: +FAMOTIDINE 20 MG/2 ML VIAL IV ONE; +MORPHINE 4 MG/ML SYR ONE; +NA CHLORIDE 0.9% 1,000 ML ONE; +ONDANSETRON 4 MG/2 ML VIAL ONE
[2023-05-08 03:58] LABS: Absolute Eosinophils 0.3 K/uL (0-0.5); Absolute Lymphocytes (CBC) 2.9 K/uL (0.7-4.9); Absolute Monocytes 0.9 K/uL (0.1-1.3); Absolute Neutrophil 3.3 K/uL (1.8-8.0); Basophils % 0.6 % (0-1.3); Eosinophils % 3.5 % (0-4.4); Hematocrit 35.6 % (36.0-45.0); Hemoglobin 11.7 g/dL (12.0-15.0); Lymphocytes % 39.2 % (15.3-44.8); MCH 26.6 pg (27.0-35.0); MCHC 32.9 g/dL (32.0-36.0); MCV 80.9 fL (80-100); MPV 7.4 fL (7.6-11.3); Monocytes % 12.5 % (3.3-12.3); Neutrophils % 44.2 % (41.7-73.7); Platelets 509 thou/uL (152-406); Red Cell Distribution Width 16.4 % (12.1-15.2)
[2023-05-08 04:10] LABS: Albumin 3.8 g/dL (3.4-5.0); Anion Gap 9.9 mEq/L (5.0-15.0); Bilirubin Total 0.9 mg/dL (0.2-1.0); Potassium 3.9 mEq/L (3.5-5.1); Protein, Total 7.8 g/dL (6.4-8.2)
[2023-05-08 05:34] LABS: Specific Gravity > 1.030 (1.005-1.030); Urine Bilirubin NEGATIVE (Negative); Urine Blood Negative (Negative); Urine Clarity Clear (Clear); Urine Color Light-Yellow (Yellow); Urine Glucose NEGATIVE (Negative); Urine Ketones NEGATIVE (Negative); Urine Microscopic Reflex YN NO UMIC; Urine Nitrite NEGATIVE (Negative); Urine Protein NEGATIVE (Negative); Urine Urobilinogen Normal (Normal)
--- NOTE | 2023-05-08 05:49 | EDPHYS ---
Physician Documentation [facility] Name: Janine Mckay Age: 42 yrs Sex: Female : 1980 Arrival Date: 05/08/2023 Time: 03:00 Bed 12 Private MD: ED Physician Arnaldo Diamond HPI: 05/07 03:36 This 42 yrs old Female presents to ER via Unassigned with complaints of sp4 Abdominal Pain. 05:43 42-year-old female with history of 11 prior pregnancies, presents with acute onset sp4 right upper right-sided abdominal pain associated with some nausea started yesterday. History of but no other prior abdominal surgery. . CHEFS: 03:21 LMP 04/18/2023, unknown pf1 Historical: - Allergies: 03:37 PENICILLINS; pf1 - PMHx: 03:37 Depression; Migraines; Anxiety; pf1 - PSHx: 03:37 None; pf1 - Immunization history:: Adult Immunizations not up to date, Client reports having NOT received the Covid vaccine. Last tetanus immunization: < 5 years ago Flu vaccine is not up to date. - Social history:: Smoking status: Patient denies any tobacco usage or history of. Patient/guardian denies using alcohol, street drugs. - Family history:: not pertinent. ROS: 05:43 Constitutional: Negative for fever, chills, and weight loss, positive abdominal pain sp4 and nausea 05:43 All other systems are negative, Exam: 05:43 Constitutional: This is a well developed, well nourished patient who is awake, alert, sp4 and in no acute distress. Head/Face: Normocephalic, atraumatic. Eyes: Pupils equal round and reactive to light, extra-ocular motions intact. Lids and lashes normal. Conjunctiva and sclera are not injected. Cornea within normal limits. Periorbital areas with no swelling, redness, or edema. ENT: Nares patent. No nasal discharge, no septal abnormalities noted. Tympanic membranes are normal and external auditory canals are clear. Oropharynx with no redness, swelling, or masses, exudates, or evidence of obstruction, uvula midline. Mucous membranes moist. Neck: Trachea midline, no thyromegaly or masses palpated, and no cervical lymphadenopathy. Supple, full range of motion without nuchal rigidity, or vertebral point tenderness. Chest/axilla: Normal chest wall appearance and motion. Nontender with no deformity. No lesions are appreciated. Cardiovascular: Regular rate and rhythm with a normal S1 and S2. No gallops, murmurs, or rubs. Normal PMI, no JVD. No pulse deficits. Respiratory: Lungs have equal breath sounds bilaterally, clear to auscultation and percussion. No rales, rhonchi or wheezes noted. No increased work of breathing, no retractions or nasal flaring. Abdomen/GI: Soft, with normal bowel sounds. No distension or tympany. No guarding or rebound. Right upper and right-sided abdominal tenderness without peritoneal signs Back: No spinal tenderness. No costovertebral tenderness. Skin: Warm, dry with normal turgor. Normal color with no rashes, no lesions, and no evidence of cellulitis. MS/ Extremity: Pulses equal, no cyanosis. Neurovascular intact. Full, normal range of motion. Neuro: Awake and alert, GCS 15, oriented to person, place, time, and situation. Cranial nerves II-XII grossly intact. Motor strength 5/5 in all extremities. Sensory grossly intact. Psych: Awake, alert, with orientation to person, place and time. Behavior, mood, and affect are within normal limits Vital Signs: 03:21 BP 142 / 79; Pulse 94; Resp 18; Temp 98.1; Pulse Ox 98% on R/A; Weight 127.01 kg; pf1 Height 5 ft. 6 in. ; Pain 6/10; 04:30 BP 129 / 82; Pulse 89; Resp 16; Pulse Ox 100% on R/A; Pain 2/10; pf1 05:30 BP 109 / 66; Pulse 71; Resp 16; Temp 98; Pulse Ox 99% on R/A; Pain 0/10; pf1 03:21 Body Mass Index 45.19 (127.01 kg, 167.64 cm) pf1 03:21 Pain Scale: Adult pf1 04:30 Pain Scale: Adult pf1 05:30 Pain Scale: Adult pf1 MDM: 03:42 Patient medically screened. sp4 05:38 ED course: CLINICAL HISTORY: ABD PAIN COMPARISON: None. TECHNIQUE: US ABDOMEN LIMITED sp4 05/08/2023 3:44 AM CDT FINDINGS: Gallbladder is normally distended without wall thickening, gallstones or pericholecystic fluid. IMPRESSION: Normal gallbladder.. ED course: CLINICAL HISTORY: RUQ pain, nausea COMPARISON: None. TECHNIQUE: CTABDOMEN PELVIS WITH IV CONTRAST on 05/08/2023 3:43 AM CDT This exam was performed according to our departmental dose-optimization program, which includes automated exposure control, adjustment of the mA and/or kV according to patient size and/or use of iterative reconstruction technique. FINDINGS: Lower lungs are clear. Abdomen: The liver is normal in appearance. There is no biliary dilatation. Gallbladder is normally distended. The pancreas and spleen are normal in appearance. The adrenal glands and kidneys are unremarkable. Abdominal aorta is normal in course and caliber without aneurysm. There is no free air. There is no retroperitoneal adenopathy. Pelvis: There is no bowel obstruction. Urinary bladder is unremarkable. There is no free fluid. Uterus is normal in size. Skeleton: There are no acute osseous findings. No suspicious bony lesions. IMPRESSION: No acute process. . 05:43 Differential Diagnosis altered mental status, sepsis, flu, Acute cholecystitis. Data sp4 reviewed: vital signs, nurses notes, old medical records, lab test result(s), radiologic studies, CT scan, ultrasound. Consideration of Admission/Observation Escalation of care including admission/observation considered. ED course: Patient presents for right upper quadrant and right-sided abdominal pain. Ultrasound reveals normal gallbladder, CT reveals no acute intra-abdominal process. Patient stable for discharge home. Will prescribe as needed Bentyl and Phenergan . . 05/07 03:34 Order name: CBC with Diff; Complete Time: 05:39 sp4 05/07 03:34 Order name: CMP; Complete Time: 05:39 sp4 05/07 03:34 Order name: Lipase; Complete Time: 05:39 sp4 05/07 03:34 Order name: Test, Urine; Complete Time: 05:39 sp4 05/07 03:34 Order name: Urinalysis w/ reflexes; Complete Time: 05:39 sp4 05/07 03:44 Order name: CRP; Complete Time: 05:39 sp4 05/07 03:43 Order name: CT Abd/Pelvis - IV Contrast Only sp4 05/07 03:44 Order name: US Abdomen Limited sp4 05/07 03:34 Order name: IV Saline Lock; Complete Time: 03:40 sp4 05/07 03:34 Order name: Labs collected and sent; Complete Time: 03:40 sp4 Administered Medications: 04:05 Drug: Ondansetron IVP 4 mg IVP once; over 2 minutes Route: IVP; Site: right antecubital;pf1 05:00 Follow up: Response: No adverse reaction; Marked relief of symptoms pf1 04:05 Drug: Famotidine IVP 20 mg IVP once; dilute with 10 mL 0.9% NaCl; give over 2 minutes pf1 Route: IVP; Site: right antecubital; 05:00 Follow up: Response: No adverse reaction; Marked relief of symptoms; Pain is decreased pf1 04:05 Drug: NS 0.9% IV 1000 ml IV at 1 bolus Per protocol; 1000 mL bolus Route: IV; Rate: 1 pf1 bolus; Site: right antecubital; 05:00 Follow up: Response: No adverse reaction; Marked relief of symptoms; IV Status: pf1 Completed infusion; IV Intake: 1000ml 04:10 Not Given (Patient Refused): morphineor iv 4 mg IVP once over 4 mins pf1 04:50 Drug: Ketorolac IVP 30 mg IVP once Route: IVP; Site: right antecubital; pf1 05:50 Follow up: Response: No adverse reaction; Marked relief of symptoms; Pain is decreased pf1 Disposition Summary: 05/08/23 05:48 Discharge Ordered Notes: Location: Home sp4 Problem: new sp4 Symptoms: have improved sp4 Condition: Stable sp4 Diagnosis - Upper abdominal pain, unspecified sp4 Followup: sp4 - With: Private Physician - When: As needed - Reason: Discharge Instructions: - Discharge Summary Sheet sp4 - Abdominal Pain, Adult sp4 Forms: - Patient Portal Instructions sp4 Prescriptions: - promethazine 25 mg Oral tablet - take 1 tablet ORAL route every 6 hours As needed PRN nausea; 30 tablet; sp4 Refills: 0, Product Selection Permitted - dicyclomine 20 mg Oral tablet - take 1 tablet ORAL route every 8 hours PRN abdominal pain; 30 tablet; Refills: sp4 0, Product Selection Permitted Signatures: Dispatcher [facility] Tiffanie Peterson RN RN pf1 Arnaldo Diamond MD MD sp4
--- NOTE | 2023-05-08 05:49 | ER ---
Nurse's Notes [facility] Name: Janine Mckay Age: 42 yrs Sex: Female : 1980 Arrival Date: 05/08/2023 Time: 03:00 Bed 12 Private MD: Diagnosis: Upper abdominal pain, unspecified Presentation: 05/07 03:21 Chief complaint: Patient states: RUQ pain of 6,onset 1430 yesterday with nausea. pf1 03:21 Coronavirus screen: Vaccine status: Patient reports being unvaccinated. Client denies pf1 travel out of the [place] in the last 14 days. At this time, the client does not indicate any symptoms associated with coronavirus-19. Ebola Screen: Patient negative for fever greater than or equal to 101.5 degrees Fahrenheit, and additional compatible Ebola Virus Disease symptoms. Initial Sepsis Screen: Does the patient meet any 2 criteria? HR > 90 bpm. No. Patient's initial sepsis screen is negative. Does the patient have a suspected source of infection? No. Patient's initial sepsis screen is negative. Risk Assessment: Do you want to hurt yourself or someone else? Patient reports no desire to harm self or others. 03:21 Method Of Arrival: Ambulatory pf1 03:21 Acuity: GRIFFIN 3 pf1 03:21 Onset of symptoms was May 07, 2023. pf1 Triage Assessment: 03:21 General: Appears in no apparent distress. uncomfortable, obese, well groomed, well pf1 developed, Behavior is calm, cooperative, appropriate for age, quiet. 03:21 Pain: Complains of pain in abdomen Pain currently is 6 out of 10 on a pain scale. GI: pf1 Abdomen is round non-distended, Bowel sounds present X 4 quads. Reports upper abdominal pain, nausea. CIRCUS HAND: 03:21 LMP 04/18/2023, unknown pf1 Historical: - Allergies: 03:37 PENICILLINS; pf1 - PMHx: 03:37 Depression; Migraines; Anxiety; pf1 - PSHx: 03:37 None; pf1 - Immunization history:: Adult Immunizations not up to date, Client reports having NOT received the Covid vaccine. Last tetanus immunization: < 5 years ago Flu vaccine is not up to date. - Social history:: Smoking status: Patient denies any tobacco usage or history of. Patient/guardian denies using alcohol, street drugs. - Family history:: not pertinent. Screenin:40 [facility] ED Fall Risk Assessment (Adult) History of falling in the last 3 months, pf1 including since admission No falls in past 3 months (0 pts) Confusion or Disorientation No (0 pts) Intoxicated or Sedated No (0 pts) Impaired Gait No (0 pts) Mobility Assist Device Used No (0 pt) Altered Elimination No (0 pt) Score/Fall Risk Level 0 - 2 = Low Risk Oriented to surroundings, Maintained a safe environment, Educated pt \T\ family on fall prevention, incl call for assistance when getting out of bed, Assessed \T\ reinforced patient's understanding of fall precautions, Provided non-skid footwear, Hourly rounding (assess needs \T\ fall precautionary measures) done, Used ambulatory aids as needed (educated on \T\ assisted with), Used gait belt as appropriate. Abuse screen: Denies threats or abuse. Nutritional screening: No deficits noted. Tuberculosis screening: No symptoms or risk factors identified. Assessment: 03:21 GI: Abd is soft Abd is non tender X 4 quads. pf1 03:21 General: Appears in no apparent distress. uncomfortable, obese, well groomed, well pf1 developed, Behavior is calm, cooperative, appropriate for age, quiet. 03:21 Pain: Complains of pain in abdomen Pain currently is 6 out of 10 on a pain scale. pf1 Neuro: No deficits noted. Level of Consciousness is awake, alert, obeys commands, Oriented to person, place, time, situation. Cardiovascular: No deficits noted. Capillary refill < 3 seconds Patient's skin is warm and dry. Respiratory: No deficits noted. Airway is patent Respiratory effort is even, unlabored, Respiratory pattern is regular, symmetrical, Breath sounds are clear bilaterally. GI: Abdomen is round non-distended, Bowel sounds present X 4 quads. Reports upper abdominal pain, nausea. : No deficits noted. No signs and/or symptoms were reported regarding the genitourinary system. EENT: No deficits noted. No signs and/or symptoms were reported regarding the EENT system. Derm: No deficits noted. No signs and/or symptoms reported regarding the dermatologic system. Musculoskeletal: No deficits noted. No signs and/or symptoms reported regarding the musculoskeletal system. 04:30 Reassessment: Patient appears in no apparent distress at this time. Patient and/or pf1 family updated on plan of care and expected duration. Pain level reassessed. Patient is alert, oriented x 3, equal unlabored respirations, skin warm/dry/pink. Patient states feeling better. Patient states symptoms have improved. 05:30 Reassessment: Patient appears in no apparent distress at this time. Patient and/or pf1 family updated on plan of care and expected duration. Pain level reassessed. Patient is alert, oriented x 3, equal unlabored respirations, skin warm/dry/pink. Patient states feeling better. Patient states symptoms have improved. Vital Signs: 03:21 BP 142 / 79; Pulse 94; Resp 18; Temp 98.1; Pulse Ox 98% on R/A; Weight 127.01 kg; pf1 Height 5 ft. 6 in. ; Pain 6/10; 04:30 BP 129 / 82; Pulse 89; Resp 16; Pulse Ox 100% on R/A; Pain 2/10; pf1 05:30 BP 109 / 66; Pulse 71; Resp 16; Temp 98; Pulse Ox 99% on R/A; Pain 0/10; pf1 03:21 Body Mass Index 45.19 (127.01 kg, 167.64 cm) pf1 03:21 Pain Scale: Adult pf1 04:30 Pain Scale: Adult pf1 05:30 Pain Scale: Adult pf1 ED Course: 03:03 Patient arrived in ED. mr 03:21 Arm band placed on right wrist. pf1 03:22 Patient has correct armband on for positive identification. Placed in gown. Bed in low pf1 position. Call light in reach. 03:22 Door closed. Noise minimized. Warm blanket given. pf1 03:35 Arnaldo Diamond MD is Attending Physician. sp4 03:37 Triage completed. pf1 03:38 Inserted saline lock: 22 gauge in right antecubital area, using aseptic technique. [facility] Blood collected. 03:39 Initial lab(s) drawn, by me, sent to lab. kmf 03:40 CBC with Diff Sent. pf1 03:40 CMP Sent. pf1 03:40 Lipase Sent. pf1 03:49 Radiology exam delayed due to test not completed at this time. eh4 04:29 US Abdomen Limited In Process Unspecified. EDMS 05:07 CT Abd/Pelvis - IV Contrast Only In Process Unspecified. EDMS 06:00 No provider procedures requiring assistance completed. IV discontinued, intact, pf1 bleeding controlled, No redness/swelling at site. Pressure dressing applied. 06:00 Provided Education on: prescriptions. pf1 Administered Medications: 04:05 Drug: Ondansetron IVP 4 mg IVP once; over 2 minutes Route: IVP; Site: right antecubital;pf1 05:00 Follow up: Response: No adverse reaction; Marked relief of symptoms pf1 04:05 Drug: Famotidine IVP 20 mg IVP once; dilute with 10 mL 0.9% NaCl; give over 2 minutes pf1 Route: IVP; Site: right antecubital; 05:00 Follow up: Response: No adverse reaction; Marked relief of symptoms; Pain is decreased pf1 04:05 Drug: NS 0.9% IV 1000 ml IV at 1 bolus Per protocol; 1000 mL bolus Route: IV; Rate: 1 pf1 bolus; Site: right antecubital; 05:00 Follow up: Response: No adverse reaction; Marked relief of symptoms; IV Status: pf1 Completed infusion; IV Intake: 1000ml 04:10 Not Given (Patient Refused): morphineor iv 4 mg IVP once over 4 mins pf1 04:50 Drug: Ketorolac IVP 30 mg IVP once Route: IVP; Site: right antecubital; pf1 05:50 Follow up: Response: No adverse reaction; Marked relief of symptoms; Pain is decreased pf1 Medication: 06:00 VIS not applicable for this client. pf1 Intake: 05:00 IV: 1000ml; Total: 1000ml. pf1 Outcome: 05:48 Discharge ordered by . sp4 05:59 Discharged to home ambulatory, with family, pf1 05:59 Condition: improved 05:59 Discharge instructions given to patient, family, Instructed on discharge instructions, follow up and referral plans. Demonstrated understanding of instructions, follow-up care, medications, Prescriptions given X 2, 06:06 Patient left the ED. pf1 Signatures: Dispatcher [employer] EDOR Citlali Osorio, Reg Reg mr Awan, Pricila 4 Tiffanie Love RN RN pf1 Arnaldo Diamond MD MD sp4 Haley Garner [facility]
[2023-05-08 06:44] VITALS: BP 109/66; TEMP 98; O2SAT 99
--- NOTE | 2023-05-09 11:39 | RAD REPORT ---
EXAM DESCRIPTION: CT - Abdomen Pelvis W Contrast - 05/08/2023 6:41 am CLINICAL HISTORY: RUQ pain, nausea COMPARISON: None. TECHNIQUE: CT ABDOMEN PELVIS WITH IV CONTRAST on 05/08/2023 3:43 AM CDT This exam was performed according to our departmental dose-optimization program, which includes autom ated exposure control, adjustment of the mA and/or kV according to patient size and/or use of iterati ve reconstruction technique. FINDINGS: Lower lungs are clear. Abdomen: The liver is normal in appearance. There is no biliary dilatation. Gallbladder is normally d istended. The pancreas and spleen are normal in appearance. The adrenal glands and kidneys are unrema rkable. Abdominal aorta is normal in course and caliber without aneurysm. There is no free air. There is no r etroperitoneal adenopathy. Pelvis: There is no bowel obstruction. Urinary bladder is unremarkable. There is no free fluid. Uteru s is normal in size. Skeleton: There are no acute osseous findings. No suspicious bony lesions. IMPRESSION: No acute process. Electronically signed by: Suraj Olsen MD 05/08/2023 05:27 AM CDT Due to temporary technical issues with the PACS/Fluency reporting system, reports are being signed by the in house radiologist without review as a courtesy to ensure prompt reporting. The interpreting r adiologist is fully responsible for the content of the report.
--- NOTE | 2023-05-09 11:43 | RAD REPORT ---
EXAM DESCRIPTION: US - Abdomen Exam Limited - 05/08/2023 4:27 am CLINICAL HISTORY: ABD PAIN COMPARISON: None. TECHNIQUE: US ABDOMEN LIMITED 05/08/2023 3:44 AM CDT FINDINGS: Gallbladder is normally distended without wall thickening, gallstones or pericholecystic f luid. IMPRESSION: Normal gallbladder. Electronically signed by: Suraj Olsen MD 05/08/2023 05:25 AM CDT Due to temporary technical issues with the PACS/Fluency reporting system, reports are being signed by the in house radiologist without review as a courtesy to ensure prompt reporting. The interpreting r adiologist is fully responsible for the content of the report.
== END ==
LOC: ER 03:00
DX: R10.11 Right upper quadrant pain (principal)
CPT/HCPCS: 36415; 74177; 76705; 80053; 81003; 81025; 83690; 85025; 86140; 96361; 96374; 96375; 99284; J2405; J7030; Q9967

== ENCOUNTER 2023-12-24 21:44 | Emergency (ER) | payer SELFPAY ==
[2023-12-24] MEDS ORDERED: NA CHLORIDE 0.9% 1,000 ML ONE (22:21)
[2023-12-24 22:39] LABS: Absolute Eosinophils 0.3 K/uL (0-0.5); Absolute Lymphocytes (CBC) 3.6 K/uL (0.7-4.9); Absolute Monocytes 0.9 K/uL (0.1-1.3); Absolute Neutrophil 5.9 K/uL (1.8-8.0); Basophils % 0.2 % (0-1.3); Eosinophils % 2.7 % (0-4.4); Hematocrit 31.7 % (36.0-45.0); Lymphocytes % 33.8 % (15.3-44.8); MCHC 31.6 g/dL (32.0-36.0); MCV 79.3 fL (80-100); MPV 7.9 fL (7.6-11.3); Monocytes % 8.2 % (3.3-12.3); Neutrophils % 55.1 % (41.7-73.7); Platelets 385 thou/uL (152-406); RBC Red Blood Cell Count 3.99 M/uL (3.86-4.86); Red Cell Distribution Width 16.9 % (12.1-15.2)
[2023-12-24 22:42] LABS: ALT/SGPT 30 U/L (13-56); AST/SGOT 15 U/L (15-37); Albumin 3.5 g/dL (3.4-5.0); Albumin/Globulin Ratio 0.9 (1.1-1.8); Alkaline Phosphatase 46 U/L (45-117); Anion Gap 6.9 mEq/L (5.0-15.0); BUN Blood Urea Nitrogen 13 mg/dL (7-18); Bicarbonate 27 mEq/L (21-32); Bilirubin Total 0.6 mg/dL (0.2-1.0); Globulin 3.8 g/dL (2.3-3.5); Glomerular Filtration Rate 78 ml/min (=/>90); Glucose Level 89 mg/dL (74-106); Potassium 3.9 mEq/L (3.5-5.1); Protein, Total 7.3 g/dL (6.4-8.2); Sodium Level 140 mEq/L (136-145)
[2023-12-24] MEDS ORDERED: KETOROLAC 30 MG/ML INJ ONE (22:48)
[2023-12-24] MEDS ORDERED: AZITHROMYCIN 500 MG INJ IVPB ONE (22:48)
[2023-12-24] MEDS ORDERED: dexAMETHasone 10 MG/ML VIAL ONE (22:48)
[2023-12-24] MEDS ORDERED: NA CHLORIDE 0.9% 0 ML ONE (22:49)
[2023-12-24 22:51] LABS: Troponin High Sensitivity < 3.0 pg/mL (<58.9)
[2023-12-24] MEDS ORDERED: NA CHLORIDE 0.9% 250 ML ONE (22:52)
--- NOTE | 2023-12-24 23:26 | EDPHYS ---
Physician Documentation [facility] Name: Janine Mckay Age: 43 yrs Sex: Female : 1980 Arrival Date: 12/24/2023 Time: 21:44 Bed 18 Private MD: GLENNA Physician Leonides Stoddard HPI: 12/23 22:27 This 43 yrs old Female presents to ER via Ambulatory with complaints of Near korey Syncope, Dizziness, Ear Pain. 22:27 The patient has experienced near-syncope, felt dizzy. Onset: The symptoms/episode korey began/occurred 2 day(s) ago. Duration: The patient has had multiple episodes, that last an unknown period of time. Context: the episode(s) was witnessed, by family, occurred at home. Associated injury: The patient did not suffer any apparent associated injury. Associated signs and symptoms: The patient has no apparent associated signs or symptoms, Pertinent positives: dizziness. Current symptoms: Currently, the patient is not experiencing any symptoms, the patient feels back to baseline. The patient has experienced similar episodes in the past, a few times. Historical: - Allergies: 22:29 PENICILLINS; ha1 - Home Meds: 22:29 Zoloft 50 mg Oral tablet daily [Active]; ha1 - PMHx: 22:29 Anxiety; Depression; Migraines; ha1 - Immunization history:: Adult Immunizations up to date. - Infectious Disease History:: Denies. - Social history:: Smoking status: Patient denies any tobacco usage or history of. - Family history:: not pertinent. ROS: 22:27 Constitutional: Negative for fever, chills, and weight loss, Eyes: Negative for injury, korey pain, redness, and discharge, Neck: Negative for injury, pain, and swelling, Cardiovascular: Negative for chest pain, palpitations, and edema, Abdomen/GI: Negative for abdominal pain, nausea, vomiting, diarrhea, and constipation, Back: Negative for injury and pain, : Negative for injury, bleeding, discharge, and swelling, MS/Extremity: Negative for injury and deformity, Skin: Negative for injury, rash, and discoloration, Neuro: Negative for headache, weakness, numbness, tingling, and seizure, Psych: Negative for depression, anxiety, suicide ideation, homicidal ideation, and hallucinations, Allergy/Immunology: Negative for hives, rash, and allergies, Endocrine: Negative for neck swelling, polydipsia, polyuria, polyphagia, and marked weight changes, Hematologic/Lymphatic: Negative for swollen nodes, abnormal bleeding, and unusual bruising, 22:27 ENT: Positive for rhinorrhea, sinus congestion, sinus pain, sore throat, Exam: 22:27 Constitutional: This is a well developed, well nourished patient who is awake, alert, korey and in no acute distress. Head/Face: Normocephalic, atraumatic. Eyes: Pupils equal round and reactive to light, extra-ocular motions intact. Lids and lashes normal. Conjunctiva and sclera are non-icteric and not injected. Cornea within normal limits. Periorbital areas with no swelling, redness, or edema. ENT: Nares patent. No nasal discharge, no septal abnormalities noted. Tympanic membranes are normal and external auditory canals are clear. Oropharynx with no redness, swelling, or masses, exudates, or evidence of obstruction, uvula midline. Mucous membranes moist. Neck: Trachea midline, no thyromegaly or masses palpated, and no cervical lymphadenopathy. Supple, full range of motion without nuchal rigidity, or vertebral point tenderness. No Meningismus. Chest/axilla: Normal chest wall appearance and motion. Nontender with no deformity. No lesions are appreciated. Cardiovascular: Regular rate and rhythm with a normal S1 and S2. No gallops, murmurs, or rubs. Normal PMI, no JVD. No pulse deficits. Abdomen/GI: Soft, non-tender, with normal bowel sounds. No distension or tympany. No guarding or rebound. No evidence of tenderness throughout. Back: No spinal tenderness. No costovertebral tenderness. Full range of motion. Skin: Warm, dry with normal turgor. Normal color with no rashes, no lesions, and no evidence of cellulitis. MS/ Extremity: Pulses equal, no cyanosis. Neurovascular intact. Full, normal range of motion. Neuro: Awake and alert, GCS 15, oriented to person, place, time, and situation. Cranial nerves II-XII grossly intact. Motor strength 5/5 in all extremities. Sensory grossly intact. Cerebellar exam normal. Normal gait. Psych: Awake, alert, with orientation to person, place and time. Behavior, mood, and affect are within normal limits. 22:27 ECG was reviewed by the Attending Physician. 22:27 Respiratory: the patient does not display signs of respiratory distress, Respirations: normal, Breath sounds: are clear throughout, 22:27 Musculoskeletal/extremity: ROM: intact in all extremities, full active range of motion, Pulses: are normal with no appreciated deficits, Sensation intact. Compartment Syndrome exam of affected extremity: is normal. DVT Exam: No signs of deep vein thrombosis. no pain, no swelling, no tenderness, negative Homans' sign noted on exam, no appreciated bluish discoloration, no erythema, no increased warmth, Vital Signs: 21:53 Pulse 75; Resp 18 S; Temp 97.8; Pulse Ox 100% on R/A; Weight 114.31 kg; Height 5 ft. 6 ha1 in. ; 22:15 BP 128 / 70; Pulse 76; Resp 18 S; Temp 97.1; Pulse Ox 99% on R/A; Pain 8/10; br2 21:53 Body Mass Index 40.67 (114.31 kg, 167.64 cm) ha1 22:15 Pain Scale: Adult br2 MDM: 21:56 Medical Screening Exam initiated korey 22:34 Differential Diagnosis: cardiac arrhythmia, emotional response, idiopathic syncope, korey sepsis, vasovagal episode. Data reviewed: vital signs, nurses notes, lab test result(s), EKG. Consideration of Admission/Observation Escalation of care including admission/observation considered. I considered the following discharge prescriptions or medication management in the emergency department Medications were administered in the Emergency Department. See MAR. Independent interpretation of the following test(s) in the Emergency Department EKG: See my EKG interpretation above. Test considered but Not performed: X-ray: no ct , no cxr. 12/23 21:57 Order name: CBC with Diff; Complete Time: 22:40 [facility] 12/23 21:57 Order name: Comprehensive Metabolic Panel; Complete Time: 23:24 [facility] 12/23 21:57 Order name: Troponin High Sensitivity; Complete Time: 23:24 [facility] 12/23 22:22 Order name: Flu; Complete Time: 23:46 [facility] 12/23 22:22 Order name: SARS RAPID; Complete Time: 23:36 [facility] 12/23 21:57 Order name: EKG - Nurse/Tech; Complete Time: 22:06 [facility] EC:27 Rate is 70 beats/min. QRS [place] is Normal. DE interval is normal. QRS interval is korey normal. QT interval is normal. No Q waves. T waves are Normal. No ST changes noted. Clinical impression: Normal ECG, NSR w/ Non-specific ST/T Changes, and No evidence of ischemia. Interpreted by me. Reviewed by me. Administered Medications: 23:08 Drug: NS 0.9% IV 1000 ml IV at 1000 ml once; to be given as a bolus over 60 minutes br2 Route: IV; Rate: 1000 ml; Site: right antecubital; 12/24 00:07 Follow up: IV Status: Completed infusion; IV Intake: 1000ml br2 12/23 23:08 Drug: Decadron - Dexamethasone IVP 10 mg IVP once Route: IVP; Site: right antecubital; br2 23:45 Follow up: Response: No adverse reaction br2 23:08 Not Given (Patient Refused): [id number] mg IVP once br2 23:23 CANCELLED (Duplicate Order): [id number] mg PO once korey 23:38 Drug: Zithromax IVPB 500 mg IVPB once over 1 hrs; mix in 250 mL NS Route: IVPB; Infused br2 Over: 1 hrs; Site: right antecubital; 12/24 00:06 Follow up: Response: No adverse reaction; IV Status: Completed infusion; IV Intake: br2 250ml Disposition Summary: 12/24/23 23:25 Discharge Ordered Notes: Location: Home korey Problem: new korey Symptoms: have improved korey Condition: Stable korey Diagnosis - Acute upper respiratory infection, unspecified korey - Dizziness and giddiness korey - Cough korey Followup: korey - With: Private Physician - When: 2 - 3 days - Reason: Recheck today's complaints, Continuance of care, Re-evaluation by your physician Discharge Instructions: - Discharge Summary Sheet korey - Dizziness korey - Upper Respiratory Infection, Adult korey - Viral Respiratory Infection korey - Cool Mist Vaporizer korey - Upper Respiratory Infection, Adult, [id number] korey - Cough, Adult, [id number] korey - Aspirin and Your Heart korey - Cough, Adult korey - Dizziness, [id number] korey Forms: - Medication Reconciliation Form korey - Antibiotic Education korey - Prescription Opioid Use korey - Patient Portal Instructions korey - Leadership Thank You Letter [facility] Prescriptions: - Jenni-D 12 Hour 60-120 mg Oral Tablet Sustained Release 12 hr - take 1 tablet ORAL route every 12 hours As needed; 20 tablet; Refills: 0, korey Product Selection Permitted - Tessalon Perles 100 mg Oral capsule - take 2 capsule ORAL route every 8 hours As needed; 30 capsule; Refills: 0, korey Product Selection Permitted - Zithromax Z-Jeffrey 250 mg Oral Tablet - take 1 tablet ORAL route as directed for 5 days Day 1 - take two (2) tablets korey one time. Day 2, 3, 4 , 5 take one (1) tablet once daily.; 6 tablet; Refills: 0, Product Selection Permitted - Medrol (Jeffrey) 4 mg Oral Tablets, Dose Pack - take 1 tablet ORAL route as directed - follow package instructions; 1 packet; korey Refills: 0, Product Selection Permitted Signatures: Dispatcher [employer] EDMS Leonides Stoddard MD MD cha Ayala, Heidy, RN RN ha1 Kathryn Monson RN RN br2 Corrections: (The following items were deleted from the chart) 12/23 21:58 21:58 CBC+H.LAB.BRZ ordered. EDMS EDMS 21:58 21:58 COMPREHENSIVE METABOLIC PANEL+C.LAB.BRZ ordered. EDMS EDMS 21:58 21:58 Troponin High Sensitivity+C.LAB.BRZ ordered. EDMS EDMS 21:58 21:58 Urinalysis+U.LAB.BRZ ordered. EDMS EDMS 21:58 21:58 Test, Urine+UC.LAB.BRZ ordered. EDMS EDMS 23:23 22:23 AZITHromycin PO 500 mg PO once ordered. korey nair
--- NOTE | 2023-12-24 23:26 | ER ---
Nurse's Notes [facility] Name: Janine Mckay Age: 43 yrs Sex: Female : 1980 Arrival Date: 12/24/2023 Time: 21:44 Bed 18 Private MD: Diagnosis: Acute upper respiratory infection, unspecified;Dizziness and giddiness;Cough Presentation: 12/23 21:53 Chief complaint: Patient states: NEAR SYNCOPE, DIZZINESS, RIGHT EAR PAIN. ha1 21:53 Coronavirus screen: Vaccine status: Patient reports being unvaccinated. Ebola Screen: ha1 No symptoms or risks identified at this time. Initial Sepsis Screen: Does the patient meet any 2 criteria? No. Patient's initial sepsis screen is negative. Does the patient have a suspected source of infection? No. Patient's initial sepsis screen is negative. Risk Assessment: Do you want to hurt yourself or someone else? Patient reports no desire to harm self or others. Onset of symptoms was December 24, 2023. 21:53 Method Of Arrival: Ambulatory ha1 21:53 Acuity: GRIFFIN 3 ha1 Historical: - Allergies: 22:29 PENICILLINS; ha1 - Home Meds: 22:29 Zoloft 50 mg Oral tablet daily [Active]; ha1 - PMHx: 22:29 Anxiety; Depression; Migraines; ha1 - Immunization history:: Adult Immunizations up to date. - Infectious Disease History:: Denies. - Social history:: Smoking status: Patient denies any tobacco usage or history of. - Family history:: not pertinent. Screenin:15 [facility] ED Fall Risk Assessment (Adult) History of falling in the last 3 months, br2 including since admission No falls in past 3 months (0 pts) Confusion or Disorientation No (0 pts) Intoxicated or Sedated No (0 pts) Impaired Gait No (0 pts) Mobility Assist Device Used No (0 pt) Altered Elimination Score/Fall Risk Level 0 - 2 = Low Risk Oriented to surroundings. 22:29 Abuse screen: Denies threats or abuse. Denies injuries from another. Nutritional ha1 screening: No deficits noted. Tuberculosis screening: No symptoms or risk factors identified. Assessment: 22:15 Reassessment: Patient and/or family updated on plan of care and expected duration. Pain br2 level reassessed. Patient is alert, oriented x 3, equal unlabored respirations, skin warm/dry/pink. General: Appears uncomfortable, Behavior is calm, cooperative. Pain: Complains of pain in right ear. EENT: Reports pain Pain is 8 out of 10 on a pain scale. since 3 DAYS. 23:00 Reassessment: Patient and/or family updated on plan of care and expected duration. Pain br2 level reassessed. Patient is alert, oriented x 3, equal unlabored respirations, skin warm/dry/pink. Patient states feeling better. Patient states symptoms have improved. 23:45 Reassessment: No changes from previously documented assessment. Patient and/or family br2 updated on plan of care and expected duration. Pain level reassessed. Patient is alert, oriented x 3, equal unlabored respirations, skin warm/dry/pink. Patient states feeling better. Patient states symptoms have improved. Vital Signs: 21:53 Pulse 75; Resp 18 S; Temp 97.8; Pulse Ox 100% on R/A; Weight 114.31 kg; Height 5 ft. 6 ha1 in. ; 22:15 BP 128 / 70; Pulse 76; Resp 18 S; Temp 97.1; Pulse Ox 99% on R/A; Pain 8/10; br2 21:53 Body Mass Index 40.67 (114.31 kg, 167.64 cm) ha1 22:15 Pain Scale: Adult br2 ED Course: 21:47 Patient arrived in ED. im 21:56 Leonides Stoddard MD is Attending Physician. korey 22:00 Arm band placed on. br2 22:04 Kathryn Monson RN is Primary Nurse. br2 22:06 EKG done, by supply chain tech. af3 22:15 Inserted saline lock: 20 gauge in right antecubital area, using aseptic technique. br2 Blood collected. Flushed with 10 mL NS. 22:15 Patient has correct armband on for positive identification. Placed in gown. Bed in low br2 position. Call light in reach. Side rails up X 1. Provided Education on: PLAN OF CARE. 22:28 Triage completed. ha1 12/24 00:07 IV discontinued, intact, bleeding controlled, No redness/swelling at site. Pressure br2 dressing applied. 00:07 No provider procedures requiring assistance completed. br2 Administered Medications: 12/23 23:08 Drug: NS 0.9% IV 1000 ml IV at 1000 ml once; to be given as a bolus over 60 minutes br2 Route: IV; Rate: 1000 ml; Site: right antecubital; 12/24 00:07 Follow up: IV Status: Completed infusion; IV Intake: 1000ml br2 12/23 23:08 Drug: Decadron - Dexamethasone IVP 10 mg IVP once Route: IVP; Site: right antecubital; br2 23:45 Follow up: Response: No adverse reaction br2 23:08 Not Given (Patient Refused): [id number] mg IVP once br2 23:23 CANCELLED (Duplicate Order): [id number] mg PO once [facility] 23:38 Drug: Zithromax IVPB 500 mg IVPB once over 1 hrs; mix in 250 mL NS Route: IVPB; Infused br2 Over: 1 hrs; Site: right antecubital; 12/24 00:06 Follow up: Response: No adverse reaction; IV Status: Completed infusion; IV Intake: br2 250ml Medication: 00:08 VIS not applicable for this client. br2 Intake: 00:06 IV: 250ml; Total: 250ml. br2 00:07 IV: 1000ml; Total: 1250ml. br2 Outcome: 12/23 23:25 Discharge ordered by . korey 12/24 00:07 Discharged to home ambulatory, br2 Condition: good Discharge instructions given to patient, Instructed on discharge instructions, follow up and referral plans. Demonstrated understanding of instructions, follow-up care, medications, Prescriptions given X 4, 00:08 Patient left the ED. br2 Signatures: Leonides Stoddard MD MD cha Ayala, Heidy RN RN ha1 Karen Frazier Belinda, RN RN br2 Chuyita Anderson
[2023-12-24 23:30] LABS: SARS-CoV-2 Antigen CONTROL BLUE LINE VIS/BG OK; SARS-CoV-2 Antigen Rapid Res Negative (Negative)
[2023-12-25 00:29] VITALS: BP 128/70; TEMP 97.1; O2SAT 99
--- NOTE | 2023-12-26 12:15 | EKG ---
Test Date: 2023-12-24 Test Time: 22:04:35 Transfer Station Attendant: AF MEASUREMENT RESULTS: Intervals: Rate: 70 DC: 150 QRSD: 92 QT: 416 QTc: 449 [place]: P: 49 DC: 150 QRS: 50 T: 46 INTERPRETIVE STATEMENTS: Normal sinus rhythm Low voltage QRS Borderline ECG No previous ECG available for comparison Electronically Signed On 12-26-23 12:13:28 DOCUMENTATION SPEC by Matthew Alcocer
== END 2023-12-25 00:08 | disposition home or self-care (01) ==
LOC: ER 21:44
DX: J06.9 Acute upper respiratory infection, unspecified (principal); R05.9 Cough, unspecified; Z11.52 Encounter for screening for COVID-19
CPT/HCPCS: 36415; 80053; 84484; 85025; 87804; 87811; 93005; 96361; 96365; 96375; 99284; J1100; J7030; J7050

== ENCOUNTER 2024-04-16 07:45 | Emergency (ER) | payer SELFPAY ==
--- NOTE | 2024-04-16 08:21 | RAD REPORT ---
EXAMINATION: TWO VIEW CHEST XR CLINICAL INDICATION: right neck swelling TECHNIQUE: 2 views of the chest was performed. COMPARISON: 07/05/2021, 10/20/2019 FINDINGS: The lungs are well inflated and clear. The heart is upper limit of normal in size. No displaced fract ures evident. IMPRESSION: No acute or significant abnormalities.
[2024-04-16 08:28] LABS: Hematocrit 32.4 % (36.0-45.0); Hemoglobin 10.5 g/dL (12.0-15.0); MCH 25.5 pg (27.0-35.0); MCHC 32.3 g/dL (32.0-36.0); MCV 78.9 fL (80-100); MPV 7.7 fL (7.6-11.3); Platelets 403 thou/uL (152-406); RBC Red Blood Cell Count 4.11 M/uL (3.86-4.86); Red Cell Distribution Width 16.8 % (12.1-15.2)
[2024-04-16 08:32] LABS: Anion Gap 10.1 mEq/L (5.0-15.0); Potassium 4.1 mEq/L (3.5-5.1)
--- NOTE | 2024-04-16 08:43 | RAD REPORT ---
EXAM: Soft Tissue Neck W/Contr INDICATION: right neck swelling Sagittal and coronal reformations were generated. This exam was performed according to our department al dose-optimization program, which includes automated exposure control, adjustment of the mA and/or kV according to patient size and/or use of iterative reconstruction technique. IV contrast was administered. COMPARISON: None. FINDINGS: Mucosal spaces: Nasopharynx, oropharynx, oral cavity, larynx and hypopharynx are normal. No suspiciou s masses are identified. Epiglottis is normal in configuration. True vocal cords cords are normally situated. Piriform sinuses are well-aerated. Lymph Nodes: Lymph node evaluation is limited due to non-contrast technique. Mildly prominent appeari ng bilateral cervical lymph nodes. Salivary Glands: Unremarkable. Thyroid Gland: 2.5 cm left thyroid nodule. Included Intracranial Structures: Grossly unremarkable. Included Orbits: Normal Paranasal Sinuses: Predominantly clear Tympanomastoid Cavities: Normal Vascular Structures: Normal Osseous Structures: No acute osseous abnormality. Included Lung Apices: Normal IMPRESSION: No acute or pathologic process identified. 2.5 cm left thyroid nodule. Follow-up nonemergent thyroid sonography is suggested.
--- NOTE | 2024-04-16 09:27 | EDPHYS ---
Physician Documentation [facility] Name: Janine Mckay Age: 43 yrs Sex: Female : 1980 Arrival Date: 04/16/2024 Time: 07:45 Bed 8 Private MD: ED Physician Elliot Edmonds HPI: 04/16 18:29 This 43 yrs old Female presents to ER via Ambulatory with complaints of Neck Swelling. ms3 18:29 43-year-old female presents to the emergency department for right neck swelling that ms3 has been ongoing for 4 days. Patient endorses nausea and cough. Patient denies vomiting or pain.. 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 - Infectious Disease History:: Denies. - Social history:: Smoking status: Patient denies any tobacco usage or history of. ROS: 18:29 Constitutional: Negative for fever, and chills. Cardiovascular: Negative for chest ms3 pain, and palpitations. 18:29 MS/Extremity: Negative for injury and deformity, Skin: Negative for injury, rash, and discoloration, 18:29 Neck: Positive for Right sided neck swelling, 18:29 Respiratory: Positive for cough, 18:29 Abdomen/GI: Positive for nausea, Negative for vomiting, Exam: 18:29 Constitutional: This is a well developed, well nourished patient who is awake, alert, ms3 and in no acute distress. Cardiovascular: Regular rate and rhythm with a normal S1 and S2. No gallops, murmurs, or rubs. Normal PMI, no JVD. No pulse deficits. Respiratory: Lungs have equal breath sounds bilaterally, clear to auscultation and percussion. No rales, rhonchi or wheezes noted. No increased work of breathing, no retractions or nasal flaring. Abdomen/GI: Soft, non-tender, with normal bowel sounds. No distension or tympany. No guarding or rebound. No evidence of tenderness throughout. Skin: Warm, dry with normal turgor. Normal color with no rashes, no lesions, and no evidence of cellulitis. MS/ Extremity: Pulses equal, no cyanosis. Neurovascular intact. Full, normal range of motion. 18:29 Musculoskeletal/extremity: Mild swelling over right lateral neck, nontender to palpation, no crepitus felt. Vital Signs: 07:55 BP 140 / 73; Pulse 90; Resp 16 S; Temp 98.3(O); Pulse Ox 100% on R/A; Weight 126.1 kg aa5 (R); Height 5 ft. 6 in. (R); 09:34 BP 121 / 71; Pulse 79; Resp 16; Temp 97.8; Pulse Ox 100% ; ll1 07:55 Body Mass Index 44.87 (126.10 kg, 167.64 cm) aa5 MDM: 07:59 Medical Screening Exam initiated ms3 18:29 Differential diagnosis: Pneumothorax versus lymphadenopathy versus abscess. Data ms3 reviewed: vital signs, nurses notes, lab test result(s), radiologic studies, and as a result, I will discharge patient. Counseling: I had a detailed discussion with the patient and/or guardian regarding the historical points, exam findings, and any diagnostic results supporting the discharge/admit diagnosis, lab results, radiology results, the need for outpatient follow up, to return to the emergency department if symptoms worsen or persist or if there are any questions or concerns that arise at home. Special discussion: I discussed with the patient/guardian in detail that at this point there is no indication for admission to the hospital. It is understood, however, that if the symptoms persist or worsen the patient needs to return immediately for re-evaluation. Special discussion: I discussed with the patient the need to follow-up with the PCP/specialist for the noted incidental finding on X-ray/CT scanning. ED course: Discussed labs and imaging with patient. Discussed left thyroid nodule requiring nonemergent ultrasound with the patient. Discussed labs and imaging with patient. Patient to follow-up with primary care physician 2 to 3 days. Patient understands and agrees with plan. All questions were answered. Return precautions discussed include worsening symptoms, or any other concerns.. 04/16 08:01 Order name: CBC w/o diff; Complete Time: 08:50 ms3 04/16 08:01 Order name: BMP; Complete Time: 08:50 ms3 04/16 08:01 Order name: Chest Pa And Lat (2 Views) XRAY; Complete Time: 08:23 ms3 04/16 08:01 Order name: CT Soft Tissue Neck W/contr; Complete Time: 08:50 ms3 04/16 08:01 Order name: IV; Complete Time: 08:04 ms3 Administered Medications: No medications were administered Disposition Summary: 04/16/24 09:27 Discharge Ordered Notes: Location: Home ms3 Condition: Stable ms3 Diagnosis - Localized swelling, mass and lump, neck ms3 - Left Thyroid Nodule ms3 Followup: ms3 - With: Syd Griggs DO - When: 2 - 3 days - Reason: Recheck today's complaints Discharge Instructions: - Discharge Summary Sheet ll1 - Thyroid Nodule ms3 Forms: - Work release form ll1 - Medication Reconciliation Form ms3 - Antibiotic Education ms3 - Prescription Opioid Use ms3 - Patient Portal Instructions ms3 - Leadership Thank You Letter ms3 Signatures: Dispatcher [employer] Anayeli Cramer RN RN aa5 Elliot Edmonds DO DO ms3 Corrections: (The following items were deleted from the chart) 08:02 08:02 Soft Tissue Neck W/Contr+CT.RAD.BRZ ordered. EDMS EDMS 08:02 08:02 CBC without Diff+H.LAB.BRZ ordered. EDMS EDMS 08:02 08:02 BASIC METABOLIC PANEL+C.LAB.BRZ ordered. EDMS EDMS
--- NOTE | 2024-04-16 09:27 | ER ---
Nurse's Notes [facility] Name: Janine Mckay Age: 43 yrs Sex: Female : 1980 Arrival Date: 04/16/2024 Time: 07:45 Bed 8 Private MD: Diagnosis: Localized swelling, mass and lump, neck;Left Thyroid Nodule Presentation: 04/16 07:55 Chief complaint: Patient states: "I have this swelling on the right side (pt points to aa5 right clavicular area) for about 4 days". Pt also reports cold symptoms. Coronavirus screen: At this time, the client does not indicate any symptoms associated with coronavirus-19. Ebola Screen: Patient denies travel to an Ebola-affected area in the 21 days before illness onset. Initial Sepsis Screen: Does the patient meet any 2 criteria? No. Patient's initial sepsis screen is negative. Does the patient have a suspected source of infection? No. Patient's initial sepsis screen is negative. Risk Assessment: Do you want to hurt yourself or someone else? Patient reports no desire to harm self or others. Onset of symptoms was March 2024. 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 - Infectious Disease History:: Denies. - Social history:: Smoking status: Patient denies any tobacco usage or history of. Screenin:14 [facility] ED Fall Risk Assessment (Adult) History of falling in the last 3 months, ll1 including since admission No falls in past 3 months (0 pts) Confusion or Disorientation No (0 pts) Intoxicated or Sedated No (0 pts) Impaired Gait No (0 pts) Mobility Assist Device Used No (0 pt) Altered Elimination No (0 pt) Score/Fall Risk Level 0 - 2 = Low Risk Maintained a safe environment, Hourly rounding (assess needs \\T\\ fall precautionary measures) done. Abuse screen: Denies threats or abuse. Nutritional screening: No deficits noted. Tuberculosis screening: No symptoms or risk factors identified. Assessment: 08:08 General: Appears in no apparent distress. Behavior is calm, cooperative, appropriate ll1 for age. Pain: Complains of pain in R neck Quality of pain is described as aching. Respiratory: Reports cough that is. EENT: Reports lost her voice, coming back now. Feels swelling to R side of neck area now.. 09:32 Reassessment: No changes from previously documented assessment. Patient and/or family ll1 updated on plan of care and expected duration. Pain level reassessed. Patient is alert, oriented x 3, equal unlabored respirations, skin warm/dry/pink. Vital Signs: 07:55 BP 140 / 73; Pulse 90; Resp 16 S; Temp 98.3(O); Pulse Ox 100% on R/A; Weight 126.1 kg aa5 (R); Height 5 ft. 6 in. (R); 09:34 BP 121 / 71; Pulse 79; Resp 16; Temp 97.8; Pulse Ox 100% ; ll1 07:55 Body Mass Index 44.87 (126.10 kg, 167.64 cm) aa5 ED Course: 07:47 Patient arrived in ED. mr 07:48 Elliot Edmonds DO is Attending Physician. ms3 07:55 Mahendra Nevarez, RN is Primary Nurse. ll1 07:55 Arm band placed on Patient placed in an exam room, on a stretcher. aa5 07:57 Triage completed. aa5 08:08 Initial lab(s) drawn, by ca, sent to lab. Inserted saline lock: 22 gauge in right ll1 antecubital area, using aseptic technique. Blood collected. Flushed with 10 mL NS. 08:15 Patient has correct armband on for positive identification. Bed in low position. ll1 Provided Education on: ER procedures and process. Cardiac monitoring not applicable on this patient. 08:18 Chest Pa And Lat (2 Views) XRAY In Process Unspecified. EDMS 08:27 CT Soft Tissue Neck W/contr In Process Unspecified. EDMS 09:14 Syd Griggs DO is Referral Physician. ms3 09:34 No provider procedures requiring assistance completed. Patient did not have IV access ll1 during this emergency room visit. Administered Medications: No medications were administered Medication: 08:15 VIS not applicable for this client. ll1 Outcome: 09:27 Discharge ordered by . ms3 09:34 Patient left the ED. ll1 09:34 Discharged to home ambulatory, ll1 09:34 Condition: stable 09:34 Discharge instructions given to patient, Instructed on discharge instructions, follow up and referral plans. Demonstrated understanding of instructions, follow-up care, Signatures: Dispatcher [employer] EDMS Citlali Osorio, Reg Reg mr MaicolAnayeli, RN RN aa5 Mahendra Nevarez RN RN ll1 Elliot Edmonds, DO ms3
[2024-04-16 09:38] VITALS: BP 140/73; TEMP 98.3; O2SAT 100
== END 2024-04-16 09:34 | disposition home or self-care (01) ==
LOC: ER 07:45
DX: E04.1 Nontoxic single thyroid nodule (principal)
CPT/HCPCS: 36415; 70491; 71046; 80048; 85027; 99283; Q9967

== ENCOUNTER 2024-07-14 06:02 | Emergency (ER) | payer SELFPAY ==
[2024-07-14] MEDS ORDERED: METHOCARBAMOL 1,000 MG/10 ML VIAL ONE (06:27)
[2024-07-14] MEDS ORDERED: NA CHLORIDE 0.9% 100 ML ONE (06:27)
[2024-07-14] MEDS ORDERED: KETOROLAC 30 MG/ML INJ ONE (06:27)
[2024-07-14] MEDS ORDERED: NA CHLORIDE 0.9% 1,000 ML ONE (06:27)
[2024-07-14 06:43] LABS: Absolute Eosinophils 0.2 K/uL (0-0.5); Absolute Lymphocytes (CBC) 3.1 K/uL (0.7-4.9); Absolute Monocytes 0.8 K/uL (0.1-1.3); Absolute Neutrophil 5.2 K/uL (1.8-8.0); Basophils % 0.5 % (0-1.3); Eosinophils % 2.5 % (0-4.4); Hematocrit 34.5 % (36.0-45.0); Hemoglobin 11.3 g/dL (12.0-15.0); Lymphocytes % 33.3 % (15.3-44.8); MCH 25.7 pg (27.0-35.0); MCHC 32.9 g/dL (32.0-36.0); MCV 78.1 fL (80-100); MPV 7.6 fL (7.6-11.3); Monocytes % 8.5 % (3.3-12.3); Neutrophils % 55.2 % (41.7-73.7); Nucleated Red Blood Cells % 0.1 % (0-0); Platelets 507 thou/uL (152-406); RBC Red Blood Cell Count 4.41 M/uL (3.86-4.86); Red Cell Distribution Width 17.4 % (12.1-15.2)
[2024-07-14 06:55] LABS: Specific Gravity > 1.030 (1.005-1.030)
[2024-07-14 07:07] LABS: Specific Gravity > 1.030 (1.005-1.030); Urine Bacteria <20 /HPF (<20); Urine Bilirubin NEGATIVE (Negative); Urine Blood 1+ (Negative); Urine Clarity Extremely Turbid (Clear); Urine Color Light-Orange (Yellow); Urine Glucose NEGATIVE (Negative); Urine Ketones NEGATIVE (Negative); Urine Micro Reflex YN NO BILL MICROSCOPIC; Urine Mucus 4+ /HPF (None Seen); Urine Nitrite NEGATIVE (Negative); Urine Protein TRACE (Negative); Urine Urobilinogen Normal (Normal); Urine WBC >50 /HPF (<5); Urine pH 5.5 (5.0-7.0)
[2024-07-14 07:08] LABS: Albumin 3.7 g/dL (3.4-5.0); Albumin/Globulin Ratio 0.9 (1.1-1.8); Anion Gap 7.8 mEq/L (5.0-15.0); Bilirubin Total 0.9 mg/dL (0.2-1.0); Potassium 3.8 mEq/L (3.5-5.1); Protein, Total 7.7 g/dL (6.4-8.2)
[2024-07-14] MEDS ORDERED: CEFTRIAXONE 1000 MG/VIAL ONE (07:25)
--- NOTE | 2024-07-14 07:39 | RAD REPORT ---
EXAMINATION: Abdomen Pelvis W Contrast CLINICAL INDICATION: Female, 44 years old.ABD PAIN TECHNIQUE: CT abdomen and pelvis was performed, after the administration of IV contrast, as [facility]. Axial, sagittal and coronal reconstructions were obtained. One or more of the following dose reduction techniques were used: Automated exposure control, adjustment of the mA and/o r kV according to patient size, and/or iterative reconstruction. Unless otherwise specified, incidental findings do not require dedicated imaging follow-up. [id number]. COMPARISON: 05/08/2023 FINDINGS: LOWER CHEST: No acute process identified.Mild cardiomegaly. UPPER GI: No significant abnormality. LIVER: Hepatic steatosis, but otherwise unremarkable. GALLBLADDER/BILE DUCTS: No biliary ductal dilatation.? PANCREAS: No mass, ductal dilation, or joao-pancreatic fluid. SPLEEN: Unremarkable. ADRENALS: No adrenal masses. KIDNEYS AND URETERS: No hydronephrosis.No suspicious renal mass.No renal calculi. ABDOMINAL AORTA AND OTHER VESSELS: Normal caliber aorta and IVC. PERITONEUM: No abnormal free fluid. No free air. LYMPH NODES: No pathologic lymphadenopathy. ABDOMINAL WALL: Unremarkable SMALL BOWEL/COLON: Small bowel has normal course and caliber. No colonic wall thickening or pericolon ic inflammatory changes.Normal appendix. URINARY BLADDER: Underdistended but grossly unremarkable. REPRODUCTIVE ORGANS: No pathologic process. MUSCULOSKELETAL: Mild disc height loss at L4-5 and L5-S1. ADDITIONAL FINDINGS: None. IMPRESSION: No acute findings within the abdomen or pelvis. No appendicitis.
--- NOTE | 2024-07-14 08:01 | ER ---
Nurse's Notes [facility] Name: Janine Mckay Age: 44 yrs Sex: Female : 1980 Arrival Date: 07/14/2024 Time: 06:02 Bed 13 Private MD: Diagnosis: UTI/ Urinary tract infection, site not specified;Abdominal pain, unspecified Presentation: 07/14 06:05 Chief complaint: Patient states: RIGHT UPPER QUADRANT PAIN FOR THE PAST THREE DAYS, ha1 PAIN RADIATES TO RIGHT SIDE OF BACK. 06:05 Coronavirus screen: Client denies travel out of the [place] in the last 14 days. Ebola ha1 Screen: No symptoms or risks identified at this time. Initial Sepsis Screen: Does the patient meet any 2 criteria? No. Patient's initial sepsis screen is negative. Does the patient have a suspected source of infection? No. Patient's initial sepsis screen is negative. Risk Assessment: Do you want to hurt yourself or someone else? Patient reports no desire to harm self or others. Onset of symptoms was July 14, 2024. 06:05 Method Of Arrival: Ambulatory ha1 06:05 Acuity: GRIFFIN 3 ha1 Triage Assessment: 06:05 General: Appears uncomfortable, Behavior is cooperative. Pain: Complains of pain in ha1 right upper quadrant Pain currently is 7 out of 10 on a pain scale. Quality of pain is described as aching. Neuro: Level of Consciousness is awake, alert, obeys commands, Oriented to person, place, time, situation. Cardiovascular: Capillary refill < 3 seconds Patient's skin is warm and dry. Respiratory: Airway is patent Respiratory effort is even, unlabored, Respiratory pattern is regular, symmetrical. GI: Abdomen is round non-distended, obese, Bowel sounds present X 4 quads. Reports upper abdominal pain. RADIOLOGICAL ENGINEER: 06:39 11, Full Term 10, Premature 0, 1, Living 10, unknown jr13 Historical: - Allergies: 06:05 PENICILLINS; ha1 - PMHx: 06:05 Anxiety; Depression; Migraines; ha1 - Immunization history:: Adult Immunizations up to date. - Infectious Disease History:: Denies. - Social history:: Smoking status: Patient denies any tobacco usage or history of. - Family history:: not pertinent. Screenin: [facility] ED Fall Risk Assessment (Adult) History of falling in the last 3 months, ha1 including since admission No falls in past 3 months (0 pts) Confusion or Disorientation No (0 pts) Intoxicated or Sedated No (0 pts) Impaired Gait No (0 pts) Mobility Assist Device Used No (0 pt) Altered Elimination No (0 pt) Score/Fall Risk Level 0 - 2 = Low Risk Oriented to surroundings, Maintained a safe environment, Educated pt \T\ family on fall prevention, incl call for assistance when getting out of bed, Hourly rounding (assess needs \T\ fall precautionary measures) done. Abuse screen: Denies threats or abuse. Denies injuries from another. Nutritional screening: No deficits noted. Tuberculosis screening: No symptoms or risk factors identified. Assessment: 06:14 General: Appears uncomfortable, Behavior is calm, cooperative. Pain: Complains of pain jr13 in abdomen Pain radiates to back Pain currently is 7 out of 10 on a pain scale. Neuro: No deficits noted. Level of Consciousness is awake, alert, obeys commands, Oriented to person, place, time, situation, Appropriate for age. Cardiovascular: No deficits noted. Capillary refill < 3 seconds. Respiratory: No deficits noted. Airway is patent. GI: Abdomen is round Bowel sounds present X 4 quads. Abd is soft X 4 quads. : No deficits noted. EENT: No signs and/or symptoms were reported regarding the EENT system. Derm: No signs and/or symptoms reported regarding the dermatologic system. Musculoskeletal: No signs and/or symptoms reported regarding the musculoskeletal system. Circulation, motion, and sensation intact. Capillary refill < 3 seconds. 07:37 Reassessment: Patient and/or family updated on plan of care and expected duration. Pain mb9 level reassessed. Patient is alert, oriented x 3, equal unlabored respirations, skin warm/dry/pink. Patient states feeling better. Patient states symptoms have improved. 08:39 Reassessment: Patient states feeling better. Patient states symptoms have improved. mb9 Vital Signs: 06:05 BP 141 / 97; Pulse 104; Resp 19 S; Temp 98.3(O); Pulse Ox 100% on R/A; Weight 123.38 ha1 kg; Height 5 ft. 6 in. ; Pain 7/10; 06:38 BP 119 / 75; Pulse 87; Resp 19; Pulse Ox 99% on R/A; jr13 08:39 BP 121 / 84; Pulse 74; Resp 18; Pulse Ox 100% on R/A; mb9 06:05 Body Mass Index 43.90 (123.38 kg, 167.64 cm) ha1 06:05 Pain Scale: Adult ha1 [place] Coma Score: 06:35 Eye Response: spontaneous(4). Motor Response: obeys commands(6). Verbal Response: sp4 oriented(5). Total: 15. ED Course: 06:04 Patient arrived in ED. mr 06:05 Patient has correct armband on for positive identification. Bed in low position. Call ha1 light in reach. Side rails up X 1. Adult w/ patient. 06:13 Carlita Stephen, PASTORA is Primary Nurse. jr13 06:16 Arnaldo Diamond MD is Attending Physician. sp4 06:19 Inserted saline lock: 20 gauge in left antecubital area, using aseptic technique. jr13 06:23 Triage completed. ha1 06:29 CBC with Diff Sent. oe 06:29 CMP Sent. oe 06:29 Lipase Sent. oe 06:29 Test, Urine Sent. oe 06:29 UA W/ Microscopic Sent. oe 06:38 Provided Education on: Educated on plan of care. jr13 06:39 Arm band placed on right wrist. Patient placed in an exam room, on ekg monitor tech, on jr13 pulse oximetry. 07:17 Attending Physician role handed off by Arnaldo Diamond MD korey 07:17 Leonides Stoddard MD is Attending Physician. korey 07:31 CT Abd/Pelvis - IV Contrast Only In Process Unspecified. EDMS 08:40 No provider procedures requiring assistance completed. IV discontinued, intact, mb9 bleeding controlled, No redness/swelling at site. Pressure dressing applied. Administered Medications: 06:37 Drug: TORadol - Ketorolac IVP 30 mg IVP once Route: IVP; Site: left antecubital; jr13 07:36 Follow up: Response: No adverse reaction mb9 06:37 Drug: NS 0.9% IV 1000 ml IV at 1 bolus Per protocol; to be given as a bolus over 60 jr13 minutes Route: IV; Rate: 1 bolus; Site: left antecubital; 07:36 Follow up: Response: No adverse reaction; IV Status: Completed infusion mb9 06:37 Drug: Methocarbamol IVPB 1 grams IVPB once over 1 hrs; (mix in NS 100 mL) Route: IVPB; jr13 Infused Over: 1 hrs; Site: left antecubital; 07:37 Follow up: Response: No adverse reaction; IV Status: Completed infusion mb9 07:36 Drug: Rocephin IV 1 grams IV at per protocol once; Given slow IV push per pharmacy mb9 instructions Route: IV; Rate: per protocol; Site: left antecubital; 08:39 Follow up: Response: No adverse reaction; IV Status: Completed infusion mb9 08:30 Drug: Ciprofloxacin PO 500 mg PO once Route: PO; mb9 08:39 Follow up: Response: No adverse reaction mb9 Medication: 06:39 VIS not applicable for this client. jr13 Outcome: 08:01 Discharge ordered by . korey 08:39 Discharged to home ambulatory, 08:39 Condition: stable 08:39 Discharge instructions given to patient, Instructed on discharge instructions, follow up and referral plans. Demonstrated understanding of instructions, follow-up care, medications, Prescriptions given X 3, 08:40 Patient left the ED. mb9 Signatures: Dispatcher [employer] EDMS Leonides Stoddard MD MD cha Rivera, Mary, Reg Reg Rosendo Chrislando Sheila Whitlock RN RN ha1 Citlali Robins, RN RN mb9 Arnaldo Diamond MD MD sp4 Carlita Stephen RN RN jr13 Corrections: (The following items were deleted from the chart) 06:25 06:05 Chief complaint: Patient states: RIGHT UPPER QUADRANT PAIN, RADIATES TO RIGHT ha1 SIDE OF BACK ha1
--- NOTE | 2024-07-14 08:01 | EDPHYS ---
Physician Documentation [facility] Name: Janine Mckay Age: 44 yrs Sex: Female : 1980 Arrival Date: 07/14/2024 Time: 06:02 Bed 13 Private MD: ED Physician Leonides Stoddard HPI: 07/14 06:16 This 44 yrs old Other Race Female presents to ER via Unassigned with complaints of sp4 Abdominal Pain, Back Pain. 06:35 Patient with history of anxiety depression and migraines presents with acute onset of sp4 right flank pain right lower back pain starting 2 days ago. Worsening this morning.. SUBMARINE DIVER: 06:39 11, Full Term 10, Premature 0, 1, Living 10, unknown jr13 Historical: - Allergies: 06:05 PENICILLINS; ha1 - PMHx: 06:05 Anxiety; Depression; Migraines; ha1 - Immunization history:: Adult Immunizations up to date. - Infectious Disease History:: Denies. - Social history:: Smoking status: Patient denies any tobacco usage or history of. - Family history:: not pertinent. ROS: 06:35 Constitutional: Negative for fever, chills, and weight loss, positive for right flank sp4 pain positive for right lower back pain 06:35 All other systems are negative, Exam: 06:35 Constitutional: This is a well developed, well nourished patient who is awake, alert, sp4 and in no acute distress. Head/Face: Normocephalic, atraumatic. Eyes: Pupils equal round and reactive to light, extra-ocular motions intact. Lids and lashes normal. Conjunctiva and sclera are not injected. Cornea within normal limits. Periorbital areas with no swelling, redness, or edema. ENT: Nares patent. No nasal discharge, no septal abnormalities noted. Tympanic membranes are normal and external auditory canals are clear. Oropharynx with no redness, swelling, or masses, exudates, or evidence of obstruction, uvula midline. Mucous membranes moist. Neck: Trachea midline, no thyromegaly or masses palpated, and no cervical lymphadenopathy. Supple, full range of motion without nuchal rigidity, or vertebral point tenderness. Chest/axilla: Normal chest wall appearance and motion. Nontender with no deformity. No lesions are appreciated. Cardiovascular: Regular rate and rhythm with a normal S1 and S2. No gallops, murmurs, or rubs. Normal PMI, no JVD. No pulse deficits. Respiratory: Lungs have equal breath sounds bilaterally, clear to auscultation and percussion. No rales, rhonchi or wheezes noted. No increased work of breathing, no retractions or nasal flaring. Abdomen/GI: Soft, with normal bowel sounds. No distension or tympany. No guarding or rebound. No evidence of tenderness throughout. Back: No spinal tenderness. No costovertebral tenderness. Skin: Warm, dry with normal turgor. Normal color with no rashes, no lesions, and no evidence of cellulitis. MS/ Extremity: Pulses equal, no cyanosis. Neurovascular intact. Full, normal range of motion. Neuro: Awake and alert, GCS 15, oriented to person, place, time, and situation. Cranial nerves II-XII grossly intact. Motor strength 5/5 in all extremities. Sensory grossly intact. Psych: Awake, alert, with orientation to person, place and time. Behavior, mood, and affect are within normal limits Vital Signs: 06:05 BP 141 / 97; Pulse 104; Resp 19 S; Temp 98.3(O); Pulse Ox 100% on R/A; Weight 123.38 ha1 kg; Height 5 ft. 6 in. ; Pain 7/10; 06:38 BP 119 / 75; Pulse 87; Resp 19; Pulse Ox 99% on R/A; jr13 08:39 BP 121 / 84; Pulse 74; Resp 18; Pulse Ox 100% on R/A; mb9 06:05 Body Mass Index 43.90 (123.38 kg, 167.64 cm) ha1 06:05 Pain Scale: Adult ha1 [place] Coma Score: 06:35 Eye Response: spontaneous(4). Motor Response: obeys commands(6). Verbal Response: sp4 oriented(5). Total: 15. MDM: 06:37 Differential diagnosis: arthritis, Fatigue Fracture Obesity Osteoarthritis Osteoporosis sp4 Pyelonephritis Scoliosis. Data reviewed: vital signs, nurses notes, lab test result(s), radiologic studies, CT scan. Consideration of Admission/Observation Escalation of care including admission/observation considered. Transition of care: After a detail discussion of the patient's case, care is transferred to Leonides Stoddard MD. 07:17 Medical Screening Exam initiated korey 07/14 06:20 Order name: CBC with Diff; Complete Time: 07:16 sp4 07/14 06:20 Order name: CMP; Complete Time: 07:16 sp4 07/14 06:20 Order name: Lipase; Complete Time: 07:16 sp4 07/14 06:20 Order name: Test, Urine; Complete Time: 07:16 sp4 07/14 06:21 Order name: UA W/ Microscopic; Complete Time: 07:16 sp4 07/14 06:20 Order name: CT Abd/Pelvis - IV Contrast Only; Complete Time: 07:42 sp4 07/14 06:20 Order name: IV Saline Lock; Complete Time: 06:29 sp4 07/14 06:20 Order name: Labs collected and sent; Complete Time: 06:29 sp4 Administered Medications: 06:37 Drug: TORadol - Ketorolac IVP 30 mg IVP once Route: IVP; Site: left antecubital; jr13 07:36 Follow up: Response: No adverse reaction mb9 06:37 Drug: NS 0.9% IV 1000 ml IV at 1 bolus Per protocol; to be given as a bolus over 60 jr13 minutes Route: IV; Rate: 1 bolus; Site: left antecubital; 07:36 Follow up: Response: No adverse reaction; IV Status: Completed infusion mb9 06:37 Drug: Methocarbamol IVPB 1 grams IVPB once over 1 hrs; (mix in NS 100 mL) Route: IVPB; jr13 Infused Over: 1 hrs; Site: left antecubital; 07:37 Follow up: Response: No adverse reaction; IV Status: Completed infusion mb9 07:36 Drug: Rocephin IV 1 grams IV at per protocol once; Given slow IV push per pharmacy mb9 instructions Route: IV; Rate: per protocol; Site: left antecubital; 08:39 Follow up: Response: No adverse reaction; IV Status: Completed infusion mb9 08:30 Drug: Ciprofloxacin PO 500 mg PO once Route: PO; mb9 08:39 Follow up: Response: No adverse reaction mb9 Disposition Summary: 07/14/24 08:01 Discharge Ordered Notes: Location: Home korey Problem: new korey Symptoms: have improved korey Condition: Stable korey Diagnosis - UTI/ Urinary tract infection, site not specified korey - Abdominal pain, unspecified korey Followup: korey - With: Private Physician - When: 2 - 3 days - Reason: Recheck today's complaints, Continuance of care, Re-evaluation by your physician Discharge Instructions: - Discharge Summary Sheet korey - Abdominal Pain, Adult korey - Dysuria korey - Urinary Tract Infection, Adult korey - Urinary Tract Infection, Adult, [id number] korey - Abdominal Pain, Adult, [id number] korey Forms: - Medication Reconciliation Form korey - Antibiotic Education korey - Prescription Opioid Use korey - Patient Portal [facility]ructions [facility] Thank You Letter [facility] Prescriptions: - cefdinir 300 mg Oral capsule - take 1 capsule ORAL route 2 times per day for 7 days; 14 capsule; Refills: 0, korey Product Selection Permitted - Cipro 250 mg Oral tablet - take 1 tablet ORAL route every 12 hours; 10 tablet; Refills: 0, Product korey Selection Permitted - dicyclomine 20 mg Oral tablet - take 1 tablet ORAL route 4 times per day; 28 tablet; Refills: 0, Product korey Selection Permitted Signatures: Dispatcher [employer] EDLeonides Fajardo MD MD cha Ayala, Heidy, RN RN ha1 Citlali Robins RN RN mb9 Arnaldo Diamond MD MD sp4 Carlita Stephen RN RN jr13 Corrections: (The following items were deleted from the chart) 06:21 06:21 CBC+H.LAB.BRZ ordered. EDMS EDMS 06:21 06:21 COMPREHENSIVE METABOLIC PANEL+C.LAB.BRZ ordered. EDMS EDMS 06:21 06:21 LIPASE+C.LAB.BRZ ordered. EDMS EDMS 06:21 06:21 Test, Urine+UC.LAB.BRZ ordered. EDMS EDMS 06:21 06:21 Abdomen Pelvis W Con+CT.RAD.BRZ ordered. EDMS EDMS 06:21 06:21 UA W/ Microscopic+U.LAB.BRZ ordered. EDMS EDMS
[2024-07-14] MEDS ORDERED: CIPROFLOXACIN HCL 500 MG TAB ONE (08:34)
[2024-07-14 08:44] VITALS: TEMP 98.3
[2024-07-14 08:47] VITALS: BP 121/84; O2SAT 100
== END 2024-07-14 08:40 | disposition home or self-care (01) ==
LOC: ER 06:02
DX: N39.0 Urinary tract infection, site not specified (principal)
CPT/HCPCS: 36415; 74177; 80053; 81001; 81025; 83690; 85025; 96365; 96375; 99284; J0696; J2800; J7030; Q9967